=== PATIENT | male | born 1955 | race Caucasian/White ===

== ENCOUNTER 2019-11-26 19:17 | Inpatient (IN) | payer OTHER ==
[~2019-11-26] VITALS: Ht 170.2 cm; Wt 68.8 kg
--- NOTE | 2019-11-26 19:30 | ED Fall/Injury ---
General Chief Complaint: Lower Extremity Stated Complaint: RIGHT HIP PAIN Source: patient, EMS History of Present Illness Date Seen by Provider: Nov 26, 2019 Time Seen by Provider: 19:17 Initial Comments 64 yo M that had fallen on pavement tonight and had R hip pain. He was unable to move right leg or stand due to the pain. He has a history of diabetes. He denies hitting his head or losing consciousness. He has no numbness or tingling in his legs. He has severe pain in right hip that is worse with any movement in the hip or leg on right side. He has not tried taking anything for pain. Allergies and Home Medications Allergies Coded Allergies: hydrocodone (Verified Allergy, Unknown, 11/26/19) Patient Home Medication List Home Medication List Reviewed: Yes Review of Systems Review of Systems Constitutional: No chills, No fever Eyes: Denies Blurred Vision Ears, Nose, Mouth, Throat: no symptoms reported Respiratory: no symptoms reported Cardiovascular: no symptoms reported Gastrointestinal: no symptoms reported Genitourinary: no symptoms reported Musculoskeletal: see HPI Skin: no symptoms reported Psychiatric/Neurological: No Symptoms Reported Past Stxopuo-Smikbu-Vpfjcc Hx Past Med/Social Hx: Reviewed Nursing Past Med/Soc Hx Patient Social History Smoking Status: Current Everyday Smoker Past Medical History Surgeries: Yes Nose (cancer on nose) Cardiac: No Neurological: No Genitourinary: No Gastrointestinal: No Musculoskeletal: No Endocrine: Yes Diabetes, Non-Insulin dep Physical Exam Vital Signs Vital Signs - First Documented 11/26/19 19:29 Temp 36.8 Pulse 92 Resp 20 B/P (MAP) 150/77 (101) Pulse Ox 93 O2 Delivery Room Air Capillary Refill : Height, Weight, BMI Height: '" Weight: lbs. oz. kg; BMI Method: General Appearance: WD/WN, moderate distress (complains pain in right hip) HEENT: pharynx normal Neck: non-tender, full range of motion, supple, normal inspection Cardiovascular: normal peripheral pulses, regular rate, rhythm Respiratory: chest non-tender, lungs clear, normal breath sounds Gastrointestinal: normal bowel sounds, soft, no pulsatile mass Extremities: no pedal edema, normal capillary refill, other (pain in right hip worse with movement and palpation. shortening of right leg) Neurologic/Psychiatric: manager [place] II-XII nml as tested, no motor/sensory deficits, alert, normal mood/affect, oriented x 3 Skin: normal color, warm/dry [place] Coma Score Best Eye Response: (4) Open Spontaneously Best Verbal Response: (5) Oriented Best Motor Response: (6) Obeys Commands Avelino Total: 15 Progress/Results/Core Measures Results/Orders Lab Results Laboratory Tests Test 11/26/19 19:55 Range/Units White Blood Count 9.8 4.3-11.0 10^3/uL Red Blood Count 4.20 L 4.35-5.85 10^6/uL Hemoglobin 12.9 L 13.3-17.7 G/DL Hematocrit 40 40-54 % Mean Corpuscular Volume 95 80-99 FL Mean Corpuscular Hemoglobin 31 25-34 PG Mean Corpuscular Hemoglobin Concent 32 32-36 G/DL Red Cell Distribution Width 12.7 10.0-14.5 % Platelet Count 203 130-400 10^3/uL Mean Platelet Volume 9.4 7.4-10.4 FL Neutrophils (%) (Auto) 82 H 42-75 % Lymphocytes (%) (Auto) 12 12-44 % Monocytes (%) (Auto) 5 0-12 % Eosinophils (%) (Auto) 0 0-10 % Basophils (%) (Auto) 0 0-10 % Neutrophils # (Auto) 8.0 H 1.8-7.8 X 10^3 Lymphocytes # (Auto) 1.2 1.0-4.0 X 10^3 Monocytes # (Auto) 0.5 0.0-1.0 X 10^3 Eosinophils # (Auto) 0.0 0.0-0.3 10^3/uL Basophils # (Auto) 0.0 0.0-0.1 10^3/uL Sodium Level 138 135-145 MMOL/L Potassium Level 4.7 3.6-5.0 MMOL/L Chloride Level 97 L 98-107 MMOL/L Carbon Dioxide Level 25 21-32 MMOL/L Anion Gap 16 H 5-14 MMOL/L Blood Urea Nitrogen 18 7-18 MG/DL Creatinine 1.73 H 0.60-1.30 MG/DL Estimat Glomerular Filtration Rate 40 BUN/Creatinine Ratio 10 Glucose Level 341 H 70-105 MG/DL Calcium Level 9.9 8.5-10.1 MG/DL Corrected Calcium 9.6 8.5-10.1 MG/DL Total Bilirubin 0.5 0.1-1.0 MG/DL Aspartate Amino Transf (AST/SGOT) 23 5-34 U/L Alanine Aminotransferase (ALT/SGPT) 17 0-55 U/L Alkaline Phosphatase 94 40-136 U/L Total Protein 7.1 6.4-8.2 GM/DL Albumin 4.4 3.2-4.5 GM/DL My Orders Orders - ANNIA GLASS MD Pelvis With Right Hip 2-3 View (11/26/19 19:29) Comprehensive Metabolic Panel (11/26/19 19:48) Ua Culture If Indicated (11/26/19 19:48) Ed Iv/Invasive Line Start (11/26/19 19:48) Cbc With Automated Diff (11/26/19 19:48) Fentanyl Injection (Sublimaze Injection (11/26/19 20:00) Medications Given in ED Current Medications Medications Dose Ordered Sig/Kd Route Start Time Stop Time Status Last Admin Dose Admin Fentanyl Citrate 25 mcg ONCE ONCE IVP 11/26/19 20:00 11/26/19 20:01 DC 11/26/19 20:03 25 MCG Vital Signs/I&O 11/26/19 19:29 Temp 36.8 Pulse 92 Resp 20 B/P (MAP) 150/77 (101) Pulse Ox 93 O2 Delivery Room Air Progress Progress Note #1: Progress Note obtain xray of pelvis and right hip. elevate the right leg to help with pain. pt refused medicine until we had xrays to see what was going on with his hip. Progress Note #2: Progress Note Xrays show femoral neck fracture on right hip. mild impaction. Updated pt and family and they were ok with seeing Dr. Anaya. Will order basic labs and fentanyl for pain. Check with Dr. Anaya about pt and hospitalist about admit Progress Note #3: Progress Note Labs appear stable. Dr. Anaya was ok with consult and Dr. Chan was ok with admit. Diagnostic Imaging Diagonstic Imaging: Xray Plain Films/CT/US/NM/MRI: pelvis, hip Comments NAME: ASHLEE REYNOLDS [facility] REC#: [id number] PT STATUS: REG ER : 1955 PHYSICIAN: ANNIA GLASS MD ADMIT DATE: 11/26/19/ER FS Draft Date of Exam:11/26/19 PELVIS WITH RIGHT HIP 2-3 VIEW INDICATION: Fall. Pain. COMPARISON: None FINDINGS: Frontal radiographic view of the pelvis and two dedicated radiographic views of the right hip were obtained. There is acute obliquely oriented fracture through the femoral neck. There does appear to be perhaps slight impaction at the fracture site. Femoral acetabular joint space is otherwise preserved, although there are moderate degenerative changes of the right hip. Severe osteoarthritic changes are also noted on the left. There is, however, no evidence of acute fracture of the left hip. Osseous pelvis is intact. No unexpected radiopaque foreign bodies are seen. IMPRESSION: 1. Acute fracture of the proximal right femur as above. Dictated on workstation # [id number] Dict: 11/26/191944 Trans: 11/26/191948 SG [id number] Interpreted by: BETITO WELLS MD Electronically signed by: Departure Communication (Admissions) Time/Spoke to Admitting Phy: 20:44 d/w Dr. Chan and will admit for hip fracture and have Dr. Anaya plan on surgery in am Time/Spoke to Consulting Phy: 20:34 D/w Dr. Anaya from Orthopedics and will have pt admit to hospitalist and then plan to do surgery in am after medically cleared Impression Primary Impression: Closed impacted fracture of right hip Qualified Codes: S72.091A - Other fracture of head and neck of right femur, initial encounter for closed fracture Disposition: ADMITTED INPATIENT Condition: Stable Admissions Decision to Admit Reason: Admit from ER (General) Decision to Admit/Date: Nov 26, 2019 Time/Decision to Admit Time: 20:44 ANNIA GLASS MD Nov 26, 2019 19:30
--- NOTE | 2019-11-26 19:50 | Diagnostic Imaging Report ---
INDICATION: Fall. Pain. COMPARISON: None FINDINGS: Frontal radiographic view of the pelvis and two dedicated radiographic views of the right hip were obtained. There is acute obliquely oriented fracture through the femoral neck. There does appear to be perhaps slight impaction at the fracture site. Femoral acetabular joint space is otherwise preserved, although there are moderate degenerative changes of the right hip. Severe osteoarthritic changes are also noted on the left. There is, however, no evidence of acute fracture of the left hip. Osseous pelvis is intact. No unexpected radiopaque foreign bodies are seen. IMPRESSION: 1. Acute fracture of the proximal right femur as above. Dictated by: Dictated on workstation # [id number]
[2019-11-26] MEDS ORDERED: fentaNYL INJECTION 100 MCG/2 ML AMP IVP ONE (20:00)
[2019-11-26 20:05] LABS: HEMOGLOBIN 12.9 G/DL (13.3-17.7); MEAN CORPUSCULAR HEMOGLOBIN 31 PG (25-34); WHITE BLOOD COUNT 9.8 10^3/uL (4.3-11.0)
[2019-11-26 20:06] LABS: BASOPHILS % (AUTO) 0 % (0-10); EOSINOPHILS % (AUTO) 0 % (0-10); HEMATOCRIT 40 % (40-54); LYMPHOCYTES # (AUTO) 1.2 X 10^3 (1.0-4.0); LYMPHOCYTES % (AUTO) 12 % (12-44); MEAN CORPUSCULAR HGB CONC 32 G/DL (32-36); MEAN CORPUSCULAR VOLUME 95 FL (80-99); MEAN PLATELET VOLUME 9.4 FL (7.4-10.4); MONOCYTES # (AUTO) 0.5 X 10^3 (0.0-1.0); MONOCYTES % (AUTO) 5 % (0-12); NEUTROPHILS % (AUTO) 82 % (42-75); PLATELET COUNT 203 10^3/uL (130-400); RED CELL DISTRIBUTION WIDTH 12.7 % (10.0-14.5)
[2019-11-26 20:38] LABS: POTASSIUM 4.7 MMOL/L (3.6-5.0)
[2019-11-26 20:39] LABS: ALBUMIN 4.4 GM/DL (3.2-4.5); BILIRUBIN,TOTAL 0.5 MG/DL (0.1-1.0); CALCIUM 9.9 MG/DL (8.5-10.1); CREATININE SERUM 1.73 MG/DL (0.60-1.30); TOTAL PROTEIN 7.1 GM/DL (6.4-8.2)
--- NOTE | 2019-11-26 21:10 | NUR ---
Dispatch is called at this time. EMS is going to get paged out.
--- NOTE | 2019-11-26 22:27 | NUR ---
DAILY,ASHLEE admitted to room 416-1, with an admitting diagnosis of RIGHT HIP FRACTURE, on 11/26/19 from [facility] ED via [facility], accompanied by EMS STAFF.DAILY,ASHLEE introduced to surroundings, call light, bed controls, phone, TV, temperature control, lights, meal times, smoking policy, visitor policy, side rail policy, bathrooms and showers. Patient Rights given to patient in the handbook. DAILY,ASHLEE verbalizes understanding that [facility] is not responsible for the loss or damage to any personal effects or valuables that are kept in the patients procession during their hospitalization. THE PATIENT'S PLAN OF CARE WAS DISCUSSED WITH THE PATIENT, HE VERBALIZED UNDERSTANDING & DENIED ANY QUESTIONS AT THIS TIME. Patient was informed about the Rapid Response Team and its purpose.
[2019-11-26 22:31] VITALS: BP 155/84
[2019-11-26] MEDS ORDERED: ONDANSETRON 4 MG/2 ML (SDV) Z0FRAN IV PRN (23:00)
--- NOTE | 2019-11-26 23:00 | NUR ---
DURING THE ADMISSION PROCESS PT STATED HE DID NOT WANT THE FLU VACCINE DURING HIS HOSPITAL STAY, PT STATED THAT THE WOULD SPEAK TO HIS PRIMARY CARE PROVIDER ABOUT IT AFTER DISCHARGE.
[2019-11-26] MEDS: NS IV 1000 ML 1,000 ML IV SCH (23:08)
[2019-11-26] MEDS: morphine INJ 4 MG/ML 1 ML (VIAL/SYRINGE) IV PRN (23:08)
[2019-11-26 23:50] VITALS: BP 136/86
[2019-11-27] VITALS (14 sets, daily range): BP systolic 119–160; BP diastolic 72–95
--- NOTE | 2019-11-27 01:08 | NUR ---
0000-PT IS REFUSING ICE PACKS FOR RIGHT HIP.
[2019-11-27] MEDS: morphine INJ 4 MG/ML 1 ML (VIAL/SYRINGE) IV PRN ×5 (02:27→20:45)
--- NOTE | 2019-11-27 06:21 | NUR ---
0400 & 0600 pt was offered ice for his right hip, pt continues to refuse-pt educated on the purpose of the ice, for relieve of pain & decrease swelling-pt continues to refuse.
--- NOTE | 2019-11-27 07:30 | Diagnostic Imaging Report ---
EXAMINATION: Chest radiograph, portable AP view. DATE: 11/27/2019 12:11 AM hours. INDICATION: 64-year-old male, fall. COMPARISON: None. FINDINGS: Heart size and mediastinal contours are unremarkable. There is no identified pneumothorax. There is no large pleural effusion. There is somewhat curvilinear appearing opacification overlying the right upper lobe. There is no additional identified potential focal airspace consolidation. IMPRESSION: 1. Nonspecific opacification projecting over the right upper lobe which is somewhat curvilinear in appearance. CT chest without contrast would be recommended for further evaluation. Dictated by: Dictated on workstation # [id number]
--- NOTE | 2019-11-27 08:06 | NUR ---
CXR RESULTS IN. EKG AND CXR WERE SENT TO DR. JUNG. SHE SAID TO CONTACT DR. YOUNG. DR. YOUNG SAID TO CONTACT SEBASTIÁN. SEBASTIÁN STATED THE CXR WON'T DELAY THE SURGERY. NOTIFY DR. RICHEY SO THAT HE IS AWARE.
--- NOTE | 2019-11-27 08:09 | Progress Note-Pre Operative ---
Pre-Operative Progress Note H&P Reviewed The H&P was reviewed, patient examined and no changes noted. Date Seen by Provider: Nov 27, 2019 Time Seen by Provider: 08:09 Date H&P Reviewed: Nov 27, 2019 Time H&P Reviewed: 08:09 Pre-Operative Diagnosis: right neck of fenur fracture JARON DEWEY MD Nov 27, 2019 08:09
--- NOTE | 2019-11-27 08:10 | Progress Note-Post Operative ---
Post-Operative Progess Note Surgeon (s)/Evp Chief Exploration Officer (s) Surgeon JARON DEWEY MD Evp Chief Exploration Officer: Johnny Harrison Pre-Operative Diagnosis right neck of femur fracture Post-Operative Diagnosis right neck of femur fracture Procedure & Operative Findings Date of Procedure 11/27/19 Procedure Performed/Findings right hip bipolar replacement Anesthesia Type GETA Estimated Blood Loss Estimated blood loss (mL): 150 ml Specimens/Packing Specimens Removed femoral head Packing: none JARON DEWEY MD Nov 27, 2019 08:10
--- NOTE | 2019-11-27 08:26 | NUR ---
OFF THE FLOOR AT THIS TIME TO GO TO SURGERY.
[2019-11-27] MEDS ORDERED: ONDANSETRON 4 MG/2 ML (SDV) Z0FRAN ONE (08:27)
[2019-11-27] MEDS ORDERED: ROCURONIUM 10 MG/ML 5 ML SYRINGE IV ONE (08:27)
[2019-11-27] MEDS ORDERED: proPOfol 200 MG/20 ML (DIPRIVAN) VIAL IV ONE (08:27)
[2019-11-27] MEDS ORDERED: LIDOCAINE PF 2% 5 ML (XYLOCAINE) VIAL ONE ×2 (08:27→09:39)
[2019-11-27] MEDS ORDERED: fentaNYL INJECTION 100 MCG/2 ML AMP ONE ×2 (08:28→09:27)
[2019-11-27] MEDS ORDERED: MIDAZOLAM 2 MG/2 ML (VERSED) VIAL ONE (08:28)
[2019-11-27] MEDS: LACTATED RINGERS 1,000 ML IV PRN ×2 (08:35→09:23)
[2019-11-27] MEDS ORDERED: oxyCODONE/APAP 5/325MG (PERCOCET 5) TABLET PO PRN (08:45)
[2019-11-27] MEDS ORDERED: morphine INJ 4 MG/ML 1 ML (VIAL/SYRINGE) IVP PRN (08:45)
[2019-11-27] MEDS ORDERED: ONDANSETRON 4 MG/2 ML (SDV) Z0FRAN IVP PRN ×2 (08:45→10:45)
[2019-11-27] MEDS ORDERED: ceFAZolin 2 GM/50 ML NS 50 ML IV ONE (08:50)
[2019-11-27] MEDS ORDERED: morphine INJ 10 MG/ML 1ML (SYR OR VIAL) ONE (09:23)
[2019-11-27] MEDS: NS IV 1000 ML 1,000 ML IV SCH ×2 (09:33→13:01)
[2019-11-27] MEDS ORDERED: SEVOFLURANE (ULTANE) 15 ML INHAL SOLN ONE ×2 (09:39→11:15)
[2019-11-27] MEDS ORDERED: NEOSTIGMINE 3 MG/3 ML VIAL ONE (09:39)
[2019-11-27] MEDS ORDERED: GLYCOPYRROLATE 0.2 MG/ML (ROBINUL) 2 ML VIAL ONE (09:39)
[2019-11-27] MEDS ORDERED: BUPIVACAINE 0.5% 30 ML (SENSORCAINE) VIAL ONE (09:45)
[2019-11-27] MEDS ORDERED: PHENYLEPHRINE 100 MCG/ML 10 ML (ANESTHESIA) SYR ONE (09:48)
[2019-11-27] MEDS ORDERED: MEPERIDINE (DEMEROL) INJ 50 MG/ML IVP ONE (10:45)
[2019-11-27] MEDS ORDERED: HYDROmorphone 2 MG/ML VIAL (DILAUDID) IV ONE (10:45)
[2019-11-27] MEDS ORDERED: morphine INJ 10 MG/ML 1ML (SYR OR VIAL) IVP ONE (10:45)
[2019-11-27] MEDS ORDERED: PROMETHAZINE INJ 25 MG/ML (PHENERGAN) AMP IVP ONE (10:45)
[2019-11-27] MEDS ORDERED: RT-ALBUTEROL SULF 2.5 MG/3 ML PRE-MIX VIAL INH ONE (10:45)
--- NOTE | 2019-11-27 10:57 | HISTORY AND PHYSICAL ---
DATE OF SERVICE: INPATIENT CONSULTATION AND HISTORY AND PHYSICAL REASON FOR CONSULTATION: Right neck of femur fracture. HISTORY OF PRESENT ILLNESS: The patient is a 64-year-old gentleman who fell yesterday afternoon in [place]. He drove to drop back to [place], his hometown, where he was unable to get out of his automobile. He called EMS and presented to the emergency room at [place] where he was found to have a femoral neck fracture. He was transferred for definitive care. He denies antecedent hip pain. He reports pain in his groin. REVIEW OF SYSTEMS: No recent chest pain, shortness of breath or dysuria. PAST MEDICAL HISTORY: Hypertension, diabetes mellitus. PAST SURGICAL HISTORY: Skin cancer of the nose. MEDICATIONS: Metformin and antihypertensive. ALLERGIES: HYDROCODONE. SOCIAL HISTORY: The patient is a smoker. PHYSICAL EXAMINATION: GENERAL: The patient is well developed, well-nourished, in minimal distress. HEENT: Normocephalic, atraumatic. Pupils are equal, round, reactive to light. Oropharynx is clear. NECK: Supple, no lymphadenopathy. LUNGS: Clear to auscultation bilaterally. HEART: Regular rate and rhythm. ABDOMEN: Soft, nontender, nondistended. EXTREMITIES: The right lower extremity demonstrates pain laterally to palpation. He has pain with internal and external rotation of the hip, mild shortening is noted. Pulses are symmetric. He has intact dorsiflexion and plantarflexion of the toes. IMPRESSION: Right femoral neck fracture. PLAN: Right hip endoprosthesis. The risks, benefits, options, ramifications and recovery were discussed at length with the patient. He understands and wishes to proceed. Job ID: [id number] DocumentID: [id number] Dictated Date: 11/27/2019 08:16:13 Tracer Lathe Set Up Operator Date: 11/27/2019 10:57:22 Dictated By: JARON DEWEY MD
--- NOTE | 2019-11-27 11:22 | Diagnostic Imaging Report ---
INDICATION: Postop right hip TECHNIQUE: Single postoperative view of the right hip 10:59 AM. CORRELATION STUDY: 11/26/2019 FINDINGS: Interval surgery with a unipolar right hip arthroplasty. The alignment appears to be anatomic as visualized on this single projection. Remainder of the right hemipelvis otherwise unchanged and unremarkable. Soft tissue gas collections and skin mirna. IMPRESSION: 1. Postoperative changes of right hip arthroplasty. Dictated by: Dictated on workstation # [id number]
--- NOTE | 2019-11-27 11:45 | NUR ---
PT ARRIVED BACK TO FLOOR AND RECEIVED REPORT FROM BLAYNE FLORES. PT RECOVERY WAS GOOD BUT HE DID DROP IN O2 SATS 88-89% ON 10 L. PT CONTINUES ON MASK WHILE SLEEPING AND WE CAN WEEN TO A NC. PT CURRENTLY ON 4 L AT 96%. PEDAL PULSES INTACT BILATERALLY. ISLAND DRESSING IN PLACE ON SURGERY SITE. CDI. NO GUEVARA. 200 OUTPUT WHILE IN SURGERY. CAP REFILL OF PT NAILS OF SURGICAL FOOT IS WNL. PT EX AND SON ARRIVED EARLIER BUT HE WAS IN SURGERY SO THEY LEFT. PT WALLET AND KEYS ARE LOCKED IN DRAWER.
--- NOTE | 2019-11-27 12:34 | Consultation-Cardiology ---
HPI-Cardiology Cardiology Consultation Date of Consultation 11/27/19 Date of Admission Time Seen by Provider: 12:32 Indication: Abnormal EKG HPI 64-year-old gentleman, no previous cardiac history, had a hip fracture, underwent surgery this morning, recovering slowly, denied any chest pain or shortness of breath. Denied any palpitation. No previous cardiac history. He was noted to have an abnormal EKG with left anterior fascicular block and T-wave inversion in the anterior leads on his EKG Home Medications & Allergies Allergies: Coded Allergies: hydrocodone (Verified Allergy, Unknown, 11/26/19) Medications list is not available at this point PHN-Egyait-Utkltv Hx Patient Social History Alcohol Use: Denies Use Recreational Drug Use: No Smoking Status: Current Everyday Smoker 2nd Hand Smoke Exposure: No Recent Foreign Travel: No Recent Infectious Disease Expo: No Recent Hopitalizations: No Immunizations Up To Date Date of Pneumonia Vaccine: Dec 27, 2018 Past Medical History Discussed below Family Medical History Family Medical Hx Noncontributory Family History: Patient reports no known family medical history. Review of Systems-General Review of Systems Constitutional: No chills, No fever; other (Lethargic, recovering from surgery, denied any pain) Respiratory: no symptoms reported Cardiovascular: no symptoms reported Gastrointestinal: no symptoms reported Genitourinary: no symptoms reported Musculoskeletal: see HPI Skin: no symptoms reported Psychiatric/Neurological: No Symptoms Reported Reviewed Test Results Reviewed Test Results Lab Laboratory Tests Test 11/26/19 19:55 11/26/19 23:52 11/27/19 06:16 Range/Units White Blood Count 9.8 4.3-11.0 10^3/uL Red Blood Count 4.20 L 4.35-5.85 10^6/uL Hemoglobin 12.9 L 13.3-17.7 G/DL Hematocrit 40 40-54 % Mean Corpuscular Volume 95 80-99 FL Mean Corpuscular Hemoglobin 31 25-34 PG Mean Corpuscular Hemoglobin Concent 32 32-36 G/DL Red Cell Distribution Width 12.7 10.0-14.5 % Platelet Count 203 130-400 10^3/uL Mean Platelet Volume 9.4 7.4-10.4 FL Neutrophils (%) (Auto) 82 H 42-75 % Lymphocytes (%) (Auto) 12 12-44 % Monocytes (%) (Auto) 5 0-12 % Eosinophils (%) (Auto) 0 0-10 % Basophils (%) (Auto) 0 0-10 % Neutrophils # (Auto) 8.0 H 1.8-7.8 X 10^3 Lymphocytes # (Auto) 1.2 1.0-4.0 X 10^3 Monocytes # (Auto) 0.5 0.0-1.0 X 10^3 Eosinophils # (Auto) 0.0 0.0-0.3 10^3/uL Basophils # (Auto) 0.0 0.0-0.1 10^3/uL Sodium Level 138 135-145 MMOL/L Potassium Level 4.7 3.6-5.0 MMOL/L Chloride Level 97 L 98-107 MMOL/L Carbon Dioxide Level 25 21-32 MMOL/L Anion Gap 16 H 5-14 MMOL/L Blood Urea Nitrogen 18 7-18 MG/DL Creatinine 1.73 H 0.60-1.30 MG/DL Estimat Glomerular Filtration Rate 40 BUN/Creatinine Ratio 10 Glucose Level 341 H 70-105 MG/DL Calcium Level 9.9 8.5-10.1 MG/DL Corrected Calcium 9.6 8.5-10.1 MG/DL Total Bilirubin 0.5 0.1-1.0 MG/DL Aspartate Amino Transf (AST/SGOT) 23 5-34 U/L Alanine Aminotransferase (ALT/SGPT) 17 0-55 U/L Alkaline Phosphatase 94 40-136 U/L Total Protein 7.1 6.4-8.2 GM/DL Albumin 4.4 3.2-4.5 GM/DL Glucometer 294 H 212 H 70-110 MG/DL Physical Exam Physical Exam Vital Signs Vital Signs - First Documented 11/26/19 19:29 Temp 36.8 Pulse 92 Resp 20 B/P (MAP) 150/77 (101) Pulse Ox 93 O2 Delivery Room Air Capillary Refill : Less Than 3 SecondsLess Than 3 Seconds Height, Weight, BMI Height: '" Weight: lbs. oz. kg; 23.75 BMI Method: General Appearance: No Apparent Distress, WD/WN Eyes: Bilateral Eye Normal Inspection, Bilateral Eye PERRL, Bilateral Eye EOMI HEENT: PERRL/EOMI, TMs Normal, Normal ENT Inspection, Pharynx Normal, Moist Mucous Membranes Neck: Full Range of Motion, Normal Inspection, Non Tender, Supple, Carotid Bruit Respiratory: Chest Non Tender, Normal Breath Sounds, No Accessory Muscle Use, No Respiratory Distress Cardiovascular: Regular Rate, Rhythm, No Edema, No Gallop, No JVD, No Murmur, Normal Peripheral Pulses Gastrointestinal: Normal Bowel Sounds, No Organomegaly, No Pulsatile Mass, Non Tender, Soft Back: Normal Inspection, No CVA Tenderness, No Vertebral Tenderness Extremity: Normal Capillary Refill, Normal Inspection, Normal Range of Motion, Non Tender, No Calf Tenderness, No Pedal Edema Neurologic/Psychiatric: Alert, Oriented x3, No Motor/Sensory Deficits, Normal Mood/Affect Skin: Normal Color, Warm/Dry Lymphatic: No Adenopathy A/P-Cardiology Admission Diagnosis Abnormal EKG Hip fracture Diabetes mellitus Assessment/Plan Abnormal EKG with left anterior fascicular block, T-wave inversion in anterior lead, a symptomatically at this time, repeat EKG in the morning and monitor Hip fracture, status post surgical repair, recovering slowly. Diabetes mellitus, followed and managed by primary care physician Clinical Quality Measures DVT/VTE Risk/Contraindication: Risk Factor Score Per Nursin RFS Level Per Nursing on Admit: 4+=Very High LAURENCE RICHEY MD Nov 27, 2019 12:34
--- NOTE | 2019-11-27 13:14 | Consultation - Hospitalist ---
HPI History of Present Illness: HPI/Chief Complaint Chief complaint: Right hip fracture status post uncomplicated repair by Dr. Anaya POD # 0 History of present illness: This is a 64-year-old white male who has a past medical history of diabetes mellitus and current smoking sees Dr. Davies on a regular basis who presented after a fall on the pavement last night suffering a right hip fracture which was repaired in an uncomplicated fashion by Dr. Anaya. Currently he is still resolving from anesthesia effect and he has minimal to tell me. He did have an abnormal EKG Dr. Meza has been consulted but that did not preclude forging ahead with surgery since the benefits outweighed the medical risk in order to regain function in independent living. I did review his home medications and restarted most and will initiate a sliding scale for hyperglycemia. Apparently he does smoke every day so I did offer nicotine patch 2. Will initiate carbohydrate limited diet. Source: RN/MD Exam Limitations: clinical condition Date Seen 11/27/19 Attending Physician Jagruti Chan MD PCP Rosalind Davies MD Referring Physician Date of Admission Nov 26, 2019 at 20:44 Home Medications & Allergies Home Medications Reviewed patient Home Medication Reconciliation performed by pharmacy medication reconciliations ammonia technician and/or nursing. Patients Allergies have been reviewed. Allergies Allergies Coded Allergies hydrocodone (Verified Allergy, Unknown, 11/26/19) Past Ubtgxmj-Vaywvl-Npkejr Hx Past Med/Social Hx: Reviewed Nursing Past Med/Soc Hx, Reviewed and Corrections made Patient Social History Marrital Status: single Employed/Student: employed (unsure since drowsy at time of interview) Alcohol Use: Denies Use Recreational Drug Use: No Smoking Status: Current Everyday Smoker 2nd Hand Smoke Exposure: No Recent Foreign Travel: No Contact w/other who traveled: No Recent Hopitalizations: No Recent Infectious Disease Expo: No Immunizations Up To Date Date of Pneumonia Vaccine: Dec 27, 2018 Seasonal Allergies Seasonal Allergies: No Past Medical History Surgeries: 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 Review of Systems Constitutional: see HPI Musculoskeletal: joint pain Physical Exam Physical Exam Vital Signs Vital Signs - First Documented 11/26/19 19:29 Temp 36.8 Pulse 92 Resp 20 B/P (MAP) 150/77 (101) Pulse Ox 93 O2 Delivery Room Air Capillary Refill : Less Than 3 SecondsLess Than 3 Seconds Height, Weight, BMI Height: '" Weight: lbs. oz. kg; 23.75 BMI Method: General Appearance: No Apparent Distress, WD/WN, Chronically ill Eyes: Bilateral Eye Normal Inspection, Bilateral Eye PERRL, Bilateral Eye EOMI HEENT: PERRL/EOMI, TMs Normal, Normal ENT Inspection, Pharynx Normal, Moist Mucous Membranes Neck: Full Range of Motion, Normal Inspection, Non Tender, Supple, Carotid Bruit Respiratory: Chest Non Tender, Normal Breath Sounds, No Accessory Muscle Use, No Respiratory Distress, Decreased Breath Sounds Cardiovascular: Regular Rate, Rhythm, No Edema, No Gallop, No JVD, No Murmur, Normal Peripheral Pulses Gastrointestinal: Normal Bowel Sounds, No Organomegaly, No Pulsatile Mass, Non Tender, Soft Back: Normal Inspection, No CVA Tenderness, No Vertebral Tenderness Extremity: Normal Capillary Refill, Normal Inspection, Normal Range of Motion (except right leg), Non Tender, No Calf Tenderness, No Pedal Edema Neurologic/Psychiatric: Alert, Oriented x3, No Motor/Sensory Deficits, Normal Mood/Affect Skin: Normal Color, Warm/Dry Lymphatic: No Adenopathy Results Results/Procedures Labs Laboratory Tests 11/26/19 19:55 Patient resulted labs reviewed. Assessment/Plan Assessment and Plan Assess & Plan/Chief Complaint Assessment: Status post right hip fracture underwent uncomplicated repair by Dr. roper to POD # 0 Current smoker Abnormal EKG consulted Dr. Meza Diabetes mellitus out of control on oral hypoglycemic agent restarting and doing sliding scale insulin regimen with Accu-Cheks Presumed COPD on Singulair and ordering DuoNeb nebulizer treatments Hypothyroidism Plan: Check iron level tomorrow labs IS DuoNeb [address] Meza appreciated Home meds Accu-Cheks Sliding scale Oral hypoglycemic agent Diagnosis/Problems Diagnosis/Problems (1) Closed impacted fracture of right hip Status: Acute Qualifiers: Encounter type: initial encounter Qualified Codes: S72.091A - Other fracture of head and neck of right femur, initial encounter for closed fracture (2) Diabetes mellitus (3) Smoker (4) COPD (chronic obstructive pulmonary disease) (5) Hypothyroidism Clinical Quality Measures DVT/VTE Risk/Contraindication: Risk Factor Score Per Nursin RFS Level Per Nursing on Admit: 4+=Very High SHERIN LOWERY DO Nov 27, 2019 13:14
--- NOTE | 2019-11-27 14:30 | Physical Therapy Evaluation ---
PT Evaluation-General Medical Diagnosis Admission Date Nov 26, 2019 at 20:44 Medical Diagnosis: R femoral neck fracture with R hip bipolar prosthesis Onset Date: Nov 26, 2019 Therapy Diagnosis Therapy Diagnosis: decreased mobility Precautions Precautions/Isolations: Fall Prevention, Standard Precautions Weight Bear Status Right Lower Extremity: Right Weight Bearing/Tolerated Left Lower Extremity: Left Full Weight Bearing Referral Physician: KELLY Myers Reason for Referral: Evaluation/Treatment Medical History Pertinent Medical History: DM Additional Medical History tobacco use Current History Pt. fell on pavement and c/o R hip pain, found to have R femoral neck fracture. Reviewed History: Yes Social History Home: Single Level Current Living Status: Alone Prior Prior Level of Function SCALE: Activities may be completed with or without assistive devices. 1-Rcmticqvkm-zyttfle completes the activity by him/herself with no assistance from a helper. 5-Set-up or Clean-up Assistance-helper sets up or cleans up; patient completes activity. [place] assists only prior to or following the activity. 4-Supervision or Touching Assistance-helper provides verbal cues and/or touching/steadying and/or contact guard assistance as patient completes activity. Assistance may be provided throughout the activity or intermittently. 3-Partial/Moderate Assistance-helper does LESS THAN HALF the effort. [place] lifts, holds or supports trunk or limbs, but provides less than half the effort. 2-Substantial/Maximal Assistance-helper does MORE THAN HALF the effort. [place] lifts or holds trunk or limbs and provides more than half the effort. 6-Kokwsmeks-nfijjh does ALL the effort. Patient does none of the effort to complete the activity. Or, the assistance of 2 or more helpers is required for the patient to complete the activity. If activity was not attempted, code reason: 7-Patient Refused. 9-Not Applicable-not attempted and the patient did not perform the activity before the current illness, exacerbation or injury. 10-Not Attempted due to Environmental Limitations-(lack of equipment, weather restraints, etc.). 88-Not Attempted due to Medical Conditions or Safety Concerns. Bed Mobility: 6 Transfers (B,C,W/C): 6 Gait: 6 Stairs: 6 PT Evaluation-Current Subjective Pt. in bed asleep, easily awakens and agrees to PT. Pt. denies pain at present time. Pt/Family Goals home Objective Patient Orientation: Person, Place, Situation Attachments: Oxygen, IV ROM/Strength ROM Upper Extremities WNL ROM Lower Extremities WNL L LE, decreased R LE Strength Upper Extremities WNL Strength Lower Extremities WNL L LE, n/a R LE Integumentary/Posture Integumentary dressings at R hip from surgical procedure Bladder Incontinence: No Posture generally upright Neuromuscular (Tone, Coordination, Reflexes) unremarkable Sensory Vision: Functional Hearing: Functional Sensation Right Upper Extremit: Intact Sensation Left Upper Extremity: Intact Sensation Right Lower Extremit: Intact Sensation Left Lower Extremity: Intact Transfers Lying to Sitting/Side of Bed(Q: 4 Sit to Stand (QC): 4 Chair/Glh-gs-Ajhly Xfer(QC): 4 Gait Does the Patient Walk?: No and Walking Goal IS indicated Mode of Locomotion: Walk Anticipated Mode of Locomotion: Walk Balance Sitting Static: Good Sitting Dynamic: Fair Standing Static: Fair Standing Dynamic: Fair Treatment transfers, education of hip precautions Assessment/Needs Pt. is a 64 y.o. male s/p R hip fracture with THR who presents with decreased mobility and strength. Pt. is currently assist x 1 with transfers, did not attempt ambulation due to drowsiness from surgery this AM. Pt. would benefit from skilled PT to improve mobility and strength for return home. Rehab Potential: Good PT Director Of Cardiopulmonary Services Goals Director Of Cardiopulmonary Services Goals PT Skilled Nursing Goals Time Frame: Dec 04, 2019 Sit to Lying (QC): 6 Lying-Sitting on Side/Bed(QC): 6 Sit to Stand (QC): 6 Chair/Ebx-kk-Wfjvf Xfer(QC): 6 Does the Patient Walk: Yes Walk 150 ft (QC): 6 4 Steps (QC): 4 PT Plan Problem List Problem List: Activity Tolerance, Functional Strength, Safety, Balance, Gait, Transfer, Bed Mobility, ROM Treatment/Plan Treatment Plan: Continue Plan of Care Treatment Plan: Bed Mobility, Education, Functional Activity Justino, Functional Strength, Gait, Safety, Therapeutic Exercise, Transfers Treatment Duration: Dec 04, 2019 Frequency: 11 times per week Estimated Hrs Per Day: .5 hour per day Patient and/or Family Agrees t: Yes Time/GCodes Time In: 1305 Time Out: 1329 Total Billed Treatment Time: 24 Total Billed Treatment 1, HECTOR WILSON 15' MARY VILLEDA PT Nov 27, 2019 14:30
--- NOTE | 2019-11-27 14:42 | OPERATIVE REPORT ---
DATE OF SERVICE: 11/27/2019 PREOPERATIVE DIAGNOSIS: Right neck of femur fracture, closed, displaced. POSTOPERATIVE DIAGNOSIS: Right neck of femur fracture, closed, displaced. PROCEDURE: Right hip bipolar replacement. SURGEON: Vinicius Anaya MD JUVENILE CORRECTIONS OFFICER: Johnny Harrison, who assisted throughout the procedure and closed the incision. ANESTHESIA: General endotracheal by Anjum Pickard CRNA. ESTIMATED BLOOD LOSS: Approximately 150 mL. DRAINS: None. COMPLICATIONS: None. POSTOPERATIVE PLAN: Weightbearing as tolerated with hip precautions. MATERIALS: DePuy/Synthes pressfit five stem, 52 liner with 28+5 head. STATEMENT OF MEDICAL NECESSITY: The patient is a 64-year-old gentleman who fell yesterday and was found to have a closed displaced right femoral neck fracture. He was transferred here for definitive care. Due to the displaced nature of the fracture, it was recommended that the patient undergo operative fixation. DESCRIPTION OF PROCEDURE: After risks and benefits of procedure were discussed and questions were answered and informed consent was signed and placed on chart, the operative site was confirmed in the preoperative holding area initialed by the surgeon. The patient was then transferred to the operating room and after adequate levels of general endotracheal anesthetic were obtained, a timeout was called, confirming the operative site. The patient was carefully placed in the left lateral decubitus position, being careful to place an axillary roll and pad all bony prominences. The right hip and lower extremity were then prepped and draped in the usual sterile fashion. A longitudinal incision was made with a lateral approach utilized. Hemostasis was obtained with cautery. The iliotibial band was incised in line with the incision. The abductor tendon was excised leaving a 2 cm cuff for later reattachment. Hip capsulotomy was performed and the femoral neck cut was made using a guide. The fracture was found to be significantly displaced on entering the hip joint capsule. The head was removed and sized to a size 52. The acetabulum was copiously irrigated. No loose bodies were noted. The femur was then prepared first with a box chisel followed by the T-handle reamer and sequentially with the trials up to a size 5, the 5 fits snuggly. A neutral head with 52 liner was trialed. The hip was reduced and found to be stable in all planes with no impingement noted. The trials were removed. The joint was further irrigated with pulse lavage. The #5 press fit prosthesis was placed in 15 degrees of anteversion. The neck was then irrigated and the head liner construct was placed. The hip was reduced and taken through range of motion with no impingement noted and no instability noted in any plane. The hip joint was further irrigated. The abductor musculature and capsule were reapproximated with #5 Tevdek in evwbqy-qh-qpbpd interrupted fashion with an excellent repair obtained. The wound was further irrigated, #1 Vicryl was used to close the iliotibial band in a running fashion. The wound was further irrigated with pulse lavage. A 0 Vicryl was used to deep subcutaneous tissue, 2-0 Vicryl for the superficial subcutaneous tissue, mirna used on the skin incision, was infiltrated with plain Marcaine. A soft dressing and abduction pillow were applied and the patient was transferred to the recovery room awake and in stable condition. Job ID: [id number] DocumentID: [id number] Dictated Date: 11/27/2019 10:04:20 Shim Plug Cutter Date: 11/27/2019 14:42:27 Dictated By: VINICIUS ANAYA MD
[2019-11-27] MEDS ORDERED: MONT10TA24 PO (14:58)
[2019-11-27] MEDS ORDERED: GLIP10TA13 PO (14:58)
[2019-11-27] MEDS ORDERED: CITA40TA11 PO (14:58)
[2019-11-27] MEDS ORDERED: LEVO50TA6 PO (14:58)
[2019-11-27] MEDS ORDERED: SIMV10TA26 PO (14:58)
[2019-11-27] MEDS ORDERED: NICOTINE 21 MG (NICODERM) PATCH TD PRN (15:00)
[2019-11-27] MEDS: inSUlin ASPART (NovoLOG) 1 UNIT/0.01 ML (CHARGE PER UNIT) SC SCH ×2 (15:42→20:47)
[2019-11-27] MEDS ORDERED: ceFAZolin INJECTION 1,000 MG in WATER (STERILE) FOR INJECTION 10 ML IV SCH (17:00)
[2019-11-27] MEDS: RT-ALBUTEROL/IPRATROPIUM 3 ML (DUONEB) VIAL INH SCH (20:16)
[2019-11-27] MEDS: SIMvastatin 10 MG (ZOCOR) TAB PO SCH (20:45)
[2019-11-27] MEDS: MONTELUKAST 10 MG (SINGULAIR) TAB PO SCH (20:45)
[2019-11-28] VITALS: BP 112/66
[2019-11-28] MEDS: morphine INJ 4 MG/ML 1 ML (VIAL/SYRINGE) IV PRN ×6 (00:04→23:16)
[2019-11-28] MEDS: NS IV 1000 ML 1,000 ML IV SCH ×3 (00:05→23:16)
--- NOTE | 2019-11-28 03:15 | NUR ---
2200-PT HAD NOT VOIDED SINCE HAVING SURGERY-BLADDER SCAN RESULTED 611 ML PT ATTEMPTING TO USE URINAL, NO SUCCESS-PT REQUESTING TO NOT HAVE A CATHETER 2300-PT STILL HAD NOT VOIDED & WAS VOICING DISCOMFORT. THIS RN CONTACTED DR. LOWERY-PRN ORDER TO STRAIGHT CATH 0-THIS RN WENT IN PT ROOM-PT HAD VOIDED 300 ML PALE YELLOW URINE
[2019-11-28 04:34] VITALS: BP 116/69
[2019-11-28] MEDS: ACETAMINOPHEN 325 MG TABLET PO PRN (04:51)
[2019-11-28 05:59] LABS: BASOPHILS % (AUTO) 0 % (0-10); EOSINOPHILS # (AUTO) 0.2 10^3/uL (0.0-0.3); EOSINOPHILS % (AUTO) 2 % (0-10); HEMATOCRIT 28 % (40-54); HEMOGLOBIN 8.8 G/DL (13.3-17.7); LYMPHOCYTES # (AUTO) 0.9 X 10^3 (1.0-4.0); LYMPHOCYTES % (AUTO) 11 % (12-44); MEAN CORPUSCULAR HEMOGLOBIN 31 PG (25-34); MEAN CORPUSCULAR HGB CONC 31 G/DL (32-36); MEAN CORPUSCULAR VOLUME 98 FL (80-99); MEAN PLATELET VOLUME 9.2 FL (7.4-10.4); MONOCYTES # (AUTO) 0.5 X 10^3 (0.0-1.0); MONOCYTES % (AUTO) 7 % (0-12); NEUTROPHILS # (AUTO) 6.2 X 10^3 (1.8-7.8); NEUTROPHILS % (AUTO) 80 % (42-75); PLATELET COUNT 149 10^3/uL (130-400); WHITE BLOOD COUNT 7.8 10^3/uL (4.3-11.0)
[2019-11-28 06:19] LABS: BILIRUBIN,TOTAL 0.6 MG/DL (0.1-1.0); CALCIUM 7.9 MG/DL (8.5-10.1); CREATININE SERUM 1.58 MG/DL (0.60-1.30); POTASSIUM 4.6 MMOL/L (3.6-5.0); TOTAL PROTEIN 4.9 GM/DL (6.4-8.2)
[2019-11-28] MEDS: inSUlin ASPART (NovoLOG) 1 UNIT/0.01 ML (CHARGE PER UNIT) SC SCH ×4 (06:20→21:10)
[2019-11-28] MEDS: glipiZIDE 5 MG (GLUCOTROL) TAB PO SCH ×2 (06:29→17:11)
[2019-11-28] MEDS: LEVOTHYROXINE 50 MCG (LEVOTHROID) TAB PO SCH (06:29)
[2019-11-28 08:00] VITALS: BP 124/68
[2019-11-28] MEDS: ENOXAPARIN 40 MG/0.4 ML (LOVENOX) SYR SC SCH (08:25)
[2019-11-28] MEDS: RT-ALBUTEROL/IPRATROPIUM 3 ML (DUONEB) VIAL INH SCH ×3 (08:47→19:51)
--- NOTE | 2019-11-28 09:17 | Anesthesia-General Post-Op ---
General Patient Condition Mental Status/LOC: Same as Preop Cardiovascular: Satisfactory Nausea/Vomiting: Absent Respiratory: Satisfactory Pain: Controlled Complications: Absent Post Op Complications Complications None Follow Up Care/Instructions Patient Instructions None needed. Anesthesia/Patient Condition Patient Condition Patient is doing well, no complaints, stable vital signs, no apparent adverse anesthesia problems. No complications reported per nursing. JACKIE MARES CRNA Nov 28, 2019 09:17
--- NOTE | 2019-11-28 09:24 | Progress Note ---
Standard Progress Note Progress Notes/Assess & Plan Date Seen by a Provider: Nov 28, 2019 Time Seen by a Provider: 09:22 Progress/Assessment & Plan no complaints Vital Signs Date Time Temp Pulse Resp B/P (MAP) Pulse Ox O2 Delivery O2 Flow Rate FiO2 11/28/19 08:15 OxyMask 11/28/19 04:34 37.8 112 18 116/69 (85) 95 Nasal Cannula 2.00 11/28/19 00:00 37.3 116 20 112/66 (81) 94 Nasal Cannula 2.00 11/27/19 20:45 OxyMask 11/27/19 20:16 97 OxyMask 4.00 11/27/19 20:15 97 OxyMask 4.00 11/27/19 20:00 37.3 97 18 119/83 (95) 99 OxyMask 4.00 11/27/19 16:00 36.7 101 20 132/84 (100) 98 OxyMask 4.00 11/27/19 11:46 36.4 97 18 138/77 (97) 94 OxyMask 5.00 11/27/19 11:45 36.5 20 135/73 (93) 98 OxyMask 4 11/27/19 11:45 OxyMask 4 11/27/19 11:40 20 135/73 (93) 99 OxyMask 4 11/27/19 11:30 20 120/72 (88) 96 OxyMask 5 11/27/19 11:30 OxyMask 5 11/27/19 11:20 20 127/81 (96) 95 OxyMask 5 11/27/19 11:15 OxyMask 5 11/27/19 11:10 20 127/81 (96) 95 OxyMask 6 11/27/19 11:05 93 OxyMask 5.00 11/27/19 11:00 OxyMask 6 11/27/19 11:00 20 156/95 (115) 95 OxyMask 10 11/27/19 10:55 20 156/95 (115) 95 10 11/27/19 10:45 OxyMask 10 11/27/19 10:45 20 156/95 (115) 95 OxyMask 10 11/27/19 10:35 36.5 20 160/89 (112) 93 OxyMask 10 11/27/19 10:35 OxyMask 10 I & O 11/28/19 07:00 Intake Total 5130 ml Output Total 1450 ml Balance 3680 ml Laboratory Tests Test 11/27/19 12:29 11/27/19 17:13 11/27/19 20:47 11/28/19 05:47 Range/Units Glucometer 228 H 231 H 143 H 70-110 MG/DL White Blood Count 7.8 4.3-11.0 10^3/uL Red Blood Count 2.87 L 4.35-5.85 10^6/uL Hemoglobin 8.8 #L 13.3-17.7 G/DL Hematocrit 28 L 40-54 % Mean Corpuscular Volume 98 80-99 FL Mean Corpuscular Hemoglobin 31 25-34 PG Mean Corpuscular Hemoglobin Concent 31 L 32-36 G/DL Red Cell Distribution Width 13.0 10.0-14.5 % Platelet Count 149 130-400 10^3/uL Mean Platelet Volume 9.2 7.4-10.4 FL Neutrophils (%) (Auto) 80 H 42-75 % Lymphocytes (%) (Auto) 11 L 12-44 % Monocytes (%) (Auto) 7 0-12 % Eosinophils (%) (Auto) 2 0-10 % Basophils (%) (Auto) 0 0-10 % Neutrophils # (Auto) 6.2 1.8-7.8 X 10^3 Lymphocytes # (Auto) 0.9 L 1.0-4.0 X 10^3 Monocytes # (Auto) 0.5 0.0-1.0 X 10^3 Eosinophils # (Auto) 0.2 0.0-0.3 10^3/uL Basophils # (Auto) 0.0 0.0-0.1 10^3/uL Sodium Level 136 135-145 MMOL/L Potassium Level 4.6 3.6-5.0 MMOL/L Chloride Level 106 98-107 MMOL/L Carbon Dioxide Level 22 21-32 MMOL/L Anion Gap 8 5-14 MMOL/L Blood Urea Nitrogen 15 7-18 MG/DL Creatinine 1.58 H 0.60-1.30 MG/DL Estimat Glomerular Filtration Rate 45 BUN/Creatinine Ratio 9 Glucose Level 178 H 70-105 MG/DL Calcium Level 7.9 L 8.5-10.1 MG/DL Corrected Calcium 8.7 8.5-10.1 MG/DL Total Bilirubin 0.6 0.1-1.0 MG/DL Aspartate Amino Transf (AST/SGOT) 20 5-34 U/L Alanine Aminotransferase (ALT/SGPT) 11 0-55 U/L Alkaline Phosphatase 62 40-136 U/L Total Protein 4.9 L 6.4-8.2 GM/DL Albumin 3.0 L 3.2-4.5 GM/DL Radiographs--HW well positioned without fracture RLE--dressing intact. Intact DF and PF of toes and ankle. Intact sensation to light touch throughout. Pulses symmetric s/p R hip bipolar PT/OT JARON DEWEY MD Nov 28, 2019 09:24
--- NOTE | 2019-11-28 10:26 | Cardiology Progress Note ---
Subjective Date Seen by Provider: Nov 28, 2019 Time Seen by Provider: 10:25 Subjective/Events-last exam Patient is laying down in bed, recovering from surgery. No new complaint. Review of Systems General: No Chills, No Night Sweats; Fatigue, Malaise; No Appetite, No Other HEENT: No Head Aches, No Visual Changes, No Eye Pain, No Ear Pain, No Dysphasia, No Sinus Congestion, No Post Nasal Drip, No Sore Throat, No Other Pulmonary: No Dyspnea, No Cough, No Pleuritic Chest Pain, No Other Cardiovascular: No: Chest Pain, Palpitations, Orthopnea, Paroxysmal Noc. Dyspnea, Edema, Lt Headedness, Other Objective-Cardiology Exam Last Set of Vital Signs Vital Signs 11/28/19 11/28/19 04:34 08:15 Temp 37.8 Pulse 112 Resp 18 B/P (MAP) 116/69 (85) Pulse Ox 95 O2 Delivery OxyMask O2 Flow Rate 2.00 Capillary Refill : Less Than 3 SecondsLess Than 3 Seconds I&O Intake and Output 11/28/19 00:00 Intake Total 3850 ml Output Total 950 ml Balance 2900 ml Intake Oral 800 ml IV Total 3050 ml Output Urine Total 600 ml Estimated Blood Loss 350 ml Bladder Scan Volume Amount 611 ml General: Alert, Oriented X3, Cooperative HEENT: Atraumatic, PERRLA Neck: Supple, No JVD, No Thyromegaly Lungs: Clear to Auscultation, Normal Air Movement Heart: Normal S1, Normal S2, No Murmurs, Other (Tachycardia) Abdomen: Normal Bowel Sounds, Soft, No Tenderness, No Hepatosplenomegaly, No Masses Extremities: No Clubbing, No Cyanosis, No Edema, Normal Pulses, No Tenderness/Swelling Skin: No Rashes, No Breakdown, Other (Had hip surgery) Neuro: Normal Speech, Normal Tone, Sensation Intact, Other Psych/Mental Status: Mental Status NL, Mood NL Results Lab Laboratory Tests 11/28/19 05:47 A/P-Cardiology Admission Diagnosis Abnormal EKG Hip fracture Diabetes mellitus Assessment/Plan Abnormal EKG with left anterior fascicular block, T-wave inversion in anterior lead, a symptomatically at this time, I will repeat EKG today. Tachycardia, sinus tachycardia, probably secondary to anemia postoperatively. Followed by primary care team Hip fracture, status post surgical repair, recovering slowly. Diabetes mellitus, followed and managed by primary care physician Clinical Quality Measures DVT/VTE Risk/Contraindication: Risk Factor Score Per Nursin RFS Level Per Nursing on Admit: 4+=Very High LAURENCE RICHEY MD Nov 28, 2019 10:26
[2019-11-28] MEDS ORDERED: IRON SUCROSE 200 MG/10 ML (VENOFER) VIAL IV ONE (10:45)
--- NOTE | 2019-11-28 12:02 | Progress Note - Hospitalist ---
Subjective HPI/CC On Admission Date Seen by Provider: Nov 28, 2019 Time Seen by Provider: 11:15 Chief complaint: Right hip fracture status post uncomplicated repair by Dr. Anaya POD # 0 History of present illness: This is a 64-year-old white male who has a past medical history of diabetes mellitus and current smoking sees Dr. Davies on a regular basis who presented after a fall on the pavement last night suffering a right hip fracture which was repaired in an uncomplicated fashion by Dr. Anaya. Currently he is still resolving from anesthesia effect and he has minimal to tell me. He did have an abnormal EKG Dr. Meza has been consulted but that did not preclude forging ahead with surgery since the benefits outweighed the medical risk in order to regain function in independent living. I did review his home medications and restarted most and will initiate a sliding scale for hyperglycemia. Apparently he does smoke every day so I did offer nicotine patch 2. Will initiate carbohydrate limited diet. Subjective/Events-last exam Patient doing well Doesn't want to walk Wants to rest today? 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[place] [place] Sugars are better BP ok Review of Systems Musculoskeletal: leg pain Objective Exam Vital Signs Vital Signs Date Time Temp Pulse Resp B/P (MAP) Pulse Ox O2 Delivery O2 Flow Rate FiO2 11/28/19 12:13 37.5 101 18 99/58 (72) 94 Nasal Cannula 2.00 Capillary Refill : Less Than 3 SecondsLess Than 3 Seconds General Appearance: No Apparent Distress, WD/WN, Chronically ill Respiratory: Chest Non Tender, Lungs Clear, Normal Breath Sounds, No Accessory Muscle Use, No Respiratory Distress, Decreased Breath Sounds Cardiovascular: Regular Rate, Rhythm, No Edema, No Gallop, No JVD, No Murmur, Normal Peripheral Pulses Extremity: Normal Capillary Refill, Normal Inspection, Normal Range of Motion (except right leg), Non Tender, No Calf Tenderness, No Pedal Edema Neurologic/Psychiatric: Alert, Oriented x3, No Motor/Sensory Deficits, Normal Mood/Affect Results/Procedures Lab Laboratory Tests 11/28/19 05:47 Patient resulted labs reviewed. Assessment/Plan Assessment and Plan Assess & Plan/Chief Complaint Assessment: Status post right hip fracture underwent uncomplicated repair by Dr. Anaya POD # 1 Current smoker Abnormal EKG consulted Dr. Meza Diabetes mellitus out of control on oral hypoglycemic agent restarting and doing sliding scale insulin regimen with Accu-Cheks Presumed COPD on Singulair and ordering DuoNeb nebulizer treatments Hypothyroidism Post op anemia blood loss placing on Iron Plan: Check iron level when resulted but give IV iron empirically given decrease in hgb IS DuoNeb [address] Meza appreciated Home meds Accu-Cheks Sliding scale Oral hypoglycemic agent PT/OT IRF Diagnosis/Problems Diagnosis/Problems (1) Closed impacted fracture of right hip Status: Acute Qualifiers: Encounter type: initial encounter Qualified Codes: S72.091A - Other fracture of head and neck of right femur, initial encounter for closed fracture (2) Diabetes mellitus (3) Smoker (4) COPD (chronic obstructive pulmonary disease) (5) Hypothyroidism (6) Acute blood loss anemia Clinical Quality Measures DVT/VTE Risk/Contraindication: Risk Factor Score Per Nursin RFS Level Per Nursing on Admit: 4+=Very High SHERIN LOWERY DO Nov 28, 2019 12:02
[2019-11-28 12:13] VITALS: BP 99/58
--- NOTE | 2019-11-28 12:15 | Physical Therapy Daily Note ---
PT Daily Note-Current Subjective Pt. asleep in bed upon arrival, easily awakens. Pt. frequently says during session "I don't want to do this", "I'm not doing this." He initially has no c/o pain but frequently yells out in pain with any movement, no objective pain rating given. During session, he states he needs to pee and "I can't hold the urinal...they have been doing it." Mental Status Patient Orientation: Person Attachments: SCD's, Oxygen, IV hip wedge Transfers SCALE: Activities may be completed with or without assistive devices. 9-Dplvztetql-oprfnmx completes the activity by him/herself with no assistance from a helper. 5-Set-up or Clean-up Assistance-helper sets up or cleans up; patient completes activity. [place] assists only prior to or following the activity. 4-Supervision or Touching Assistance-helper provides verbal cues and/or touching/steadying and/or contact guard assistance as patient completes activity. Assistance may be provided throughout the activity or intermittently. 3-Partial/Moderate Assistance-helper does LESS THAN HALF the effort. [place] lifts, holds or supports trunk or limbs, but provides less than half the effort. 2-Substantial/Maximal Assistance-helper does MORE THAN HALF the effort. [place] lifts or holds trunk or limbs and provides more than half the effort. 1-Oexzqyiuk-fkclpe does ALL the effort. Patient does none of the effort to complete the activity. Or, the assistance of 2 or more helpers is required for the patient to complete the activity. If activity was not attempted, code reason: 7-Patient Refused. 9-Not Applicable-not attempted and the patient did not perform the activity before the current illness, exacerbation or injury. 10-Not Attempted due to Environmental Limitations-(lack of equipment, weather restraints, etc.). 88-Not Attempted due to Medical Conditions or Safety Concerns. Lying to Sitting/Side of Bed(Q: 1 (mod A x 2) Sit to Stand (QC): 1 (mod A x 1, min A x 1) Chair/Hif-os-Rnskk Xfer(QC): 3 Weight Bearing Right Lower Extremity: Right Weight Bearing/Tolerated Left Lower Extremity: Left Full Weight Bearing Exercises Supine Ex: Ankle pumps, Quad Set Supine Reps: 15 Seated Therapy Exercises: Ankle pumps, Long arc quads Seated Reps: 10 Treatments transfers, LE exercise Assessment Current Status: Fair Progress Pt. is very resistant to therapy and unwilling to actively move extremities during transfers. Pt. gives minimal effort with LE exercises on the R LE. Pt. extensively educated in importance of mobility to prevent blood clots and pneumonia. Pt. does not tolerate transfers well, requests assist of 2 although could likely complete with 1 person. He places minimal weight through the R LE during transfer, unable to progress to ambulation at this time but is able to pivot on L LE to transfer bed to chair. Pt. up in bedside chair with hip wedge in place, call light in reach, O2 in situ and all needs met. PT [facility] Goals Receiving Worker Goals PT Receiving Worker Goals Time Frame: Dec 04, 2019 Sit to Lying (QC): 6 Lying-Sitting on Side/Bed(QC): 6 Sit to Stand (QC): 6 Chair/Buq-gk-Bkohd Xfer(QC): 6 Does the Patient Walk: Yes Walk 150 ft (QC): 6 4 Steps (QC): 4 PT Plan Treatment/Plan Treatment Plan: Continue Plan of Care Treatment Plan: Bed Mobility, Education, Functional Activity Justino, Functional Strength, Gait, Safety, Therapeutic Exercise, Transfers Treatment Duration: Dec 04, 2019 Frequency: 11 times per week Estimated Hrs Per Day: .5 hour per day Patient and/or Family Agrees t: Yes Time/GCodes Time In: 1120 Time Out: 1200 Total Billed Treatment Time: 40 Total Billed Treatment 1, FA 40' MARY VILLEDA PT Nov 28, 2019 12:15
[2019-11-28] MEDS ORDERED: POLYETHYLENE GLYCOL 17 GM (MIRALAX) PACK PO ONE (14:45)
[2019-11-28] MEDS ORDERED: SENNA W/DOCUSATE (SENOKOT S) TABLET PO ONE (14:45)
--- NOTE | 2019-11-28 15:33 | NUR ---
THIS RN TO CONTINUE CARE.
[2019-11-28 16:00] VITALS: BP 112/62
--- NOTE | 2019-11-28 18:07 | NUR ---
SENOKOT AND MIRALAX ORDERED A ONE TIME DOSE AT 1445. PT REFUSING THIS MEDICATION AND IS REQUESTING TO HAVE IT 11/29/2019 IN THE MORNING.
[2019-11-28 20:11] VITALS: BP 105/64
[2019-11-28] MEDS: SIMvastatin 10 MG (ZOCOR) TAB PO SCH (20:20)
[2019-11-28] MEDS: MONTELUKAST 10 MG (SINGULAIR) TAB PO SCH (20:20)
[2019-11-28] MEDS: POLYETHYLENE GLYCOL 17 GM (MIRALAX) PACK PO SCH (20:21)
[2019-11-28] MEDS: SENNA W/DOCUSATE (SENOKOT S) TABLET PO SCH (20:21)
[2019-11-29] VITALS: BP 116/68
[2019-11-29 04:00] VITALS: BP 120/68
[2019-11-29] MEDS: ACETAMINOPHEN 325 MG TABLET PO PRN (04:42)
[2019-11-29] MEDS: inSUlin ASPART (NovoLOG) 1 UNIT/0.01 ML (CHARGE PER UNIT) SC SCH ×4 (05:42→22:47)
[2019-11-29] MEDS: glipiZIDE 5 MG (GLUCOTROL) TAB PO SCH ×2 (05:46→16:55)
[2019-11-29] MEDS: LEVOTHYROXINE 50 MCG (LEVOTHROID) TAB PO SCH (05:46)
[2019-11-29 07:06] LABS: BASOPHILS % (AUTO) 0 % (0-10); EOSINOPHILS # (AUTO) 0.1 10^3/uL (0.0-0.3); EOSINOPHILS % (AUTO) 1 % (0-10); HEMATOCRIT 25 % (40-54); HEMOGLOBIN 7.9 G/DL (13.3-17.7); LYMPHOCYTES # (AUTO) 0.7 X 10^3 (1.0-4.0); LYMPHOCYTES % (AUTO) 14 % (12-44); MEAN CORPUSCULAR HEMOGLOBIN 31 PG (25-34); MEAN CORPUSCULAR HGB CONC 31 G/DL (32-36); MEAN CORPUSCULAR VOLUME 98 FL (80-99); MEAN PLATELET VOLUME 9.5 FL (7.4-10.4); MONOCYTES # (AUTO) 0.4 X 10^3 (0.0-1.0); MONOCYTES % (AUTO) 9 % (0-12); NEUTROPHILS % (AUTO) 76 % (42-75); PLATELET COUNT 135 10^3/uL (130-400); RED CELL DISTRIBUTION WIDTH 12.9 % (10.0-14.5); WHITE BLOOD COUNT 5.2 10^3/uL (4.3-11.0)
[2019-11-29 07:33] LABS: ALBUMIN 2.7 GM/DL (3.2-4.5); BILIRUBIN,TOTAL 0.4 MG/DL (0.1-1.0); CALCIUM 7.9 MG/DL (8.5-10.1); CREATININE SERUM 1.4 MG/DL (0.60-1.30); POTASSIUM 3.8 MMOL/L (3.6-5.0); TOTAL PROTEIN 4.7 GM/DL (6.4-8.2)
[2019-11-29 08:00] VITALS: BP 117/67
[2019-11-29] MEDS: ENOXAPARIN 40 MG/0.4 ML (LOVENOX) SYR SC SCH (08:03)
[2019-11-29] MEDS: SENNA W/DOCUSATE (SENOKOT S) TABLET PO SCH ×2 (08:04→23:01)
[2019-11-29] MEDS: RT-ALBUTEROL/IPRATROPIUM 3 ML (DUONEB) VIAL INH SCH ×3 (08:42→19:17)
--- NOTE | 2019-11-29 09:02 | Cardiology Progress Note ---
Subjective Date Seen by Provider: Nov 29, 2019 Time Seen by Provider: 09:01 Subjective/Events-last exam Patient is in bed, denies any chest pain or dyspnea. Noted to be tachycardic this morning. Review of Systems General: No Chills, No Night Sweats, No Fatigue, No Malaise, No Appetite, No Other HEENT: No Head Aches, No Visual Changes, No Eye Pain, No Ear Pain, No Dy sphasia, No Sinus Congestion, No Post Nasal Drip, No Sore Throat, No Other Pulmonary: No Dyspnea, No Cough, No Pleuritic Chest Pain, No Other Cardiovascular: No: Chest Pain, Palpitations, Orthopnea, Paroxysmal Noc. Dyspnea, Edema, Lt Headedness, Other Objective-Cardiology Exam Last Set of Vital Signs Vital Signs 11/29/19 11/29/19 08:42 11:00 Pulse 105 Pulse Ox 91 O2 Delivery Nasal Cannula O2 Flow Rate 2.00 Capillary Refill : Less Than 3 SecondsLess Than 3 Seconds I&O Intake and Output 11/29/19 00:00 Intake Total 4152 ml Output Total 1550 ml Balance 2602 ml Intake Oral 1152 ml IV Total 3000 ml Output Urine Total 1550 ml # Voids 1 General: Alert, Oriented X3, Cooperative HEENT: Atraumatic, PERRLA Neck: Supple, No JVD, No Thyromegaly Lungs: Clear to Auscultation, Normal Air Movement Heart: Normal S1, Normal S2, No Murmurs, Other (Tachycardia) Abdomen: Normal Bowel Sounds, Soft, No Tenderness, No Hepatosplenomegaly, No Masses Extremities: No Clubbing, No Cyanosis, No Edema, Normal Pulses, No Tenderness/Swelling Skin: No Rashes, No Breakdown Neuro: Normal Speech, Normal Tone, Sensation Intact, Other Psych/Mental Status: Mental Status NL, Mood NL Results Lab Laboratory Tests 11/29/19 06:35 A/P-Cardiology Admission Diagnosis Abnormal EKG Hip fracture Diabetes mellitus Assessment/Plan Abnormal EKG with left anterior fascicular block, T-wave inversion in anterior lead, a symptomatically at this time. Tachycardia, sinus tachycardia, probably secondary to anemia postoperatively. Followed by primary care team Hip fracture, status post surgical repair, recovering slowly. Diabetes mellitus, followed and managed by primary care physician Patient was seen and evaluated with Tayler, examination performed, management plan was discussed, agree with the current scribed note, I made few changes to the note using Italic font Patient is feeling better. No new complaint Heart rate is better, still borderline tachycardic probably due to anemia Denied any chest pain Continue on current medication monitor Clinical Quality Measures DVT/VTE Risk/Contraindication: Risk Factor Score Per Nursin RFS Level Per Nursing on Admit: 4+=Very High Supervisory-Addendum Brief Supervisory Addendum Participated in pt care: history, MDM, physical Personally performed: exam, history, MDM Care discussed with: TAYLER NEVILLE Nov 29, 2019 09:02 LAURENCE RICHEY MD Nov 29, 2019 11:43
[2019-11-29] MEDS: NS IV 1000 ML 1,000 ML IV SCH (09:23)
--- NOTE | 2019-11-29 10:17 | Occupational Therapy Eval ---
OT Evaluation-General/PLF Medical Diagnosis Admission Date Nov 26, 2019 at 20:44 Medical Diagnosis: R femoral neck fracture with R hip bipolar prosthesis Onset Date: Nov 26, 2019 Therapy Diagnosis Therapy Diagnosis: impaired ADLs and functional mobility Precautions Precautions/Isolations: Fall Prevention, Standard Precautions Safety Interventions: Bed Exit Alarm Weight Bear Status Weight Bearing Restriction: Weight Bearing/Tolerated Location Restriction: R LE Referral Physician: Aniket Referral Reason: Activity Tolerance, Self Care, Evaluation/Treatment, Strengthening/ROM Medical History Pertinent Medical History: DM, HTN Current History Per H&P: "The patient is a 64-year-old gentleman who fell yesterday afternoon in [place]. He drove to drop back to [place], his hometown, where he was un able to get out of his automobile. He called EMS and presented to the emergency room at [place] where he was found to have a femoral neck fracture. He was transferred for definitive care. He denies antecedent hip pain. He reports pain in his groin." Reviewed History: Yes Social History Home: Single Level Current Living Status: Alone He lives alone but his ex- and son are here for "a little while". Pt did not elaborate how long they will be here or if they will be willing to assist him after discharge. ADL-Prior Level of Function SCALE: Activities may be completed with or without assistive devices. 8-Jlxkikobmh-rgnpxyk completes the activity by him/herself with no assistance from a helper. 5-Set-up or Clean-up Assistance-helper sets up or cleans up; patient completes activity. [place] assists only prior to or following the activity. 4-Supervision or Touching Assistance-helper provides verbal cues and/or touching/steadying and/or contact guard assistance as patient completes activity. Assistance may be provided throughout the activity or intermittently. 3-Partial/Moderate Assistance-helper does LESS THAN HALF the effort. [place] l ifts, holds or supports trunk or limbs, but provides less than half the effort. 2-Substantial/Maximal Assistance-helper does MORE THAN HALF the effort. [place] lifts or holds trunk or limbs and provides more than half the effort. 1-Jgdnhiknk-mzunqa does ALL the effort. Patient does none of the effort to complete the activity. Or, the assistance of 2 or more helpers is required for t he patient to complete the activity. If activity was not attempted, code reason: 7-Patient Refused. 9-Not Applicable-not attempted and the patient did not perform the activity before the current illness, exacerbation or injury. 10-Not Attempted due to Environmental Limitations-(lack of equipment, weather restraints, etc.). 88-Not Attempted due to Medical Conditions or Safety Concerns. ADL PLOF Comments Pt reports being independent with all ADLs prior to hospitalization. Self Care: Independent Functional Cognition: Independent DME/Equipment: Tub/Shower DME/Equipment Comments none OT Current Status Subjective Pt laying in bed at start of session, reluctantly agrees to OT evaluation this AM. He did not verbalize any pain. Mental Status/Objective Patient Orientation: Person, Place, Time, Situation Current Glasses/Contacts: Yes Hearing Aids: Yes Dentures/Partials: No Hand Dominance: Right Upper Extremity ROM WFL, BUE shoulder flexion to approx 140 degrees. Upper Extremity Coordination no deficits noted during tx, futher testing required. Upper Extremity Sensation pt denies any changes in sensation, no tingling/numbness Upper Extremity Strength grosly 3+/5 ADL-Treatment Eating (QC): 3 (Pt declined eating his breakfast tray but agreeable to drinking OJ with a staw. OT handed pt drink and he was able to bring it to his mouth, min A with guidance of straw to his lips.) Oral Hygiene (QC): 7 Shower/Bathe Self (QC): 7 Upper Body Dressing (QC): 7 Lower Body Dressing (QC): 7 On/Off Footwear (QC): 7 Toileting Hygiene (QC): 7 Other Treatments Pt laying in bed at start of session. He provided information about PLOF and home set up. His breakfast tray was sitting on tray table beside bed, OT encouraged pt to eat but pt refused stating he does not typically eat breakfast. Pt did agree to drinking OJ stating he needed a straw. OT offered other ADLs but pt adamantly refused stating he has already had a sponge bath over the weekend. OT encouraged pt to complete UE exercises but he refused. Post OT session, pt laying in bed with call light in reach and all needs met. Education OT Patient Education: Correct positioning, Energy conservation, Modified ADL techniques, Progress toward Goal/Update tx plan, Purpose of tx/functional activities Teaching Recipient: Patient Teaching Methods: Discussion Response to Teaching: Reinforcement Needed OT Tree Care Foreman Goals Tree Care Foreman Goals Time Frame: Dec 10, 2019 Eating (QC): 6 Oral Hygiene (QC): 6 Toileting Hygiene (QC): 3 Shower/Bathe Self (QC): 3 Upper Body Dressing (QC): 6 Lower Body Dressing (QC): 3 On/Off Footwear (QC): 3 Additional Goals: 1-Demonstrate ADL Tasks, 2-Verbalize Understanding, 3- ImproveStrength/Justino 1=Demonstrate adherence to instructed precautions during ADL tasks. 2=Patient will verbalize/demonstrate understanding of assistive devices/modifications for ADL. 3=Patient will improve strength/tolerance for activity to enable patient to perform ADL's. OT Education/Plan Problem List/Assessment Assessment: Decreased Activ Tolerance, Decreased UE Strength, Impaired Funct Balance, Impaired I ADL's, Impaired Self-Care Skills Discharge Recommendations Plan/Recommendations: Continue POC Treatment Plan/Plan of Care Treatment,Training & Education: Yes Patient would benefit from OT for education, treatment and training to promote independence in ADL's, mobility, safety and/or upper extremity function for ADL's. Plan of Care: ADL Retraining, Functional Mobility, UE Funct Exercise/Act Treatment Duration: Dec 10, 2019 Frequency: 5 times per week Estimated Hrs Per Day: .25 hour per day Rehab Potential: Guarded Time/GCodes Start Time: 08:27 Stop Time: 08:35 Total Time Billed (hr/min): 8 Billed Treatment Time 1, ANAYELI STAPLETON OT Nov 29, 2019 10:17
--- NOTE | 2019-11-29 10:21 | Diagnostic Imaging Report ---
INDICATION: Coarse lung sounds. TIME OF EXAMINATION: 10:03 AM. COMPARISON: 11/27/2019. FINDINGS: The heart size is stable. The density previously described over the right upper chest is much less prominent on today's study. This could in part be owing to the 1st rib end. No infiltrates are detected. There is no failure. No effusion or pneumothorax is identified. IMPRESSION: No acute cardiopulmonary process is detected. Dictated by: Dictated on workstation # [id number]
--- NOTE | 2019-11-29 10:25 | Physical Therapy Daily Note ---
PT Daily Note-Current Subjective Patient is in bed and initially declined PT, however, after much encouragement, agrees. Pain Numeric Pain Scale: 10-Worst Possible Pain Location: Right Location Body Site: Hip Pain Description: Acute Mental Status Patient Orientation: Normal For Age Attachments: Oxygen, IV Transfers SCALE: Activities may be completed with or without assistive devices. 2-Muklkrehcv-osnhrue completes the activity by him/herself with no assistance from a helper. 5-Set-up or Clean-up Assistance-helper sets up or cleans up; patient completes activity. [place] assists only prior to or following the activity. 4-Supervision or Touching Assistance-helper provides verbal cues and/or touching/steadying and/or contact guard assistance as patient completes act ivity. Assistance may be provided throughout the activity or intermittently. 3-Partial/Moderate Assistance-helper does LESS THAN HALF the effort. [place] lifts, holds or supports trunk or limbs, but provides less than half the effort. 2-Substantial/Maximal Assistance-helper does MORE THAN HALF the effort. [place] lifts or holds trunk or limbs and provides more than half the effort. 8-Jzfbpvbhm-vuldjt does ALL the effort. Patient does none of the effort to complete the activity. Or, the assistance of 2 or more helpers is required for the patient to complete the activity. If activity was not attempted, code reason: 7-Patient Refused. 9-Not Applicable-not attempted and the patient did not perform the activity before the current illness, exacerbation or injury. 10-Not Attempted due to Environmental Limitations-(lack of equipment, weather restraints, etc.). 88-Not Attempted due to Medical Conditions or Safety Concerns. Roll Left & Right (QC): 2 Sit to Lying (QC): 2 Lying to Sitting/Side of Bed(Q: 2 Sit to Stand (QC): 3 Chair/Zwy-xd-Kqryu Xfer(QC): 3 Weight Bearing Right Lower Extremity: Right Weight Bearing/Tolerated Left Lower Extremity: Left Full Weight Bearing Gait Training Does the Patient Walk?: Yes Distance: 45' Walk 10 feet (QC): 3 Gait Assistive Device: FWW slow, step to gait sequence Exercises Supine Ex: Ankle pumps, Quad Set, Heel Slides Supine Reps: 10 Seated Therapy Exercises: Long arc quads Seated Reps: 15 Assessment Patient requires time to complete all functional tasks. Patient requires much encouragement to participate with therapy. Patient is up in recliner with needs met. PT [facility] Goals [facility] Goals PT Market Researcher Goals Time Frame: Dec 04, 2019 Sit to Lying (QC): 6 Lying-Sitting on Side/Bed(QC): 6 Sit to Stand (QC): 6 Chair/Qvh-bu-Ampgw Xfer(QC): 6 Does the Patient Walk: Yes Walk 150 ft (QC): 6 4 Steps (QC): 4 PT Plan Treatment/Plan Treatment Plan: Continue Plan of Care Treatment Plan: Bed Mobility, Education, Functional Activity Justino, Functional Strength, Gait, Safety, Therapeutic Exercise, Transfers Treatment Duration: Dec 04, 2019 Frequency: 11 times per week Estimated Hrs Per Day: .5 hour per day Patient and/or Family Agrees t: Yes Time/GCodes Time In: 936 Time Out: 1000 Total Billed Treatment Time: 24 Total Billed Treatment 1 visit EX 9 min GT 15 min JIM HIGGINS PT Nov 29, 2019 10:25
[2019-11-29] MEDS ORDERED: 1/2 NS IV SOLUTION 1,000 ML IV PRN (10:41)
[2019-11-29] MEDS ORDERED: METF-399 PO (10:42)
[2019-11-29] MEDS ORDERED: LORazepam INJ 2 MG/ML (ATIVAN) VIAL IM/IV PRN (10:45)
[2019-11-29] MEDS ORDERED: LORazepam INJ 2 MG/ML (ATIVAN) VIAL IV PRN (10:45)
[2019-11-29] MEDS ORDERED: THIAMINE 100 MG/ML 2 ML (VITAMIN B-1) VIAL IV ONE (10:45)
[2019-11-29] MEDS ORDERED: D5 1/2 NS 1000 ML IV SOLUTION 1,000 ML IV PRN (10:45)
[2019-11-29] MEDS ORDERED: LORazepam 1 MG (ATIVAN) TAB PO PRN (10:45)
[2019-11-29] MEDS ORDERED: FERR-84 PO (10:50)
[2019-11-29] MEDS ORDERED: ACET-78 PO (10:50)
[2019-11-29] MEDS ORDERED: [UNRECOGNIZED DRUG - CODE] PO (10:50)
[2019-11-29] MEDS ORDERED: MULT-974 PO (10:50)
[2019-11-29] MEDS ORDERED: OMEP-280 PO (10:50)
[2019-11-29] MEDS ORDERED: VIT1TABL82 PO (10:50)
--- NOTE | 2019-11-29 10:59 | NUR ---
SPOKE WITH THE PT WELL GOING THRU THE EXT MED HISTORY AND CALLING [facility] TO COMPLETE THE MED REC. PT WAS ABLE TO LIST ALL HIS MEDS AND TELL ME HOW/WHEN HE TAKES EACH. MONTELUKAST IS LISTED ON THE EXT MED HISTORY (09-11-2019 #30) BUT THE PT DID NOT LIST IT AND WHEN I ASKED HE SAYS HE DOES NOT TAKE IT AND INSTEAD USES BENADRYL OTC. [facility] SAID THIS WAS A SCRIPT FROM DECEMBER 2018 AND THE ONLY TIMES IT WAS FILLED WAS 07-15-19 AND 09-11-19. FOR THOSE REASONS I TOOK IT OFF THE MED REC. ALL OTHER MEDS MATCHED THE EXT MED HISTORY AND HAD GOOD DATING. OTC MEDS: BENADRYL OMEPRAZOLE TYLENOL MTV VIT B COMPLEX IRON
[2019-11-29 11:00] LABS: ABG BASE EXCESS -0.1 MMOL/L (-2.5-2.5); ABG OXYGEN SATURATION 99 % (94-100); ABG PCO2 37 MMHG (35-45); ABG PH 7.42 (7.37-7.43); ABG PO2 98 MMHG (79-93); ABG TCO2 24.9 MMOL/L (21.0-31.0)
--- NOTE | 2019-11-29 11:00 | Progress Note ---
Standard Progress Note Progress Notes/Assess & Plan Date Seen by a Provider: Nov 29, 2019 Time Seen by a Provider: 10:59 Progress/Assessment & Plan no complaints Vital Signs Date Time Temp Pulse Resp B/P (MAP) Pulse Ox O2 Delivery O2 Flow Rate FiO2 11/28/19 08:15 OxyMask 11/28/19 04:34 37.8 112 18 116/69 (85) 95 Nasal Cannula 2.00 11/28/19 00:00 37.3 116 20 112/66 (81) 94 Nasal Cannula 2.00 11/27/19 20:45 OxyMask 11/27/19 20:16 97 OxyMask 4.00 11/27/19 20:15 97 OxyMask 4.00 11/27/19 20:00 37.3 97 18 119/83 (95) 99 OxyMask 4.00 11/27/19 16:00 36.7 101 20 132/84 (100) 98 OxyMask 4.00 11/27/19 11:46 36.4 97 18 138/77 (97) 94 OxyMask 5.00 11/27/19 11:45 36.5 20 135/73 (93) 98 OxyMask 4 11/27/19 11:45 OxyMask 4 11/27/19 11:40 20 135/73 (93) 99 OxyMask 4 11/27/19 11:30 20 120/72 (88) 96 OxyMask 5 11/27/19 11:30 OxyMask 5 11/27/19 11:20 20 127/81 (96) 95 OxyMask 5 11/27/19 11:15 OxyMask 5 11/27/19 11:10 20 127/81 (96) 95 OxyMask 6 11/27/19 11:05 93 OxyMask 5.00 11/27/19 11:00 OxyMask 6 11/27/19 11:00 20 156/95 (115) 95 OxyMask 10 11/27/19 10:55 20 156/95 (115) 95 10 11/27/19 10:45 OxyMask 10 11/27/19 10:45 20 156/95 (115) 95 OxyMask 10 11/27/19 10:35 36.5 20 160/89 (112) 93 OxyMask 10 11/27/19 10:35 OxyMask 10 I & O 11/28/19 07:00 Intake Total 5130 ml Output Total 1450 ml Balance 3680 ml Laboratory Tests Test 11/27/19 12:29 11/27/19 17:13 11/27/19 20:47 11/28/19 05:47 Range/Units Glucometer 228 H 231 H 143 H 70-110 MG/DL White Blood Count 7.8 4.3-11.0 10^3/uL Red Blood Count 2.87 L 4.35-5.85 10^6/uL Hemoglobin 8.8 #L 13.3-17.7 G/DL Hematocrit 28 L 40-54 % Mean Corpuscular Volume 98 80-99 FL Mean Corpuscular Hemoglobin 31 25-34 PG Mean Corpuscular Hemoglobin Concent 31 L 32-36 G/DL Red Cell Distribution Width 13.0 10.0-14.5 % Platelet Count 149 130-400 10^3/uL Mean Platelet Volume 9.2 7.4-10.4 FL Neutrophils (%) (Auto) 80 H 42-75 % Lymphocytes (%) (Auto) 11 L 12-44 % Monocytes (%) (Auto) 7 0-12 % Eosinophils (%) (Auto) 2 0-10 % Basophils (%) (Auto) 0 0-10 % Neutrophils # (Auto) 6.2 1.8-7.8 X 10^3 Lymphocytes # (Auto) 0.9 L 1.0-4.0 X 10^3 Monocytes # (Auto) 0.5 0.0-1.0 X 10^3 Eosinophils # (Auto) 0.2 0.0-0.3 10^3/uL Basophils # (Auto) 0.0 0.0-0.1 10^3/uL Sodium Level 136 135-145 MMOL/L Potassium Level 4.6 3.6-5.0 MMOL/L Chloride Level 106 98-107 MMOL/L Carbon Dioxide Level 22 21-32 MMOL/L Anion Gap 8 5-14 MMOL/L Blood Urea Nitrogen 15 7-18 MG/DL Creatinine 1.58 H 0.60-1.30 MG/DL Estimat Glomerular Filtration Rate 45 BUN/Creatinine Ratio 9 Glucose Level 178 H 70-105 MG/DL Calcium Level 7.9 L 8.5-10.1 MG/DL Corrected Calcium 8.7 8.5-10.1 MG/DL Total Bilirubin 0.6 0.1-1.0 MG/DL Aspartate Amino Transf (AST/SGOT) 20 5-34 U/L Alanine Aminotransferase (ALT/SGPT) 11 0-55 U/L Alkaline Phosphatase 62 40-136 U/L Total Protein 4.9 L 6.4-8.2 GM/DL Albumin 3.0 L 3.2-4.5 GM/DL Radiographs--HW well positioned without fracture RLE--dressing intact. Intact DF and PF of toes and ankle. Intact sensation to light touch throughout. Pulses symmetric s/p R hip bipolar PT/OT Final Diagnosis sitting in chair Vital Signs Date Time Temp Pulse Resp B/P (MAP) Pulse Ox O2 Delivery O2 Flow Rate FiO2 11/29/19 08:42 91 Nasal Cannula 2.00 11/29/19 08:00 37.1 103 16 117/67 (84) 95 Nasal Cannula 2.00 11/29/19 08:00 Nasal Cannula 2.00 11/29/19 04:00 37.8 106 20 120/68 (85) 95 Nasal Cannula 2.00 11/29/19 00:00 37.6 116 18 116/68 (84) 93 Nasal Cannula 2.00 11/28/19 20:20 Nasal Cannula 2.00 11/28/19 20:11 37.4 109 18 105/64 (78) 94 Nasal Cannula 2.00 11/28/19 19:53 91 Nasal Cannula 2.00 11/28/19 16:25 92 Nasal Cannula 2.00 11/28/19 16:00 37.2 96 20 112/62 (79) 96 Nasal Cannula 2.00 11/28/19 12:13 37.5 101 18 99/58 (72) 94 Nasal Cannula 2.00 I & O 11/29/19 07:00 Intake Total 2872 ml Output Total 1350 ml Balance 1522 ml Laboratory Tests Test 11/28/19 12:02 11/28/19 15:33 11/28/19 19:57 11/29/19 05:41 Range/Units Glucometer 150 H 161 H 158 H 113 H 70-110 MG/DL Test 11/29/19 06:35 11/29/19 10:52 Range/Units White Blood Count 5.2 4.3-11.0 10^3/uL Red Blood Count 2.59 L 4.35-5.85 10^6/uL Hemoglobin 7.9 L 13.3-17.7 G/DL Hematocrit 25 L 40-54 % Mean Corpuscular Volume 98 80-99 FL Mean Corpuscular Hemoglobin 31 25-34 PG Mean Corpuscular Hemoglobin Concent 31 L 32-36 G/DL Red Cell Distribution Width 12.9 10.0-14.5 % Platelet Count 135 130-400 10^3/uL Mean Platelet Volume 9.5 7.4-10.4 FL Neutrophils (%) (Auto) 76 H 42-75 % Lymphocytes (%) (Auto) 14 12-44 % Monocytes (%) (Auto) 9 0-12 % Eosinophils (%) (Auto) 1 0-10 % Basophils (%) (Auto) 0 0-10 % Neutrophils # (Auto) 4.0 1.8-7.8 X 10^3 Lymphocytes # (Auto) 0.7 L 1.0-4.0 X 10^3 Monocytes # (Auto) 0.4 0.0-1.0 X 10^3 Eosinophils # (Auto) 0.1 0.0-0.3 10^3/uL Basophils # (Auto) 0.0 0.0-0.1 10^3/uL Sodium Level 137 135-145 MMOL/L Potassium Level 3.8 3.6-5.0 MMOL/L Chloride Level 107 98-107 MMOL/L Carbon Dioxide Level 22 21-32 MMOL/L Anion Gap 8 5-14 MMOL/L Blood Urea Nitrogen 13 7-18 MG/DL Creatinine 1.40 H 0.60-1.30 MG/DL Estimat Glomerular Filtration Rate 51 BUN/Creatinine Ratio 9 Glucose Level 104 70-105 MG/DL Calcium Level 7.9 L 8.5-10.1 MG/DL Corrected Calcium 8.9 8.5-10.1 MG/DL Total Bilirubin 0.4 0.1-1.0 MG/DL Aspartate Amino Transf (AST/SGOT) 16 5-34 U/L Alanine Aminotransferase (ALT/SGPT) 8 0-55 U/L Alkaline Phosphatase 62 40-136 U/L Total Protein 4.7 L 6.4-8.2 GM/DL Albumin 2.7 L 3.2-4.5 GM/DL R hip incision with scant bloody DC. No calf tenderness s/p R hip bipolar PT/OT as able JARON DEWEY MD Nov 29, 2019 11:00
[2019-11-29 11:01] LABS: ALLENS TEST YES-POS; INSPIRED O2 2; PATIENT TEMP 37.2; VENTILATOR NO
[2019-11-29 12:00] VITALS: BP 99/55
--- NOTE | 2019-11-29 12:09 | Progress Note - Hospitalist ---
ROSIE JAMES [facility] 11/29/19 1209: Subjective HPI/CC On Admission Date Seen by Provider: Nov 29, 2019 Time Seen by Provider: 08:30 Chief complaint: Right hip fracture status post uncomplicated repair by Dr. Anaya POD # 0 History of present illness: This is a 64-year-old white male who has a past medical history of diabetes mellitus and current smoking sees Dr. Davies on a regular basis who presented after a fall on the pavement last night suffering a right hip fracture which was repaired in an uncomplicated fashion by Dr. Anaya. Currently he is still resolving from anesthesia effect and he has minimal to tell me. He did have an abnormal EKG Dr. Meza has been consulted but that did not preclude forging ahead with surgery since the benefits outweighed the medical risk in order to regain function in independent living. I did review his home medications and restarted most and will initiate a sliding scale for hyperglycemia. Apparently he does smoke every day so I did offer nicotine patch 2. Will initiate carbohydrate limited diet. Subjective/Events-last exam Arsen is a 64 year old male that presented to the ED after falling on the pavement and fracturing his R femoral neck. he is s/p R bipolar hemiarthroplasty. He denies losing consciousness or hitting his head. Patient has a history of smoking, diabetes, and COPD. His EKG on admission was abnormal and cardiology is following. Patient reported to me that he was feeling okay, had a bowel movement and is voiding appropriately, and pain was under control. Patient was not a good historian and has given inconsistent information on his social history and activity. His drinking and recreational drug status is unknown at this time. Patient would benefit from rehab. Focused Exam Respiratory: No Accessory Muscle Use, No Respiratory Distress Skin: normal color, warm/dry Objective Exam Vital Signs Vital Signs Date Time Temp Pulse Resp B/P (MAP) Pulse Ox O2 Delivery O2 Flow Rate FiO2 11/29/19 11:00 105 11/29/19 08:42 91 Nasal Cannula 2.00 11/29/19 08:00 37.1 16 117/67 (84) Capillary Refill : Less Than 3 SecondsLess Than 3 Seconds General Appearance: No Apparent Distress, WD/WN Respiratory: No Accessory Muscle Use, No Respiratory Distress Rectal: Deferred Skin: Normal Color, Warm/Dry Results/Procedures Lab Laboratory Tests 11/29/19 06:35 Patient resulted labs reviewed. Assessment/Plan Assessment and Plan Assess & Plan/Chief Complaint Assessment/Plan R femoral neck fracture after fall - s/p hemiarthroplasty Smoker - encourage cessation Abnormal EKG - being followed by cardiology COPD - nebulizer ordered Anemia - Iron studies have been ordered Would benefit from rehab Check alcohol and tox screen Clinical Quality Measures DVT/VTE Risk/Contraindication: Risk Factor Score Per Nursin RFS Level Per Nursing on Admit: 4+=Very High MIGNON LOWERY DO 11/29/192155: Subjective Subjective/Events-last exam Pt had a rough night. Coarse breath sounds noted but chest X-ray was negative. ABG normal. Will put on alcohol detox protocol since he has confusion and I don't know if he has heavy alcohol use or not. Pt is an inpatient rehab candidate but having real difficulty due to the pain of participating in therapy. Review of Systems General: Fatigue Pulmonary: Dyspnea Musculoskeletal: leg pain Neurological: Confusion Objective Exam General Appearance: WD/WN, Anxious, Chronically ill, Mild Distress Respiratory: No Accessory Muscle Use, No Respiratory Distress, Crackles, Decreased Breath Sounds Cardiovascular: Tachycardia Neurologic/Psychiatric: Alert, Oriented x3, Disoriented Assessment/Plan Assessment and Plan Assess & Plan/Chief Complaint Assessment: Status post right hip fracture underwent uncomplicated repair by Dr. Anaya POD # 1 Current smoker Abnormal EKG consulted Dr. Meza Diabetes mellitus out of control on oral hypoglycemic agent restarting and doing sliding scale insulin regimen with Accu-Cheks Presumed COPD on Singulair and ordering DuoNeb nebulizer treatments Hypothyroidism Post op anemia blood loss placing on Iron ETOH withdrawal? Plan: Check iron level when resulted but give IV iron empirically given decrease in hgb IS DuoNeb [address] Meza appreciated Home meds Accu-Cheks Sliding scale Oral hypoglycemic agent PT/OT IRF Diagnosis/Problems Diagnosis/Problems (1) Closed impacted fracture of right hip Status: Acute Qualifiers: Qualified Codes: S72.091A - Other fracture of head and neck of right femur, initial encounter for closed fracture (2) COPD (chronic obstructive pulmonary disease) (3) Diabetes mellitus (4) Hypothyroidism (5) Acute blood loss anemia (6) Smoker Supervisory-Addendum Brief Verification & Attestation Participated in pt care: history, MDM, physical Personally performed: exam, history, MDM, supervision of care Care discussed with: Medical Student Procedures: n/a Results interpretation: Verified all documentation Verification and Attestation of Medical Student E/M Service A medical student performed and documented this service in my presence. I reviewed and verified all information documented by the medical student and made modifications to such information, when appropriate. I personally performed the physical exam and medical decision making. Mignon Lowery, Nov 29, 2019,21:56 ROSIE JAMES [facility] Nov 29, 2019 12:09 MIGNON LOWERY DO Nov 29, 2019 21:56
--- NOTE | 2019-11-29 13:17 | Physical Therapy Daily Note ---
PT Daily Note-Current Subjective Patient is initially hesitant to participate in therapy but he son was there encouraging him so patient became willing to do therapy. Appearance Patient in bed with head elevated, bedside table, and call light within reach. Mental Status Patient Orientation: Person, Place, Time, Situation Transfers SCALE: Activities may be completed with or without assistive devices. 8-Nnjoysbxag-iqajnep completes the activity by him/herself with no assistance from a helper. 5-Set-up or Clean-up Assistance-helper sets up or cleans up; patient completes activity. [place] assists only prior to or following the activity. 4-Supervision or Touching Assistance-helper provides verbal cues and/or touching/steadying and/or contact guard assistance as patient completes activity. Assistance may be provided throughout the activity or intermittently. 3-Partial/Moderate Assistance-helper does LESS THAN HALF the effort. [place] lifts, holds or supports trunk or limbs, but provides less than half the effort. 2-Substantial/Maximal Assistance-helper does MORE THAN HALF the effort. [place] lifts or holds trunk or limbs and provides more than half the effort. 6-Ijxstlcqo-fofxlz does ALL the effort. Patient does none of the effort to complete the activity. Or, the assistance of 2 or more helpers is required for the patient to complete the activity. If activity was not attempted, code reason: 7-Patient Refused. 9-Not Applicable-not attempted and the patient did not perform the activity before the current illness, exacerbation or injury. 10-Not Attempted due to Environmental Limitations-(lack of equipment, weather restraints, etc.). 88-Not Attempted due to Medical Conditions or Safety Concerns. Roll Left & Right (QC): 3 Sit to Lying (QC): 3 Sit to Stand (QC): 3 Weight Bearing Right Lower Extremity: Right Weight Bearing/Tolerated Left Lower Extremity: Left Full Weight Bearing Gait Training Does the Patient Walk?: Yes Distance: 40' Walk 10 feet (QC): 4 Gait Persons Needed: 1 Gait Assistive Device: FWW Patient needed frequent rest breaks, encouragement, and cueing to bear weight through his RLE and not walk on his toes. Wheelchair Training Does the Pt Use a Wheelchair?: No Assessment Towards the end of ambulation patient began to bear more weight through his RLE and walk with a more normal gait pattern. He needed cueing to continue to walk in this manner and will need continued practice. PT Activities Manager Goals Activities Manager Goals PT Group Home Goals Time Frame: Dec 04, 2019 Sit to Lying (QC): 6 Lying-Sitting on Side/Bed(QC): 6 Sit to Stand (QC): 6 Chair/Nmg-wo-Lpjbm Xfer(QC): 6 Does the Patient Walk: Yes Walk 150 ft (QC): 6 4 Steps (QC): 4 PT Plan Problem List Problem List: Activity Tolerance, Functional Strength, Safety, Balance, Gait, Transfer, Bed Mobility, ROM Treatment/Plan Treatment Plan: Continue Plan of Care Treatment Plan: Bed Mobility, Education, Functional Activity Justino, Functional Strength, Gait, Safety, Therapeutic Exercise, Transfers Treatment Duration: Dec 04, 2019 Frequency: 11 times per week Estimated Hrs Per Day: .5 hour per day Patient and/or Family Agrees t: Yes Safety Risks/Education Patient Education: Gait Training, Transfer Techniques Teaching Recipient: Patient, Family Teaching Methods: Discussion Response to Teaching: Reinforcement Needed Time/GCodes Time In: 1245 Time Out: 1305 Total Billed Treatment Time: 20 Total Billed Treatment 1 visit GT (20 minutes) JIM HIGGINS PT Nov 29, 2019 13:17
--- NOTE | 2019-11-29 13:41 | NUR ---
RD ASSESSMENT PMHx: COPD; DM PT INTERACTION: Pt was awake and pleasant during nutrition assessment. Pt states current appetite is not good and "it's always like this when I'm in pain." Note pt current admit for fracture, per chart review. Pt states following a regular diet consisting of sandwiches, burgers, jello, applesauce, [place] fries, eggs, samuel, biscuits, and baked potatoes. Pt states no recent issues with chewing/swallowing food at this time. Pt states no recent issues iwth n/v/c/d at this time, and that his last BM was 11/28. Note pt currently on bowel regimen of senna BID; and miralax BID, per chart review. Pt states no recent wt changes. Note unable to determine recent wt hx, per chart review. ABNORMAL NUTRITION-RELATED LAB VALUES LOW: Ca 7.9; Pro 4.9; alb 2.7 HIGH: cr 1.40 Est. kcal needs: 9153-8728 kcal | 25-30 kcal/kg Est. Pro needs: 82-96 g Pro | 1.2-1.4 g Pro/kg PES STATEMENT: Inadequate oral intake (NI-2.1) related to loss of appetite d/t pain as evidenced by pt interview | avg PO intake <25% x1d INTERVENTION: Continue with current diet order of CHO 75g/m 0snack diet. Add Glucerna (vary) to meals TID for increased kcal intake. Provides 220 kcal and 10 g Pro per serving. Will continue to follow and reassess as pt needs and status change. MONITOR/EVALUATE: PO Intake; Plan of Care; Hydration Status; Weight Status; Lab Values Yoon Waller, MS, RD, LD
[2019-11-29 16:00] VITALS: BP 109/65
--- NOTE | 2019-11-29 16:22 | Pulmonary Consultation ---
History of Present Illness History of Present Illness Date Seen by Provider: Nov 29, 2019 Time Seen by Provider: 16:21 Date of Admission Reason for Visit: Abnormal EKG Allergies and Home Medications Allergies Coded Allergies: hydrocodone (Verified Allergy, Unknown, 11/26/19) Home Medications Acetaminophen 500 Mg Tablet, 1,000 MG PO Q8H PRN for PAIN-MILD (1-4), (Reported) Citalopram Hydrobromide 40 Mg Tablet, 40 MG PO DAILY, (Reported) Diphenhydramine HCl 25 Mg Tablet, 25 MG PO BID PRN for ALLERGY SYMPTOMS, (Reported) Ferrous Sulfate 325 Mg Tablet, 325 MG PO DAILY, (Reported) Glipizide 10 Mg Tablet, 10 MG PO BID, (Reported) Levothyroxine Sodium 50 Mcg Tablet, 50 MG PO DAILY, (Reported) Metformin HCl 1,000 Mg Tablet, 1,000 MG PO BIDPC, (Reported) Multivitamin 1 Each Tablet, 1 EACH PO DAILY, (Reported) Omeprazole 20 Mg Capsule.dr, 20 MG PO DAILY, (Reported) Simvastatin 10 Mg Tablet, 10 MG PO HS, (Reported) Vit B Comp/C/FA/Iron/Vit E 1 Each Tablet, 1 EACH PO DAILY, (Reported) Past Smvfwld-Apkdbm-Qfooem Hx Past Med/Social Hx: Reviewed Nursing Past Med/Soc Hx, Reviewed and Corrections made Patient Social History Alcohol Use: Denies Use Recreational Drug Use: No Smoking Status: Current Everyday Smoker 2nd Hand Smoke Exposure: No Recent Foreign Travel: No Contact w/Someone Who Travel: No Recent Infectious Disease Expo: No Recent Hopitalizations: No Physical Abuse: No Sexual Abuse: No Mistreated: No Fear: No Immunizations Up To Date Date of Pneumonia Vaccine: Dec 27, 2018 Seasonal Allergies Seasonal Allergies: No Past Medical History Surgeries: Yes Nose (cancer on nose) Respiratory: No Currently Using CPAP: No Currently Using BIPAP: No Cardiac: No Neurological: No Genitourinary: No Gastrointestinal: No Musculoskeletal: No Arthritis Endocrine: Yes Hypothyroidsim, Diabetes, Non-Insulin dep HEENT: No Cancer: Yes Psychosocial: No Integumentary: No Blood Disorders: No Family Medical History Patient reports no known family medical history. Sepsis Event Evaluation Height, Weight, BMI Height: '" Weight: lbs. oz. kg; 23.75 BMI Method: Exam Exam Vital Signs Date Time Temp Pulse Resp B/P (MAP) Pulse Ox O2 Delivery O2 Flow Rate FiO2 11/29/19 15:26 93 Nasal Cannula 2.00 11/29/19 13:00 96 11/29/19 12:00 36.9 96 16 99/55 (70) 97 Nasal Cannula 2.00 11/29/19 11:00 105 11/29/19 08:42 91 Nasal Cannula 2.00 11/29/19 08:00 37.1 103 16 117/67 (84) 95 Nasal Cannula 2.00 11/29/19 08:00 Nasal Cannula 2.00 11/29/19 04:00 37.8 106 20 120/68 (85) 95 Nasal Cannula 2.00 11/29/19 00:00 37.6 116 18 116/68 (84) 93 Nasal Cannula 2.00 11/28/19 20:20 Nasal Cannula 2.00 11/28/19 20:11 37.4 109 18 105/64 (78) 94 Nasal Cannula 2.00 11/28/19 19:53 91 Nasal Cannula 2.00 11/28/19 16:25 92 Nasal Cannula 2.00 I & O 11/29/19 07:00 Intake Total 2872 ml Output Total 1350 ml Balance 1522 ml Height & Weight Height: '" Weight: lbs. oz. kg; 23.75 BMI Method: General Appearance: No Apparent Distress, WD/WN HEENT: PERRL/EOMI, TMs Normal, Normal ENT Inspection, Pharynx Normal, Moist Mucous Membranes Neck: Full Range of Motion, Normal Inspection, Non Tender, Supple, Carotid Bruit Respiratory: No Accessory Muscle Use, No Respiratory Distress Cardiovascular: Regular Rate, Rhythm, No Edema, No Gallop, No JVD, No Murmur, Normal Peripheral Pulses Capillary Refill: Less Than 3 Seconds Gastrointestinal: normal bowel sounds, soft, no pulsatile mass Extremity: Normal Capillary Refill, Normal Inspection, Normal Range of Motion (except right leg), Non Tender, No Calf Tenderness, No Pedal Edema Neurologic/Psychiatric: Alert, Oriented x3, No Motor/Sensory Deficits, Normal Mood/Affect Skin: Normal Color, Warm/Dry Lymphatic: No Adenopathy Results Lab Laboratory Tests 11/28/19 05:47 11/29/19 06:35 Assessment/Plan Assessment/Plan S/p right hip fx s/p repair Tobacco use and probable COPD -DuoNeb -oxygen -Monitor DM NORI BEY DO Nov 29, 2019 16:22
[2019-11-29 20:00] VITALS: BP 123/67
[2019-11-29] MEDS: POLYETHYLENE GLYCOL 17 GM (MIRALAX) PACK PO SCH (23:00)
[2019-11-29] MEDS: MONTELUKAST 10 MG (SINGULAIR) TAB PO SCH (23:01)
[2019-11-29] MEDS: SIMvastatin 10 MG (ZOCOR) TAB PO SCH (23:01)
[2019-11-30] VITALS (7 sets, daily range): BP systolic 88–120; BP diastolic 56–70
[2019-11-30 06:00] LABS: HEMOGLOBIN 7.6 G/DL (13.3-17.7)
[2019-11-30] MEDS: inSUlin ASPART (NovoLOG) 1 UNIT/0.01 ML (CHARGE PER UNIT) SC SCH ×4 (06:02→21:44)
[2019-11-30] MEDS: LEVOTHYROXINE 50 MCG (LEVOTHROID) TAB PO SCH (06:16)
[2019-11-30] MEDS: glipiZIDE 5 MG (GLUCOTROL) TAB PO SCH ×2 (06:22→17:03)
--- NOTE | 2019-11-30 07:02 | Progress Note ---
Standard Progress Note Progress Notes/Assess & Plan Date Seen by a Provider: Nov 30, 2019 Time Seen by a Provider: 07:01 Progress/Assessment & Plan no complaints Vital Signs Date Time Temp Pulse Resp B/P (MAP) Pulse Ox O2 Delivery O2 Flow Rate FiO2 11/28/19 08:15 OxyMask 11/28/19 04:34 37.8 112 18 116/69 (85) 95 Nasal Cannula 2.00 11/28/19 00:00 37.3 116 20 112/66 (81) 94 Nasal Cannula 2.00 11/27/19 20:45 OxyMask 11/27/19 20:16 97 OxyMask 4.00 11/27/19 20:15 97 OxyMask 4.00 11/27/19 20:00 37.3 97 18 119/83 (95) 99 OxyMask 4.00 11/27/19 16:00 36.7 101 20 132/84 (100) 98 OxyMask 4.00 11/27/19 11:46 36.4 97 18 138/77 (97) 94 OxyMask 5.00 11/27/19 11:45 36.5 20 135/73 (93) 98 OxyMask 4 11/27/19 11:45 OxyMask 4 11/27/19 11:40 20 135/73 (93) 99 OxyMask 4 11/27/19 11:30 20 120/72 (88) 96 OxyMask 5 11/27/19 11:30 OxyMask 5 11/27/19 11:20 20 127/81 (96) 95 OxyMask 5 11/27/19 11:15 OxyMask 5 11/27/19 11:10 20 127/81 (96) 95 OxyMask 6 11/27/19 11:05 93 OxyMask 5.00 11/27/19 11:00 OxyMask 6 11/27/19 11:00 20 156/95 (115) 95 OxyMask 10 11/27/19 10:55 20 156/95 (115) 95 10 11/27/19 10:45 OxyMask 10 11/27/19 10:45 20 156/95 (115) 95 OxyMask 10 11/27/19 10:35 36.5 20 160/89 (112) 93 OxyMask 10 11/27/19 10:35 OxyMask 10 I & O 11/28/19 07:00 Intake Total 5130 ml Output Total 1450 ml Balance 3680 ml Laboratory Tests Test 11/27/19 12:29 11/27/19 17:13 11/27/19 20:47 11/28/19 05:47 Range/Units Glucometer 228 H 231 H 143 H 70-110 MG/DL White Blood Count 7.8 4.3-11.0 10^3/uL Red Blood Count 2.87 L 4.35-5.85 10^6/uL Hemoglobin 8.8 #L 13.3-17.7 G/DL Hematocrit 28 L 40-54 % Mean Corpuscular Volume 98 80-99 FL Mean Corpuscular Hemoglobin 31 25-34 PG Mean Corpuscular Hemoglobin Concent 31 L 32-36 G/DL Red Cell Distribution Width 13.0 10.0-14.5 % Platelet Count 149 130-400 10^3/uL Mean Platelet Volume 9.2 7.4-10.4 FL Neutrophils (%) (Auto) 80 H 42-75 % Lymphocytes (%) (Auto) 11 L 12-44 % Monocytes (%) (Auto) 7 0-12 % Eosinophils (%) (Auto) 2 0-10 % Basophils (%) (Auto) 0 0-10 % Neutrophils # (Auto) 6.2 1.8-7.8 X 10^3 Lymphocytes # (Auto) 0.9 L 1.0-4.0 X 10^3 Monocytes # (Auto) 0.5 0.0-1.0 X 10^3 Eosinophils # (Auto) 0.2 0.0-0.3 10^3/uL Basophils # (Auto) 0.0 0.0-0.1 10^3/uL Sodium Level 136 135-145 MMOL/L Potassium Level 4.6 3.6-5.0 MMOL/L Chloride Level 106 98-107 MMOL/L Carbon Dioxide Level 22 21-32 MMOL/L Anion Gap 8 5-14 MMOL/L Blood Urea Nitrogen 15 7-18 MG/DL Creatinine 1.58 H 0.60-1.30 MG/DL Estimat Glomerular Filtration Rate 45 BUN/Creatinine Ratio 9 Glucose Level 178 H 70-105 MG/DL Calcium Level 7.9 L 8.5-10.1 MG/DL Corrected Calcium 8.7 8.5-10.1 MG/DL Total Bilirubin 0.6 0.1-1.0 MG/DL Aspartate Amino Transf (AST/SGOT) 20 5-34 U/L Alanine Aminotransferase (ALT/SGPT) 11 0-55 U/L Alkaline Phosphatase 62 40-136 U/L Total Protein 4.9 L 6.4-8.2 GM/DL Albumin 3.0 L 3.2-4.5 GM/DL Radiographs--HW well positioned without fracture RLE--dressing intact. Intact DF and PF of toes and ankle. Intact sensation to light touch throughout. Pulses symmetric s/p R hip bipolar PT/OT Final Diagnosis resting. no complaints Vital Signs Date Time Temp Pulse Resp B/P (MAP) Pulse Ox O2 Delivery O2 Flow Rate FiO2 11/30/19 04:00 37.2 100 6 118/70 (86) 96 Nasal Cannula 2.00 11/30/19 00:54 103 11/30/19 00:00 37.4 102 20 112/67 (82) 95 Nasal Cannula 2.00 11/29/19 20:00 95 Nasal Cannula 2.00 11/29/19 20:00 37.6 105 20 123/67 (85) 98 Nasal Cannula 2.00 11/29/19 18:50 106 11/29/19 16:00 37.2 100 18 109/65 (80) 96 Nasal Cannula 2.00 11/29/19 15:26 93 Nasal Cannula 2.00 11/29/19 13:00 96 11/29/19 12:00 36.9 96 16 99/55 (70) 97 Nasal Cannula 2.00 11/29/19 11:00 105 11/29/19 08:42 91 Nasal Cannula 2.00 11/29/19 08:00 37.1 103 16 117/67 (84) 95 Nasal Cannula 2.00 11/29/19 08:00 Nasal Cannula 2.00 I & O 11/30/19 07:00 Intake Total 1960 ml Output Total 800 ml Balance 1160 ml Laboratory Tests Test 11/29/19 10:52 11/29/19 11:26 11/29/19 16:29 11/29/19 20:33 Range/Units Blood Gas Puncture Site RR Blood Gas Patient Temperature 37.2 Arterial Blood pH 7.42 7.37-7.43 Arterial Blood Partial Pressure CO2 37 35-45 MMHG Arterial Blood Partial Pressure O2 98 H 79-93 MMHG Arterial Blood HCO3 24 23-27 MMOL/L Arterial Blood Total CO2 24.9 21.0-31.0 MMOL/L Arterial Blood Oxygen Saturation 99 94-100 % Arterial Blood Base Excess -0.1 -2.5-2.5 MMOL/L Kvng Test YES-POS Blood Gas Ventilator Setting NO Blood Gas Inspired Oxygen 2 Glucometer 173 H 184 H 177 H 70-110 MG/DL Test 11/30/19 05:48 11/30/19 05:53 Range/Units Hemoglobin 7.6 L 13.3-17.7 G/DL Hematocrit 24 L 40-54 % Glucometer 174 H 70-110 MG/DL R hip dressing intact. neg Kate's s/p R hip bipolar continue PT/OT JARON DEWEY MD Nov 30, 2019 07:02
[2019-11-30] MEDS ORDERED: IRON SUCROSE 200 MG/10 ML (VENOFER) VIAL IV SCH (09:00)
[2019-11-30] MEDS: ENOXAPARIN 40 MG/0.4 ML (LOVENOX) SYR SC SCH (09:15)
[2019-11-30] MEDS: THIAMINE 100 MG/ML 2 ML (VITAMIN B-1) VIAL IV SCH (09:17)
[2019-11-30] MEDS: SENNA W/DOCUSATE (SENOKOT S) TABLET PO SCH ×2 (09:58→21:44)
--- NOTE | 2019-11-30 10:04 | Physical Therapy Daily Note ---
PT Daily Note-Current Subjective Patient hesitant to participate in therapy at this time but eventually agrees. Patient requests pain medication from nursing staff. Appearance Patient in recliner with feet up and bedside table and call light within reach. Mental Status Patient Orientation: Person, Place, Time, Situation Attachments: Oxygen (2L) Transfers SCALE: Activities may be completed with or without assistive devices. 4-Ujgxzsmcvl-sqqegei completes the activity by him/herself with no assistance from a helper. 5-Set-up or Clean-up Assistance-helper sets up or cleans up; patient completes activity. [place] assists only prior to or following the activity. 4-Supervision or Touching Assistance-helper provides verbal cues and/or touching /steadying and/or contact guard assistance as patient completes activity. Assistance may be provided throughout the activity or intermittently. 3-Partial/Moderate Assistance-helper does LESS THAN HALF the effort. [place] lifts, holds or supports trunk or limbs, but provides less than half the effort. 2-Substantial/Maximal Assistance-helper does MORE THAN HALF the effort. [place] lifts or holds trunk or limbs and provides more than half the effort. 9-Kpfdaadwt-hcjzmo does ALL the effort. Patient does none of the effort to complete the activity. Or, the assistance of 2 or more helpers is required for the patient to complete the activity. If activity was not attempted, code reason: 7-Patient Refused. 9-Not Applicable-not attempted and the patient did not perform the activity before the current illness, exacerbation or injury. 10-Not Attempted due to Environmental Limitations-(lack of equipment, weather restraints, etc.). 88-Not Attempted due to Medical Conditions or Safety Concerns. Sit to Stand (QC): 4 Chair/Alo-hl-Uhgfz Xfer(QC): 5 Weight Bearing Right Lower Extremity: Right Weight Bearing/Tolerated Left Lower Extremity: Left Full Weight Bearing Gait Training Does the Patient Walk?: Yes Distance: 60' Walk 10 feet (QC): 4 Walk 50 ft with 2 Turns(QC): 4 Gait Assistive Device: FWW Patient requires frequent rest breaks but is fairly stable during ambulation having no loss of balance. At this time patient started putting more weight through his RLE and was putting his entire right foot in contact with with ground opposed to just his toe. Wheelchair Training Does the Pt Use a Wheelchair?: No Exercises Seated Therapy Exercises: Ankle pumps, Long arc quads Seated Reps: 15 Assessment Current Status: Fair Progress Patient was able to increase the distance he walked today. PT Fdc Goals Animal Nursery Worker Goals PT Animal Nursery Worker Goals Time Frame: Dec 04, 2019 Sit to Lying (QC): 6 Lying-Sitting on Side/Bed(QC): 6 Sit to Stand (QC): 6 Chair/Npj-lq-Aexyh Xfer(QC): 6 Does the Patient Walk: Yes Walk 150 ft (QC): 6 4 Steps (QC): 4 PT Plan Problem List Problem List: Activity Tolerance, Functional Strength, Safety, Balance, Gait, Transfer, Bed Mobility, ROM Treatment/Plan Treatment Plan: Continue Plan of Care Treatment Plan: Bed Mobility, Education, Functional Activity Justino, Functional Strength, Gait, Safety, Therapeutic Exercise, Transfers Treatment Duration: Dec 04, 2019 Frequency: 11 times per week Estimated Hrs Per Day: .5 hour per day Patient and/or Family Agrees t: Yes Safety Risks/Education Patient Education: Gait Training, Transfer Techniques Teaching Recipient: Patient Teaching Methods: Discussion Response to Teaching: Reinforcement Needed Time/GCodes Time In: 917 Time Out: 941 Total Billed Treatment Time: 24 Total Billed Treatment 1 visit GT 16 min EX 8 min JIM HIGGINS PT Nov 30, 2019 10:04
[2019-11-30] MEDS: RT-ALBUTEROL/IPRATROPIUM 3 ML (DUONEB) VIAL INH SCH ×3 (10:10→18:21)
[2019-11-30] MEDS: morphine ER 15 MG (MS CONTIN) TAB PO SCH ×2 (10:18→21:44)
[2019-11-30 11:00] LABS: BASOPHILS % (AUTO) 0 % (0-10); EOSINOPHILS # (AUTO) 0.1 10^3/uL (0.0-0.3); EOSINOPHILS % (AUTO) 1 % (0-10); HEMATOCRIT 24 % (40-54); HEMOGLOBIN 7.5 G/DL (13.3-17.7); LYMPHOCYTES # (AUTO) 0.8 X 10^3 (1.0-4.0); LYMPHOCYTES % (AUTO) 17 % (12-44); MEAN CORPUSCULAR HEMOGLOBIN 31 PG (25-34); MEAN CORPUSCULAR HGB CONC 32 G/DL (32-36); MEAN CORPUSCULAR VOLUME 97 FL (80-99); MEAN PLATELET VOLUME 8.9 FL (7.4-10.4); MONOCYTES # (AUTO) 0.4 X 10^3 (0.0-1.0); MONOCYTES % (AUTO) 8 % (0-12); NEUTROPHILS # (AUTO) 3.8 X 10^3 (1.8-7.8); NEUTROPHILS % (AUTO) 74 % (42-75); PLATELET COUNT 137 10^3/uL (130-400); RED CELL DISTRIBUTION WIDTH 13.1 % (10.0-14.5); WHITE BLOOD COUNT 5.1 10^3/uL (4.3-11.0)
--- NOTE | 2019-11-30 11:03 | Cardiology Progress Note ---
Subjective Date Seen by Provider: Nov 30, 2019 Time Seen by Provider: 08:28 Subjective/Events-last exam Patient asleep in bed, easily awakens to answer questions. Denies any chest pain or dyspnea. Objective-Cardiology Exam Last Set of Vital Signs Vital Signs 11/30/19 11/30/19 11/30/19 08:30 09:38 10:10 Temp 36.8 Pulse 134 Resp 18 B/P (MAP) 120/68 (85) Pulse Ox 98 O2 Delivery Nasal Cannula O2 Flow Rate 2.00 Capillary Refill : Less Than 3 SecondsLess Than 3 Seconds I&O Intake and Output 11/30/19 00:00 Intake Total 2160 ml Output Total 1500 ml Balance 660 ml Intake Oral 1160 ml IV Total 1000 ml Output Urine Total 1500 ml Bladder Scan Volume Amount 349 ml # Voids 1 General: Alert, Oriented X3, Cooperative HEENT: Atraumatic, PERRLA Neck: Supple, No JVD, No Thyromegaly Lungs: Clear to Auscultation, Normal Air Movement Heart: Normal S1, Normal S2, No Murmurs, Other (Tachycardia) Abdomen: Normal Bowel Sounds, Soft, No Tenderness, No Hepatosplenomegaly, No Masses Extremities: No Clubbing, No Cyanosis, No Edema, Normal Pulses, No Tenderness/Swelling Skin: No Rashes, No Breakdown Neuro: Normal Speech, Normal Tone, Sensation Intact, Other Psych/Mental Status: Mental Status NL, Mood NL Results Lab Laboratory Tests 11/30/19 05:48 11/30/19 10:55 A/P-Cardiology Admission Diagnosis Abnormal EKG Hip fracture Diabetes mellitus Assessment/Plan Abnormal EKG with left anterior fascicular block, T-wave inversion in anterior lead, a symptomatically at this time. Tachycardia, sinus tachycardia, probably secondary to anemia postoperatively. Followed by primary care team Hip fracture, status post surgical repair, recovering slowly. Post op anemia- continue to monitor H/H. Consider transfusion as needed. Diabetes mellitus, followed and managed by primary care physician Clinical Quality Measures DVT/VTE Risk/Contraindication: Risk Factor Score Per Nursin RFS Level Per Nursing on Admit: 4+=Very High MAGNO CASTRO Nov 30, 2019 11:03
--- NOTE | 2019-11-30 11:23 | Progress Note - Hospitalist ---
[facility] 11/30/19 1123: Subjective HPI/CC On Admission Date Seen by Provider: Nov 30, 2019 Time Seen by Provider: 07:50 Chief complaint: Right hip fracture status post uncomplicated repair by Dr. Anaya POD # 0 History of present illness: This is a 64-year-old white male who has a past medical history of diabetes mellitus and current smoking sees Dr. Davies on a regular basis who presented after a fall on the pavement last night suffering a right hip fracture which was repaired in an uncomplicated fashion by Dr. Anaya. Currently he is still resolving from anesthesia effect and he has minimal to tell me. He did have an abnormal EKG Dr. Meza has been consulted but that did not preclude forging ahead with surgery since the benefits outweighed the medical risk in order to regain function in independent living. I did review his home medications and restarted most and will initiate a sliding scale for hyperglycemia. Apparently he does smoke every day so I did offer nicotine patch 2. Will initiate carbohydrate limited diet. Subjective/Events-last exam Patient is experiencing pain on walking and with the slightest movement. Pulmonology was consulted and there are no concerns at this time. Patient would benefit from rehab. He had a bowel movement this morning. There was no family in the room at time of visit. He has no new complaints. Cardiology is following for abnormal EKG. Focused Exam Respiratory: No Accessory Muscle Use, No Respiratory Distress Cardiovascular: No Edema Skin: normal color, warm/dry Objective Exam Vital Signs Vital Signs Date Time Temp Pulse Resp B/P (MAP) Pulse Ox O2 Delivery O2 Flow Rate FiO2 11/30/19 10:10 98 Nasal Cannula 2.00 11/30/19 09:38 134 11/30/19 08:30 36.8 18 120/68 (85) Capillary Refill : Less Than 3 SecondsLess Than 3 Seconds Respiratory: No Accessory Muscle Use, No Respiratory Distress Rectal: Deferred Neurologic/Psychiatric: Alert Results/Procedures Lab Laboratory Tests 11/30/19 05:48 11/30/19 10:55 Patient resulted labs reviewed. Assessment/Plan Assessment and Plan Assess & Plan/Chief Complaint Assessment/Plan Pain control so he can better participate in recovery R femoral neck fracture after fall - s/p hemiarthroplasty Smoker - encourage cessation Abnormal EKG - being followed by cardiology COPD - nebulizer ordered Anemia - Iron studies have been ordered Would benefit from rehab Check alcohol and tox screen - waiting for results New labs ordered Clinical Quality Measures DVT/VTE Risk/Contraindication: Risk Factor Score Per Nursin RFS Level Per Nursing on Admit: 4+=Very High MIGNON LOWERY DO 11/30/19 2030: Subjective Subjective/Events-last exam Pt doing pretty well but pain is not well controlled and he refuses to take anything other than Tylenol which is preventing him from participating in therapy Need inpatient rehab MS Beverly will be started at 15mg twice daily to help control the pain on a long acting basis because he is allergic to Oxycodone and Hydrocodone Pt doing much better today, lungs are clear, still having difficulty participa ting Review of Systems General: Fatigue Pulmonary: Dyspnea Musculoskeletal: leg pain Objective Exam General Appearance: No Apparent Distress, WD/WN, Chronically ill Respiratory: Lungs Clear, Normal Breath Sounds, No Accessory Muscle Use, No Respiratory Distress Cardiovascular: Regular Rate, Rhythm Extremity: Normal Capillary Refill, Normal Inspection, Normal Range of Motion (except right leg), Non Tender, No Calf Tenderness, No Pedal Edema Neurologic/Psychiatric: Alert Assessment/Plan Assessment and Plan Assess & Plan/Chief Complaint MS Beverly BID BM regimen IRF? Diagnosis/Problems Diagnosis/Problems (1) Closed impacted fracture of right hip Status: Acute Qualifiers: Qualified Codes: S72.091A - Other fracture of head and neck of right femur, initial encounter for closed fracture (2) COPD (chronic obstructive pulmonary disease) (3) Diabetes mellitus (4) Hypothyroidism (5) Acute blood loss anemia (6) Smoker Supervisory-Addendum Brief Verification & Attestation Participated in pt care: history, MDM, physical Personally performed: exam, history, MDM, supervision of care Care discussed with: Medical Student Procedures: n/a Results interpretation: Verified all documentation Verification and Attestation of Medical Student E/M Service A medical student performed and documented this service in my presence. I reviewed and verified all information documented by the medical student and made modifications to such information, when appropriate. I personally performed the physical exam and medical decision making. Mignon Lowery, Nov 30, 2019,20:30 [facility] Nov 30, 2019 11:23 MIGNON LOWERY DO Nov 30, 2019 20:30
[2019-11-30 11:25] LABS: ALBUMIN 2.8 GM/DL (3.2-4.5); BILIRUBIN,TOTAL 0.5 MG/DL (0.1-1.0); CALCIUM 8.4 MG/DL (8.5-10.1); CREATININE SERUM 1.3 MG/DL (0.60-1.30); POTASSIUM 3.7 MMOL/L (3.6-5.0); TOTAL PROTEIN 4.9 GM/DL (6.4-8.2)
--- NOTE | 2019-11-30 11:52 | Occ Therapy Progress Note ---
Therapy Progress Note Attempted OT treatment at 1130. Pt sitting in chair. Pt declined to participate in any therapeutic activity at this time. Educated pt on benefits of therapy and encouraged pt to participate, but pt continues to refuse, states he needs to take a nap right now. Will attempt this pm. 1, visit-refused ALYSON FRANCO OT Nov 30, 2019 11:52
--- NOTE | 2019-11-30 12:38 | Pulmonary Progress Note ---
Subjective Time Seen by a Provider: 12:36 Subjective/Events-last exam No complications noted. Sepsis Event Evaluation Height, Weight, BMI Height: '" Weight: lbs. oz. kg; 23.75 BMI Method: Exam Exam Vital Signs Date Time Temp Pulse Resp B/P (MAP) Pulse Ox O2 Delivery O2 Flow Rate FiO2 11/30/19 10:10 98 Nasal Cannula 2.00 11/30/19 09:38 134 11/30/19 08:30 36.8 98 18 120/68 (85) 98 NIV Bilevel 2.00 11/30/19 07:00 99 11/30/19 04:00 37.2 100 6 118/70 (86) 96 Nasal Cannula 2.00 11/30/19 00:54 103 11/30/19 00:00 37.4 102 20 112/67 (82) 95 Nasal Cannula 2.00 11/29/19 20:00 95 Nasal Cannula 2.00 11/29/19 20:00 37.6 105 20 123/67 (85) 98 Nasal Cannula 2.00 11/29/19 18:50 106 11/29/19 16:00 37.2 100 18 109/65 (80) 96 Nasal Cannula 2.00 11/29/19 15:26 93 Nasal Cannula 2.00 11/29/19 13:00 96 I & O 11/30/19 07:00 Intake Total 2160 ml Output Total 1450 ml Balance 710 ml Height & Weight Height: '" Weight: lbs. oz. kg; 23.75 BMI Method: General Appearance: No Apparent Distress, WD/WN, Anxious, Chronically ill HEENT: PERRL/EOMI, TMs Normal, Normal ENT Inspection, Pharynx Normal, Moist Mucous Membranes Neck: Full Range of Motion, Normal Inspection, Non Tender, Supple, Carotid Bruit Respiratory: No Accessory Muscle Use, No Respiratory Distress Cardiovascular: No Edema Capillary Refill: Less Than 3 Seconds Gastrointestinal: normal bowel sounds, soft, no pulsatile mass Extremity: Normal Capillary Refill, Normal Inspection, Normal Range of Motion (except right leg), Non Tender, No Calf Tenderness, No Pedal Edema Neurologic/Psychiatric: Alert Skin: Normal Color, Warm/Dry Lymphatic: No Adenopathy Results Lab Laboratory Tests 11/29/19 06:35 11/30/19 05:48 11/30/19 10:55 Assessment/Plan Assessment/Plan S/p right hip fx s/p repair Tobacco use and probable COPD -DuoNeb -oxygen -- titrate down -CXR from 11/27 questions lung mass and recommends ct of chest -Will order CT of chest with contrast -Monitor DM Anemia -NORI Melendez DO Nov 30, 2019 12:38
--- NOTE | 2019-11-30 13:30 | Occupational Ther Daily Note ---
OT Current Status-Daily Note Subjective Pt. moans with movement but states that he is not having pain. Appearance Pt. has just finished with PT and is transferring to chair when OT enters room. Mental Status/Objective Patient Orientation: Unable to Assess ADL-Treatment Therapy Code Descriptions/Definitions Functional [place] Measure: 0=Not Assessed/NA 4=Minimal Assistance 1=Total Assistance 5=Supervision or Setup 2=Maximal Assistance 6=Modified [place] 3=Moderate Assistance 7=Complete IndependenceSCALE: Activities may be completed with or without assistive devices. 3-Mmikdbmdkr-edsinkt completes the activity by him/herself with no assistance from a helper. 5-Set-up or Clean-up Assistance-helper sets up or cleans up; patient completes activity. [place] assists only prior to or following the activity. 4-Supervision or Touching Assistance-helper provides verbal cues and/or touching/steadying and/or contact guard assistance as patient completes activity. Assistance may be provided throughout the activity or intermittently. 3-Partial/Moderate Assistance-helper does LESS THAN HALF the effort. [place] lifts, holds or supports trunk or limbs, but provides less than half the effort. 2-Substantial/Maximal Assistance-helper does MORE THAN HALF the effort. [place] lifts or holds trunk or limbs and provides more than half the effort. 7-Uphvoxuum-ixhwbj does ALL the effort. Patient does none of the effort to complete the activity. Or, the assistance of 2 or more helpers is required for the patient to complete the activity. If activity was not attempted, code reason: 7-Patient Refused. 9-Not Applicable-not attempted and the patient did not perform the activity before the current illness, exacerbation or injury. 10-Not Attempted due to Environmental Limitations-(lack of equipment, weather restraints, etc.). 88-Not Attempted due to Medical Conditions or Safety Concerns. Eating (QC): 6 (Lunch tray has arrived. Pt. able to set tray up on own.) OT brings in AE for LE ADLs due to hip precautions. Pt. verbalizes understanding of hip precautions, but declines practicing equipment at this time. Pt. sets up tray of food while OT educates him on equipment, including s ock aide, LH sponge, dressing stick, utility pipe layer, and LH shoe spoon. Pt. verbalizes understanding, but states that he will try it later. Pt. is educated that sponge will go home with him, but rest of equipment is property of hospital, and that therapist will let him know where to get equipment from. OT assists pt. to comfort level with blanket, call light, elevated feet, etc. Will attempt ADLs in a.m. as pt. is willing to participate. Education OT Patient Education: Correct positioning, Modified ADL techniques, Progress toward Goal/Update tx plan, Purpose of tx/functional activities, Reviewed precau tions, Rehab process, Use of adapted equipment Teaching Recipient: Patient Teaching Methods: Demonstration, Discussion Response to Teaching: Verbalize Understanding, Unable to Return Demonstration OT Application Tester Goals Shelter Goals Time Frame: Dec 10, 2019 Eating (QC): 6 Oral Hygiene (QC): 6 Toileting Hygiene (QC): 3 Shower/Bathe Self (QC): 3 Upper Body Dressing (QC): 6 Lower Body Dressing (QC): 3 On/Off Footwear (QC): 3 Additional Goals: 1-Demonstrate ADL Tasks, 2-Verbalize Understanding, 3- ImproveStrength/Justino 1=Demonstrate adherence to instructed precautions during ADL tasks. 2=Patient will verbalize/demonstrate understanding of assistive devices/modifications for ADL. 3=Patient will improve strength/tolerance for activity to enable patient to perform ADL's. OT Education/Plan Problem List/Assessment Assessment: Decreased Activ Tolerance, Dependent Transfers, Impaired I ADL's, Impaired Self-Care Skills Discharge Recommendations Plan/Recommendations: Continue POC Therapy Discharge Recommendati: Post Acute OT Equpiment Recommendations-D/C: Hip Kit Barriers to Progress Participation. Pt. is somewhat self limiting. Requires encouragement. Treatment Plan/Plan of Care Treatment,Training & Education: Yes Patient would benefit from OT for education, treatment and training to promote independence in ADL's, mobility, safety and/or upper extremity function for ADL's. Plan of Care: ADL Retraining, Functional Mobility, UE Funct Exercise/Act Treatment Duration: Dec 10, 2019 Frequency: 5 times per week Estimated Hrs Per Day: .25 hour per day Agreement: Yes Rehab Potential: Guarded Time/GCodes Start Time: 13:10 Stop Time: 13:20 Total Time Billed (hr/min): 10 Billed Treatment Time 1, ADL CAROLINE LEMOS OT Nov 30, 2019 13:30
--- NOTE | 2019-11-30 13:49 | Physical Therapy Daily Note ---
PT Daily Note-Current Subjective Patient agreeable to therapy at this time. Appearance Patient in recliner with legs up, bedside table, and call light within reach. Mental Status Patient Orientation: Person, Place, Time, Situation Transfers SCALE: Activities may be completed with or without assistive devices. 2-Gyuzdoegtr-ttxgvze completes the activity by him/herself with no assistance from a helper. 5-Set-up or Clean-up Assistance-helper sets up or cleans up; patient completes activity. [place] assists only prior to or following the activity. 4-Supervision or Touching Assistance-helper provides verbal cues and/or touching/steadying and/or contact guard assistance as patient completes activity. Assistance may be provided throughout the activity or intermittently. 3-Partial/Moderate Assistance-helper does LESS THAN HALF the effort. [place] lifts, holds or supports trunk or limbs, but provides less than half the effort. 2-Substantial/Maximal Assistance-helper does MORE THAN HALF the effort. [place] lifts or holds trunk or limbs and provides more than half the effort. 6-Afenoglyb-ccnonj does ALL the effort. Patient does none of the effort to complete the activity. Or, the assistance of 2 or more helpers is required for the patient to complete the activity. If activity was not attempted, code reason: 7-Patient Refused. 9-Not Applicable-not attempted and the patient did not perform the activity before the current illness, exacerbation or injury. 10-Not Attempted due to Environmental Limitations-(lack of equipment, weather restraints, etc.). 88-Not Attempted due to Medical Conditions or Safety Concerns. Sit to Stand (QC): 5 Weight Bearing Right Lower Extremity: Right Weight Bearing/Tolerated Left Lower Extremity: Left Full Weight Bearing Gait Training Does the Patient Walk?: Yes Distance: 80' Walk 10 feet (QC): 4 Walk 50 ft with 2 Turns(QC): 4 Gait Persons Needed: 1 Gait Assistive Device: FWW Wheelchair Training Does the Pt Use a Wheelchair?: No Exercises Seated Therapy Exercises: Ankle pumps, Long arc quads Seated Reps: 8 Treatments Assessment Current Status: Fair Progress Patient was ambulating with a more normal gait pattern at this time. He appeared to be placing more weight on his RLE. PT Manager Net Goals Manager Net Goals PT Senior Living Goals Time Frame: Dec 04, 2019 Sit to Lying (QC): 6 Lying-Sitting on Side/Bed(QC): 6 Sit to Stand (QC): 6 Chair/Xvl-xv-Spuiu Xfer(QC): 6 Does the Patient Walk: Yes Walk 150 ft (QC): 6 4 Steps (QC): 4 PT Plan Problem List Problem List: Activity Tolerance, Functional Strength, Safety, Balance, Gait, Transfer, Bed Mobility, ROM Treatment/Plan Treatment Plan: Continue Plan of Care Treatment Plan: Bed Mobility, Education, Functional Activity Justino, Functional Strength, Gait, Safety, Therapeutic Exercise, Transfers Treatment Duration: Dec 04, 2019 Frequency: 11 times per week Estimated Hrs Per Day: .5 hour per day Patient and/or Family Agrees t: Yes Safety Risks/Education Patient Education: Gait Training, Transfer Techniques Teaching Recipient: Patient Teaching Methods: Discussion Response to Teaching: Reinforcement Needed Time/GCodes Time In: 1300 Time Out: 1313 Total Billed Treatment Time: 13 Total Billed Treatment 1 visit GT (13 minutes) JIM HIGGINS PT Nov 30, 2019 13:49
--- NOTE | 2019-11-30 14:10 | NUR ---
IRF Evaluation Order received to evaluate patient for the ARU. Chart review complete and findings discussed with Dr. Marcial - patient accepted. Patient does have primary insurance coverage provided by his employer, [employer]; therefore, prior authorization would need to be obtained. Intend to meet with patient to discuss requirements and expectations of rehabilitation program. Thank you for this referral.
[2019-11-30] MEDS ORDERED: HOLD METFORMIN - RECEIVED CONTRAST 20 ML VIAL IV SCH (15:00)
[2019-11-30] MEDS ORDERED: NS 100 ML (IVPB) BAG IV ONE (15:00)
[2019-11-30] MEDS ORDERED: IOHEXOL 350 MG/ML 100 ML (OMNIPAQUE 350) VIAL IV ONE (15:00)
--- NOTE | 2019-11-30 15:38 | Cardiology Progress Note ---
Subjective Date Seen by Provider: Nov 30, 2019 Time Seen by Provider: 15:37 Subjective/Events-last exam Patient is sitting in a chair, feeling better. No new complaint Review of Systems General: No Chills, No Night Sweats, No Fatigue, No Malaise, No Appetite, No Other HEENT: No Head Aches, No Visual Changes, No Eye Pain, No Ear Pain, No Dysphasia, No Sinus Congestion, No Post Nasal Drip, No Sore Throat, No Other Pulmonary: No Dyspnea, No Cough, No Pleuritic Chest Pain, No Other Cardiovascular: No: Chest Pain, Palpitations, Orthopnea, Paroxysmal Noc. Dyspnea, Edema, Lt Headedness, Other Objective-Cardiology Exam Last Set of Vital Signs Vital Signs 11/30/19 11/30/19 11/30/19 10:10 12:00 13:00 Temp 37.0 Pulse 107 Resp 18 B/P (MAP) 102/58 (73) Pulse Ox 94 O2 Delivery Room Air O2 Flow Rate 2.00 Capillary Refill : Less Than 3 SecondsLess Than 3 Seconds I&O Intake and Output 11/30/19 00:00 Intake Total 2160 ml Output Total 1500 ml Balance 660 ml Intake Oral 1160 ml IV Total 1000 ml Output Urine Total 1500 ml Bladder Scan Volume Amount 349 ml # Voids 1 General: Alert, Oriented X3, Cooperative HEENT: Atraumatic, PERRLA Neck: Supple, No JVD, No Thyromegaly Lungs: Clear to Auscultation, Normal Air Movement Heart: Normal S1, Normal S2, No Murmurs, Other (Tachycardia) Abdomen: Normal Bowel Sounds, Soft, No Tenderness, No Hepatosplenomegaly, No Masses Extremities: No Clubbing, No Cyanosis, No Edema, Normal Pulses, No Tenderness/Swelling Skin: No Rashes, No Breakdown Neuro: Normal Speech, Normal Tone, Sensation Intact, Other Psych/Mental Status: Mental Status NL, Mood NL Results Lab Laboratory Tests 11/30/19 05:48 11/30/19 10:55 A/P-Cardiology Admission Diagnosis Abnormal EKG Hip fracture Diabetes mellitus Assessment/Plan Abnormal EKG with left anterior fascicular block, T-wave inversion in anterior lead, a symptomatically at this time. Tachycardia, sinus tachycardia, probably secondary to anemia postoperatively. Followed by primary care team Hip fracture, status post surgical repair, recovering slowly. Post op anemia- continue to monitor H/H, receiving blood transfusion as needed, managed by primary care team Diabetes mellitus, followed and managed by primary care physician Clinical Quality Measures DVT/VTE Risk/Contraindication: Risk Factor Score Per Nursin RFS Level Per Nursing on Admit: 4+=Very High LAURENCE RICHEY MD Nov 30, 2019 15:38
--- NOTE | 2019-11-30 15:55 | NUR ---
PT BP 88/[address] LOWERY NOTIFIED VIA PHONE. ORDER RECEIVED FOR 500CC BOLUS X1
[2019-11-30] MEDS ORDERED: NS IV 500 ML 500 ML ONE (15:58)
[2019-11-30] MEDS ORDERED: NS IV 500 ML 500 ML IV SCH (16:00)
--- NOTE | 2019-11-30 18:20 | Diagnostic Imaging Report ---
PROCEDURE: CT chest with contrast only. TECHNIQUE: Multiple contiguous axial images were obtained through the chest after administration of intravenous contrast. Auto Exposure Controls were utilized during the CT exam to meet ALARA standards for radiation dose reduction. INDICATION: Evaluate for chest mass. COMPARISON: Correlation is made with chest radiograph from 11/27/2019. FINDINGS: No axillary lymphadenopathy is detected. No definite mediastinal or hilar lymphadenopathy is detected. No pericardial or pleural fluid is identified. No pulmonary mass is detected. No infiltrate is seen. Upper abdomen does show rounded low-density lesions in bilateral kidneys, suggestive of cysts. There is also a tiny nonobstructing calculus in the left kidney. IMPRESSION: 1. No pulmonary mass or evidence of thoracic lymphadenopathy is identified. 2. Bilateral renal cysts and tiny nonobstructing left renal calculus. Dictated by: Dictated on workstation # [id number]
[2019-11-30] MEDS: RT-ADVAIR HFA 115/21 MCG PER PUFF IH SCH (18:21)
[2019-11-30] MEDS: MONTELUKAST 10 MG (SINGULAIR) TAB PO SCH (21:44)
[2019-11-30] MEDS: SIMvastatin 10 MG (ZOCOR) TAB PO SCH (21:44)
[2019-11-30] MEDS: POLYETHYLENE GLYCOL 17 GM (MIRALAX) PACK PO SCH (21:44)
[2019-12-01 00:35] VITALS: BP 99/57
[2019-12-01 04:05] VITALS: BP 103/57
--- NOTE | 2019-12-01 04:13 | DISCHARGE SUMMARY ---
DATE OF SERVICE: DATE OF ADMISSION: 11/26/2019 DATE OF DISCHARGE: 12/01/2019 DIAGNOSES: 1. Right displaced femoral neck fracture. 2. Hypertension. 3. Diabetes mellitus. 4. Postoperative anemia secondary to surgical blood loss. 5. Tachycardia. PROCEDURE: Right hip endoprosthetic replacement. HISTORY: The patient is a 64-year-old gentleman, who was transferred from outside facility for a right femoral neck fracture. He underwent a bipolar replacement without complications. Postoperatively, he did well. His hematocrit dropped to 24. His wound was clean and dry. He was progressing well with physical therapy. CONDITION AT DISCHARGE: Good. DISCHARGE DIET: Regular. DISCHARGE DISPOSITION: Transferred to the inpatient rehabilitation facility for continued physical and occupational therapy. Job ID: [id number] DocumentID: [id number] Dictated Date: 11/30/2019 18:20:06 Legal Collector Date: 12/01/2019 04:13:24 Dictated By: JARON DEWEY MD
[2019-12-01] MEDS: ACETAMINOPHEN 325 MG TABLET PO PRN (04:42)
[2019-12-01] MEDS: inSUlin ASPART (NovoLOG) 1 UNIT/0.01 ML (CHARGE PER UNIT) SC SCH ×2 (06:16→11:40)
[2019-12-01] MEDS: LEVOTHYROXINE 50 MCG (LEVOTHROID) TAB PO SCH (06:32)
[2019-12-01] MEDS: glipiZIDE 5 MG (GLUCOTROL) TAB PO SCH (06:32)
[2019-12-01 06:40] LABS: ALBUMIN 2.7 GM/DL (3.2-4.5); BILIRUBIN,TOTAL 0.4 MG/DL (0.1-1.0); CALCIUM 8.2 MG/DL (8.5-10.1); CREATININE SERUM 1.24 MG/DL (0.60-1.30); POTASSIUM 3.5 MMOL/L (3.6-5.0); TOTAL PROTEIN 4.8 GM/DL (6.4-8.2)
[2019-12-01 08:03] VITALS: BP 103/64
--- NOTE | 2019-12-01 08:34 | Cardiology Progress Note ---
Subjective Date Seen by Provider: Dec 01, 2019 Time Seen by Provider: 08:33 Subjective/Events-last exam Patient is in bed, no new complaints. Reports generalized fatigue. Denies any chest pain or palpitations. Objective-Cardiology Exam Last Set of Vital Signs Vital Signs 12/01/19 12/01/19 12/01/19 08:03 09:48 09:54 Temp 37.0 Pulse 105 Resp 18 B/P (MAP) 103/64 (77) Pulse Ox 98 O2 Delivery Room Air O2 Flow Rate 1.00 Capillary Refill : Less Than 3 SecondsLess Than 3 Seconds I&O Intake and Output 12/01/19 00:00 Intake Total 1124 ml Output Total 1025 ml Balance 99 ml Intake Oral 1124 ml Output Urine Total 1025 ml Bladder Scan Volume Amount 122 ml # Voids 2 # Bowel Movements 1 General: Alert, Oriented X3, Cooperative HEENT: Atraumatic, PERRLA Neck: Supple, No JVD, No Thyromegaly Lungs: Clear to Auscultation, Normal Air Movement Heart: Normal S1, Normal S2, No Murmurs, Other (Tachycardia) Abdomen: Normal Bowel Sounds, Soft, No Tenderness, No Hepatosplenomegaly, No Masses Extremities: No Clubbing, No Cyanosis, No Edema, Normal Pulses, No Tenderness/Swelling Skin: No Rashes, No Breakdown Neuro: Normal Speech, Normal Tone, Sensation Intact, Other Psych/Mental Status: Mental Status NL, Mood NL Results Lab Laboratory Tests 12/01/19 05:45 A/P-Cardiology Admission Diagnosis Abnormal EKG Hip fracture Diabetes mellitus Assessment/Plan Abnormal EKG with left anterior fascicular block, T-wave inversion in anterior lead, a symptomatically at this time. Tachycardia, sinus tachycardia, probably secondary to anemia postoperatively. Followed by primary care team Hip fracture, status post surgical repair, recovering slowly. Post op anemia- continue to monitor H/H, managed by primary care team Diabetes mellitus, followed and managed by primary care physician Patient was seen and evaluated with Tayler, examination performed, management plan was discussed, agree with the current scribed note, I made few changes to the note using Italic font Patient is transferred to rehabilitation, doing well. Continue on current medication monitor Clinical Quality Measures DVT/VTE Risk/Contraindication: Risk Factor Score Per Nursin RFS Level Per Nursing on Admit: 4+=Very High Supervisory-Addendum Brief Supervisory Addendum Participated in pt care: history, MDM, physical Personally performed: exam, history, MDM Care discussed with: TAYLER NEVILLE Dec 01, 2019 08:34 LAURENCE RICHEY MD Dec 01, 2019 15:17
[2019-12-01] MEDS: RT-ALBUTEROL/IPRATROPIUM 3 ML (DUONEB) VIAL INH SCH (09:48)
[2019-12-01 09:49] LABS: BASOPHILS % (AUTO) 0 % (0-10); EOSINOPHILS # (AUTO) 0.2 10^3/uL (0.0-0.3); EOSINOPHILS % (AUTO) 3 % (0-10); HEMATOCRIT 23 % (40-54); HEMOGLOBIN 7.2 G/DL (13.3-17.7); LYMPHOCYTES # (AUTO) 0.7 X 10^3 (1.0-4.0); LYMPHOCYTES % (AUTO) 16 % (12-44); MEAN CORPUSCULAR HEMOGLOBIN 31 PG (25-34); MEAN CORPUSCULAR HGB CONC 32 G/DL (32-36); MEAN CORPUSCULAR VOLUME 98 FL (80-99); MEAN PLATELET VOLUME 10.1 FL (7.4-10.4); MONOCYTES # (AUTO) 0.5 X 10^3 (0.0-1.0); MONOCYTES % (AUTO) 10 % (0-12); NEUTROPHILS # (AUTO) 3.4 X 10^3 (1.8-7.8); NEUTROPHILS % (AUTO) 71 % (42-75); PLATELET COUNT 154 10^3/uL (130-400); RED CELL DISTRIBUTION WIDTH 13.1 % (10.0-14.5); WHITE BLOOD COUNT 4.8 10^3/uL (4.3-11.0)
[2019-12-01] MEDS: morphine ER 15 MG (MS CONTIN) TAB PO SCH (09:50)
[2019-12-01] MEDS: RT-ADVAIR HFA 115/21 MCG PER PUFF IH SCH (09:51)
[2019-12-01] MEDS: SENNA W/DOCUSATE (SENOKOT S) TABLET PO SCH (09:55)
[2019-12-01] MEDS: ENOXAPARIN 40 MG/0.4 ML (LOVENOX) SYR SC SCH (09:55)
[2019-12-01] MEDS: THIAMINE 100 MG/ML 2 ML (VITAMIN B-1) VIAL IV SCH (09:55)
--- NOTE | 2019-12-01 09:56 | NUR ---
PT DROWSY WAKES UP BRIEFLY FOR CARE BUT DRIFTS BACK OFF TO SLEEP. DR LOWERY NOTIFIED. ORDER RECEIVED TO HOLD 0900 PAIN MEDICATION.
--- NOTE | 2019-12-01 10:49 | NUR ---
PT RIGHT HIP DRESSING SATURATED WITH SCANT BLOOD WITH MOSTLY YELLOW DRAINAGE. [place] INTACT, NO REDNESS NOTED. BRUISING AROUND INCISION SITE. DR DEWEY NOTIFIED. STATED WOULD LOOK AT PT TODAY. DRESSING CHANGED PER ORDERS. PT FAMILY AT BEDSIDE.
--- NOTE | 2019-12-01 11:40 | NUR ---
REPORT GIVEN TO BLAYNE CUEVA ON IRF. PT TO GO TO ROOM 225.
--- NOTE | 2019-12-01 13:39 | Discharge Summary ---
[facility] 12/01/19 1338: Diagnosis/Chief Complaint Date of Admission Nov 26, 2019 at 20:44 Date of Discharge Dec 01, 2019 at 11:40 Discharge Date: Dec 01, 2019 Primary Care Discharge Diagnosis (1) Closed impacted fracture of right hip Status: Acute (2) COPD (chronic obstructive pulmonary disease) (3) Diabetes mellitus (4) Hypothyroidism (5) Acute blood loss anemia (6) Smoker Discharge Summary Discharge Physical Exam Allergies: Coded Allergies: hydrocodone (Verified Allergy, Unknown, 11/26/19) Vitals & I&Os Vital Signs Date Time Temp Pulse Resp B/P (MAP) Pulse Ox O2 Delivery O2 Flow Rate FiO2 12/01/19 09:54 98 Room Air 12/01/19 09:48 1.00 12/01/19 08:03 37.0 105 18 103/64 (77) General Appearance: No Apparent Distress, WD/WN Respiratory: Lungs Clear, Normal Breath Sounds, No Accessory Muscle Use, No Re spiratory Distress Cardiovascular: Regular Rate, Rhythm, No Gallop, No Murmur Skin: Normal Color, Warm/Dry Neurologic/Psychiatric: Alert Hospital Course Arsen is a 64 year old male with history of diabetes that was admitted after fall where he fractured his R hip. He underwent repair with no complications. Patient is being discharged to rehab floor for therapy. Cardiology followed patient due to an abnormal EKG finding and there is no concern at this time. Pulmonology followed patient as well due to possible mass seen on CXR but chest CT findings were negative, and there are no concerns at this time. At time of discharge to rehab floor, patients pain is being managed and will be closely monitored during therapy. Trial of tramadol with tylenol will be done along with IR morphine for breakthrough coverage. Anemia will be followed. Labs (last 24 hrs) Laboratory Tests 11/30/19 15:45: Glucometer 164H 11/30/19 20:54: Glucometer 186H 12/01/19 05:41: Glucometer 136H 12/01/19 05:45: White Blood Count 4.8, Red Blood Count 2.32L, Hemoglobin 7.2L, Hematocrit 23L, Mean Corpuscular Volume 98, Mean Corpuscular Hemoglobin 31, Mean Corpuscular Hemoglobin Concent 32, Red Cell Distribution Width 13.1, Platelet Count 154, Mean Platelet Volume 10.1, Neutrophils (%) (Auto) 71, Lymphocytes (%) (Auto) 16, Monocytes (%) (Auto) 10, Eosinophils (%) (Auto) 3, Basophils (%) (Auto) 0, Neutrophils # (Auto) 3.4, Lymphocytes # (Auto) 0.7L, Monocytes # (Auto) 0.5, Eosinophils # (Auto) 0.2, Basophils # (Auto) 0.0, Sodium Level 140, Potassium Level 3.5L, Chloride Level 107, Carbon Dioxide Level 25, Anion Gap 8, Blood Urea Nitrogen 13, Creatinine 1.24, Estimat Glomerular Filtration Rate 59, BUN/Creatinine Ratio 10, Glucose Level 117H, Calcium Level 8.2L, Corrected Calcium 9.2, Total Bilirubin 0.4, Aspartate Amino Transf (AST/SGOT) 16, Alanine Aminotransferase (ALT/SGPT) 8, Alkaline Phosphatase 63, Total Protein 4.8L, Albumin 2.7L 12/01/19 11:06: Glucometer 140H Microbiology 11/27/19 MRSA Screen - Final, Complete MRSA not isolated Patient resulted labs reviewed. Pending Labs Laboratory Tests 12/01/19 05:41: Glucometer 136 12/01/19 05:45: White Blood Count 4.8, Red Blood Count 2.32, Hemoglobin 7.2, Hematocrit 23, Mean Corpuscular Volume 98, Mean Corpuscular Hemoglobin 31, Mean Corpuscular Hemoglobin Concent 32, Red Cell Distribution Width 13.1, Platelet Count 154, Mean Platelet Volume 10.1, Neutrophils (%) (Auto) 71, Lymphocytes (%) (Auto) 16, Monocytes (%) (Auto) 10, Eosinophils (%) (Auto) 3, Basophils (%) (Auto) 0, Neutrophils # (Auto) 3.4, Lymphocytes # (Auto) 0.7, Monocytes # (Auto) 0.5, Eosinophils # (Auto) 0.2, Basophils # (Auto) 0.0, Sodium Level 140, Potassium Level 3.5, Chloride Level 107, Carbon Dioxide Level 25, Anion Gap 8, Blood Urea Nitrogen 13, Creatinine 1.24, Estimat Glomerular Filtration Rate 59, BUN/Creatinine Ratio 10, Glucose Level 117, Calcium Level 8.2, Corrected Calcium 9.2, Total Bilirubin 0.4, Aspartate Amino Transf (AST/SGOT) 16, Alanine Aminotransferase (ALT/SGPT) 8, Alkaline Phosphatase 63, Total Protein 4.8, A lbumin 2.7 12/01/19 11:06: Glucometer 140 Discharge Home Medications: Active Scripts Active Reported Diphen (Diphenhydramine HCl) 25 Mg Tablet 25 Mg PO BID PRN Omeprazole 20 Mg Capsule.dr 20 Mg PO DAILY Acetaminophen 500 Mg Tablet 1,000 Mg PO Q8H PRN Iron (Ferrous Sulfate) 325 Mg Tablet 325 Mg PO DAILY Vitamin B Complex Tablet (Vit B Comp/C/FA/Iron/Vit E) 1 Each Tablet 1 Each PO DAILY Multi-Vitamin Daily (Multivitamin) 1 Each Tablet 1 Each PO DAILY Metformin HCl 1,000 Mg Tablet 1,000 Mg PO BIDPC Citalopram HBr (Citalopram Hydrobromide) 40 Mg Tablet 40 Mg PO DAILY Levothyroxine Sodium 50 Mcg Tablet 50 Mg PO DAILY Simvastatin 10 Mg Tablet 10 Mg PO HS Glipizide 10 Mg Tablet 10 Mg PO BID Instructions to patient/family Please see electronic discharge instructions given to patient. Clinical Quality Measures DVT/VTE Risk/Contraindication: Risk Factor Score Per Nursin RFS Level Per Nursing on Admit: 4+=Very High MIGNON LOWERY DO 12/01/192105: Discharge Summary Discharge Physical Exam Allergies: Coded Allergies: hydrocodone (Verified Allergy, Unknown, 11/26/19) General Appearance: No Apparent Distress, WD/WN, Chronically ill Hospital Course Was the Problem List Reviewed?: Yes Hospital course: Pt had a lengthy hospital course after he was admitted after a hip fracture after falling on the pavement, underwent right hip fracture repair by Dr. Anaya in an uncomplicated manner, he did have an episode of confusion and delirium which ultimately resolved but after speaking with his , had a history of esophageal CA in 2009, and becomes very over-sedated with any type of narcotics and Pt was monitored closely, and stabilized in order to return to inpatient rehab to complete his recovery. Discussion & Recommendations Discharge Planning: <30 minutes discharge planning Supervisory-Addendum Brief Verification & Attestation Participated in pt care: history, MDM, physical Personally performed: exam, history, MDM, supervision of care Care discussed with: Medical Student Procedures: n/a Results interpretation: Verified all documentation Verification and Attestation of Medical Student E/M Service A medical student performed and documented this service in my presence. I reviewed and verified all information documented by the medical student and made modifications to such information, when appropriate. I personally performed the physical exam and medical decision making. Mignon Lowery, Dec 01, 2019,21:06 Problem Qualifiers (1) Closed impacted fracture of right hip: Encounter type: initial encounter Qualified Codes: S72.091A - Other fracture of head and neck of right femur, initial encounter for closed fracture [facility] Dec 01, 2019 13:38 MIGNON LOWERY DO Dec 01, 2019 21:06
== END 2019-12-01 11:40 | DRG 470 ==
LOC: ER FS 19:19 → 4TH 20:44
PROVIDERS: ADMIT Internal Medicine; ATTEND Internal Medicine
PROC: 0SR90JA Replacement of Right Hip Joint with Synthetic Substitute, Uncemented, Open Approach (ICD-10-PCS; principal; 2019-11-27 09:10)
DX: S72.091A Other fracture of head and neck of right femur, initial encounter for closed fracture (principal); D62 Acute posthemorrhagic anemia; J44.9 Chronic obstructive pulmonary disease, unspecified; E03.9 Hypothyroidism, unspecified; I10 Essential (primary) hypertension; F17.210 Nicotine dependence, cigarettes, uncomplicated; E11.65 Type 2 diabetes mellitus with hyperglycemia; W18.30XA Fall on same level, unspecified, initial encounter; Z85.89 Personal history of malignant neoplasm of other organs and systems
CPT/HCPCS: 36415; 36600; 71045; 71260; 73501; 73502; 80053; 82805; 82962; 83540; 83880; 85014; 85018; 85025; 86850; 86900; 86901; 87081; 93005; 94640; 94664; 94760; 96374

== ENCOUNTER 2019-12-01 11:15 | Inpatient (IN) | payer OTHER ==
[~2019-12-01] VITALS: Ht 170.2 cm; Wt 77.1 kg
[~2019-12-01 11:15] MED LIST: ACET-78 PO; CITA40TA11 PO; FERR-84 PO; GLIP10TA13 PO; LEVO50TA6 PO; METF-399 PO; MONT10TA24 PO; MULT-974 PO; OMEP-280 PO; SIMV10TA26 PO; VIT1TABL82 PO; [UNRECOGNIZED DRUG - CODE] PO
[2019-12-01] MEDS ORDERED: MELATONIN 3 MG TABLET PO PRN (11:30)
[2019-12-01] MEDS ORDERED: diphenhydrAMINE 25 MG TAB (BENADRYL) PO PRN (11:30)
[2019-12-01] MEDS ORDERED: FLEET ENEMA ADULT 1 EA BTL PR PRN (11:30)
[2019-12-01] MEDS ORDERED: ONDANSETRON 4 MG (ZOFRAN) ORAL DISSOLVE TAB PO PRN (11:30)
[2019-12-01] MEDS ORDERED: LOPERAMIDE 2 MG (IMODIUM) TABLET PO PRN (11:30)
[2019-12-01] MEDS ORDERED: BISACODYL 10 MG SUPP (DULCOLAX) PR PRN (11:30)
[2019-12-01] MEDS ORDERED: DOCUSATE SODIUM 100 MG (COLACE) CAP PO PRN (11:30)
[2019-12-01] MEDS ORDERED: CALCIUM CARBONATE 500 MG (TUMS) TAB.CHEW PO PRN (11:30)
[2019-12-01] MEDS ORDERED: ALPRAZolam 0.25 MG (XANAX) TAB PO PRN (11:30)
[2019-12-01] MEDS ORDERED: guaiFENesin/CODEINE (ROBITUSSIN AC) 10ML UDC PO PRN (11:30)
--- NOTE | 2019-12-01 11:58 | Progress Note ---
Standard Progress Note Progress Notes/Assess & Plan Date Seen by a Provider: Dec 01, 2019 Time Seen by a Provider: 11:57 Progress/Assessment & Plan no complaints R hip incision without erythema or warmth. bloody dc noted no calf tenderness s/p R hip bipolar continue PT/OT JARON DEWEY MD Dec 01, 2019 11:58
[2019-12-01] MEDS ORDERED: morphine IMMEDIATE RELEASE 15 MG TABLET PO PRN (12:00)
--- NOTE | 2019-12-01 12:07 | Physical Therapy Evaluation ---
PT Evaluation-General Medical Diagnosis Admission Date Dec 01, 2019 at 11:30 Medical Diagnosis: Hip fracture Onset Date: Nov 26, 2019 Therapy Diagnosis Therapy Diagnosis: Weakness, decreased ROM, debility Weight Bear Status Right Lower Extremity: Right Weight Bearing/Tolerated Referral Physician: Mignon Marcial DO Reason for Referral: Evaluation/Treatment Medical History Pertinent Medical History: DM, HTN Reviewed History: Yes Social History Home: Single Level Current Living Status: Spouse Entry Into Home: Level Entry Prior Prior Level of Function SCALE: Activities may be completed with or without assistive devices. 7-Jolulaphmj-mxoszem completes the activity by him/herself with no assistance from a helper. 5-Set-up or Clean-up Assistance-helper sets up or cleans up; patient completes activity. [place] assists only prior to or following the activity. 4-Supervision or Touching Assistance-helper provides verbal cues and/or touching/steadying and/or contact guard assistance as patient completes activ ity. Assistance may be provided throughout the activity or intermittently. 3-Partial/Moderate Assistance-helper does LESS THAN HALF the effort. [place] lifts, holds or supports trunk or limbs, but provides less than half the effort. 2-Substantial/Maximal Assistance-helper does MORE THAN HALF the effort. [place] lifts or holds trunk or limbs and provides more than half the effort. 3-Qarihmbxg-nqrate does ALL the effort. Patient does none of the effort to complete the activity. Or, the assistance of 2 or more helpers is required for the patient to complete the activity. If activity was not attempted, code reason: 7-Patient Refused. 9-Not Applicable-not attempted and the patient did not perform the activity before the current illness, exacerbation or injury. 10-Not Attempted due to Environmental Limitations-(lack of equipment, weather restraints, etc.). 88-Not Attempted due to Medical Conditions or Safety Concerns. Bed Mobility: 6 Transfers (B,C,W/C): 6 Gait: 6 Stairs: 6 Indoor Mobility (Ambulation): Independent Stairs: Independent Prior Devices Use: None PT Evaluation-Current Subjective Patient is eventually agreeable to therapy. Patient is resistant at first. Patient complains of his back being itchy at all times. Pain Numeric Pain Scale: 5-Moderate Pain Location: Right Location Body Site: Hip Objective Patient Orientation: Person, Place, Time, Situation ROM/Strength ROM Lower Extremities WFL except R hip Strength Lower Extremities WFL except right hip Integumentary/Posture Bowel Incontinence: No Bladder Incontinence: No Sensory Vision: Wears Glasses Hearing: Impaired Sensation Right Lower Extremit: Intact Sensation Left Lower Extremity: Intact Transfers Roll Left to Right (QC): 6 Sit to Lying (QC): 3 Lying to Sitting/Side of Bed(Q: 3 Sit to Stand (QC): 4 Chair/Cda-sw-Inrcb Xfer(QC): 4 Toilet Transfer: 4 Car Transfer (QC): 3 Patient needs extended time to complete all transfers and bed mobility. Gait Does the Patient Walk?: Yes Mode of Locomotion: Walk Anticipated Mode of Locomotion: Walk Walk 10 feet (QC): 4 Walk 50 ft with 2 Turns(QC): 88 Walk 150 ft (QC): 88 Walking 10ft/uneven surface-QC: 4 Distance: 30' Gait Assistive Device: FWW Comments/Gait Description Patient is fairly stable during ambulation but he takes frequent rest breaks. Patient needs cueing to put weight through his RLE. Wheelchair Training Does the Pt Use a Wheelchair?: No Wheel 50 ft with 2 turns (QC): 10 Wheel 150 ft (QC): 10 Stairs #of Steps: 1 1 Step (curb) (QC): 4 4 Steps (QC): 88 12 Steps (QC): 88 Walking Assistive Device: Walker Patient ascended/descended stairs CGA with walker and verbal cues on sequence. Balance Sitting Static: Normal Sitting Dynamic: Normal Standing Static: Good Standing Dynamic: Good Picking up an Object (QC): 88 Assessment/Needs Patient is resistant to performing much therapy at this time. Patient is fairly stable during ambulation but he takes frequent rest breaks because he states he is tired and can go no further. Patient needs reminders to bear weight through his RLE. Patient requires extra time to perform all bed mobility, transfers, and ambulation. Rehab Potential: Guarded Post Rehab Potential-Barriers: Patient has negative attitude and is resistant to performing therpay. PT Short Term Goals Short Term Goals Time Frame: Dec 08, 2019 Roll Left & Right: 4 Sit to lyin Lying to sitting on side of be: 4 Sit to stand: 4 Chair/ohp-zd-fdijb transfer: 4 Toilet transfer: 4 Car transfer: 4 Walk 10 feet: 4 Walk 50 feet with two turns: 4 Walk 150 feet: 4 Walking 10ft on uneven surface: 4 1 step (curb): 4 4 steps: 4 Does pt use a wc or scooter: No PT Care Home Goals Care Home Goals PT Care Home Goals Time Frame: Dec 22, 2019 Roll Left & Right (QC): 6 Sit to Lying (QC): 6 Lying-Sitting on Side/Bed(QC): 6 Sit to Stand (QC): 6 Chair/Yyu-kp-Xraca Xfer(QC): 6 Toilet Transfer (QC): 6 Car Transfer (QC): 6 Does the Patient Walk: Yes Walk 10 feet (QC): 6 Walk 50ft with 2 Turns (QC): 6 Walk 150 ft (QC): 6 Walking 10ft on Uneven Surface: 6 1 Step (curb) (QC): 6 4 Steps (QC): 6 Does the Pt use WC or Scooter?: No PT Plan Problem List Problem List: Activity Tolerance, Functional Strength, Safety, Balance, Gait, Transfer, Bed Mobility, ROM Treatment/Plan Treatment Plan: Continue Plan of Care Treatment Plan: Bed Mobility, Education, Functional Activity Justino, Functional Strength, Group Therapy, Gait, Safety, Therapeutic Exercise, Transfers Treatment Duration: Dec 22, 2019 Frequency: Modified Program (IRF) Estimated Hrs Per Day: 1.5 hours per day Patient and/or Family Agrees t: Yes Safety Risks/Education Patient Education: Gait Training, Transfer Techniques, Steps, Reviewed Precautions, Correct Positioning, Safety Issues Teaching Recipient: Patient Teaching Methods: Demonstration, Discussion Response to Teaching: Reinforcement Needed Discharge Recommendations Plan Patient will perform bed mobility and transfer training, balance and endurance training, functional strengthening, stair training, gait training, and education, to improve functional mobility and independence at home. Therapy Discharge Recommendati: Home & Family Time/GCodes Time In: 1130 Time Out: 1200 Total Billed Treatment Time: 30 Total Billed Treatment 1 visit CEE 30' SUPA EMERY PT Dec 01, 2019 12:07
[2019-12-01] MEDS: ACETAMINOPHEN 500 MG TAB (TYLENOL) PO SCH ×3 (12:56→20:24)
--- NOTE | 2019-12-01 13:53 | NUR ---
REVIEWED MED REC IT WAS REPORTED UPON ADMISSION TO 4TH FLOOR. NO CHANGES WERE MADE WHEN THE PATIENT DISCHARGED TO REHAB.
[2019-12-01 14:03] VITALS: BP 102/66
[2019-12-01] MEDS: MELOXICAM 7.5 MG (MOBIC) TABLET PO SCH ×2 (14:17→20:25)
--- NOTE | 2019-12-01 14:53 | Occupational Therapy Eval ---
OT Evaluation-General/PLF Medical Diagnosis Admission Date Dec 01, 2019 at 11:30 Medical Diagnosis: Right Hip fracture Onset Date: Nov 26, 2019 Therapy Diagnosis Therapy Diagnosis: decreased self care skills Precautions Precautions/Isolations: Fall Prevention, Standard Precautions Referral Physician: Mignon Marcial DO Medical History Pertinent Medical History: DM, HTN Additional Medical History Hypothyroidism, COPD Current History Pt admitted with right femoral neck fracture now s/p right hip bipolar prosthesis Reviewed History: Yes Social History Home: Single Level Current Living Status: Spouse Entry Into Home: Level Entry ADL-Prior Level of Function SCALE: Activities may be completed with or without assistive devices. 8-Drqomjhsgf-tnyevrk completes the activity by him/herself with no assistance from a helper. 5-Set-up or Clean-up Assistance-helper sets up or cleans up; patient completes activity. [place] assists only prior to or following the activity. 4-Supervision or Touching Assistance-helper provides verbal cues and/or touching/steadying and/or contact guard assistance as patient completes activity. Assistance may be provided throughout the activity or intermittently. 3-Partial/Moderate Assistance-helper does LESS THAN HALF the effort. [place] lifts, holds or supports trunk or limbs, but provides less than half the effort. 2-Substantial/Maximal Assistance-helper does MORE THAN HALF the effort. [place] lifts or holds trunk or limbs and provides more than half the effort. 7-Hghscqtfk-svxdhu does ALL the effort. Patient does none of the effort to complete the activity. Or, the assistance of 2 or more helpers is required for the patient to complete the activity. If activity was not attempted, code reason: 7-Patient Refused. 9-Not Applicable-not attempted and the patient did not perform the activity before the current illness, exacerbation or injury. 10-Not Attempted due to Environmental Limitations-(lack of equipment, weather restraints, etc.). 88-Not Attempted due to Medical Conditions or Safety Concerns. ADL PLOF Comments Pt reports being independent with self care and mobility. 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 Pt states "Can't we wait until tomorrow?" Pt is resistant, but after much encouragement and education, pt agrees to participate. Pt reports / pain, states he recently had pain medication. Mental Status/Objective Patient Orientation: Person, Place, Situation Current Glasses/Contacts: Yes Hearing Aids: Yes Dentures/Partials: No Hand Dominance: Left Upper Extremity ROM Grossly WFL Upper Extremity Coordination Intact ADL-Treatment Eating (QC): 6 (pt reports feeding himself without assist. Observed pt drinking from cup without assist) Oral Hygiene (QC): 7 (Pt declined to complete at this time, states he doesn't wear dentures and only completes oral care "a couple times a week") Shower/Bathe Self (QC): 3 (Pt declined shower, completed sponge bath while seated.) Upper Body Dressing (QC): 4 (Pt donned pullover shirt with SBA while seated.) Lower Body Dressing (QC): 2 (Pt requires assist to thread bilateral LE into pants. (Will require AE for LE dressing.) Pt stood with minimal assistance. Able to pull pants up over hips with minimal assistance.) On/Off Footwear (QC): 1 (Pt unable to doff/don socks without adaptive equipment. Pt was instructed in use of AE. Pt was then able to doff socks with SBA using dressing stick. Donned socks with min assist using sock aid.) Toileting Hygiene (QC): 3 (Pt able to use urinal with set up, but requires min assist for clothing management.) Pt completed ADL tasks while seated in w/c. Pt moves slowly and takes frequent rest breaks. Increased time required for ADL tasks. Pt performed sit to stand with min assist. Demonstrated ability to perform transfer to BSC with minimal assistance using FWW. Skilled cues for safety during mobility. Pt sitting in w/c with needs met after session. Education OT Patient Education: Rehab process Teaching Recipient: Patient Teaching Methods: Discussion Response to Teaching: Reinforcement Needed OT Short Term Goals Short Term Goals Time Frame: Dec 08, 2019 Toileting hygiene: 4 Shower/bathe self: 4 Lower body dressin OT Halfway Goals Chief Innovation Officer Goals Time Frame: Dec 22, 2019 Eating (QC): 6 Oral Hygiene (QC): 6 Toileting Hygiene (QC): 6 Shower/Bathe Self (QC): 5 Upper Body Dressing (QC): 6 Lower Body Dressing (QC): 5 On/Off Footwear (QC): 6 Additional Goals: 1-Demonstrate ADL Tasks, 2-Verbalize Understanding, 3- ImproveStrength/Justino 1=Demonstrate adherence to instructed precautions during ADL tasks. 2=Patient will verbalize/demonstrate understanding of assistive devices/modifications for ADL. 3=Patient will improve strength/tolerance for activity to enable patient to perform ADL's. Goals established to promote increased functional independence and allow safe discharge plan OT Education/Plan Problem List/Assessment Assessment: Decreased Activ Tolerance, Decreased UE Strength, Dependent Transfers, Impaired I ADL's, Impaired Self-Care Skills Pt admitted to ARU following acute hospitalization for right hip fracture. Pt demonstrates decreased mobility, ADL functioning, strength, and activity tolerance. Pt to benefit from skilled OT intervention for ADL training, transfers, strengthening, adaptive equipment training, and home safety education to increase level of independence and allow safe discharge. Discharge Recommendations Plan/Recommendations: Continue POC Treatment Plan/Plan of Care Treatment,Training & Education: Yes Patient would benefit from OT for education, treatment and training to promote independence in ADL's, mobility, safety and/or upper extremity function for ADL's. Plan of Care: ADL Retraining, Functional Mobility, Group Exercise/Act as Ind, UE Funct Exercise/Act Treatment Duration: Dec 22, 2019 Frequency: At least 5 of 7 days/Wk (IRF) Estimated Hrs Per Day: 1.5 hours per day Rehab Potential: Fair Time/GCodes Start Time: 13:00 Stop Time: 14:30 Total Time Billed (hr/min): 90 Billed Treatment Time 1 visit, EVL(15minutes), ADLx5(75minutes) ALYSON FRANCO OT Dec 01, 2019 14:53
--- NOTE | 2019-12-01 15:31 | Physical Therapy Daily Note ---
PT Daily Note-Current Subjective Pt sitting in W/C after just finishing with OT. Pt reluctantly agrees to PT after THIRD HAND advises that the alternative is SNF. Pain Comment: Pain not rated but observed through grunts during Rx. Mental Status Patient Orientation: Person, Place Transfers SCALE: Activities may be completed with or without assistive devices. 2-Unpsgnjkge-xjafjmt completes the activity by him/herself with no assistance from a helper. 5-Set-up or Clean-up Assistance-helper sets up or cleans up; patient completes activity. [place] assists only prior to or following the activity. 4-Supervision or Touching Assistance-helper provides verbal cues and/or touching/steadying and/or contact guard assistance as patient completes activ ity. Assistance may be provided throughout the activity or intermittently. 3-Partial/Moderate Assistance-helper does LESS THAN HALF the effort. [place] lifts, holds or supports trunk or limbs, but provides less than half the effort. 2-Substantial/Maximal Assistance-helper does MORE THAN HALF the effort. [place] lifts or holds trunk or limbs and provides more than half the effort. 4-Ulbbfatep-euvgve does ALL the effort. Patient does none of the effort to complete the activity. Or, the assistance of 2 or more helpers is required for the patient to complete the activity. If activity was not attempted, code reason: 7-Patient Refused. 9-Not Applicable-not attempted and the patient did not perform the activity before the current illness, exacerbation or injury. 10-Not Attempted due to Environmental Limitations-(lack of equipment, weather restraints, etc.). 88-Not Attempted due to Medical Conditions or Safety Concerns. Sit to Lying (QC): 3 Lying to Sitting/Side of Bed(Q: 3 Sit to Stand (QC): 4 Weight Bearing Right Lower Extremity: Right Weight Bearing/Tolerated Gait Training Does the Patient Walk?: Yes Distance: 150' x2 Walk 10 feet (QC): 4 Walk 50 ft with 2 Turns(QC): 4 Walk 150 ft (QC): 4 Gait Persons Needed: 1 Gait Assistive Device: FWW Pt grunts in discomfort. Pt takes standing RB as needed several times during ambulation. Pt is followed by W/C to rest. Exercises NuStep Minutes: 10 (Pt uses NuStep for 10m but it takes 20m to complete) NuStep Workload: 3 Treatments Pt transfers from W/C to standing. Pt slowly ambulates in hallway using FWW. Pt uses NuStep for 10m (taking 20m to complete) at WL 3. Pt ambulates back to room. THIRD HAND assists pt back to Supine in bed by lifting R LE. Pt resting with all needs met, call light in hand. ST to arrive shortly. Assessment Current Status: Fair Progress Pt takes extended time to complete tasks and does not want to participate in Therapy. Only after explaining the alternative is SNF does the pt agree to complete PT. PT Short Term Goals Short Term Goals Time Frame: Dec 08, 2019 Roll Left & Right: 4 Sit to lyin Lying to sitting on side of be: 4 Sit to stand: 4 Chair/enb-yi-qeifo transfer: 4 Toilet transfer: 4 Car transfer: 4 Walk 10 feet: 4 Walk 50 feet with two turns: 4 Walk 150 feet: 4 Walking 10ft on uneven surface: 4 1 step (curb): 4 4 steps: 4 Does pt use a wc or scooter: No PT [facility] Goals Engineer System Administrator Goals PT [facility] Goals Time Frame: Dec 22, 2019 Roll Left & Right (QC): 6 Sit to Lying (QC): 6 Lying-Sitting on Side/Bed(QC): 6 Sit to Stand (QC): 6 Chair/Nhs-dz-Gqhql Xfer(QC): 6 Toilet Transfer (QC): 6 Car Transfer (QC): 6 Does the Patient Walk: Yes Walk 10 feet (QC): 6 Walk 50ft with 2 Turns (QC): 6 Walk 150 ft (QC): 6 Walking 10ft on Uneven Surface: 6 1 Step (curb) (QC): 6 4 Steps (QC): 6 Does the Pt use WC or Scooter?: No PT Plan Problem List Problem List: Activity Tolerance, Functional Strength, Safety, Gait, Transfer Treatment/Plan Treatment Plan: Continue Plan of Care Treatment Plan: Bed Mobility, Education, Functional Activity Justino, Functional Strength, Group Therapy, Gait, Safety, Therapeutic Exercise, Transfers Treatment Duration: Dec 22, 2019 Frequency: Modified Program (IRF) Estimated Hrs Per Day: 1.5 hours per day Patient and/or Family Agrees t: Yes Safety Risks/Education Patient Education: Gait Training, Transfer Techniques, Correct Positioning, Safety Issues Teaching Recipient: Patient Teaching Methods: Discussion Response to Teaching: Reinforcement Needed Time/GCodes Time In: 1430 Time Out: 1515 Total Billed Treatment Time: 45 Total Billed Treatment 1, GT x2 (25m) & EX (20m) AILEEN FIGUEROA THIRD HAND Dec 01, 2019 15:31
--- NOTE | 2019-12-01 15:40 | ST Cognitive Linguistic Eval ---
Speech Evaluation-General Medical Diagnosis Right Hip fracture Onset Date: Nov 26, 2019 Therapy Diagnosis Therapy Diagnosis: Cognitive-Communication Referral Referring Physician: Dr. Marcial Medical History Pertinent Medical History: DM, HTN Reviewed History: Yes Social History Current Living Status: Alone (Patient lived alone independently in his apartment.) Speech PLF-Current Status Prior Level of Function Patient reported living alone in his apartment and handled all personal and financial affairs. Subjective Patient was content and cooperative for all evaluation activities. Patient was lying in his bed throughout the duration of treatment and reported that he was feeling tired. Language Eval: Auditory Comprehends Simple Yes/No Ques: Functional Indent/Objects Multiple [place]: Functional Ident/Pics in Multiple [place]: Functional Follows 1-Step Commands: Functional Follows Complex Directions: Mild Follows General Conversations: Functional Language Eval: Verbal Language Completes Spontaneous Greeting: Functional Produces Auto, Serial Info: Mild Imitates Simple Words/Phrases: Functional Word Finding: Functional Requests Basic Needs: Functional States Basic Personal Info: Functional Expresses Complex Ideas: Mild Objective Cognitive Domain Attention: Mild Memory: Moderate Problem Solving: Mild Executive Functions: WNL Visuospatial Skills: Mild Composite Severity Rating: Moderate Clock Drawing Severity Rating: Mild Objective Formal/Standardized Tests [facility] Mental Status (UMS) Examination was administered. Results Patient was administered the SLUMS and scored 9/30 which is indicative of a m oderate dementia level of cognitive function. Oral Motor/Speech Production Within normal limits. Impression Patient was admitted to the ARU s/p left hip injury. Patient scored 9/30 on the SLUMS which is indicative of moderate neurocognitive deficits. Patient will receive skilled ST services to address cognitive-communication deficits in the areas of memory, safety awareness, and problem-solving in order to effectively communicate his wants/needs. Speech Patient Assess Expression of Ideas/Wants: Exhibits (3) Understanding Verbal Content: Usually Understands (3) Brief Interview-Mental Status: Yes Repetition of Three Words: Three (3) Temporal Orientation: Year: Correct (3) Temporal Orientation: Month: Accurate within 5 days(2) Temporal Orientation: Day: Correct (1) Recall : Wear to say "Sock": No, could not recall (0) Recall : Color: No, could not recall (0) Recall : Bed: No, could not recall (0) Memory/Recall Ability: Current season, That he or she is in a hsp/hsp unit Speech Short Term Goals Short Term Goals Short Term Goals 1. Patient will complete memory tasks with 80% or greater accuracy with minimal cues. 2. Patient will complete problem-solving tasks with 80% or greater accuracy with minimal cues. 3. Patient will complete safety awareness tasks with 80% or greater accuracy with minimal cues. Speech Fugitive Investigator Goals Senior Care Goals Patient will improve cognitive-communication necessary for safety and daily living tasks with minimal assist. Speech-Plan Patient/Family Goals Patient/Family Goals: Patient wishes to return home and to previous level of mobility and independence. Treatment Plan Speech Therapy Treatment Plan: Continue Plan of Care Treatment Duration: Dec 10, 2019 Frequency: 4 times per week Estimated Hrs Per Day: .5 hour per day Rehab Potential: Fair Barriers to Learning: Moderate cognitive deficits Pt/Family Agrees to Plan: Yes Safety Risks/Education Teaching Recipient: Patient Teaching Methods: Demonstration, Discussion Response to Teaching: Verbalize Understanding, Return Demonstration Education Topics Provided: Patient was educated on the need for skilled ST therapy and safety awareness. Time Speech Therapy Time In: 15:15 Speech Therapy Time Out: 15:30 Total Billed Time: 15 Billed Treatment Time 1, SPSNDCOMP COLUMBA Quinteros Dec 01, 2019 15:40
[2019-12-01 18:00] VITALS: BP 101/66
[2019-12-01] MEDS ORDERED: ACETAMINOPHEN 325 MG TABLET PO PRN (18:45)
[2019-12-01] MEDS ORDERED: LORazepam INJ 2 MG/ML (ATIVAN) VIAL IM/IV PRN (18:45)
[2019-12-01] MEDS ORDERED: NICOTINE 21 MG (NICODERM) PATCH TD PRN (18:45)
[2019-12-01] MEDS ORDERED: ONDANSETRON 4 MG/2 ML (SDV) Z0FRAN IVP PRN (18:45)
[2019-12-01] MEDS ORDERED: morphine INJ 4 MG/ML 1 ML (VIAL/SYRINGE) IVP PRN (18:45)
[2019-12-01] MEDS: ENOXAPARIN 40 MG/0.4 ML (LOVENOX) SYR SC SCH (18:47)
[2019-12-01] MEDS ORDERED: IRON SUCROSE 200 MG/10 ML (VENOFER) VIAL IV SCH (19:30)
[2019-12-01] MEDS ORDERED: NICOTINE PATCH REMOVAL TP PRN (19:30)
[2019-12-01] MEDS: SENNA W/DOCUSATE (SENOKOT S) TABLET PO SCH (20:23)
[2019-12-01] MEDS: DOCUSATE SODIUM 100 MG (COLACE) CAP PO SCH (20:24)
[2019-12-01] MEDS: MONTELUKAST 10 MG (SINGULAIR) TAB PO SCH (20:24)
[2019-12-01] MEDS: SIMvastatin 10 MG (ZOCOR) TAB PO SCH (20:24)
[2019-12-01] MEDS: POLYETHYLENE GLYCOL 17 GM (MIRALAX) PACK PO SCH (20:35)
[2019-12-01] MEDS ORDERED: SENNA W/DOCUSATE (SENOKOT S) TABLET PO SCH (21:00)
[2019-12-01] MEDS ORDERED: POLYETHYLENE GLYCOL 17 GM (MIRALAX) PACK PO SCH (21:00)
[2019-12-02] VITALS (8 sets, daily range): BP systolic 109–116; BP diastolic 62–69
[2019-12-02] MEDS: ACETAMINOPHEN 500 MG TAB (TYLENOL) PO SCH ×6 (00:31→20:23)
[2019-12-02] MEDS: RT-ADVAIR HFA 115/21 MCG PER PUFF IH SCH ×2 (04:15→07:54)
[2019-12-02] MEDS: RT-ALBUTEROL/IPRATROPIUM 3 ML (DUONEB) VIAL INH SCH ×3 (04:16→15:12)
[2019-12-02 05:12] LABS: BASOPHILS % (AUTO) 0 % (0-10); EOSINOPHILS # (AUTO) 0.2 10^3/uL (0.0-0.3); EOSINOPHILS % (AUTO) 3 % (0-10); HEMATOCRIT 22 % (40-54); LYMPHOCYTES % (AUTO) 20 % (12-44); MEAN CORPUSCULAR HEMOGLOBIN 30 PG (25-34); MEAN CORPUSCULAR HGB CONC 31 G/DL (32-36); MEAN CORPUSCULAR VOLUME 98 FL (80-99); MEAN PLATELET VOLUME 9.3 FL (7.4-10.4); MONOCYTES # (AUTO) 0.5 X 10^3 (0.0-1.0); MONOCYTES % (AUTO) 11 % (0-12); NEUTROPHILS # (AUTO) 3.3 X 10^3 (1.8-7.8); NEUTROPHILS % (AUTO) 66 % (42-75); PLATELET COUNT 165 10^3/uL (130-400); RED CELL DISTRIBUTION WIDTH 13.6 % (10.0-14.5)
[2019-12-02 05:48] LABS: HEMOGLOBIN 6.8 G/DL (13.3-17.7)
[2019-12-02 05:54] LABS: ALBUMIN 2.7 GM/DL (3.2-4.5); BILIRUBIN,TOTAL 0.5 MG/DL (0.1-1.0); CALCIUM 8.5 MG/DL (8.5-10.1); CREATININE SERUM 1.32 MG/DL (0.60-1.30); POTASSIUM 3.8 MMOL/L (3.6-5.0); TOTAL PROTEIN 4.8 GM/DL (6.4-8.2)
[2019-12-02] MEDS ORDERED: NS IV 500 ML 500 ML IV NR (06:01)
--- NOTE | 2019-12-02 06:01 | PM&R Post Admission Assessment ---
PM&R HP Date of Visit: Dec 02, 2019 Time of Visit: 13:00 History of Present Illness CC: Right hip fracture in need of recovery HPI: (Hospital course from 4th floor: Arsen is a 64 year old male with history of diabetes that was admitted after fall where he fractured his R hip. He underwent repair with no complications. Patient is being discharged to rehab floor for therapy. Cardiology followed patient due to an abnormal EKG finding and there is no concern at this time. Pulmonology followed patient as well due to possible mass seen on CXR but chest CT findings were negative, and there are no concerns at this time. At time of discharge to rehab floor, patients pain is being managed and will be closely monitored during therapy. Trial of tramadol with tylenol will be done along with IR morphine for breakthrough coverage. Anemia will be followed). Patient is adjusting well to rehab but will require slow recovery 31/05 due to severe pain and intolerance to pain meds causing oversedation. Past Sivkjdo-Hkbahn-Otcmnu Hx Past Med/Social Hx: Reviewed Nursing Past Med/Soc Hx, Reviewed and Corrections made Patient Social History Marrital Status: Employed/Student: employed ([employer]) Alcohol Use: Denies Use Recreational Drug Use: No Smoking Status: Never a Smoker 2nd Hand Smoke Exposure: No Physical Abuse Screen: No Sexual Abuse: No Recent Foreign Travel: No Contact w/other who traveled: No Recent Hopitalizations: No Recent Infectious Disease Expo: No Immunizations Up To Date Pediatric: Yes Date of Pneumonia Vaccine: Dec 27, 2018 Seasonal Allergies Seasonal Allergies: No Past Medical History Surgeries: Nose, Orthopedic (right hip) Respiratory: COPD Currently Using CPAP: No Currently Using BIPAP: No Cardiac: Hypertension Musculoskeletal: Arthritis Endocrine: Hypothyroidsim, Diabetes, Non-Insulin dep Are Your Blood Sugars Over 250: Yes Cancer: Esophageal What Type of Treatment Did You: Chemotherapy, Radiation, Surgical Intervention History of Blood Disorders: No Adverse Reaction to Blood Perez: No Family History Patient reports no known family medical history. Prior Level of Function Bed Mobility: 6 Transfers: 6 Gait: 6 Stairs: 6 Indoor Mobility (Ambulation): Independent Stairs: Independent Prior Devices Use: None Self Care: Independent Functional Cognition: Independent Drive Self: Yes Current Level of Fuctioning Roll Left to Right: 6 Sit to Lyin Lying to Sitting/Side of Bed: 3 Sit to Stand: 4 Chair/Iqa-az-Urbks Xfer: 4 Car Transfer: 3 Does the Patient Walk: Yes Mode of Locomotion: Walk Anticipated Mode of Locomotion: Walk Walk 10 feet: 4 Walk 50 ft with 2 Turns: 4 Walk 150 ft: 4 Walking 10ft on uneven surface: 4 Gait Assistive Device: FWW Does the Pt Use a Wheelchair: No Wheel 50 ft with 2 turns: 10 Wheel 150 ft: 10 Type of Wheelchair: N/A #of Steps: 1 1 Step (curb): 4 4 Steps: 88 Walking Assistive Device: Walker 12 Steps: 88 Picking up an Object: 88 Eatin (pt reports feeding himself without assist. Observed pt drinking from cup without assist) Oral Hygiene: 7 (Pt declined to complete at this time, states he doesn't wear dentures and only completes oral care "a couple times a week") Shower/Bathe Self: 3 (Pt declined shower, completed sponge bath while seated.) Upper Body Dressin (Pt donned pullover shirt with SBA while seated.) Lower Body Dressin (Pt requires assist to thread bilateral LE into pants. (Will require AE for LE dressing.) Pt stood with minimal assistance. Able to pull pants up over hips with minimal assistance.) On/Off Footwear: 1 (Pt unable to doff/don socks without adaptive equipment. Pt was instructed in use of AE. Pt was then able to doff socks with SBA using dressing stick. Donned socks with min assist using sock aid.) Toileting Hygiene: 3 (Pt able to use urinal with set up, but requires min assist for clothing management.) PM&R Allergy/Meds/Data Review Allergies Coded Allergies: hydrocodone (Verified Allergy, Unknown, 11/26/19) Home Medications Scheduled Citalopram Hydrobromide (Citalopram HBr), 40 MG PO DAILY, (Reported) Ferrous Sulfate (Iron), 325 MG PO DAILY, (Reported) Glipizide (Glipizide), 10 MG PO BID, (Reported) Levothyroxine Sodium (Levothyroxine Sodium), 50 MG PO DAILY, (Reported) Metformin HCl (Metformin HCl), 1,000 MG PO BIDPC, (Reported) Multivitamin (Multi-Vitamin Daily), 1 EACH PO DAILY, (Reported) Omeprazole (Omeprazole), 20 MG PO DAILY, (Reported) Simvastatin (Simvastatin), 10 MG PO HS, (Reported) Vit B Comp/C/FA/Iron/Vit E (Vitamin B Complex Tablet), 1 EACH PO DAILY, (Reported) Scheduled PRN Acetaminophen (Acetaminophen), 1,000 MG PO Q8H PRN for PAIN-MILD (1-4), (Reported) Diphenhydramine HCl (Diphen), 25 MG PO BID PRN for ALLERGY SYMPTOMS, (Reported) Discontinued Medications Montelukast Sodium (Montelukast Sodium), 10 EA PO DAILY, (Reported) Discontinued Reason: No Longer Taking Current Medications Current Medications Reviewed Laboratory Data Laboratory Tests 12/02/19 04:56: White Blood Count 5.0, Red Blood Count 2.27L, Hemoglobin 6.8*L, Hematocrit 22L, Mean Corpuscular Volume 98, Mean Corpuscular Hemoglobin 30, Mean Corpuscular Hemoglobin Concent 31L, Red Cell Distribution Width 13.6, Platelet Count 165, Mean Platelet Volume 9.3, Neutrophils (%) (Auto) 66, Lymphocytes (%) (Auto) 20, Monocytes (%) (Auto) 11, Eosinophils (%) (Auto) 3, Basophils (%) (Auto) 0, Neutrophils # (Auto) 3.3, Lymphocytes # (Auto) 1.0, Monocytes # (Auto) 0.5, Eosinophils # (Auto) 0.2, Basophils # (Auto) 0.0, Sodium Level 138, Potassium Level 3.8, Chloride Level 105, Carbon Dioxide Level 24, Anion Gap 9, Blood Urea Nitrogen 13, Creatinine 1.32H, Estimat Glomerular Filtration Rate 55, BUN/Creatinine Ratio 10, Glucose Level 137H, Calcium Level 8.5, Corrected Calcium 9.5, Total Bilirubin 0.5, Aspartate Amino Transf (AST/SGOT) 18, Alanine Aminotransferase (ALT/SGPT) 10, Alkaline Phosphatase 65, Total Protein 4.8L, Albumin 2.7L Review of Systems Constitutional: see HPI, malaise, weakness Respiratory: cough Musculoskeletal: joint pain Psychiatric/Neurological: Anxiety, Depressed, Emotional Problems All Other Systems Reviewed Negative Unless Noted: Yes Physical Exam Physical Exam Vital Signs Vital Signs - First Documented 12/01/19 12/01/19 11:30 14:03 Temp 37.2 Pulse 101 Resp 18 B/P (MAP) 102/66 Pulse Ox 93 O2 Delivery Room Air Capillary Refill : Less Than 3 SecondsLess Than 3 Seconds Height, Weight, BMI Height: '" Weight: lbs. oz. kg; 23.75 BMI Method: General Appearance: Anxious, Chronically ill, Mild Distress, Thin Eyes: Bilateral Eye Normal Inspection, Bilateral Eye PERRL HEENT: PERRL/EOMI, Normal ENT Inspection, Pharynx Normal Neck: Full Range of Motion, Normal Inspection, Non Tender, Supple, Carotid Bruit Respiratory: Chest Non Tender, Lungs Clear, Normal Breath Sounds, No Accessory Muscle Use, No Respiratory Distress, Decreased Breath Sounds Cardiovascular: Regular Rate, Rhythm, No Edema, No Gallop, No JVD, No Murmur, Normal Peripheral Pulses Gastrointestinal: Normal Bowel Sounds, No Organomegaly, No Pulsatile Mass, Non Tender, Soft Back: Normal Inspection, No CVA Tenderness, No Vertebral Tenderness Extremity: Normal Capillary Refill, Normal Inspection, Normal Range of Motion (except right leg), Non Tender, No Calf Tenderness, No Pedal Edema Neurologic/Psychiatric: Alert, Oriented x3, No Motor/Sensory Deficits, yoke setter II- XII Norm as Tested, Depressed Affect Skin: Normal Color, Warm/Dry Lymphatic: No Adenopathy PM&R Medical Assessment & Plan REHAB/MEDICAL ASSESSMENT AND PLAN: REHAB IMPAIRMENT GROUP: Right hip fracture ETIOLOGIC DIAGNOSIS: Right hip fracture The comorbidities that impact the patients function and/or functional outcome by: Cognitive deficiency, intolerant to narcotics, severe pain, anemia REHAB PLAN: The patient is being admitted to our comprehensive inpatient rehabilitation facility and can tolerate the intensity of service consisting of at least: 180 minutes of therapy a day, 5 out of 7 days a week Rehab treatment will consist of: PT and OT will focus on regaining ambulatory skills and working through severe pain The patient/family has a good understanding of our discharge process and will benefit from an interdisciplinary inpatient rehabilitation program. The patient has potential to make improvement and is in need of at least two of the following multidisciplinary therapies including but not limited to physical, occupational, speech, and prosthetics and orthotics. Additionally the patient will need services from respiratory, nutritional services, wound care, psychology, etc. (Customize this to each patient). Given the patients complex condition and risk of further medical complications, rehabilitation services cannot be safely or effectively provided at a lower level of care such as a alf facility. BARRIERS TO DISCHARGE: Lives alone and is intolerant to narcs ESTIMATED LOS: 10 days DISPOSITION: Home RELEVANT CHANGES SINCE PREADMISSION SCREENING: I have compared the patients medical and functional status at the time of the preadmission screening and there are: no changes PROGNOSIS: Good REHABILITATION GOALS: 1. PT and OT and ST will all treat patient aggressively in order to regain ability to return home All the above goals were reviewed with the patient and he/she is in agreement. By signing this document, I acknowledge that I have personally performed a full physical examination on this patient within 24 hours of admission to this inpatient rehabilitation facility and have determined the patient to be able to tolerate the above course of treatment at an intensive level for a reasonable period of time. I will be completing a detailed individualized Plan of Care for this patient by day #4 of the patients stay based upon the Preadmission Screen, the Post-Admission Evaluation, and the therapy evaluations. Admission Dx/Comorbidities: (1) Closed impacted fracture of right hip Status: Acute ICD Codes: S72.091A - Other fracture of head and neck of right femur, initial encounter for closed fracture (2) Acute blood loss anemia ICD Codes: D62 - Acute posthemorrhagic anemia (3) Hypothyroidism ICD Codes: E03.9 - Hypothyroidism, unspecified (4) Diabetes mellitus ICD Codes: E11.9 - Type 2 diabetes mellitus without complications (5) COPD (chronic obstructive pulmonary disease) ICD Codes: J44.9 - Chronic obstructive pulmonary disease, unspecified Assessment and Plan Assess & Plan/Chief Complaint Assessment: Right hip fracture Esophageal cancer 2010 in remission Cognitive deficiency? low SLUMS noted on assessment DM Hypothyroidism Acute blood loss anemia Plan: IRF protocol 31/05 Favian Nebs IS Pain control without narcs since intolerant SHERIN LOWERY DO Dec 02, 2019 06:01
[2019-12-02] MEDS ORDERED: NS IV 500 ML 500 ML IV SCH (06:15)
[2019-12-02] MEDS: LEVOTHYROXINE 50 MCG (LEVOTHROID) TAB PO SCH (06:33)
[2019-12-02] MEDS: glipiZIDE 5 MG (GLUCOTROL) TAB PO SCH ×2 (06:34→17:48)
--- NOTE | 2019-12-02 07:43 | Progress Note ---
Standard Progress Note Progress Notes/Assess & Plan Date Seen by a Provider: Dec 02, 2019 Time Seen by a Provider: 07:41 Progress/Assessment & Plan no complaints R hip incision without erythema or warmth. bloody dc noted no calf tenderness s/p R hip bipolar continue PT/OT Final Diagnosis no complaints Vital Signs Date Time Temp Pulse Resp B/P (MAP) Pulse Ox O2 Delivery O2 Flow Rate FiO2 12/02/19 05:10 36.6 89 18 109/69 (82) 95 Room Air 12/01/19 20:10 Room Air 12/01/19 18:00 37.2 92 16 101/66 (78) 96 Room Air 12/01/19 14:03 37.2 101 18 102/66 93 Room Air 12/01/19 11:30 Room Air I & O 12/02/19 07:00 Intake Total 1160 ml Balance 1160 ml Laboratory Tests Test 12/02/19 04:56 Range/Units White Blood Count 5.0 4.3-11.0 10^3/uL Red Blood Count 2.27 L 4.35-5.85 10^6/uL Hemoglobin 6.8 *L 13.3-17.7 G/DL Hematocrit 22 L 40-54 % Mean Corpuscular Volume 98 80-99 FL Mean Corpuscular Hemoglobin 30 25-34 PG Mean Corpuscular Hemoglobin Concent 31 L 32-36 G/DL Red Cell Distribution Width 13.6 10.0-14.5 % Platelet Count 165 130-400 10^3/uL Mean Platelet Volume 9.3 7.4-10.4 FL Neutrophils (%) (Auto) 66 42-75 % Lymphocytes (%) (Auto) 20 12-44 % Monocytes (%) (Auto) 11 0-12 % Eosinophils (%) (Auto) 3 0-10 % Basophils (%) (Auto) 0 0-10 % Neutrophils # (Auto) 3.3 1.8-7.8 X 10^3 Lymphocytes # (Auto) 1.0 1.0-4.0 X 10^3 Monocytes # (Auto) 0.5 0.0-1.0 X 10^3 Eosinophils # (Auto) 0.2 0.0-0.3 10^3/uL Basophils # (Auto) 0.0 0.0-0.1 10^3/uL Sodium Level 138 135-145 MMOL/L Potassium Level 3.8 3.6-5.0 MMOL/L Chloride Level 105 98-107 MMOL/L Carbon Dioxide Level 24 21-32 MMOL/L Anion Gap 9 5-14 MMOL/L Blood Urea Nitrogen 13 7-18 MG/DL Creatinine 1.32 H 0.60-1.30 MG/DL Estimat Glomerular Filtration Rate 55 BUN/Creatinine Ratio 10 Glucose Level 137 H 70-105 MG/DL Calcium Level 8.5 8.5-10.1 MG/DL Corrected Calcium 9.5 8.5-10.1 MG/DL Total Bilirubin 0.5 0.1-1.0 MG/DL Aspartate Amino Transf (AST/SGOT) 18 5-34 U/L Alanine Aminotransferase (ALT/SGPT) 10 0-55 U/L Alkaline Phosphatase 65 40-136 U/L Total Protein 4.8 L 6.4-8.2 GM/DL Albumin 2.7 L 3.2-4.5 GM/DL R hip incision without erythema or warmth, but continued bloody dc s/p R hip bipolar continue PT/OT 2 units PRBC today JRAON DEWEY MD Dec 02, 2019 07:43
[2019-12-02] MEDS: IRON SUCROSE 200 MG/10 ML (VENOFER) VIAL IV SCH (07:54)
[2019-12-02] MEDS: MELOXICAM 7.5 MG (MOBIC) TABLET PO SCH ×2 (07:54→20:23)
[2019-12-02] MEDS: SENNA W/DOCUSATE (SENOKOT S) TABLET PO SCH ×2 (07:55→20:35)
[2019-12-02] MEDS: DOCUSATE SODIUM 100 MG (COLACE) CAP PO SCH ×2 (07:55→20:34)
--- NOTE | 2019-12-02 08:55 | Physical Therapy Daily Note ---
PT Daily Note-Current Subjective Patient in bed pre tx, agrees to PT reluctantly, needs encouragement to participate and extra time to get moving and out of bed, needs to get dressed and does so with mod assist for pants. Has 5-6/10 pain in right hip. Nurse changes bandage while patient is getting out of bed. Appearance Patient in recliner post tx with nurse call, phone, tray, all needs met. Mental Status Patient Orientation: Person, Place, Situation Transfers SCALE: Activities may be completed with or without assistive devices. 0-Kzpmjndyev-qveoyvc completes the activity by him/herself with no assistance from a helper. 5-Set-up or Clean-up Assistance-helper sets up or cleans up; patient completes activity. [place] assists only prior to or following the activity. 4-Supervision or Touching Assistance-helper provides verbal cues and/or touching/steadying and/or contact guard assistance as patient completes activity. Assistance may be provided throughout the activity or intermittently. 3-Partial/Moderate Assistance-helper does LESS THAN HALF the effort. [place] lifts, holds or supports trunk or limbs, but provides less than half the effort. 2-Substantial/Maximal Assistance-helper does MORE THAN HALF the effort. [place] lifts or holds trunk or limbs and provides more than half the effort. 4-Jzvqeepfs-lwdujw does ALL the effort. Patient does none of the effort to complete the activity. Or, the assistance of 2 or more helpers is required for the patient to complete the activity. If activity was not attempted, code reason: 7-Patient Refused. 9-Not Applicable-not attempted and the patient did not perform the activity before the current illness, exacerbation or injury. 10-Not Attempted due to Environmental Limitations-(lack of equipment, weather restraints, etc.). 88-Not Attempted due to Medical Conditions or Safety Concerns. Roll Left & Right (QC): 4 Lying to Sitting/Side of Bed(Q: 3 Sit to Stand (QC): 4 Chair/Oyy-rt-Roomd Xfer(QC): 4 Min assist for supine to sit, cues for hand placement and positioning. Weight Bearing Right Lower Extremity: Right Weight Bearing/Tolerated Gait Training Distance: 150'x2 Walk 10 feet (QC): 4 Walk 50 ft with 2 Turns(QC): 4 Walk 150 ft (QC): 4 Gait Assistive Device: FWW slow and antalgic but good step-through Exercises NuStep Minutes: 15 NuStep Workload: 4 Treatments dressing, bed mobility and transfers, ambulation, LE ROM and strengthening Assessment Current Status: Fair Progress improving ambulation PT Short Term Goals Short Term Goals Time Frame: Dec 08, 2019 Roll Left & Right: 4 Sit to lyin Lying to sitting on side of be: 4 Sit to stand: 4 Chair/hsy-rk-zqeqr transfer: 4 Toilet transfer: 4 Car transfer: 4 Walk 10 feet: 4 Walk 50 feet with two turns: 4 Walk 150 feet: 4 Walking 10ft on uneven surface: 4 1 step (curb): 4 4 steps: 4 Does pt use a wc or scooter: No PT Tip Length Checker Goals Tip Length Checker Goals PT Tip Length Checker Goals Time Frame: Dec 22, 2019 Roll Left & Right (QC): 6 Sit to Lying (QC): 6 Lying-Sitting on Side/Bed(QC): 6 Sit to Stand (QC): 6 Chair/Cmi-vz-Lzjza Xfer(QC): 6 Toilet Transfer (QC): 6 Car Transfer (QC): 6 Does the Patient Walk: Yes Walk 10 feet (QC): 6 Walk 50ft with 2 Turns (QC): 6 Walk 150 ft (QC): 6 Walking 10ft on Uneven Surface: 6 1 Step (curb) (QC): 6 4 Steps (QC): 6 Does the Pt use WC or Scooter?: No PT Plan Problem List Problem List: Activity Tolerance, Functional Strength, Safety, Balance, Gait, Transfer, Bed Mobility, ROM Treatment/Plan Treatment Plan: Continue Plan of Care Treatment Plan: Bed Mobility, Education, Functional Activity Justino, Functional Strength, Group Therapy, Gait, Safety, Therapeutic Exercise, Transfers Treatment Duration: Dec 22, 2019 Frequency: Modified Program (IRF) Estimated Hrs Per Day: 1.5 hours per day Patient and/or Family Agrees t: Yes Safety Risks/Education Patient Education: Gait Training, Transfer Techniques, Reviewed Precautions, Correct Positioning, Safety Issues Teaching Recipient: Patient Teaching Methods: Demonstration, Discussion Response to Teaching: Reinforcement Needed Time/GCodes Time In: 0800 Time Out: 0900 Total Billed Treatment Time: 60 Total Billed Treatment 1 visit EX 15' GT 30' FA 15' SUPA EMERY PT Dec 02, 2019 08:55
[2019-12-02] MEDS ORDERED: ENOXAPARIN 40 MG/0.4 ML (LOVENOX) SYR SC SCH (09:00)
--- NOTE | 2019-12-02 10:15 | Occupational Ther Daily Note ---
OT Current Status-Daily Note Subjective Pt sitting upright in his recliner at the start of the session, agreeable to OT with mod encouragement. Pt stated his pain is alright today. ADL-Treatment Therapy Code Descriptions/Definitions Functional [place] Measure: 0=Not Assessed/NA 4=Minimal Assistance 1=Total Assistance 5=Supervision or Setup 2=Maximal Assistance 6=Modified [place] 3=Moderate Assistance 7=Complete IndependenceSCALE: Activities may be completed with or without assistive devices. 2-Suzdrsiasx-wknqzrh completes the activity by him/herself with no assistance from a helper. 5-Set-up or Clean-up Assistance-helper sets up or cleans up; patient completes activity. [place] assists only prior to or following the activity. 4-Supervision or Touching Assistance-helper provides verbal cues and/or touching/steadying and/or contact guard assistance as patient completes activity. Assistance may be provided throughout the activity or intermittently. 3-Partial/Moderate Assistance-helper does LESS THAN HALF the effort. [place] lifts, holds or supports trunk or limbs, but provides less than half the effort. 2-Substantial/Maximal Assistance-helper does MORE THAN HALF the effort. [place] lifts or holds trunk or limbs and provides more than half the effort. 1-Yrqzourkm-oarfei does ALL the effort. Patient does none of the effort to complete the activity. Or, the assistance of 2 or more helpers is required for the patient to complete the activity. If activity was not attempted, code reason: 7-Patient Refused. 9-Not Applicable-not attempted and the patient did not perform the activity before the current illness, exacerbation or injury. 10-Not Attempted due to Environmental Limitations-(lack of equipment, weather restraints, etc.). 88-Not Attempted due to Medical Conditions or Safety Concerns. Other Treatment Pt sitting upright in recliner, agreeable to OT tx with mod encouragement. He declined ADLs on this date stating he had completed them yesterday. He then ag flavia to going to the gym. Pt performed functional mobility from his room to the therapy gym with CGA using FWW. He then completed x15 mins arm bike with min resistance in order to increase BUE functional endurance and strength. He required multiple rest breaks throughout the task. He then completed fine motor peg board activity with 1lb wrist cuff on LUE (no weight on right due to IV line at wrist). He placed pegs alternating between left and right hand in order to increase functional endurance and strength with activities. Pt required min cues throughout task in order to alternate hands and to continue working on task due to distractions. Pt then ambulated back to his recliner in his room using FWW with CGA. Post OT session, pt seated in recliner, call light in reach and all needs met. Education OT Patient Education: Correct positioning, Energy conservation, Exercise program, Progress toward Goal/Update tx plan, Purpose of tx/functional activities, Transfer techniques Teaching Recipient: Patient Teaching Methods: Demonstration Response to Teaching: Return Demonstration OT Short Term Goals Short Term Goals Time Frame: Dec 08, 2019 Toileting hygiene: 4 Shower/bathe self: 4 Lower body dressin OT [employer]/[place] Goals Alf Goals Time Frame: Dec 22, 2019 Eating (QC): 6 Oral Hygiene (QC): 6 Toileting Hygiene (QC): 6 Shower/Bathe Self (QC): 5 Upper Body Dressing (QC): 6 Lower Body Dressing (QC): 5 On/Off Footwear (QC): 6 Additional Goals: 1-Demonstrate ADL Tasks, 2-Verbalize Understanding, 3- ImproveStrength/Justino 1=Demonstrate adherence to instructed precautions during ADL tasks. 2=Patient will verbalize/demonstrate understanding of assistive devices/modifications for ADL. 3=Patient will improve strength/tolerance for activity to enable patient to perform ADL's. OT Education/Plan Problem List/Assessment Assessment: Decreased Activ Tolerance, Decreased UE Strength, Impaired I ADL's, Impaired Self-Care Skills, Restricted Funct UE ROM Pt admitted to ARU following acute hospitalization for right hip fracture. Pt demonstrates decreased mobility, ADL functioning, strength, and activity tolerance. Pt to benefit from skilled OT intervention for ADL training, transfers, strengthening, adaptive equipment training, and home safety education to increase level of independence and allow safe discharge. Discharge Recommendations Plan/Recommendations: Continue POC Treatment Plan/Plan of Care Treatment,Training & Education: Yes Patient would benefit from OT for education, treatment and training to promote independence in ADL's, mobility, safety and/or upper extremity function for ADL's. Plan of Care: ADL Retraining, Functional Mobility, Group Exercise/Act as Ind, UE Funct Exercise/Act Treatment Duration: Dec 22, 2019 Frequency: At least 5 of 7 days/Wk (IRF) Estimated Hrs Per Day: 1.5 hours per day Rehab Potential: Fair Time/GCodes Start Time: 09:25 Stop Time: 10:45 Total Time Billed (hr/min): 75 Billed Treatment Time 1, EX 2 (30mins), FA 3 (45 mins) ANAYELI ERICKSON OT Dec 02, 2019 10:15
--- NOTE | 2019-12-02 10:22 | Individualized Plan of Care ---
Individualized Plan of Care Rehab Nursing IPOC Order Admission Date Dec 01, 2019 at 11:30 Current Orders Orders Admission Order(Inpt,Obs,Sdc) (12/01/19 11:19) Vital Signs: Per Unit Policy ( 08,16,00 (12/01/19 11:19) Pranav Melgar 09,21 (12/01/19 11:19) Sequential Compression Device Q4H (12/01/19 11:19) [employer] Glazer-Inpt Rehab Con (12/01/19 11:19) Rehab Nursing Orders-Ipoc (12/01/19 11:19) Physical Therapy Rehab Orders (12/01/19 11:19) Occupational Therapy Rehab Ord (12/01/19 11:19) Speech Therapy Rehab Orders (12/01/19 11:19) Cbc With Automated Diff (12/02/19 06:00) Comprehensive Metabolic Panel (12/02/19 06:00) General/Regular (12/01/19 Dinner) Intake & Output 06,14,22 (12/01/19 11:19) Precautions (Aru) (12/01/19 11:19) Weekly Weight WEEK (12/01/19 11:19) Rehab-Intensity Of Therapy (12/01/19 11:19) Initiate Admission Nursing Pro .admission (12/01/19 11:19) Alprazolam Tablet (Xanax Tablet) (12/01/19 11:30) Calcium Carbonate Chew Tablet (Antacid C (12/01/19 11:30) Diphenhydramine Tablet (Benadryl Tablet) (12/01/19 11:30) Docusate Sodium Capsule (Colace Capsule) (12/01/19 21:00) Docusate Sodium Capsule (Colace Capsule) (12/01/19 11:30) Bisacodyl Suppository (Dulcolax Supposit (12/01/19 11:30) Lactulose Oral Solution (Enulose Oral So (12/01/19 11:30) Na Phos/Na Biphos Enema (Fleet Enema Yves (12/01/19 11:30) Guaifenesin/Codeine Syrup (Robitussin Ac (12/01/19 11:30) Loperamide Tablet (Imodium Tablet) (12/01/19 11:30) Melatonin Tablet (Melatonin Tablet) (12/01/19 11:30) Polyethylene Glycol Powder Pkt (Miralax (12/01/19 21:00) Ondansetron Oral Dissolve Tab (Zofran (12/01/19 11:30) Senna S Tablet (Senokot S Tablet) (12/01/19 21:00) Initiate Admission Nursing Pro .admission (12/01/19 11:19) Tramadol Tablet (Ultram Tablet) (12/01/19 12:00) Acetaminophen Tablet (Tylenol Tablet) (12/01/19 12:00) Meloxicam Tablet (Mobic Tablet) (12/01/19 12:00) Morphine Immediate Release Tab (Morphine (12/01/19 12:00) Enoxaparin Injection (Lovenox Injection) (12/02/19 09:00) Patient Visit (12/01/19 ) Pt Eval Moderate Complexity (12/01/19 ) Patient Visit (12/01/19 ) Gait Training, Ea 15 Min (12/01/19 ) Exercise Therap, Ea 15 Min (12/01/19 ) Patient Visit (12/01/19 ) Speech Sound Lang Comp (12/01/19 ) Accucheck Daily@0600 DAILY@0600 (12/02/19 16:37) Code/Resuscitation (12/01/19 18:32) Iv Maintain (Order) (12/01/19 18:32) Incentive Spirometry (Nursing) Q2H (12/01/19 18:32) Cho 75g/M 0snack (21-2400 Connor) (12/02/19 Breakfast) Glucerna (12/02/19 Breakfast) Albuterol/Ipra Inhalation Soln (Duoneb I (12/01/19 21:00) Citalopram Tablet (Celexa Tablet) (12/02/19 09:00) Enoxaparin Injection (Lovenox Injection) (12/01/19 18:45) Fluticasone/Salmeterol Common (Advair 11 (12/01/19 20:00) Levothyroxine Tablet (Synthroid Tablet) (12/02/19 06:30) Montelukast Tablet (Singulair Tablet) (12/01/19 21:00) Nicotine Patch (Nicoderm Patch) (12/01/19 18:45) Polyethylene Glycol Powder Pkt (Miralax (12/01/19 21:00) Senna S Tablet (Senokot S Tablet) (12/01/19 21:00) Simvastatin Tablet (Zocor Tablet) (12/01/19 21:00) Acetaminophen Tablet/Caplet (Tylenol T (12/01/19 18:45) Ondansetron Injection (Zofran Injectio (12/01/19 18:45) Glipizide Tablet (Glucotrol Tablet) (12/02/19 06:30) Morphine Injection (Morphine Injection (12/01/19 18:45) Ice: Apply To Affected Area (12/01/19 18:32) Lorazepam Injection (Ativan Injection) (12/01/19 18:45) Svn Small Volume Nebulizer (12/01/19 18:32) Mdi Treatment (12/01/19 18:32) Patch Removal (Patch Removal) (12/01/19 19:30) Iron Sucrose Injection (Venofer Injectio (12/01/19 19:30) Iron Sucrose Injection (Venofer Injectio (12/02/19 09:00) Vital Signs: Special (Order) (12/02/19 06:01) Consent-Obtain Consent For (12/02/19 06:01) Monitor S/S Transfusion Reacti (12/02/19 06:01) Ns Iv 500 Ml (Sodium Chloride 0.9%) (12/02/19 06:01) Type And Screen (12/02/19 06:01) Red Cells Leukocytes Reduced (12/02/19 06:01) Patient Visit (12/02/19 ) Gait Training, Ea 15 Min (12/02/19 ) Functional Activities, Ea 15 (12/02/19 ) Exercise Therap, Ea 15 Min (12/02/19 ) Patient Visit (12/02/19 ) Treat. Speech/Lang/Voice (12/02/19 ) Patient Visit (12/02/19 ) Functional Activities, Ea 15 (12/02/19 ) Rehab Nursing Orders: Ongoing Assess. of Cognitive Status, Ongoing Assess. of Function Status, Bladder Training, Bowel Management, Bowel Training, Disease Management & Educaiton, DVT Prophylaxis, Fall Prevention, Fluid/Electrolyte/ Nutrition Mgmt, Infection Prevention, Medication Management & Education, Management of Risks & Complications, Management of Skin Intergrity, Nutrition Management, Pain Management, Patient/Family Support, Safety Management Intensity of Therapy to be met Patient to be seen: 15 hrs over 7 cons. days PT IPOC Problem List: Activity Tolerance, Functional Strength, Safety, Balance, Gait, Transfer, Bed Mobility, ROM Treatment Plan: Continue Plan of Care Bed Mobility, Education, Functional Activity Justino, Functional Strength, Group Therapy, Gait, Safety, Therapeutic Exercise, Transfers Treatment Duration: Dec 22, 2019 Frequency: Modified Program (IRF) Estimated Hrs Per Day: 1.5 hours per day OT IPOC Problems: Decreased Activ Tolerance, Decreased UE Strength, Impaired I ADL's, Impaired Self-Care Skills, Restricted Funct UE ROM OT Treatment, Training and Edu: Yes OT Problems Pt admitted to ARU following acute hospitalization for right hip fracture. Pt demonstrates decreased mobility, ADL functioning, strength, and activity tolerance. Pt to benefit from skilled OT intervention for ADL training, transfers, strengthening, adaptive equipment training, and home safety education to increase level of independence and allow safe discharge. Plan of Care: ADL Retraining, Functional Mobility, Group Exercise/Act as Ind, UE Funct Exercise/Act Treatment Duration: Dec 22, 2019 Frequency: At least 5 of 7 days/Wk (IRF) Estimated Hrs Per Day: 1.[address] IPOC Speech Therapy Treatment Plan: Continue Plan of Care Treatment Duration: Dec 10, 2019 Frequency: 4 times per week Estimated Hrs Per Day: .5 hour per day [employer] Glazer/Case Mgmt [employer] Glazer/Case Managemen: Discharge Planning Dietitian/Baby Counselor Dietitian/Baby Counselor to monitor nutritional status and make changes and/or recommendations as needed and work with speech pathology on dietary upgrades as the occur. Physician IPOC Medical Issues being managed closely and that require the 24 hour availability of a physician: Patient with very frail state with severe acute blood loss anemia requiring transfusions and close monitoring of clinical status Medical Issues: Bowel/Bladder Function, DVT Prophylaxis, Falls Precautions, Fluid/Electrolyte/Nutrition Balance Brief Synthesis of Preadmission Screen, Post-Admission Evaluation, and Therapy Evaluations: PT and OT will help patient recover slowly due to intolerance to pain meds while regaining independence Medical Prognosis: Good Anticipated Length of Stay: 10 days SHERIN LOWERY DO Dec 02, 2019 10:22
--- NOTE | 2019-12-02 10:22 | PM&R Progress Note ---
Subjective HPI/CC On Admission Date Seen by Provider: Dec 02, 2019 Time Seen by Provider: 08:45 Subjective/Events-last exam Pt really recovering nicely Will give two units of packed red blood cell transfusion today since hgb is 6.8 Drainage of the right hip incision much improved Slow recovery Bowels are moving okay Conferred with RN Reviewed therapy notes Checked meds and labs Review of Systems General: Fatigue Musculoskeletal: leg pain Objective Exam Vital Signs Vital Signs Date Time Temp Pulse Resp B/P (MAP) Pulse Ox O2 Delivery O2 Flow Rate FiO2 12/03/19 05:00 36.8 86 18 135/80 (98) 97 Room Air Capillary Refill : Less Than 3 SecondsLess Than 3 Seconds General Appearance: No Apparent Distress, Anxious, Chronically ill, Thin HEENT: PERRL/EOMI, Normal ENT Inspection, Pharynx Normal Neck: Full Range of Motion, Normal Inspection, Non Tender, Supple, Carotid Bruit Respiratory: Chest Non Tender, Lungs Clear, Normal Breath Sounds, No Accessory Muscle Use, No Respiratory Distress, Decreased Breath Sounds Cardiovascular: Regular Rate, Rhythm, No Edema, No Gallop, No JVD, No Murmur, Normal Peripheral Pulses Gastrointestinal: Normal Bowel Sounds, No Organomegaly, No Pulsatile Mass, Non Tender, Soft Back: Normal Inspection, No CVA Tenderness, No Vertebral Tenderness Extremity: Normal Capillary Refill, Normal Inspection, Normal Range of Motion (except right leg), Non Tender, No Calf Tenderness, No Pedal Edema Neurologic/Psychiatric: Alert, Oriented x3, No Motor/Sensory Deficits, lath tier II- XII Norm as Tested, Depressed Affect Skin: Normal Color, Warm/Dry Lymphatic: No Adenopathy Results/Procedures Lab Patient resulted labs reviewed. FIM Transfers Therapy Code Descriptions/Definitions Functional [place] Measure: 0=Not Assessed/NA 4=Minimal Assistance 1=Total Assistance 5=Supervision or Setup 2=Maximal Assistance 6=Modified [place] 3=Moderate Assistance 7=Complete IndependenceSCALE: Activities may be completed with or without assistive devices. 0-Vckebadrqg-zclueia completes the activity by him/herself with no assistance from a helper. 5-Set-up or Clean-up Assistance-helper sets up or cleans up; patient completes activity. [place] assists only prior to or following the activity. 4-Supervision or Touching Assistance-helper provides verbal cues and/or touching/steadying and/or contact guard assistance as patient completes activity. Assistance may be provided throughout the activity or intermittently. 3-Partial/Moderate Assistance-helper does LESS THAN HALF the effort. [place] lifts, holds or supports trunk or limbs, but provides less than half the effort. 2-Substantial/Maximal Assistance-helper does MORE THAN HALF the effort. [place] lifts or holds trunk or limbs and provides more than half the effort. 5-Eoribeaid-fbazek does ALL the effort. Patient does none of the effort to complete the activity. Or, the assistance of 2 or more helpers is required for the patient to complete the activity. If activity was not attempted, code reason: 7-Patient Refused. 9-Not Applicable-not attempted and the patient did not perform the activity bef ore the current illness, exacerbation or injury. 10-Not Attempted due to Environmental Limitations-(lack of equipment, weather r estraints, etc.). 88-Not Attempted due to Medical Conditions or Safety Concerns. Roll Left to Right (QC): 4 Sit to Lying (QC): 3 Sit to Stand (QC): 4 Chair/Ric-sb-Urixb Xfer(QC): 4 Car Transfer (QC): 3 Gait Training Does the Patient Walk?: Yes Distance: 150'x2 Walk 10 feet (QC): 4 Walk 50 ft with 2 Turns(QC): 4 Walk 150 ft (QC): 4 Walking 10ft/uneven surface-QC: 4 Gait Persons Needed: 1 Gait Assistive Device: FWW Wheelchair Training Does the Pt Use a Wheelchair?: No Wheel 50 ft with 2 turns (QC): 10 Wheel 150 ft (QC): 10 Type of Wheelchair: N/A Stair Training #of Steps: 1 1 Step (curb) (QC): 4 4 Steps (QC): 88 12 Steps (QC): 88 Balance Picking up an Object (QC): 88 ADL-Treatment Eating (QC): 6 (pt reports feeding himself without assist. Observed pt drinking from cup without assist) Oral Hygiene (QC): 7 (Pt declined to complete at this time, states he doesn't wear dentures and only completes oral care "a couple times a week") Shower/Bathe Self (QC): 3 (Pt declined shower, completed sponge bath while seated.) Upper Body Dressing (QC): 4 (Pt donned pullover shirt with SBA while seated.) Lower Body Dressing (QC): 2 (Pt requires assist to thread bilateral LE into pants. (Will require AE for LE dressing.) Pt stood with minimal assistance. Able to pull pants up over hips with minimal assistance.) On/Off Footwear (QC): 1 (Pt unable to doff/don socks without adaptive equipment. Pt was instructed in use of AE. Pt was then able to doff socks with SBA using dressing stick. Donned socks with min assist using sock aid.) Toileting Hygiene (QC): 3 (Pt able to use urinal with set up, but requires min assist for clothing management.) Assessment/Plan Assessment and Plan Assess & Plan/Chief Complaint Assessment: Right hip fracture Esophageal cancer 2010 in remission Cognitive deficiency? low SLUMS noted on assessment DM Hypothyroidism Acute blood loss anemia requiring blood transfusion 2 units 12/02/19 Plan: IRF protocol 31/05 Venofer Nebs IS Pain control without narcs since intolerant Transfusion (1) Closed impacted fracture of right hip Status: Acute (2) Acute blood loss anemia (3) Hypothyroidism (4) Diabetes mellitus (5) COPD (chronic obstructive pulmonary disease) SHERIN LOWERY DO Dec 02, 2019 10:22
--- NOTE | 2019-12-02 11:21 | Cardiology Progress Note ---
Subjective Date Seen by Provider: Dec 02, 2019 Time Seen by Provider: 08:00 Subjective/Events-last exam Patient is sitting up in bed, complaining of generalized weakness. Denies any chest pain. Review of Systems General: No Chills, No Night Sweats; Fatigue, Malaise; No Appetite, No Other HEENT: No Head Aches, No Visual Changes, No Eye Pain, No Ear Pain, No Dysphasia , No Sinus Congestion, No Post Nasal Drip, No Sore Throat, No Other Pulmonary: No Dyspnea, No Cough, No Pleuritic Chest Pain, No Other Cardiovascular: No: Chest Pain, Palpitations, Orthopnea, Paroxysmal Noc. Dyspnea, Edema, Lt Headedness, Other Objective-Cardiology Exam Last Set of Vital Signs Vital Signs 12/02/19 12:06 Temp 37.0 Pulse 90 Resp 18 B/P (MAP) 113/63 Pulse Ox 97 O2 Delivery Room Air Capillary Refill : Less Than 3 SecondsLess Than 3 Seconds I&O Intake and Output 12/02/19 00:00 Intake Total 660 ml Balance 660 ml Intake Oral 660 ml # Voids 2 Daily Weight Change No General: Alert, Oriented X3, Cooperative HEENT: Atraumatic, PERRLA Neck: Supple, No JVD, No Thyromegaly Lungs: Clear to Auscultation, Normal Air Movement Heart: Regular Rate, Normal S1, Normal S2, No Murmurs Abdomen: Normal Bowel Sounds, Soft, No Tenderness, No Hepatosplenomegaly, No Masses Extremities: No Clubbing, No Cyanosis, No Edema, Normal Pulses, No Tenderness/Swelling Skin: No Rashes, No Breakdown, No Significant Lesion Neuro: Normal Gait, Normal Speech, Strength at 5/5 X4 Ext, Normal Tone, Sensati on Intact Psych/Mental Status: Mental Status NL, Mood NL Results Lab Laboratory Tests 12/02/19 04:56 A/P-Cardiology Admission Diagnosis Abnormal EKG Tachycardia Post op anemia Hip fx Assessment/Plan Abnormal EKG with left anterior fascicular block, T-wave inversion in anterior lead, a symptomatically at this time. Tachycardia, sinus tachycardia, probably secondary to anemia postoperatively. Followed by primary care team Hip fracture, status post surgical repair, recovering slowly. Post op anemia- worsening H/H. Planning for blood transfusion this morning. Diabetes mellitus, followed and managed by primary care physician Patient was seen and evaluated with Tayler, examination performed, management plan was discussed, agree with the current scribed note, I made few changes to the note using Italic font Patient was seen at bedside, receiving blood transfusion No new complaint, complaint of fatigue Continue on current medication monitor Clinical Quality Measures DVT/VTE Risk/Contraindication: Risk Factor Score Per Nursin RFS Level Per Nursing on Admit: 4+=Very High TAYLER CASTRO Dec 02, 2019 11:21 am LAURENCE RICHEY MD Dec 02, 2019 12:33 pm
--- NOTE | 2019-12-02 11:42 | Progress Note - Hospitalist ---
JAMESROSIE MATOS [facility] 12/02/19 1142: Subjective HPI/CC On Admission Date Seen by Provider: Dec 02, 2019 Time Seen by Provider: 08:00 Subjective/Events-last exam Patient was laying in bed with PT present when I arrived. He has no new complaints at this time. Patient received blood products and iron due to Hgb of 6.8. Patients pain is better controlled and he is sleeping better. Bowels are moving. He will continue to participate in therapy as prescribed. Objective Exam Vital Signs Vital Signs Date Time Temp Pulse Resp B/P (MAP) Pulse Ox O2 Delivery O2 Flow Rate FiO2 12/02/19 08:02 Room Air 12/02/19 07:53 95 12/02/19 05:10 36.6 89 18 109/69 (82) Capillary Refill : Less Than 3 SecondsLess Than 3 Seconds General Appearance: No Apparent Distress, WD/WN Respiratory: Lungs Clear, Normal Breath Sounds, No Accessory Muscle Use, No Respiratory Distress Cardiovascular: Regular Rate, Rhythm, No Gallop, No Murmur Rectal: Deferred Neurologic/Psychiatric: Alert Results/Procedures Lab Laboratory Tests 12/02/19 04:56 Patient resulted labs reviewed. Assessment/Plan Assessment and Plan Assess & Plan/Chief Complaint Assessment: Right hip fracture Esophageal cancer 2010 in remission Cognitive deficiency? low SLUMS noted on assessment DM Hypothyroidism Acute blood loss anemia Plan: IRF protocol 31/05 Venofer Nebs IS Pain control without narcs since intolerant Clinical Quality Measures DVT/VTE Risk/Contraindication: Risk Factor Score Per Nursin RFS Level Per Nursing on Admit: 4+=Very High SHERIN LOWERY DO 12/02/19 2143: ROSIE JAMES [facility] Dec 02, 2019 11:42 SHERIN LOWERY DO Dec 02, 2019 21:43
--- NOTE | 2019-12-02 14:18 | Physical Therapy Daily Note ---
PT Daily Note-Current Subjective Agreeable to PT. Mental Status Patient Orientation: Person, Place, Time, Situation Transfers SCALE: Activities may be completed with or without assistive devices. 8-Cugecebnqd-xezhggs completes the activity by him/herself with no assistance from a helper. 5-Set-up or Clean-up Assistance-helper sets up or cleans up; patient completes activity. Isabel assists only prior to or following the activity. 4-Supervision or Touching Assistance-helper provides verbal cues and/or touching/steadying and/or contact guard assistance as patient completes activity. Assistance may be provided throughout the activity or intermittently. 3-Partial/Moderate Assistance-helper does LESS THAN HALF the effort. Isabel lifts, holds or supports trunk or limbs, but provides less than half the effort. 2-Substantial/Maximal Assistance-helper does MORE THAN HALF the effort. Isabel lifts or holds trunk or limbs and provides more than half the effort. 2-Pthkezulo-vykgnj does ALL the effort. Patient does none of the effort to complete the activity. Or, the assistance of 2 or more helpers is required for the patient to complete the activity. If activity was not attempted, code reason: 7-Patient Refused. 9-Not Applicable-not attempted and the patient did not perform the activity before the current illness, exacerbation or injury. 10-Not Attempted due to Environmental Limitations-(lack of equipment, weather restraints, etc.). 88-Not Attempted due to Medical Conditions or Safety Concerns. Sit to Lying (QC): 3 Lying to Sitting/Side of Bed(Q: 3 Sit to Stand (QC): 4 (CGA to steady for balance) Toilet Transfer (QC): 4 (CGA for safety) Weight Bearing Right Lower Extremity: Right Weight Bearing/Tolerated Gait Training Walk 150 ft (QC): 4 (CGA for balance/safety) Gait Assistive Device: FWW Pt ambulated 150', 50' x 2 with FWW with CGA. Toileted with CGA for transfers and assist for marcos care. Treatments Pt takes extra time to complete bed mobility and transfers and requires steady cues to stay on task. Assessment Progressing. Improved gait and transfers. PT Short Term Goals Short Term Goals Time Frame: Dec 08, 2019 Roll Left & Right: 4 Sit to lyin Lying to sitting on side of be: 4 Sit to stand: 4 Chair/mtw-ay-arepq transfer: 4 Toilet transfer: 4 Car transfer: 4 Walk 10 feet: 4 Walk 50 feet with two turns: 4 Walk 150 feet: 4 Walking 10ft on uneven surface: 4 1 step (curb): 4 4 steps: 4 Does pt use a wc or scooter: No PT Staff Certified Nurse Midwife Goals Staff Certified Nurse Midwife Goals PT Nursing Home Goals Time Frame: Dec 22, 2019 Roll Left & Right (QC): 6 Sit to Lying (QC): 6 Lying-Sitting on Side/Bed(QC): 6 Sit to Stand (QC): 6 Chair/Isl-os-Zpzfd Xfer(QC): 6 Toilet Transfer (QC): 6 Car Transfer (QC): 6 Does the Patient Walk: Yes Walk 10 feet (QC): 6 Walk 50ft with 2 Turns (QC): 6 Walk 150 ft (QC): 6 Walking 10ft on Uneven Surface: 6 1 Step (curb) (QC): 6 4 Steps (QC): 6 Does the Pt use WC or Scooter?: No PT Plan Problem List Problem List: Activity Tolerance, Functional Strength, Safety Treatment/Plan Treatment Plan: Continue Plan of Care Treatment Plan: Bed Mobility, Education, Functional Activity Justino, Functional Strength, Group Therapy, Gait, Safety, Therapeutic Exercise, Transfers Treatment Duration: Dec 22, 2019 Frequency: Modified Program (IRF) Estimated Hrs Per Day: 1.5 hours per day Patient and/or Family Agrees t: Yes Safety Risks/Education Patient Education: Transfer Techniques Teaching Recipient: Patient Teaching Methods: Demonstration, Discussion, Audiovisual Discharge Recommendations Therapy Discharge Recommendati: Post Acute PT Time/GCodes Time In: 1250 Time Out: 1328 Total Billed Treatment Time: 38 Total Billed Treatment visit FA 38 RADHA VAIL PT Dec 02, 2019 14:18
--- NOTE | 2019-12-02 14:33 | Speech Therapy Daily Note ---
Speech Daily Progress Note Subjective Date Seen by Provider: Dec 02, 2019 Time Seen by Provider: 11:30 Patient was alert and cooperative for all therapy tasks. Patient reported that he was feeling tired after a full morning of therapy. Patient was lying in his bed for the duration of treatment. Objective Patient completed problem solving tasks pertaining to identification/labeling of categorical items with 50% accuracy with moderate cues. Treatment Plan Continue Plan of Care Speech Short Term Goals Short Term Goals Short Term Goals 1. Patient will complete memory tasks with 80% or greater accuracy with minimal cues. 2. Patient will complete problem-solving tasks with 80% or greater accuracy with minimal cues. 3. Patient will complete safety awareness tasks with 80% or greater accuracy with minimal cues. Speech Halfway Goals Halfway Goals Patient will improve cognitive-communication necessary for safety and daily living tasks with minimal assist. Speech-Plan Patient/Family Goals Patient/Family Goals: Patient reports wanting to return home to previous level of mobility and independence. Treatment Plan Speech Therapy Treatment Plan: Continue Plan of Care Treatment Duration: Dec 10, 2019 Frequency: 4 times per week Estimated Hrs Per Day: .5 hour per day Rehab Potential: Fair Barriers to Learning: Moderate cognitive deficits. Pt/Family Agrees to Plan: Yes Safety Risks/Education Teaching Recipient: Patient Teaching Methods: Demonstration, Discussion Response to Teaching: Verbalize Understanding, Return Demonstration Education Topics Provided: Patient was educated on the ongoing goals and benefits of skilled ST treatment. Time Speech Therapy Time In: 11:30 Speech Therapy Time Out: 12:00 Total Billed Time: 30 Billed Treatment Time 1, COLUMBA Tian Dec 02, 2019 14:33
--- NOTE | 2019-12-02 14:52 | NUR ---
CM/SS ADMISSION Patient admitted to ARU 12/01/19 for Right Hip Fracture post op bipolar replacement. He was inpatient on [facility] 11/26-12/01/19 after he fell on pavement sustaining the above fracture. 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 PCP: Dr. Rosalind Davies [facility]ARMACY: [facility] DME: Will likely need FWW. INSURED: [facility] Commercial Insurance CONTACTS: Maggy Daily, ex Taryn [facility], [place] [phone] Patient has a son "Familia" Daily that comes to stay with him in his apartment every other weekend. Patient is drowsy at this time, more details will be gather at a later point. He intends to return to his apartment when able. Monitoring for cognition improvement due to lower SLUMS scoring assumed influenced by patient's overall acute circumstances, condition, and post op status.
--- NOTE | 2019-12-02 15:10 | NUR ---
"RD ASSESSMENT PMHx: COPD; DM PT INTERACTION: Pt was awake and pleasant during nutrition assessment. Pt states current appetite is so-so. Note avg PO intake of 25% x2meal, per chart review. Pt states tolerating Glucerna supplements well. Pt states following a regular diet consisting of sandwiches, burgers, jello, applesauce, greenlandic fries, eggs, samuel, biscuits, and baked potatoes. Pt states no recent issues with chewing/swallowing food at this time. Pt states no recent issues with n/v/c/d at this time, and that his last BM was 11/28. Note pt currently on bowel regimen of senna BID; and miralax BID, per chart review. Pt states no recent wt changes. Note unable to determine recent wt hx, per chart review. ABNORMAL NUTRITION-RELATED LAB VALUES LOW: Pro 4.8; alb 2.7 HIGH: cr 1.32; glu 137 Est. kcal needs: 5359-2313 kcal | 25-30 kcal/kg Est. Pro needs: 82-96 g Pro | 1.2-1.4 g Pro/kg PES STATEMENT: Inadequate oral intake (NI-2.1) related to loss of appetite d/t pain as evidenced by pt interview | avg PO intake 25% x2meal INTERVENTION: Continue with current diet order of CHO 75g/m 0snack diet. Continue with current supplementation order of Glucerna (vary) with meals TID for increased kcal intake. Provides 220 kcal and 10 g Pro per serving. Will continue to follow and reassess as pt needs and status change. MONITOR/EVALUATE: PO Intake; Plan of Care; Hydration Status; Weight Status; Lab Values Yoon Waller, MS, RD, LD"
[2019-12-02] MEDS: ENOXAPARIN 40 MG/0.4 ML (LOVENOX) SYR SC SCH (17:48)
[2019-12-02] MEDS: SIMvastatin 10 MG (ZOCOR) TAB PO SCH (20:23)
[2019-12-02] MEDS: MONTELUKAST 10 MG (SINGULAIR) TAB PO SCH (20:23)
[2019-12-02] MEDS: POLYETHYLENE GLYCOL 17 GM (MIRALAX) PACK PO SCH (20:35)
[2019-12-03] MEDS: RT-ALBUTEROL/IPRATROPIUM 3 ML (DUONEB) VIAL INH SCH ×4 (00:08→19:11)
[2019-12-03] MEDS: RT-ADVAIR HFA 115/21 MCG PER PUFF IH SCH ×3 (00:08→19:11)
[2019-12-03] MEDS: ACETAMINOPHEN 500 MG TAB (TYLENOL) PO SCH ×6 (00:28→20:50)
[2019-12-03 05:00] VITALS: BP 135/80
[2019-12-03] MEDS: LEVOTHYROXINE 50 MCG (LEVOTHROID) TAB PO SCH (06:34)
[2019-12-03] MEDS: glipiZIDE 5 MG (GLUCOTROL) TAB PO SCH ×2 (06:34→16:45)
--- NOTE | 2019-12-03 06:43 | NUR ---
Dr. Anaya here to see patient. No new orders at this time.
--- NOTE | 2019-12-03 07:04 | Progress Note ---
Standard Progress Note Progress Notes/Assess & Plan Date Seen by a Provider: Dec 03, 2019 Time Seen by a Provider: 07:03 Progress/Assessment & Plan no complaints R hip incision without erythema or warmth. bloody dc noted no calf tenderness s/p R hip bipolar continue PT/OT Final Diagnosis no complaints Laboratory Tests Test 12/03/19 06:33 Range/Units Glucometer 89 70-110 MG/DL R hip with less serosanguinous DC cont PT/OT JARON DEWEY MD Dec 03, 2019 07:04
[2019-12-03 07:42] LABS: BASOPHILS % (AUTO) 0 % (0-10); EOSINOPHILS # (AUTO) 0.2 10^3/uL (0.0-0.3); EOSINOPHILS % (AUTO) 3 % (0-10); HEMATOCRIT 28 % (40-54); HEMOGLOBIN 9.1 G/DL (13.3-17.7); LYMPHOCYTES % (AUTO) 18 % (12-44); MEAN CORPUSCULAR HEMOGLOBIN 30 PG (25-34); MEAN CORPUSCULAR HGB CONC 32 G/DL (32-36); MEAN CORPUSCULAR VOLUME 94 FL (80-99); MEAN PLATELET VOLUME 9.3 FL (7.4-10.4); MONOCYTES # (AUTO) 0.5 X 10^3 (0.0-1.0); MONOCYTES % (AUTO) 10 % (0-12); NEUTROPHILS # (AUTO) 3.8 X 10^3 (1.8-7.8); NEUTROPHILS % (AUTO) 70 % (42-75); PLATELET COUNT 212 10^3/uL (130-400); RED CELL DISTRIBUTION WIDTH 15.8 % (10.0-14.5); WHITE BLOOD COUNT 5.5 10^3/uL (4.3-11.0)
[2019-12-03] MEDS: DOCUSATE SODIUM 100 MG (COLACE) CAP PO SCH ×2 (07:45→19:36)
[2019-12-03] MEDS: SENNA W/DOCUSATE (SENOKOT S) TABLET PO SCH ×2 (07:45→19:37)
[2019-12-03 08:00] LABS: ALBUMIN 2.8 GM/DL (3.2-4.5); BILIRUBIN,TOTAL 0.8 MG/DL (0.1-1.0); CALCIUM 8.5 MG/DL (8.5-10.1); CREATININE SERUM 1.3 MG/DL (0.60-1.30); POTASSIUM 3.7 MMOL/L (3.6-5.0); TOTAL PROTEIN 5.1 GM/DL (6.4-8.2)
[2019-12-03] MEDS: MELOXICAM 7.5 MG (MOBIC) TABLET PO SCH ×2 (08:21→20:50)
--- NOTE | 2019-12-03 08:57 | Physical Therapy Daily Note ---
PT Daily Note-Current Subjective Patient in bed pre tx, agrees reluctantly to PT, drowsy, has 3-4/10 pain in right hip. Appearance Patient in recliner post tx with nurse call, phone, tray, all needs met. Mental Status Patient Orientation: Person, Place, Situation Transfers SCALE: Activities may be completed with or without assistive devices. 3-Tlutwmwmhw-ddrhfsk completes the activity by him/herself with no assistance from a helper. 5-Set-up or Clean-up Assistance-helper sets up or cleans up; patient completes a ctivity. [place] assists only prior to or following the activity. 4-Supervision or Touching Assistance-helper provides verbal cues and/or touching/steadying and/or contact guard assistance as patient completes activity. Assistance may be provided throughout the activity or intermittently. 3-Partial/Moderate Assistance-helper does LESS THAN HALF the effort. [place] lifts, holds or supports trunk or limbs, but provides less than half the effort. 2-Substantial/Maximal Assistance-helper does MORE THAN HALF the effort. [place] lifts or holds trunk or limbs and provides more than half the effort. 7-Wuzladcly-kevzpg does ALL the effort. Patient does none of the effort to complete the activity. Or, the assistance of 2 or more helpers is required for the patient to complete the activity. If activity was not attempted, code reason: 7-Patient Refused. 9-Not Applicable-not attempted and the patient did not perform the activity before the current illness, exacerbation or injury. 10-Not Attempted due to Environmental Limitations-(lack of equipment, weather restraints, etc.). 88-Not Attempted due to Medical Conditions or Safety Concerns. Roll Left & Right (QC): 6 Lying to Sitting/Side of Bed(Q: 3 Sit to Stand (QC): 5 Chair/Cir-kc-Holdh Xfer(QC): 5 Patient asks to use the urinal in bed, he is not very accurate and spills some urine but he is able to clean it up with a towel and then wipe with wet wipes. Patient max assist to get on pants at the edge of the bed. Weight Bearing Right Lower Extremity: Right Weight Bearing/Tolerated Gait Training Distance: 150'x2 Walk 10 feet (QC): 5 Walk 50 ft with 2 Turns(QC): 5 Walk 150 ft (QC): 5 Gait Assistive Device: FWW slow, antalgic, but steady Exercises Standing: Hip Abduction, Hamstring curls, Heel/toe raises, Mini squats Standing Reps: 15 NuStep Minutes: 15 NuStep Workload: 4 Treatments bed mobility and transfers, ambulation, functional strengthening, dressing Assessment Current Status: Fair Progress less pain, improved ambulation PT Short Term Goals Short Term Goals Time Frame: Dec 08, 2019 Roll Left & Right: 4 Sit to lyin Lying to sitting on side of be: 4 Sit to stand: 4 Chair/tqq-hu-hjtqf transfer: 4 Toilet transfer: 4 Car transfer: 4 Walk 10 feet: 4 Walk 50 feet with two turns: 4 Walk 150 feet: 4 Walking 10ft on uneven surface: 4 1 step (curb): 4 4 steps: 4 Does pt use a wc or scooter: No PT Nremt Goals Nremt Goals PT Nremt Goals Time Frame: Dec 22, 2019 Roll Left & Right (QC): 6 Sit to Lying (QC): 6 Lying-Sitting on Side/Bed(QC): 6 Sit to Stand (QC): 6 Chair/Ceb-mp-Msomb Xfer(QC): 6 Toilet Transfer (QC): 6 Car Transfer (QC): 6 Does the Patient Walk: Yes Walk 10 feet (QC): 6 Walk 50ft with 2 Turns (QC): 6 Walk 150 ft (QC): 6 Walking 10ft on Uneven Surface: 6 1 Step (curb) (QC): 6 4 Steps (QC): 6 Does the Pt use WC or Scooter?: No PT Plan Problem List Problem List: Activity Tolerance, Functional Strength, Safety, Balance, Gait, Transfer, Bed Mobility, ROM Treatment/Plan Treatment Plan: Continue Plan of Care Treatment Plan: Bed Mobility, Education, Functional Activity Justino, Functional Strength, Group Therapy, Gait, Safety, Therapeutic Exercise, Transfers Treatment Duration: Dec 22, 2019 Frequency: Modified Program (IRF) Estimated Hrs Per Day: 1.5 hours per day Patient and/or Family Agrees t: Yes Safety Risks/Education Patient Education: Gait Training, Transfer Techniques, Correct Positioning, Safety Issues Teaching Recipient: Patient Teaching Methods: Demonstration, Discussion Response to Teaching: Reinforcement Needed Time/GCodes Time In: 0800 Time Out: 0900 Total Billed Treatment Time: 60 Total Billed Treatment 1 visit GT 20' EX 30' FA 10' KRTEK,SUPA PT Dec 03, 2019 08:57
--- NOTE | 2019-12-03 09:21 | Cardiology Progress Note ---
Subjective Date Seen by Provider: Dec 03, 2019 Time Seen by Provider: 09:20 Subjective/Events-last exam Pt lying in bed comfortably. Denies any cardiac sx. Review of Systems General: No Chills, No Fatigue HEENT: No Head Aches, No Visual Changes Pulmonary: No Dyspnea, No Cough Cardiovascular: No: Chest Pain, Palpitations, Edema Gastrointestinal: No: Nausea, Vomiting Neurological: No: Weakness, Numbness Objective-Cardiology Exam Last Set of Vital Signs Vital Signs 12/03/19 12/03/19 12/03/19 05:00 07:54 09:00 Temp 36.8 Pulse 86 Resp 18 B/P (MAP) 135/80 (98) Pulse Ox 98 O2 Delivery Room Air Capillary Refill : Less Than 3 SecondsLess Than 3 Seconds I&O Intake and Output 12/03/19 00:00 Intake Total 900 ml Balance 900 ml Intake Oral 900 ml # Voids 3 # Bowel Movements 2 General: Alert, Oriented X3, Cooperative HEENT: Atraumatic, PERRLA Neck: Supple, No JVD, No Thyromegaly Lungs: Clear to Auscultation, Normal Air Movement Heart: Regular Rate, Normal S1, Normal S2, No Murmurs Abdomen: Normal Bowel Sounds, Soft, No Tenderness, No Hepatosplenomegaly, No Masses Extremities: No Clubbing, No Cyanosis, No Edema, Normal Pulses, No Tenderness/Swelling Skin: No Rashes, No Breakdown, No Significant Lesion Neuro: Normal Gait, Normal Speech, Strength at 5/5 X4 Ext, Normal Tone, Sensation Intact Psych/Mental Status: Mental Status NL, Mood NL Results Lab Laboratory Tests 12/03/19 07:32 A/P-Cardiology Admission Diagnosis Abnormal EKG Tachycardia Post op anemia Hip fx Assessment/Plan Abnormal EKG with left anterior fascicular block, T-wave inversion in anterior lead, asymptomatic at this time. Sinus tachycardia, resolved. Probably was secondary to anemia. Continue to monitor Hip fracture, status post surgical repair, recovering slowly. Post op anemia, better at this time, received blood transfusion. Continue to monitor H&H Diabetes mellitus, followed and managed by primary care physician Clinical Quality Measures DVT/VTE Risk/Contraindication: Risk Factor Score Per Nursin RFS Level Per Nursing on Admit: 4+=Very High Supervisory-Addendum Brief Verification & Attestation Participated in pt care: history, MDM, physical Personally performed: exam, history, MDM, supervision of care Care discussed with: Medical Student Procedures: n/a Results interpretation: Verified all documentation Verification and Attestation of Medical Student E/M Service A medical student performed and documented this service in my presence. I reviewed and verified all information documented by the medical student and made modifications to such information, when appropriate. I personally performed the physical exam and medical decision making. I have made few modifications to the note using Italic font Laurence Meza, Dec 03, 2019,10:16 [facility] Dec 03, 2019 9:21 am LAURENCE MEZA MD Dec 03, 2019 10:16 am
--- NOTE | 2019-12-03 10:40 | NUR ---
Pastoral care visit.
--- NOTE | 2019-12-03 11:06 | Occupational Ther Daily Note ---
OT Current Status-Daily Note Subjective Pt sitting in chair, agrees to therapy. Pt states pain is "not too bad" but does not rate. ADL-Treatment Pt declined shower, but agreed to sponge bath. Doffed shirt without assist. Pt completed upper body bathing with SBA and increased time. Donned pullover shirt with set up. Pt declined to remove pants for lower body bathing, but stood with supervision to wash buttocks and marcos area. Pt doffed socks with SBA using dressing stick. Donned socks with SBA and verbal cues using sock aid. Pt moves slowly and takes frequent rest breaks. Requires much increased time for ADL tasks. Therapy Code Descriptions/Definitions Functional [place] Measure: 0=Not Assessed/NA 4=Minimal Assistance 1=Total Assistance 5=Supervision or Setup 2=Maximal Assistance 6=Modified [place] 3=Moderate Assistance 7=Complete IndependenceSCALE: Activities may be completed with or without assistive devices. 5-Jyneeqssrh-otudwij completes the activity by him/herself with no assistance from a helper. 5-Set-up or Clean-up Assistance-helper sets up or cleans up; patient completes activity. [place] assists only prior to or following the activity. 4-Supervision or Touching Assistance-helper provides verbal cues and/or touc fabiano/steadying and/or contact guard assistance as patient completes activity. Assistance may be provided throughout the activity or intermittently. 3-Partial/Moderate Assistance-helper does LESS THAN HALF the effort. [place] lifts, holds or supports trunk or limbs, but provides less than half the effort. 2-Substantial/Maximal Assistance-helper does MORE THAN HALF the effort. [place] lifts or holds trunk or limbs and provides more than half the effort. 3-Tkkdumaoe-oqzwvz does ALL the effort. Patient does none of the effort to complete the activity. Or, the assistance of 2 or more helpers is required for the patient to complete the activity. If activity was not attempted, code reason: 7-Patient Refused. 9-Not Applicable-not attempted and the patient did not perform the activity before the current illness, exacerbation or injury. 10-Not Attempted due to Environmental Limitations-(lack of equipment, weather restraints, etc.). 88-Not Attempted due to Medical Conditions or Safety Concerns. Upper Body Dressing (QC): 5 On/Off Footwear: 4 Other Treatment Pt sit to stand with supervision. Gait to therapy gym with FWW. Arm bike [id number] to increase overall strength and activity tolerance needed for functional taks completion. Pt performed task with minimal resistance and slow pace. Pt took three rest breaks during activity. Pt returned to room and completed sit to supine with min assist for right LE. Pt resting in bed with needs met after session. Education OT Patient Education: Modified ADL techniques Teaching Recipient: Patient Teaching Methods: Discussion OT Short Term Goals Short Term Goals Time Frame: Dec 08, 2019 Toileting hygiene: 4 Shower/bathe self: 4 Lower body dressin OT Soil Sort Worker Goals [facility] Goals Time Frame: Dec 22, 2019 Eating (QC): 6 Oral Hygiene (QC): 6 Toileting Hygiene (QC): 6 Shower/Bathe Self (QC): 5 Upper Body Dressing (QC): 6 Lower Body Dressing (QC): 5 On/Off Footwear (QC): 6 Additional Goals: 1-Demonstrate ADL Tasks, 2-Verbalize Understanding, 3- ImproveStrength/Justino 1=Demonstrate adherence to instructed precautions during ADL tasks. 2=Patient will verbalize/demonstrate understanding of assistive devices/modifications for ADL. 3=Patient will improve strength/tolerance for activity to enable patient to perform ADL's. OT Education/Plan Discharge Recommendations Plan/Recommendations: Continue POC Treatment Plan/Plan of Care Patient would benefit from OT for education, treatment and training to promote independence in ADL's, mobility, safety and/or upper extremity function for ADL's. Plan of Care: ADL Retraining, Functional Mobility, Group Exercise/Act as Ind, UE Funct Exercise/Act Treatment Duration: Dec 22, 2019 Frequency: At least 5 of 7 days/Wk (IRF) Estimated Hrs Per Day: 1.5 hours per day Rehab Potential: Fair Time/GCodes Start Time: 09:15 Stop Time: 10:30 Total Time Billed (hr/min): 75 Billed Treatment Time 1 visit, ADLx4(55minutes), EX(20minutes) ALYSON FRANCO OT Dec 03, 2019 11:06
--- NOTE | 2019-12-03 11:56 | PM&R Progress Note ---
Subjective HPI/CC On Admission Date Seen by Provider: Dec 03, 2019 Time Seen by Provider: 09:30 Subjective/Events-last exam Hgb 9.1 after two units of blood last night Incontinent of bowel because of the aggressive bowel regimen so will hold those medications Overall progressing well Conferred with RN Reviewed therapy notes Checked meds and labs Review of Systems Musculoskeletal: leg pain Objective Exam Vital Signs Vital Signs Date Time Temp Pulse Resp B/P (MAP) Pulse Ox O2 Delivery O2 Flow Rate FiO2 12/03/19 19:12 Room Air 12/03/19 19:11 97 12/03/19 18:00 37.6 94 16 108/69 (82) Capillary Refill : Less Than 3 SecondsLess Than 3 Seconds General Appearance: No Apparent Distress, Anxious, Chronically ill, Thin HEENT: PERRL/EOMI, Normal ENT Inspection, Pharynx Normal Neck: Full Range of Motion, Normal Inspection, Non Tender, Supple, Carotid Bruit Respiratory: Chest Non Tender, Lungs Clear, Normal Breath Sounds, No Accessory Muscle Use, No Respiratory Distress, Decreased Breath Sounds Cardiovascular: Regular Rate, Rhythm, No Edema, No Gallop, No JVD, No Murmur, Normal Peripheral Pulses Gastrointestinal: Normal Bowel Sounds, No Organomegaly, No Pulsatile Mass, Non Tender, Soft Rectal: Deferred Back: Normal Inspection, No CVA Tenderness, No Vertebral Tenderness Extremity: Normal Capillary Refill, Normal Inspection, Normal Range of Motion (except right leg), Non Tender, No Calf Tenderness, No Pedal Edema Neurologic/Psychiatric: Alert, Oriented x3, No Motor/Sensory Deficits, exterminator helper II- XII Norm as Tested, Depressed Affect Skin: Normal Color, Warm/Dry Lymphatic: No Adenopathy Results/Procedures Lab Laboratory Tests 12/03/19 07:32 Patient resulted labs reviewed. FIM Transfers Therapy Code Descriptions/Definitions Functional [place] Measure: 0=Not Assessed/NA 4=Minimal Assistance 1=Total Assistance 5=Supervision or Setup 2=Maximal Assistance 6=Modified [place] 3=Moderate Assistance 7=Complete IndependenceSCALE: Activities may be completed with or without assistive devices. 4-Muhwggmxsg-ujppbeb completes the activity by him/herself with no assistance from a helper. 5-Set-up or Clean-up Assistance-helper sets up or cleans up; patient completes activity. [place] assists only prior to or following the activity. 4-Supervision or Touching Assistance-helper provides verbal cues and/or touching/steadying and/or contact guard assistance as patient completes activity. Assistance may be provided throughout the activity or intermittently. 3-Partial/Moderate Assistance-helper does LESS THAN HALF the effort. [place] lifts, holds or supports trunk or limbs, but provides less than half the effort. 2-Substantial/Maximal Assistance-helper does MORE THAN HALF the effort. [place] lifts or holds trunk or limbs and provides more than half the effort. 1-Tx[place]-ycyjqp does ALL the effort. Patient does none of the effort to complete the activity. Or, the assistance of 2 or more helpers is required for the patient to complete the activity. If activity was not attempted, code reason: 7-Patient Refused. 9-Not Applicable-not attempted and the patient did not perform the activity before the current illness, exacerbation or injury. 10-Not Attempted due to Environmental Limitations-(lack of equipment, weather restraints, etc.). 88-Not Attempted due to Medical Conditions or Safety Concerns. Roll Left to Right (QC): 6 Sit to Lying (QC): 3 Sit to Stand (QC): 5 Chair/Ylt-vv-Virms Xfer(QC): 5 Car Transfer (QC): 3 Gait Training Does the Patient Walk?: Yes Distance: 150'x2 Walk 10 feet (QC): 5 Walk 50 ft with 2 Turns(QC): 5 Walk 150 ft (QC): 5 Walking 10ft/uneven surface-QC: 4 Gait Persons Needed: 1 Gait Assistive Device: FWW Wheelchair Training Does the Pt Use a Wheelchair?: No Wheel 50 ft with 2 turns (QC): 10 Wheel 150 ft (QC): 10 Type of Wheelchair: N/A Stair Training #of Steps: 1 1 Step (curb) (QC): 4 4 Steps (QC): 88 12 Steps (QC): 88 Balance Picking up an Object (QC): 88 ADL-Treatment Eating (QC): 6 (pt reports feeding himself without assist. Observed pt drinking from cup without assist) Oral Hygiene (QC): 7 (Pt declined to complete at this time, states he doesn't wear dentures and only completes oral care "a couple times a week") Shower/Bathe Self (QC): 3 (Pt declined shower, completed sponge bath while seated.) Upper Body Dressing (QC): 5 Lower Body Dressing (QC): 2 (Pt requires assist to thread bilateral LE into pants. (Will require AE for LE dressing.) Pt stood with minimal assistance. Able to pull pants up over hips with minimal assistance.) On/Off Footwear (QC): 4 Toileting Hygiene (QC): 3 (Pt able to use urinal with set up, but requires min assist for clothing management.) Assessment/Plan Assessment and Plan Assess & Plan/Chief Complaint Assessment: Right hip fracture Esophageal cancer 2010 in remission Cognitive deficiency? low SLUMS noted on assessment DM Hypothyroidism Acute blood loss anemia requiring blood transfusion 2 units 12/02/19 CRI Plan: IRF protocol 31/05 Favian Nebs IS Pain control without narcs since intolerant Transfusions tolerated (1) Closed impacted fracture of right hip Status: Acute (2) Acute blood loss anemia (3) Hypothyroidism (4) Diabetes mellitus (5) COPD (chronic obstructive pulmonary disease) SHERIN LOWERY DO Dec 03, 2019 11:56
--- NOTE | 2019-12-03 13:38 | Physical Therapy Daily Note ---
PT Daily Note-Current Subjective Patient in bed pre tx, agrees to PT, has 5/10 pain in right hip. Patient needs extra time to get out of bed, stalls, needs encouragement. Appearance Patient in bed post tx with nurse call, phone, tray, family in the room. Mental Status Patient Orientation: Person, Place, Situation Transfers SCALE: Activities may be completed with or without assistive devices. 2-Bdmmanfqrc-vhpchtu completes the activity by him/herself with no assistance from a helper. 5-Set-up or Clean-up Assistance-helper sets up or cleans up; patient completes activity. [place] assists only prior to or following the activity. 4-Supervision or Touching Assistance-helper provides verbal cues and/or touching/steadying and/or contact guard assistance as patient completes activity. Assistance may be provided throughout the activity or intermittently. 3-Partial/Moderate Assistance-helper does LESS THAN HALF the effort. [place] lifts, holds or supports trunk or limbs, but provides less than half the effort. 2-Substantial/Maximal Assistance-helper does MORE THAN HALF the effort. [place] lifts or holds trunk or limbs and provides more than half the effort. 6-Bqjjlejjd-phoejt does ALL the effort. Patient does none of the effort to complete the activity. Or, the assistance of 2 or more helpers is required for the patient to complete the activity. If activity was not attempted, code reason: 7-Patient Refused. 9-Not Applicable-not attempted and the patient did not perform the activity before the current illness, exacerbation or injury. 10-Not Attempted due to Environmental Limitations-(lack of equipment, weather restraints, etc.). 88-Not Attempted due to Medical Conditions or Safety Concerns. Roll Left & Right (QC): 6 Sit to Lying (QC): 3 Lying to Sitting/Side of Bed(Q: 3 Sit to Stand (QC): 4 Chair/Buy-rt-Xkcgj Xfer(QC): 4 Min assist with right leg getting into and out of bed. Weight Bearing Right Lower Extremity: Right Weight Bearing/Tolerated Gait Training Distance: 150'x2 Walk 10 feet (QC): 4 Walk 50 ft with 2 Turns(QC): 4 Walk 150 ft (QC): 4 Gait Assistive Device: FWW SBA, slow and antalgic but steady Exercises Standing: Marching, Step-ups (x10) Standing Reps: 15 LAQ right leg for 5 min Treatments bed mobility and transfers, ambulation, functional strengthening Assessment Current Status: Fair Progress improving general mobility but patient vomited while in the parallel bars, nurse notified, seemed OK after vomiting PT Short Term Goals Short Term Goals Time Frame: Dec 08, 2019 Roll Left & Right: 4 Sit to lyin Lying to sitting on side of be: 4 Sit to stand: 4 Chair/orq-dw-ueglb transfer: 4 Toilet transfer: 4 Car transfer: 4 Walk 10 feet: 4 Walk 50 feet with two turns: 4 Walk 150 feet: 4 Walking 10ft on uneven surface: 4 1 step (curb): 4 4 steps: 4 Does pt use a wc or scooter: No PT [facility] Goals [employer] M[employer] Supervisor Goals PT [facility] Goals Time Frame: Dec 22, 2019 Roll Left & Right (QC): 6 Sit to Lying (QC): 6 Lying-Sitting on Side/Bed(QC): 6 Sit to Stand (QC): 6 Chair/Dxs-us-Fydcu Xfer(QC): 6 Toilet Transfer (QC): 6 Car Transfer (QC): 6 Does the Patient Walk: Yes Walk 10 feet (QC): 6 Walk 50ft with 2 Turns (QC): 6 Walk 150 ft (QC): 6 Walking 10ft on Uneven Surface: 6 1 Step (curb) (QC): 6 4 Steps (QC): 6 Does the Pt use WC or Scooter?: No PT Plan Problem List Problem List: Activity Tolerance, Functional Strength, Safety, Balance, Gait, Transfer, Bed Mobility, ROM Treatment/Plan Treatment Plan: Continue Plan of Care Treatment Plan: Bed Mobility, Education, Functional Activity Justino, Functional Strength, Group Therapy, Gait, Safety, Therapeutic Exercise, Transfers Treatment Duration: Dec 22, 2019 Frequency: Modified Program (IRF) Estimated Hrs Per Day: 1.5 hours per day Patient and/or Family Agrees t: Yes Safety Risks/Education Patient Education: Gait Training, Transfer Techniques, Reviewed Precautions, Correct Positioning, Safety Issues Teaching Recipient: Patient Teaching Methods: Demonstration, Discussion Response to Teaching: Reinforcement Needed Time/GCodes Time In: 1300 Time Out: 1330 Total Billed Treatment Time: 30 Total Billed Treatment 1 visit EX 15' GT 15' SUPA EMERY PT Dec 03, 2019 13:38
--- NOTE | 2019-12-03 14:19 | Speech Therapy Daily Note ---
Speech Daily Progress Note Subjective Date Seen by Provider: Dec 03, 2019 Time Seen by Provider: 13:30 Patient was pleasant and cooperative for all therapy activities. Patient reported that he did not eat much for lunch and felt very tired today. Objective Patient completed safety awareness tasks pertaining to call light, ordering preferred food, and using the telephone with 80% accuracy. Assessment Assessment Current Status: Good Progress Treatment Plan Continue Plan of Care Speech Short Term Goals Short Term Goals Short Term Goals 1. Patient will complete memory tasks with 80% or greater accuracy with minimal cues. 2. Patient will complete problem-solving tasks with 80% or greater accuracy with minimal cues. 3. Patient will complete safety awareness tasks with 80% or greater accuracy with minimal cues. Speech Assistant Art Director Goals Assistant Art Director Goals Patient will improve cognitive-communication necessary for safety and daily living tasks with minimal assist. Speech-Plan Patient/Family Goals Patient/Family Goals: Patient reports wanting to to return home to previous level of independence and mobility. Treatment Plan Speech Therapy Treatment Plan: Continue Plan of Care Treatment Duration: Dec 10, 2019 Frequency: 4 times per week Estimated Hrs Per Day: .5 hour per day Rehab Potential: Fair Barriers to Learning: Moderate cognitive deficits Pt/Family Agrees to Plan: Yes Safety Risks/Education Teaching Recipient: Patient Teaching Methods: Demonstration, Discussion Response to Teaching: Verbalize Understanding, Reinforcement Needed Education Topics Provided: Patient was provided education on using call light and telephone to communicate wants/needs. Time Speech Therapy Time In: 13:30 Speech Therapy Time Out: 14:00 Total Billed Time: 30 Billed Treatment Time [address] Dec 03, 2019 14:19
[2019-12-03] MEDS: ENOXAPARIN 40 MG/0.4 ML (LOVENOX) SYR SC SCH (16:44)
[2019-12-03 18:00] VITALS: BP 108/69
[2019-12-03] MEDS: POLYETHYLENE GLYCOL 17 GM (MIRALAX) PACK PO SCH (19:36)
[2019-12-03] MEDS: SIMvastatin 10 MG (ZOCOR) TAB PO SCH (20:50)
[2019-12-03] MEDS: MONTELUKAST 10 MG (SINGULAIR) TAB PO SCH (20:50)
[2019-12-04] MEDS: ACETAMINOPHEN 500 MG TAB (TYLENOL) PO SCH ×6 (00:44→20:15)
[2019-12-04] MEDS: LEVOTHYROXINE 50 MCG (LEVOTHROID) TAB PO SCH (05:42)
[2019-12-04 06:16] VITALS: BP 125/81
[2019-12-04] MEDS: glipiZIDE 5 MG (GLUCOTROL) TAB PO SCH ×2 (06:26→16:13)
[2019-12-04] MEDS: MELOXICAM 7.5 MG (MOBIC) TABLET PO SCH ×2 (08:08→20:15)
[2019-12-04] MEDS: RT-ADVAIR HFA 115/21 MCG PER PUFF IH SCH ×2 (08:51→19:21)
[2019-12-04] MEDS: RT-ALBUTEROL/IPRATROPIUM 3 ML (DUONEB) VIAL INH SCH ×3 (08:51→19:21)
[2019-12-04] MEDS: IRON SUCROSE 200 MG/10 ML (VENOFER) VIAL IV SCH (08:56)
[2019-12-04] MEDS: DOCUSATE SODIUM 100 MG (COLACE) CAP PO SCH ×2 (08:59→19:16)
[2019-12-04] MEDS: SENNA W/DOCUSATE (SENOKOT S) TABLET PO SCH ×2 (08:59→19:16)
[2019-12-04] MEDS ORDERED: CATHETER FLUSH 10 ML SYR IV PRN (09:00)
--- NOTE | 2019-12-04 10:21 | Progress Note ---
Standard Progress Note Progress Notes/Assess & Plan Date Seen by a Provider: Dec 04, 2019 Time Seen by a Provider: 10:20 Progress/Assessment & Plan no complaints R hip incision without erythema or warmth. bloody dc noted no calf tenderness s/p R hip bipolar continue PT/OT Final Diagnosis feeling better Vital Signs Date Time Temp Pulse Resp B/P (MAP) Pulse Ox O2 Delivery O2 Flow Rate FiO2 12/04/19 08:52 Room Air 12/04/19 08:51 97 Room Air 12/04/19 06:16 36.8 92 16 125/81 (96) 96 Room Air 12/03/19 21:31 Room Air 12/03/19 19:12 Room Air 12/03/19 19:11 97 Room Air 12/03/19 18:00 37.6 94 16 108/69 (82) 98 Room Air 12/03/19 15:23 95 Room Air I & O 12/04/19 07:00 Intake Total 822 ml Output Total 300 ml Balance 522 ml Laboratory Tests Test 12/04/19 05:31 Range/Units Glucometer 68 L 70-110 MG/DL R hip with less DC no erythema s/p R hip bipolar PT/OT JARON DEWEY MD Dec 04, 2019 10:21
--- NOTE | 2019-12-04 10:45 | Physical Therapy Daily Note ---
PT Daily Note-Current Subjective Patient is in bed and agrees to PT. Pain Numeric Pain Scale: 3 Location: Right Location Body Site: Hip Pain Description: Ache Mental Status Patient Orientation: Normal For Age Transfers SCALE: Activities may be completed with or without assistive devices. 9-Trwvgrkhuw-csslnfi completes the activity by him/herself with no assistance from a helper. 5-Set-up or Clean-up Assistance-helper sets up or cleans up; patient completes activity. [place] assists only prior to or following the activity. 4-Supervision or Touching Assistance-helper provides verbal cues and/or touching/steadying and/or contact guard assistance as patient completes activity. Assistance may be provided throughout the activity or intermittently. 3-Partial/Moderate Assistance-helper does LESS THAN HALF the effort. [place] lifts, holds or supports trunk or limbs, but provides less than half the effort. 2-Substantial/Maximal Assistance-helper does MORE THAN HALF the effort. [place] lifts or holds trunk or limbs and provides more than half the effort. 1-Lqshpwryq-kmavmh does ALL the effort. Patient does none of the effort to complete the activity. Or, the assistance of 2 or more helpers is required for the patient to complete the activity. If activity was not attempted, code reason: 7-Patient Refused. 9-Not Applicable-not attempted and the patient did not perform the activity before the current illness, exacerbation or injury. 10-Not Attempted due to Environmental Limitations-(lack of equipment, weather restraints, etc.). 88-Not Attempted due to Medical Conditions or Safety Concerns. Roll Left & Right (QC): 5 Lying to Sitting/Side of Bed(Q: 5 Sit to Stand (QC): 5 Chair/Cme-fm-Ybowp Xfer(QC): 5 Weight Bearing Right Lower Extremity: Right Weight Bearing/Tolerated Gait Training Does the Patient Walk?: Yes Distance: 300' x 2 Walk 10 feet (QC): 5 Walk 50 ft with 2 Turns(QC): 5 Walk 150 ft (QC): 5 Gait Assistive Device: FWW VC's for body placement in FWW Exercises Seated Therapy Exercises: Ankle pumps, Long arc quads, Hip flexion Seated Reps: 15 Assessment Patient up in recliner with needs met. Noted increase in ambulation distance. PT Short Term Goals Short Term Goals Time Frame: Dec 08, 2019 Roll Left & Right: 4 Sit to lyin Lying to sitting on side of be: 4 Sit to stand: 4 Chair/pwo-zh-zggvq transfer: 4 Toilet transfer: 4 Car transfer: 4 Walk 10 feet: 4 Walk 50 feet with two turns: 4 Walk 150 feet: 4 Walking 10ft on uneven surface: 4 1 step (curb): 4 4 steps: 4 Does pt use a wc or scooter: No PT Alf Goals Fabrication Specialist Goals PT Alf Goals Time Frame: Dec 22, 2019 Roll Left & Right (QC): 6 Sit to Lying (QC): 6 Lying-Sitting on Side/Bed(QC): 6 Sit to Stand (QC): 6 Chair/Gfx-xc-Lwobc Xfer(QC): 6 Toilet Transfer (QC): 6 Car Transfer (QC): 6 Does the Patient Walk: Yes Walk 10 feet (QC): 6 Walk 50ft with 2 Turns (QC): 6 Walk 150 ft (QC): 6 Walking 10ft on Uneven Surface: 6 1 Step (curb) (QC): 6 4 Steps (QC): 6 Does the Pt use WC or Scooter?: No PT Plan Treatment/Plan Treatment Plan: Continue Plan of Care Treatment Plan: Bed Mobility, Education, Functional Activity Justino, Functional Strength, Group Therapy, Gait, Safety, Therapeutic Exercise, Transfers Treatment Duration: Dec 22, 2019 Frequency: Modified Program (IRF) Estimated Hrs Per Day: 1.5 hours per day Patient and/or Family Agrees t: Yes Time/GCodes Time In: 940 Time Out: 955 Total Billed Treatment Time: 15 Total Billed Treatment 1 visit FA 15 min JIM HIGGINS PT Dec 04, 2019 10:45
--- NOTE | 2019-12-04 11:00 | NUR ---
DR. LOWERY INFORMED OF BLOOD SUGAR 68 THIS AM. GLYBURIDE DOSE DECREASED AND ACCUCHECKS CHANGED TO BID. PATIENT HAS A POOR APPETITE ALSO. STATES FEELS PAIN IS CONTROLLED ON SCHEDULED TYLENOL.
--- NOTE | 2019-12-04 11:30 | PM&R Progress Note ---
Subjective HPI/CC On Admission Date Seen by Provider: Dec 04, 2019 Time Seen by Provider: 11:00 Subjective/Events-last exam Venofer second dose since IRF today BM's are still a bit loose so holding meds Overall progressing well Conferred with RN APAP only managed the pain Hip incision drainage improved Reviewed therapy notes Checked meds and labs Conferred with engineer assistant of Systems General: Fatigue Musculoskeletal: leg pain Objective Exam Vital Signs Vital Signs Date Time Temp Pulse Resp B/P (MAP) Pulse Ox O2 Delivery O2 Flow Rate FiO2 12/04/19 08:52 Room Air 12/04/19 08:51 97 12/04/19 06:16 36.8 92 16 125/81 (96) Capillary Refill : Less Than 3 SecondsLess Than 3 Seconds General Appearance: No Apparent Distress, Anxious, Chronically ill, Thin HEENT: PERRL/EOMI, Normal ENT Inspection, Pharynx Normal Neck: Full Range of Motion, Normal Inspection, Non Tender, Supple, Carotid Bruit Respiratory: Chest Non Tender, Lungs Clear, Normal Breath Sounds, No Accessory Muscle Use, No Respiratory Distress, Decreased Breath Sounds Cardiovascular: Regular Rate, Rhythm, No Edema, No Gallop, No JVD, No Murmur, Normal Peripheral Pulses Gastrointestinal: Normal Bowel Sounds, No Organomegaly, No Pulsatile Mass, Non Tender, Soft Rectal: Deferred Back: Normal Inspection, No CVA Tenderness, No Vertebral Tenderness Extremity: Normal Capillary Refill, Normal Inspection, Normal Range of Motion (except right leg), Non Tender, No Calf Tenderness, No Pedal Edema Neurologic/Psychiatric: Alert, Oriented x3, No Motor/Sensory Deficits, student accounts manager II- XII Norm as Tested, Depressed Affect Skin: Normal Color, Warm/Dry Lymphatic: No Adenopathy Results/Procedures Lab Patient resulted labs reviewed. FIM Transfers Therapy Code Descriptions/Definitions Functional [place] Measure: 0=Not Assessed/NA 4=Minimal Assistance 1=Total Assistance 5=Supervision or Setup 2=Maximal Assistance 6=Modified [place] 3=Moderate Assistance 7=Complete IndependenceSCALE: Activities may be completed with or without assistive devices. 8-Vtfqkwcupm-mtmpvjk completes the activity by him/herself with no assistance from a helper. 5-Set-up or Clean-up Assistance-helper sets up or cleans up; patient completes activity. [place] assists only prior to or following the activity. 4-Supervision or Touching Assistance-helper provides verbal cues and/or touching/steadying and/or contact guard assistance as patient completes activity. Assistance may be provided throughout the activity or intermittently. 3-Partial/Moderate Assistance-helper does LESS THAN HALF the effort. [place] lifts, holds or supports trunk or limbs, but provides less than half the effort. 2-Substantial/Maximal Assistance-helper does MORE THAN HALF the effort. [place] lifts or holds trunk or limbs and provides more than half the effort. 5-Afsrqaqgh-ldpntj does ALL the effort. Patient does none of the effort to complete the activity. Or, the assistance of 2 or more helpers is required for the patient to complete the activity. If activity was not attempted, code reason: 7-Patient Refused. 9-Not Applicable-not attempted and the patient did not perform the activity before the current illness, exacerbation or injury. 10-Not Attempted due to Environmental Limitations-(lack of equipment, weather restraints, etc.). 88-Not Attempted due to Medical Conditions or Safety Concerns. Roll Left to Right (QC): 5 Sit to Lying (QC): 3 Sit to Stand (QC): 5 Chair/Bew-zi-Xfoip Xfer(QC): 5 Car Transfer (QC): 3 Gait Training Does the Patient Walk?: Yes Distance: 300' x 2 Walk 10 feet (QC): 5 Walk 50 ft with 2 Turns(QC): 5 Walk 150 ft (QC): 5 Walking 10ft/uneven surface-QC: 4 Gait Persons Needed: 1 Gait Assistive Device: FWW Wheelchair Training Does the Pt Use a Wheelchair?: No Wheel 50 ft with 2 turns (QC): 10 Wheel 150 ft (QC): 10 Type of Wheelchair: N/A Stair Training #of Steps: 1 1 Step (curb) (QC): 4 4 Steps (QC): 88 12 Steps (QC): 88 Balance Picking up an Object (QC): 88 ADL-Treatment Eating (QC): 6 (pt reports feeding himself without assist. Observed pt drinking from cup without assist) Oral Hygiene (QC): 7 (Pt declined to complete at this time, states he doesn't wear dentures and only completes oral care "a couple times a week") Shower/Bathe Self (QC): 3 (Pt declined shower, completed sponge bath while seated.) Upper Body Dressing (QC): 5 Lower Body Dressing (QC): 2 (Pt requires assist to thread bilateral LE into pants. (Will require AE for LE dressing.) Pt stood with minimal assistance. Able to pull pants up over hips with minimal assistance.) On/Off Footwear (QC): 4 Toileting Hygiene (QC): 3 (Pt able to use urinal with set up, but requires min assist for clothing management.) Assessment/Plan Assessment and Plan Assess & Plan/Chief Complaint Assessment: Right hip fracture Esophageal cancer 2010 in remission Cognitive deficiency? low SLUMS noted on assessment DM Hypothyroidism Acute blood loss anemia requiring blood transfusion 2 units 12/02/19 now on iron infusions CRI Plan: IRF protocol 31/05 Venofer Nebs IS Pain control without narcs since intolerant (1) Closed impacted fracture of right hip Status: Acute (2) Acute blood loss anemia (3) Hypothyroidism (4) Diabetes mellitus (5) COPD (chronic obstructive pulmonary disease) SHERIN LOWERY DO Dec 04, 2019 11:30
[2019-12-04] MEDS: CATHETER FLUSH 10 ML SYR IV SCH ×2 (13:29→20:15)
--- NOTE | 2019-12-04 16:16 | Cardiology Progress Note ---
Cardiology SOAP Progress Note Subjective: No cardiac complaints. Objective: I&O/Vital Signs 12/04/19 12/04/19 12/04/19 12/04/19 06:16 08:51 08:52 09:00 Temp 36.8 Pulse 92 Resp 16 B/P (MAP) 125/81 (96) Pulse Ox 96 97 O2 Delivery Room Air Room Air Room Air Room Air 12/04/19 00:00 Intake Total 600 ml Balance 600 ml Constitutional: AAO x 3 Respiratory: chest is bilaterally symmetric, lungs clear to auscultation Cardiovascular: regular rate-rhythm, S1 and S2 Gastrointestional: soft, audible bowel sounds Extremities: no lower extremity edema bilateral Neurologic/Psychiatric: no motor/sensory deficits, alert, normal mood/affect Skin: normal color Results/Procedures: Labs Laboratory Tests 12/04/19 05:31: Glucometer 68L 12/04/19 16:03: Glucometer 177H A/P: Assessment/Dx: Abnormal EKG Tachycardia Post op anemia Hip fx Plan: Abnormal EKG with left anterior fascicular block, T-wave inversion in anterior lead, asymptomatic at this time. Sinus tachycardia, resolved. Probably was secondary to anemia. Continue to monitor Hip fracture, status post surgical repair, recovering slowly. Post op anemia, better at this time, received blood transfusion. Continue to monitor H&H Diabetes mellitus, followed and managed by primary care physician Thank you for your consultation. Please call me if you have any questions. Byron Dillon MD, FACP, FACC, FSCAI, FHRS, CCDS Interventional Cardiology Cardiac Electrophysiology Vascular Medicine and Endovascular Interventions Divina DILLON MD Dec 04, 2019 16:16
[2019-12-04 17:39] VITALS: BP 107/67
--- NOTE | 2019-12-04 18:00 | NUR ---
EATS POORLY, BUT BLOOD SUGAR 177 THIS AFTERNOON BECAUSE DRINKING REGULAR DR. GRAY AND JELLO. CONTINUES TO DENY PAIN.
[2019-12-04] MEDS: ENOXAPARIN 40 MG/0.4 ML (LOVENOX) SYR SC SCH (19:11)
[2019-12-04] MEDS: POLYETHYLENE GLYCOL 17 GM (MIRALAX) PACK PO SCH (19:16)
[2019-12-04] MEDS: SIMvastatin 10 MG (ZOCOR) TAB PO SCH (20:15)
[2019-12-04] MEDS: MONTELUKAST 10 MG (SINGULAIR) TAB PO SCH (20:15)
[2019-12-05] MEDS: ACETAMINOPHEN 500 MG TAB (TYLENOL) PO SCH ×4 (00:55→12:00)
[2019-12-05 04:19] VITALS: BP 119/72
[2019-12-05] MEDS: CATHETER FLUSH 10 ML SYR IV SCH ×3 (06:13→22:00)
[2019-12-05] MEDS: glipiZIDE 5 MG (GLUCOTROL) TAB PO SCH ×2 (06:13→16:02)
[2019-12-05] MEDS: LEVOTHYROXINE 50 MCG (LEVOTHROID) TAB PO SCH (06:13)
[2019-12-05] MEDS: RT-ADVAIR HFA 115/21 MCG PER PUFF IH SCH (08:31)
[2019-12-05] MEDS: RT-ALBUTEROL/IPRATROPIUM 3 ML (DUONEB) VIAL INH SCH ×2 (08:31→14:44)
[2019-12-05] MEDS: MELOXICAM 7.5 MG (MOBIC) TABLET PO SCH ×2 (08:48→20:31)
[2019-12-05] MEDS: DOCUSATE SODIUM 100 MG (COLACE) CAP PO SCH ×2 (08:49→19:14)
[2019-12-05] MEDS: SENNA W/DOCUSATE (SENOKOT S) TABLET PO SCH ×2 (08:50→19:41)
--- NOTE | 2019-12-05 09:22 | Progress Note ---
Standard Progress Note Progress Notes/Assess & Plan Date Seen by a Provider: Dec 05, 2019 Time Seen by a Provider: 09:21 Progress/Assessment & Plan no complaints R hip incision without erythema or warmth. bloody dc noted no calf tenderness s/p R hip bipolar continue PT/OT Final Diagnosis feeling better R hip with scant serosanguinous DC. Much improved s/p R hip bipolar continue PT/OT JARON DEWEY MD Dec 05, 2019 09:22
--- NOTE | 2019-12-05 12:30 | NUR ---
TYLENOL MADE PRN ONLY INSTEAD OF SCHEDULED SINCE PATIENT DENIES PAIN. AMBULATES FAIRLY WELL, BUT USING WALKER UNSAFELY AND TEACHING DONE ON IT.
--- NOTE | 2019-12-05 13:50 | Cardiology Progress Note ---
Cardiology SOAP Progress Note Subjective: No cardiac complaints. Objective: I&O/Vital Signs 12/05/19 12/05/19 12/05/19 12/05/19 04:19 08:31 08:36 09:00 Temp 37.2 Pulse 82 Resp 18 B/P (MAP) 119/72 (88) Pulse Ox 96 92 O2 Delivery Room Air Room Air Room Air Room Air 12/05/19 00:00 Intake Total 920 ml Output Total 425 ml Balance 495 ml Constitutional: AAO x 3 Respiratory: chest is bilaterally symmetric, lungs clear to auscultation Cardiovascular: regular rate-rhythm, S1 and S2 Gastrointestional: soft, audible bowel sounds Extremities: no lower extremity edema bilateral Neurologic/Psychiatric: no motor/sensory deficits, alert, normal mood/affect Skin: normal color Results/Procedures: Labs Laboratory Tests 12/04/19 16:03: Glucometer 177H 12/05/19 06:11: Glucometer 133H A/P: Assessment/Dx: Abnormal EKG Tachycardia Post op anemia Hip fx Plan: Abnormal EKG with left anterior fascicular block, T-wave inversion in anterior lead, asymptomatic at this time. Sinus tachycardia, resolved. Probably was secondary to anemia. Continue to monitor Hip fracture, status post surgical repair, recovering slowly. Post op anemia, better at this time, received blood transfusion. Continue to monitor H&H Diabetes mellitus, followed and managed by primary care physician Thank you for your consultation. Please call me if you have any questions. Byron Dillon MD, FACP, FACC, FSCAI, FHRS, CCDS Interventional Cardiology Cardiac Electrophysiology Vascular Medicine and Endovascular Interventions Divina DILLON MD Dec 05, 2019 13:50
--- NOTE | 2019-12-05 15:22 | PM&R Progress Note ---
Subjective HPI/CC On Admission Date Seen by Provider: Dec 05, 2019 Time Seen by Provider: 12:15 Subjective/Events-last exam Venofer second dose since IRF yesterday and had 1 in med surg hospital stay BM's are still a bit loose so holding meds Overall progressing well Checking labs in am Wants DC soon but still can't navigate the walker very well he is very impulsive Sugar 133 this morning improved from hypoglycemia APAP only managed the pain and will change to prn now Talked about his chronic cough and since he is not a smoker and CT chest normal it is his usual issue Hip incision drainage improved Reviewed therapy notes Checked meds and labs Conferred with assistant director of plant operations of Systems General: Fatigue Pulmonary: Cough Musculoskeletal: leg pain Objective Exam Vital Signs Vital Signs Date Time Temp Pulse Resp B/P (MAP) Pulse Ox O2 Delivery O2 Flow Rate FiO2 12/05/19 14:45 94 Room Air 12/05/19 04:19 37.2 82 18 119/72 (88) Capillary Refill : Less Than 3 SecondsLess Than 3 Seconds General Appearance: No Apparent Distress, Anxious, Chronically ill, Thin HEENT: PERRL/EOMI, Normal ENT Inspection, Pharynx Normal Neck: Full Range of Motion, Normal Inspection, Non Tender, Supple, Carotid Bruit Respiratory: Chest Non Tender, Lungs Clear, Normal Breath Sounds, No Accessory Muscle Use, No Respiratory Distress, Decreased Breath Sounds Cardiovascular: Regular Rate, Rhythm, No Edema, No Gallop, No JVD, No Murmur, Normal Peripheral Pulses Gastrointestinal: Normal Bowel Sounds, No Organomegaly, No Pulsatile Mass, Non Tender, Soft Rectal: Deferred Back: Normal Inspection, No CVA Tenderness, No Vertebral Tenderness Extremity: Normal Capillary Refill, Normal Inspection, Normal Range of Motion (except right leg), Non Tender, No Calf Tenderness, No Pedal Edema Neurologic/Psychiatric: Alert, Oriented x3, No Motor/Sensory Deficits, hydrologic engineer II-XII Norm as Tested, Depressed Affect Skin: Normal Color, Warm/Dry Lymphatic: No Adenopathy Results/Procedures Lab Patient resulted labs reviewed. FIM Transfers Therapy Code Descriptions/Definitions Functional [place] Measure: 0=Not Assessed/NA 4=Minimal Assistance 1=Total Assistance 5=Supervision or Setup 2=Maximal Assistance 6=Modified [place] 3=Moderate Assistance 7=Complete IndependenceSCALE: Activities may be completed with or without assistive devices. 1-Nmvhvkswob-sksvwfw completes the activity by him/herself with no assistance from a helper. 5-Set-up or Clean-up Assistance-helper sets up or cleans up; patient completes activity. [place] assists only prior to or following the activity. 4-Supervision or Touching Assistance-helper provides verbal cues and/or touching/steadying and/or contact guard assistance as patient completes activity. Assistance may be provided throughout the activity or intermittently. 3-Partial/Moderate Assistance-helper does LESS THAN HALF the effort. [place] lifts, holds or supports trunk or limbs, but provides less than half the effort. 2-Substantial/Maximal Assistance-helper does MORE THAN HALF the effort. [place] lifts or holds trunk or limbs and provides more than half the effort. 3-Xfpdrrpyb-ytphtw does ALL the effort. Patient does none of the effort to complete the activity. Or, the assistance of 2 or more helpers is required for the patient to complete the activity. If activity was not attempted, code reason: 7-Patient Refused. 9-Not Applicable-not attempted and the patient did not perform the activity be fore the current illness, exacerbation or injury. 10-Not Attempted due to Environmental Limitations-(lack of equipment, weather restraints, etc.). 88-Not Attempted due to Medical Conditions or Safety Concerns. Roll Left to Right (QC): 5 Sit to Lying (QC): 3 Sit to Stand (QC): 5 Chair/Cow-kg-Otshr Xfer(QC): 5 Car Transfer (QC): 3 Gait Training Does the Patient Walk?: Yes Distance: 300' x 2 Walk 10 feet (QC): 5 Walk 50 ft with 2 Turns(QC): 5 Walk 150 ft (QC): 5 Walking 10ft/uneven surface-QC: 4 Gait Persons Needed: 1 Gait Assistive Device: FWW Wheelchair Training Does the Pt Use a Wheelchair?: No Wheel 50 ft with 2 turns (QC): 10 Wheel 150 ft (QC): 10 Type of Wheelchair: N/A Stair Training #of Steps: 1 1 Step (curb) (QC): 4 4 Steps (QC): 88 12 Steps (QC): 88 Balance Picking up an Object (QC): 88 ADL-Treatment Eating (QC): 6 (pt reports feeding himself without assist. Observed pt drinking from cup without assist) Oral Hygiene (QC): 7 (Pt declined to complete at this time, states he doesn't wear dentures and only completes oral care "a couple times a week") Shower/Bathe Self (QC): 3 (Pt declined shower, completed sponge bath while seated.) Upper Body Dressing (QC): 5 Lower Body Dressing (QC): 2 (Pt requires assist to thread bilateral LE into pants. (Will require AE for LE dressing.) Pt stood with minimal assistance. Able to pull pants up over hips with minimal assistance.) On/Off Footwear (QC): 4 Toileting Hygiene (QC): 3 (Pt able to use urinal with set up, but requires min assist for clothing management.) Assessment/Plan Assessment and Plan Assess & Plan/Chief Complaint Assessment: Right hip fracture Esophageal cancer 2010 in remission Cognitive deficiency? low SLUMS noted on assessment needs repeated DM Hypothyroidism Acute blood loss anemia requiring blood transfusion 2 units 12/02/19 now on iron infusions CRI Impulsiveness Plan: IRF protocol 31/05 Venofer until completed Nebs IS Pain control without narcs since intolerant (1) Closed impacted fracture of right hip Status: Acute (2) Acute blood loss anemia (3) Hypothyroidism (4) Diabetes mellitus (5) COPD (chronic obstructive pulmonary disease) SHERIN LOWERY DO Dec 05, 2019 15:22
[2019-12-05 17:33] VITALS: BP 107/64
--- NOTE | 2019-12-05 18:00 | NUR ---
HAS DENIED NEED FOR ANY MORE TYLENOL TODAY. BLOOD SUGAR WAS HIGH AT 1630. SNACKS ON SUGARY FOODS. DR. LOWERY AWARE OF BARKING COUGH OF PATIENT. NO NEW ORDERS.
[2019-12-05] MEDS: ENOXAPARIN 40 MG/0.4 ML (LOVENOX) SYR SC SCH (18:21)
[2019-12-05] MEDS: POLYETHYLENE GLYCOL 17 GM (MIRALAX) PACK PO SCH (19:15)
[2019-12-05] MEDS: SIMvastatin 10 MG (ZOCOR) TAB PO SCH (20:30)
[2019-12-05] MEDS: MONTELUKAST 10 MG (SINGULAIR) TAB PO SCH (20:30)
[2019-12-05] MEDS: ACETAMINOPHEN 500 MG TAB (TYLENOL) PO PRN (20:31)
[2019-12-06] MEDS: RT-ADVAIR HFA 115/21 MCG PER PUFF IH SCH ×3 (00:29→18:51)
[2019-12-06] MEDS: RT-ALBUTEROL/IPRATROPIUM 3 ML (DUONEB) VIAL INH SCH ×4 (00:29→18:52)
[2019-12-06 04:58] LABS: BASOPHILS % (AUTO) 1 % (0-10); EOSINOPHILS # (AUTO) 0.2 10^3/uL (0.0-0.3); EOSINOPHILS % (AUTO) 4 % (0-10); HEMATOCRIT 31 % (40-54); LYMPHOCYTES # (AUTO) 1.8 X 10^3 (1.0-4.0); LYMPHOCYTES % (AUTO) 37 % (12-44); MEAN CORPUSCULAR HEMOGLOBIN 31 PG (25-34); MEAN CORPUSCULAR HGB CONC 32 G/DL (32-36); MEAN CORPUSCULAR VOLUME 98 FL (80-99); MEAN PLATELET VOLUME 9.4 FL (7.4-10.4); MONOCYTES # (AUTO) 0.6 X 10^3 (0.0-1.0); MONOCYTES % (AUTO) 12 % (0-12); NEUTROPHILS # (AUTO) 2.2 X 10^3 (1.8-7.8); NEUTROPHILS % (AUTO) 47 % (42-75); PLATELET COUNT 266 10^3/uL (130-400); RED CELL DISTRIBUTION WIDTH 15.4 % (10.0-14.5); WHITE BLOOD COUNT 4.8 10^3/uL (4.3-11.0)
[2019-12-06 05:03] VITALS: BP 132/81
[2019-12-06 05:34] LABS: ALBUMIN 2.9 GM/DL (3.2-4.5); BILIRUBIN,TOTAL 0.4 MG/DL (0.1-1.0); CALCIUM 8.6 MG/DL (8.5-10.1); CREATININE SERUM 1.36 MG/DL (0.60-1.30); POTASSIUM 4.3 MMOL/L (3.6-5.0); TOTAL PROTEIN 5.1 GM/DL (6.4-8.2)
[2019-12-06] MEDS: CATHETER FLUSH 10 ML SYR IV SCH ×3 (06:06→21:29)
[2019-12-06] MEDS: glipiZIDE 5 MG (GLUCOTROL) TAB PO SCH ×2 (06:06→17:05)
[2019-12-06] MEDS: LEVOTHYROXINE 50 MCG (LEVOTHROID) TAB PO SCH (06:06)
[2019-12-06] MEDS: IRON SUCROSE 200 MG/10 ML (VENOFER) VIAL IV SCH (08:19)
[2019-12-06] MEDS: MELOXICAM 7.5 MG (MOBIC) TABLET PO SCH ×2 (08:19→20:53)
[2019-12-06] MEDS: ACETAMINOPHEN 500 MG TAB (TYLENOL) PO PRN ×2 (08:21→20:53)
--- NOTE | 2019-12-06 08:34 | PM&R Progress Note ---
Subjective HPI/CC On Admission Date Seen by Provider: Dec 06, 2019 Time Seen by Provider: 08:45 Subjective/Events-last exam Pt improved Will have speech therapy repeat the slum score and I told him to focus on that because his slum score of 9/30 would not romeo him approval to DC home Always asking to go home and I told him to take it one day at a time and we would allow him to finish his recovery and be able to return home safely and be successful Hgb 10.5 has recovered nicely Chronic cough causes no problems Reviewed therapy notes Checked meds and labs Conferred with phy therapist of Systems General: Fatigue Pulmonary: Cough Musculoskeletal: leg pain Neurological: Confusion Objective Exam Vital Signs Vital Signs Date Time Temp Pulse Resp B/P (MAP) Pulse Ox O2 Delivery O2 Flow Rate FiO2 12/06/19 17:14 36.6 85 20 109/67 (81) 97 Room Air Capillary Refill : Less Than 3 SecondsLess Than 3 Seconds General Appearance: No Apparent Distress, Anxious, Chronically ill, Thin HEENT: PERRL/EOMI, Normal ENT Inspection, Pharynx Normal Neck: Full Range of Motion, Normal Inspection, Non Tender, Supple, Carotid Bruit Respiratory: Chest Non Tender, Lungs Clear, Normal Breath Sounds, No Accessory Muscle Use, No Respiratory Distress, Decreased Breath Sounds Cardiovascular: Regular Rate, Rhythm, No Edema, No Gallop, No JVD, No Murmur, Normal Peripheral Pulses Gastrointestinal: Normal Bowel Sounds, No Organomegaly, No Pulsatile Mass, Non Tender, Soft Rectal: Deferred Back: Normal Inspection, No CVA Tenderness, No Vertebral Tenderness Extremity: Normal Capillary Refill, Normal Inspection, Normal Range of Motion (except right leg), Non Tender, No Calf Tenderness, No Pedal Edema Neurologic/Psychiatric: Alert, Oriented x3, No Motor/Sensory Deficits, field operations manager II- XII Norm as Tested, Depressed Affect Skin: Normal Color, Warm/Dry Lymphatic: No Adenopathy Results/Procedures Lab Laboratory Tests 12/06/19 04:27 Patient resulted labs reviewed. FIM Transfers Therapy Code Descriptions/Definitions Functional [place] Measure: 0=Not Assessed/NA 4=Minimal Assistance 1=Total Assistance 5=Supervision or Setup 2=Maximal Assistance 6=Modified [place] 3=Moderate Assistance 7=Complete IndependenceSCALE: Activities may be completed with or without assistive devices. 7-Kdbrtbzzxy-cwurohr completes the activity by him/herself with no assistance from a helper. 5-Set-up or Clean-up Assistance-helper sets up or cleans up; patient completes activity. [place] assists only prior to or following the activity. 4-Supervision or Touching Assistance-helper provides verbal cues and/or touching/steadying and/or contact guard assistance as patient completes activity. Assistance may be provided throughout the activity or intermittently. 3-Partial/Moderate Assistance-helper does LESS THAN HALF the effort. [place] lift s, holds or supports trunk or limbs, but provides less than half the effort. 2-Substantial/Maximal Assistance-helper does MORE THAN HALF the effort. [place] lifts or holds trunk or limbs and provides more than half the effort. 9-Ntrwxpbal-aunaxw does ALL the effort. Patient does none of the effort to complete the activity. Or, the assistance of 2 or more helpers is required for the patient to complete the activity. If activity was not attempted, code reason: 7-Patient Refused. 9-Not Applicable-not attempted and the patient did not perform the activity before the current illness, exacerbation or injury. 10-Not Attempted due to Environmental Limitations-(lack of equipment, weather restraints, etc.). 88-Not Attempted due to Medical Conditions or Safety Concerns. Roll Left to Right (QC): 5 Sit to Lying (QC): 3 Sit to Stand (QC): 5 Chair/Xox-gl-Iqghd Xfer(QC): 5 Car Transfer (QC): 3 Gait Training Does the Patient Walk?: Yes Distance: 300' x 2 Walk 10 feet (QC): 5 Walk 50 ft with 2 Turns(QC): 5 Walk 150 ft (QC): 5 Walking 10ft/uneven surface-QC: 4 Gait Persons Needed: 1 Gait Assistive Device: FWW Wheelchair Training Does the Pt Use a Wheelchair?: No Wheel 50 ft with 2 turns (QC): 10 Wheel 150 ft (QC): 10 Type of Wheelchair: N/A Stair Training #of Steps: 1 1 Step (curb) (QC): 4 4 Steps (QC): 88 12 Steps (QC): 88 Balance Picking up an Object (QC): 88 ADL-Treatment Eating (QC): 6 (pt reports feeding himself without assist. Observed pt drinking from cup without assist) Oral Hygiene (QC): 7 (Pt declined to complete at this time, states he doesn't wear dentures and only completes oral care "a couple times a week") Shower/Bathe Self (QC): 3 (Pt declined shower, completed sponge bath while seated.) Upper Body Dressing (QC): 5 Lower Body Dressing (QC): 2 (Pt requires assist to thread bilateral LE into pants. (Will require AE for LE dressing.) Pt stood with minimal assistance. Able to pull pants up over hips with minimal assistance.) On/Off Footwear (QC): 4 Toileting Hygiene (QC): 3 (Pt able to use urinal with set up, but requires min assist for clothing management.) Assessment/Plan Assessment and Plan Assess & Plan/Chief Complaint Assessment: Right hip fracture Esophageal cancer 2010 in remission Cognitive deficiency? low SLUMS noted on assessment needs repeated DM Hypothyroidism Acute blood loss anemia requiring blood transfusion 2 units 12/02/19 now on iron infusions CRI Impulsiveness Chronic cough possibly related to esophageal CA procedure 2009 Plan: IRF protocol 31/05 Venofer until completed Nebs IS Pain control without narcs since intolerant (1) Closed impacted fracture of right hip Status: Acute (2) Acute blood loss anemia (3) Hypothyroidism (4) Diabetes mellitus (5) COPD (chronic obstructive pulmonary disease) SHERIN LOWERY DO Dec 06, 2019 08:34
--- NOTE | 2019-12-06 08:36 | NUR ---
CHUCHO Andrade w Dr. Meza was in & spoke w pt, states to see Dr. Meza in office 2-4 weeks after D/C,
--- NOTE | 2019-12-06 08:49 | Cardiology Progress Note ---
Subjective Date Seen by Provider: Dec 06, 2019 Time Seen by Provider: 08:00 Subjective/Events-last exam Patient is sitting up in bed, no new complaint. Asking to go home. Denies any chest pain. Review of Systems General: No Chills, No Night Sweats, No Fatigue, No Malaise, No Appetite, No O ther HEENT: No Head Aches, No Visual Changes, No Eye Pain, No Ear Pain, No Dys phasia, No Sinus Congestion, No Post Nasal Drip, No Sore Throat, No Other Pulmonary: No Dyspnea, No Cough, No Pleuritic Chest Pain, No Other Cardiovascular: No: Chest Pain, Palpitations, Orthopnea, Paroxysmal Noc. Dyspnea, Edema, Lt Headedness, Other Objective-Cardiology Exam Last Set of Vital Signs Vital Signs 12/06/19 12/06/19 12/06/19 05:03 07:52 08:29 Temp 37.4 Pulse 87 Resp 18 B/P (MAP) 132/81 (98) Pulse Ox 92 O2 Delivery Room Air Capillary Refill : Less Than 3 SecondsLess Than 3 Seconds I&O Intake and Output 12/06/19 00:00 Intake Total 1425 ml Output Total 1500 ml Balance -75 ml Intake Oral 1425 ml Output Urine Total 1500 ml # Voids 1 General: Alert, Oriented X3, Cooperative HEENT: Atraumatic, PERRLA Neck: Supple, No JVD, No Thyromegaly Lungs: Clear to Auscultation, Normal Air Movement Heart: Regular Rate, Normal S1, Normal S2, No Murmurs Abdomen: Normal Bowel Sounds, Soft, No Tenderness, No Hepatosplenomegaly, No Masses Extremities: No Clubbing, No Cyanosis, No Edema, Normal Pulses, No Tenderness/Swelling Skin: No Rashes, No Breakdown, No Significant Lesion Neuro: Normal Gait, Normal Speech, Strength at 5/5 X4 Ext, Normal Tone, Sensation Intact Psych/Mental Status: Mental Status NL, Mood NL Results Lab Laboratory Tests 12/06/19 04:27 A/P-Cardiology Admission Diagnosis Abnormal EKG Tachycardia Post op anemia Hip fx Assessment/Plan Abnormal EKG with left anterior fascicular block, T-wave inversion in anterior lead, asymptomatic at this time. Sinus tachycardia, resolved. Probably was secondary to anemia. Continue to monitor Hip fracture, status post surgical repair, recovering slowly. Post op anemia, better at this time, received blood transfusion. Continue to monitor H&H Diabetes mellitus, followed and managed by primary care physician Patient was seen and evaluated with [place], examination performed, management plan was discussed, agree with the current scribed note, I made few changes to the note using Italic font Patient was seen and evaluated, sitting comfortably, denied any chest pain Lungs were clear to auscultation, heart is regular. Sinus tachycardia has resolved Diabetes mellitus managed by primary care physician Anemia is better, continue to monitor Clinical Quality Measures DVT/VTE Risk/Contraindication: Risk Factor Score Per Nursin RFS Level Per Nursing on Admit: 4+=Very High TAYLER CASTRO Dec 06, 2019 8:49 am LAURENCE RICHEY MD Dec 06, 2019 11:32 am
--- NOTE | 2019-12-06 09:09 | Physical Therapy Daily Note ---
PT Daily Note-Current Subjective Patient in bed pre tx, agrees reluctantly to PT after encouragement. Patient has 1/10 pain in right leg. Appearance Patient in bed post tx with nurse call, phone, tray, all needs met. Mental Status Patient Orientation: Person, Place, Situation Transfers SCALE: Activities may be completed with or without assistive devices. 7-Pbsprzvyup-qzkhfzj completes the activity by him/herself with no assistance from a helper. 5-Set-up or Clean-up Assistance-helper sets up or cleans up; patient completes activity. [place] assists only prior to or following the activity. 4-Supervision or Touching Assistance-helper provides verbal cues and/or touching/steadying and/or contact guard assistance as patient completes activity. Assistance may be provided throughout the activity or intermittently. 3-Partial/Moderate Assistance-helper does LESS THAN HALF the effort. [place] lifts, holds or supports trunk or limbs, but provides less than half the effort. 2-Substantial/Maximal Assistance-helper does MORE THAN HALF the effort. [place] lifts or holds trunk or limbs and provides more than half the effort. 9-Ahsbicvre-nwbzpj does ALL the effort. Patient does none of the effort to complete the activity. Or, the assistance of 2 or more helpers is required for the patient to complete the activity. If activity was not attempted, code reason: 7-Patient Refused. 9-Not Applicable-not attempted and the patient did not perform the activity before the current illness, exacerbation or injury. 10-Not Attempted due to Environmental Limitations-(lack of equipment, weather restraints, etc.). 88-Not Attempted due to Medical Conditions or Safety Concerns. Roll Left & Right (QC): 6 Sit to Lying (QC): 6 Lying to Sitting/Side of Bed(Q: 6 Sit to Stand (QC): 5 Chair/Chj-xn-Bggts Xfer(QC): 5 Patient has some difficulty with hip abduction during supine to sit but can do it without assist. Weight Bearing Right Lower Extremity: Right Weight Bearing/Tolerated Gait Training Distance: 150'x2 Walk 10 feet (QC): 5 Walk 50 ft with 2 Turns(QC): 5 Walk 150 ft (QC): 5 Gait Assistive Device: FWW slow but steady, good step through and heel strike Exercises Supine Ex: Ankle pumps, Quad Set, Glut sets, Heel Slides, Short Arc Quads, Straight leg raise, Hip abd/add Supine Reps: 15 NuStep Minutes: 15 NuStep Workload: 5 Treatments bed mobility and transfers, ambulation, LE exercise Assessment Current Status: Fair Progress improving pain and general mobility PT Short Term Goals Short Term Goals Time Frame: Dec 08, 2019 Roll Left & Right: 4 Sit to lyin Lying to sitting on side of be: 4 Sit to stand: 4 Chair/zdu-to-djgpl transfer: 4 Toilet transfer: 4 Car transfer: 4 Walk 10 feet: 4 Walk 50 feet with two turns: 4 Walk 150 feet: 4 Walking 10ft on uneven surface: 4 1 step (curb): 4 4 steps: 4 Does pt use a wc or scooter: No PT Skilled Nursing Goals Coastal/Harbor Defense Officer Goals PT Coastal/Harbor Defense Officer Goals Time Frame: Dec 22, 2019 Roll Left & Right (QC): 6 Sit to Lying (QC): 6 Lying-Sitting on Side/Bed(QC): 6 Sit to Stand (QC): 6 Chair/Nzo-mj-Kzjyc Xfer(QC): 6 Toilet Transfer (QC): 6 Car Transfer (QC): 6 Does the Patient Walk: Yes Walk 10 feet (QC): 6 Walk 50ft with 2 Turns (QC): 6 Walk 150 ft (QC): 6 Walking 10ft on Uneven Surface: 6 1 Step (curb) (QC): 6 4 Steps (QC): 6 Does the Pt use WC or Scooter?: No PT Plan Problem List Problem List: Activity Tolerance, Functional Strength, Safety, Balance, Gait, T ransfer, Bed Mobility, ROM Treatment/Plan Treatment Plan: Continue Plan of Care Treatment Plan: Bed Mobility, Education, Functional Activity Justino, Functional Strength, Group Therapy, Gait, Safety, Therapeutic Exercise, Transfers Treatment Duration: Dec 22, 2019 Frequency: Modified Program (IRF) Estimated Hrs Per Day: 1.5 hours per day Patient and/or Family Agrees t: Yes Safety Risks/Education Patient Education: Gait Training, Transfer Techniques, Correct Positioning, Safety Issues Teaching Recipient: Patient Teaching Methods: Demonstration, Discussion Response to Teaching: Reinforcement Needed Time/GCodes Time In: 830 Time Out: 915 Total Billed Treatment Time: 45 Total Billed Treatment 1 visit GT 15' EX 30' SUPA EMERY PT Dec 06, 2019 09:09
--- NOTE | 2019-12-06 10:16 | NUR ---
Dr. Marcial requested order for Speech Therapy to re check pt's SLUM's again
--- NOTE | 2019-12-06 10:29 | Occupational Ther Daily Note ---
OT Current Status-Daily Note Subjective Pt in bed, agrees to therapy with encouragement. Pt reports 1/10 pain in right hip. ADL-Treatment Pt refused shower today, but with encouragement agrees to sponge bath and change clothes. Supine to sit with SBA. Sit to stand and transfer to chair with supervision using FWW. Sponge bath completed seated in chair. Pt doffed shirt without assist. Completed upper body bathing with set up. Don pullover shirt with set up. Pt doffed pants and socks with SBA. Uses dressing stick to doff over feet. Assist required for DARA hose. Pt used long handled sponge to wash lower legs and feet. Pt used pull up hand to start underwear and pants over feet with min assist and skilled cues for dressing technique. Stood with supervision for balance during pant hike. Donned bilateral socks with SBA using sock aid. Pt com bed hair with set up. Pt moves slowly and requires increased time to complete ADL tasks. Pt takes rest breaks throughout treatment. Pt seated in chair with needs met after session. Therapy Code Descriptions/Definitions Functional Story Measure: 0=Not Assessed/NA 4=Minimal Assistance 1=Total Assistance 5=Supervision or Setup 2=Maximal Assistance 6=Modified Story 3=Moderate Assistance 7=Complete IndependenceSCALE: Activities may be completed with or without assistive devices. 0-Txjpufjwac-tvisggp completes the activity by him/herself with no assistance from a helper. 5-Set-up or Clean-up Assistance-helper sets up or cleans up; patient completes activity. [place] assists only prior to or following the activity. 4-Supervision or Touching Assistance-helper provides verbal cues and/or touching/steadying and/or contact guard assistance as patient completes activity. Assistance may be provided throughout the activity or intermittently. 3-Partial/Moderate Assistance-helper does LESS THAN HALF the effort. [place] lifts, holds or supports trunk or limbs, but provides less than half the effort. 2-Substantial/Maximal Assistance-helper does MORE THAN HALF the effort. [place] lifts or holds trunk or limbs and provides more than half the effort. 8-Apehakorc-gyzgpt does ALL the effort. Patient does none of the effort to complete the activity. Or, the assistance of 2 or more helpers is required for the patient to complete the activity. If activity was not attempted, code reason: 7-Patient Refused. 9-Not Applicable-not attempted and the patient did not perform the activity before the current illness, exacerbation or injury. 10-Not Attempted due to Environmental Limitations-(lack of equipment, weather restraints, etc.). 88-Not Attempted due to Medical Conditions or Safety Concerns. Upper Body Dressing (QC): 5 Lower Body Dressing (QC): 3 On/Off Footwear: 4 Education OT Patient Education: Instructions to caregiver, Modified ADL techniques Teaching Recipient: Patient Teaching Methods: Demonstration, Discussion OT Short Term Goals Short Term Goals Time Frame: Dec 08, 2019 Toileting hygiene: 4 Shower/bathe self: 4 Lower body dressin OT Skilled Nursing Goals Dielectric Embossing Machine Operator Goals Time Frame: Dec 22, 2019 Eating (QC): 6 Oral Hygiene (QC): 6 Toileting Hygiene (QC): 6 Shower/Bathe Self (QC): 5 Upper Body Dressing (QC): 6 Lower Body Dressing (QC): 5 On/Off Footwear (QC): 6 Additional Goals: 1-Demonstrate ADL Tasks, 2-Verbalize Understanding, 3-ImproveStrength/Justino 1=Demonstrate adherence to instructed precautions during ADL tasks. 2=Patient will verbalize/demonstrate understanding of assistive devices/modifications for ADL. 3=Patient will improve strength/tolerance for activity to enable patient to perform ADL's. OT Education/Plan Discharge Recommendations Plan/Recommendations: Continue POC Treatment Plan/Plan of Care Patient would benefit from OT for education, treatment and training to promote independence in ADL's, mobility, safety and/or upper extremity function for ADL's. Plan of Care: ADL Retraining, Functional Mobility, Group Exercise/Act as Ind, UE Funct Exercise/Act Treatment Duration: Dec 22, 2019 Frequency: At least 5 of 7 days/Wk (IRF) Estimated Hrs Per Day: 1.5 hours per day Rehab Potential: Fair Time/GCodes Start Time: 09:15 Stop Time: 10:15 Total Time Billed (hr/min): 60 Billed Treatment Time 1 visit, ADLx4(60minutes) ALYSON FRANCO OT Dec 06, 2019 10:29
--- NOTE | 2019-12-06 10:34 | Progress Note ---
[facility] 12/06/19 1034: Progress Note Discharge Considerations Arnaud is a 64 year old male that has been participating in rehab since December 01 after a fall that resulted in a broken hip. Arnaud was initially difficult to obtain appropriate history from since he was confused due to medications. This has also possibly resulted in a low SLUMS score. Since his pain medications were changed, Arnaud has made significant improvements in therapy and cognition. At this time, Arnaud is still unable to fully participate in ADLs. He requires assistance for walking, transferring, toileting and bathing. Care should be taken to ensure he does not attempt to prematurely accelerate his progress since he continues to be a fall risk and is wanting to go home. It is expected that he will continue to trend upwards in his recovery. Repeat SLUMS score will be obtained to gauge improvement and patient will be re-evaluated during departmental meeting on Friday to assess readiness for discharge. MIGNON LOWERY DO 12/06/192038: Supervisory-Addendum Brief Verification & Attestation Participated in pt care: history, MDM, physical Personally performed: exam, history, MDM, supervision of care Care discussed with: Medical Student Procedures: n/a Results interpretation: Verified all documentation Verification and Attestation of Medical Student E/M Service A medical student performed and documented this service in my presence. I reviewed and verified all information documented by the medical student and made modifications to such information, when appropriate. I personally performed the physical exam and medical decision making. Mignon Lowery Dec 06, 2019,20:39 [facility] Dec 06, 2019 10:34 MIGNON LOWERY DO Dec 06, 2019 20:39
[2019-12-06] MEDS: DOCUSATE SODIUM 100 MG (COLACE) CAP PO SCH ×2 (11:57→21:28)
[2019-12-06] MEDS: SENNA W/DOCUSATE (SENOKOT S) TABLET PO SCH ×2 (12:01→21:28)
--- NOTE | 2019-12-06 13:09 | NUR ---
Follow up visit: His cycle touring guide at [facility] in [place] visited him and offered prayer. He shared importance of his [employer] madelyn for coping in difficulty.
--- NOTE | 2019-12-06 14:30 | Therapy Group Daily Note ---
Therapy Daily Group Note Patient Education Topic Home Safety, Fall Prevention, Home Safety, Energy Cons, Exercises, ADL Exercises LE Seated Exercise, Walking, UE Exercise Session Ratio (pt:therapist): 3:1 Goal of Session: Home Safety Strategies, UE/LE Strengthing Goal Met for this Session: Yes Pt Benefit of Group: Contributions to Others, F/U Use of Strategies @Home, Increased Functional Safety, Increased Functional Strength, Improved Cognition, Recognition of Peers, Socialization Other/Notes Pt ambulated CGA to SBA with FWW to/from OT/PT group. Group consisted of introductions (name, place living, what to do on a cold day), socialization, seat UE/LE exercises and educational topics on home safety. Pt introduced self appropriately and actively listened to peers. Pt participated fully in group and contributed to conversation. Pt was able to lead group in one exercise then completed other exercises while each pt lead exercise. Pt verbalized understanding of educational topics by giving own experiences and answering questions accurately. After therapy, pt in bed with call light/phone in reach. All needs met in room. Start Time: 13:00 Stop Time: 14:00 Total Billed Treatment Time: 60 Total Billed Treatment 1 visit, GRP x60 min BASILIO TOMLINSON BROADCAST DESIGNER Dec 06, 2019 14:30
--- NOTE | 2019-12-06 16:12 | Speech Therapy Daily Note ---
Speech Daily Progress Note Subjective Date Seen by Provider: Dec 06, 2019 Time Seen by Provider: 10:30 Patient was alert and cooperative for all therapy tasks. Patient was sitting upright in his chair for the duration of treatment. Objective Patient completed memory tasks pertaining to current date and previous work experience with 80% accuracy. Patient additionally completed problem solving tasks pertaining to various ADL scenarios with 70% accuracy. Assessment Assessment Current Status: Good Progress Treatment Plan Continue Plan of Care Speech Short Term Goals Short Term Goals Short Term Goals 1. Patient will complete memory tasks with 80% or greater accuracy with minimal cues. 2. Patient will complete problem-solving tasks with 80% or greater accuracy with minimal cues. 3. Patient will complete safety awareness tasks with 80% or greater accuracy with minimal cues. Speech General Ii Farmworker Goals Senior Care Goals Patient will improve cognitive-communication necessary for safety and daily living tasks with minimal assist. Speech-Plan Patient/Family Goals Patient/Family Goals: Patient reports that he wishes to return home to previous level of mobility and independence. Treatment Plan Speech Therapy Treatment Plan: Continue Plan of Care Treatment Duration: Dec 10, 2019 Frequency: 4 times per week Estimated Hrs Per Day: .5 hour per day Rehab Potential: Fair Barriers to Learning: Mild cognitive deficits. Pt/Family Agrees to Plan: Yes Safety Risks/Education Teaching Recipient: Patient Teaching Methods: Demonstration, Discussion Response to Teaching: Verbalize Understanding Education Topics Provided: Patient verbalized understanding the importance of reviewing safety scenarios and problem solving for when he is discharged from the ARU. Time Speech Therapy Time In: 10:30 Speech Therapy Time Out: 11:00 Total Billed Time: 30 Billed Treatment Time [address] Dec 06, 2019 16:11
[2019-12-06 17:14] VITALS: BP 109/67
[2019-12-06] MEDS: ENOXAPARIN 40 MG/0.4 ML (LOVENOX) SYR SC SCH (17:52)
[2019-12-06] MEDS: MONTELUKAST 10 MG (SINGULAIR) TAB PO SCH (20:53)
[2019-12-06] MEDS: SIMvastatin 10 MG (ZOCOR) TAB PO SCH (20:53)
[2019-12-06] MEDS: POLYETHYLENE GLYCOL 17 GM (MIRALAX) PACK PO SCH (21:28)
[2019-12-07] MEDS: glipiZIDE 5 MG (GLUCOTROL) TAB PO SCH ×2 (06:30→17:03)
[2019-12-07] MEDS: LEVOTHYROXINE 50 MCG (LEVOTHROID) TAB PO SCH (06:30)
[2019-12-07] MEDS: CATHETER FLUSH 10 ML SYR IV SCH ×3 (06:30→20:37)
[2019-12-07 06:50] VITALS: BP 129/85
--- NOTE | 2019-12-07 07:30 | Cardiology Progress Note ---
Subjective Date Seen by Provider: Dec 07, 2019 Time Seen by Provider: 07:22 Subjective/Events-last exam Pt lying in bed comfortably. Denies any cardiac sx. Slept well and wants to go back to sleep. Review of Systems General: No Chills, No Night Sweats HEENT: No Head Aches, No Visual Changes Pulmonary: No Dyspnea, No Cough Cardiovascular: No: Chest Pain, Palpitations Gastrointestinal: No: Nausea, Vomiting Objective-Cardiology Exam Last Set of Vital Signs Vital Signs 12/07/19 18:09 Temp 37.2 Pulse 88 Resp 18 B/P (MAP) 102/64 (77) Pulse Ox 98 O2 Delivery Room Air Capillary Refill : Less Than 3 SecondsLess Than 3 Seconds I&O Intake and Output 12/07/19 00:00 Intake Total 1250 ml Output Total 1350 ml Balance -100 ml Intake Oral 1250 ml Output Urine Total 1350 ml General: Alert, Oriented X3, Cooperative HEENT: Atraumatic, PERRLA Neck: Supple, No JVD, No Thyromegaly Lungs: Clear to Auscultation, Normal Air Movement Heart: Regular Rate, Normal S1, Normal S2, No Murmurs Abdomen: Normal Bowel Sounds, Soft, No Tenderness, No Hepatosplenomegaly, No Masses Extremities: No Clubbing, No Cyanosis, No Edema, Normal Pulses, No Tenderness/Swelling Skin: No Rashes, No Breakdown, No Significant Lesion Neuro: Normal Gait, Normal Speech, Strength at 5/5 X4 Ext, Normal Tone, Sensation Intact Psych/Mental Status: Mental Status NL, Mood NL Results Lab A/P-Cardiology Admission Diagnosis Abnormal EKG Tachycardia Post op anemia Hip fx Assessment/Plan Abnormal EKG with left anterior fascicular block, T-wave inversion in anterior lead, asymptomatic at this time. Sinus tachycardia, resolved. Probably was secondary to anemia. Continued controlled rate. Continue to monitor Hip fracture, status post surgical repair, recovering slowly. Post op anemia, has improved w/ current Hb @10.1. Continue to monitor H&H Diabetes mellitus, Blood sugars have been poorly controlled. followed and man aged by primary care physician Pt is anxious to go home, pt's vitals have been consistently well controlled and pt consistently has no cardiac sx, from cardiology stand point pt is cleared for d/c w/ outpatient f/u; Primary care team will evaluate SLUMS score to gauge improvement and patient will be re-evaluated during departmental meeting on Friday to assess readiness for discharge. Clinical Quality Measures DVT/VTE Risk/Contraindication: Risk Factor Score Per Nursin RFS Level Per Nursing on Admit: 4+=Very High Supervisory-Addendum Brief Verification & Attestation Participated in pt care: history Personally performed: history Care discussed with: Medical Student Procedures: n/a Did not see the patient today I did review the note [facility]I [facility] Dec 07, 2019 07:30 LAURENCE RICHEY MD Dec 07, 2019 08:11
[2019-12-07] MEDS: RT-ALBUTEROL/IPRATROPIUM 3 ML (DUONEB) VIAL INH SCH ×3 (07:42→18:40)
[2019-12-07] MEDS: RT-ADVAIR HFA 115/21 MCG PER PUFF IH SCH ×2 (07:42→18:40)
[2019-12-07] MEDS: MELOXICAM 7.5 MG (MOBIC) TABLET PO SCH ×2 (08:55→20:29)
[2019-12-07] MEDS: ACETAMINOPHEN 500 MG TAB (TYLENOL) PO PRN ×2 (08:59→20:29)
--- NOTE | 2019-12-07 09:20 | Occupational Ther Daily Note ---
OT Current Status-Daily Note Subjective Pt in bed, agrees to treatment with encouragement. Pt reports 2/10 right hip pain. ADL-Treatment Pt supine to sit with SBA. Pt ate jello without assistance while seated EOB. Pt agrees to shower this morning. Sit to stand with supervision. Gait to restroom with FWW. Transfer to walk in shower with SBA using grab bars, cues for safety. Pt doffed clothing with SBA; used dressing stick to doff lower body clothing. Seated bathing completed using hand held shower and long handled sponge. Pt able to wash/dry all areas, cues for use of adaptive equipment for lower body. Don pullover shirt with set up. Pt donned underwear and pants using transportation associate. Stood with SBA for balance during pant hike. Assist required for DARA hose. Pt donned bilateral socks with set up using sock aid. Pt combed hair with set up. Pt requires increased time for ADL tasks and takes occasional rest breaks secondary to fatigue. Pt sitting in chair with needs met after session. Therapy Code Descriptions/Definitions Functional [place] Measure: 0=Not Assessed/NA 4=Minimal Assistance 1=Total Assistance 5=Supervision or Setup 2=Maximal Assistance 6=Modified [place] 3=Moderate Assistance 7=Complete IndependenceSCALE: Activities may be completed with or without assistive devices. 5-Crlsbkksgv-nsyerzo completes the activity by him/herself with no assistance fr om a helper. 5-Set-up or Clean-up Assistance-helper sets up or cleans up; patient completes activity. [place] assists only prior to or following the activity. 4-Supervision or Touching Assistance-helper provides verbal cues and/or touching/steadying and/or contact guard assistance as patient completes activity. Assistance may be provided throughout the activity or intermittently. 3-Partial/Moderate Assistance-helper does LESS THAN HALF the effort. [place] lifts, holds or supports trunk or limbs, but provides less than half the effort. 2-Substantial/Maximal Assistance-helper does MORE THAN HALF the effort. [place] lifts or holds trunk or limbs and provides more than half the effort. 2-Xquspovmi-gfrwxq does ALL the effort. Patient does none of the effort to complete the activity. Or, the assistance of 2 or more helpers is required for the patient to complete the activity. If activity was not attempted, code reason: 7-Patient Refused. 9-Not Applicable-not attempted and the patient did not perform the activity before the current illness, exacerbation or injury. 10-Not Attempted due to Environmental Limitations-(lack of equipment, weather restraints, etc.). 88-Not Attempted due to Medical Conditions or Safety Concerns. Eating (QC): 6 Shower/Bathe Self (QC): 4 Upper Body Dressing (QC): 5 Lower Body Dressing (QC): 4 (with adaptive equipment) On/Off Footwear: 3 (assist with DARA hose) Education OT Patient Education: Modified ADL techniques Teaching Recipient: Patient Teaching Methods: Discussion Response to Teaching: Verbalize Understanding OT Short Term Goals Short Term Goals Time Frame: Dec 08, 2019 Toileting hygiene: 4 Shower/bathe self: 4 Lower body dressin OT Group Home Goals Hose Stripper Goals Time Frame: Dec 22, 2019 Eating (QC): 6 Oral Hygiene (QC): 6 Toileting Hygiene (QC): 6 Shower/Bathe Self (QC): 5 Upper Body Dressing (QC): 6 Lower Body Dressing (QC): 5 On/Off Footwear (QC): 6 Additional Goals: 1-Demonstrate ADL Tasks, 2-Verbalize Understanding, 3-ImproveStrength/Justino 1=Demonstrate adherence to instructed precautions during ADL tasks. 2=Patient will verbalize/demonstrate understanding of assistive devices/modifications for ADL. 3=Patient will improve strength/tolerance for activity to enable patient to perform ADL's. OT Education/Plan Discharge Recommendations Plan/Recommendations: Continue POC Treatment Plan/Plan of Care Patient would benefit from OT for education, treatment and training to promote independence in ADL's, mobility, safety and/or upper extremity function for ADL's. Plan of Care: ADL Retraining, Functional Mobility, Group Exercise/Act as Ind, UE Funct Exercise/Act Treatment Duration: Dec 22, 2019 Frequency: At least 5 of 7 days/Wk (IRF) Estimated Hrs Per Day: 1.5 hours per day Rehab Potential: Fair Time/GCodes Start Time: 08:00 Stop Time: 09:15 Total Time Billed (hr/min): 75 Billed Treatment Time 1 visit, ADLx5(75minutes) ALYSON FRANCO OT Dec 07, 2019 09:20
[2019-12-07] MEDS: DOCUSATE SODIUM 100 MG (COLACE) CAP PO SCH ×2 (09:44→20:37)
[2019-12-07] MEDS: SENNA W/DOCUSATE (SENOKOT S) TABLET PO SCH ×2 (09:44→20:37)
--- NOTE | 2019-12-07 10:02 | PM&R Progress Note ---
Subjective HPI/CC On Admission Date Seen by Provider: Dec 07, 2019 Time Seen by Provider: 09:00 Subjective/Events-last exam Slums score will be repeated today. Took a shower today. Dressing looks good. Dr. Meza will follow-up with him in two weeks. Pt wants to go home as soon as possible. Reviewed therapy notes Checked meds and labs Conferred with claim specialist of Systems General: Fatigue Musculoskeletal: leg pain Objective Exam Vital Signs Vital Signs Date Time Temp Pulse Resp B/P (MAP) Pulse Ox O2 Delivery O2 Flow Rate FiO2 12/07/19 18:40 96 Room Air 12/07/19 18:09 37.2 88 18 102/64 (77) Capillary Refill : Less Than 3 SecondsLess Than 3 Seconds General Appearance: No Apparent Distress, Anxious, Chronically ill, Thin HEENT: PERRL/EOMI, Normal ENT Inspection, Pharynx Normal Neck: Full Range of Motion, Normal Inspection, Non Tender, Supple, Carotid Bru it Respiratory: Chest Non Tender, Lungs Clear, Normal Breath Sounds, No Accessory Muscle Use, No Respiratory Distress, Decreased Breath Sounds Cardiovascular: Regular Rate, Rhythm, No Edema, No Gallop, No JVD, No Murmur, Normal Peripheral Pulses Gastrointestinal: Normal Bowel Sounds, No Organomegaly, No Pulsatile Mass, Non Tender, Soft Rectal: Deferred Back: Normal Inspection, No CVA Tenderness, No Vertebral Tenderness Extremity: Normal Capillary Refill, Normal Inspection, Normal Range of Motion (except right leg), Non Tender, No Calf Tenderness, No Pedal Edema Neurologic/Psychiatric: Alert, Oriented x3, No Motor/Sensory Deficits, tip cementer II- XII Norm as Tested, Depressed Affect Skin: Normal Color, Warm/Dry Lymphatic: No Adenopathy Results/Procedures Lab Patient resulted labs reviewed. FIM Transfers Therapy Code Descriptions/Definitions Functional [place] Measure: 0=Not Assessed/NA 4=Minimal Assistance 1=Total Assistance 5=Supervision or Setup 2=Maximal Assistance 6=Modified [place] 3=Moderate Assistance 7=Complete IndependenceSCALE: Activities may be completed with or without assistive devices. 8-Ktqgtottib-xhnydub completes the activity by him/herself with no assistance from a helper. 5-Set-up or Clean-up Assistance-helper sets up or cleans up; patient completes activity. [place] assists only prior to or following the activity. 4-Supervision or Touching Assistance-helper provides verbal cues and/or t ouching/steadying and/or contact guard assistance as patient completes activity. Assistance may be provided throughout the activity or intermittently. 3-Partial/Moderate Assistance-helper does LESS THAN HALF the effort. [place] lifts, holds or supports trunk or limbs, but provides less than half the effort. 2-Substantial/Maximal Assistance-helper does MORE THAN HALF the effort. [place] lifts or holds trunk or limbs and provides more than half the effort. 5-Nqsjgnkqq-hymxqa does ALL the effort. Patient does none of the effort to complete the activity. Or, the assistance of 2 or more helpers is required for the patient to complete the activity. If activity was not attempted, code reason: 7-Patient Refused. 9-Not Applicable-not attempted and the patient did not perform the activity before the current illness, exacerbation or injury. 10-Not Attempted due to Environmental Limitations-(lack of equipment, weather restraints, etc.). 88-Not Attempted due to Medical Conditions or Safety Concerns. Roll Left to Right (QC): 6 Sit to Lying (QC): 6 Sit to Stand (QC): 5 Chair/Zyf-fy-Kjrng Xfer(QC): 5 Car Transfer (QC): 3 Gait Training Does the Patient Walk?: Yes Distance: 150'x2 Walk 10 feet (QC): 5 Walk 50 ft with 2 Turns(QC): 5 Walk 150 ft (QC): 5 Walking 10ft/uneven surface-QC: 4 Gait Persons Needed: 1 Gait Assistive Device: FWW Wheelchair Training Does the Pt Use a Wheelchair?: No Wheel 50 ft with 2 turns (QC): 10 Wheel 150 ft (QC): 10 Type of Wheelchair: N/A Stair Training #of Steps: 1 1 Step (curb) (QC): 4 4 Steps (QC): 88 12 Steps (QC): 88 Balance Picking up an Object (QC): 88 ADL-Treatment Eating (QC): 6 Oral Hygiene (QC): 7 (Pt declined to complete at this time, states he doesn't wear dentures and only completes oral care "a couple times a week") Shower/Bathe Self (QC): 4 Upper Body Dressing (QC): 5 On/Off Footwear (QC): 4 Toileting Hygiene (QC): 3 (Pt able to use urinal with set up, but requires min assist for clothing management.) Assessment/Plan Assessment and Plan Assess & Plan/Chief Complaint Assessment: Right hip fracture Esophageal cancer 2010 in remission Cognitive deficiency? low SLUMS noted on assessment needs repeated today DM Hypothyroidism Acute blood loss anemia requiring blood transfusion 2 units 12/02/19 now on iron infusions CRI Impulsiveness Chronic cough possibly related to esophageal CA procedure 2009 Plan: IRF protocol 31/05 Venofer until completed Nebs IS Pain control without narcs since intolerant Repeat ST SLUMS (1) Closed impacted fracture of right hip Status: Acute (2) Acute blood loss anemia (3) Hypothyroidism (4) Diabetes mellitus (5) COPD (chronic obstructive pulmonary disease) SHERIN LOWERY DO Dec 07, 2019 10:02
--- NOTE | 2019-12-07 10:22 | Physical Therapy Daily Note ---
PT Daily Note-Current Subjective Patient in recliner pre tx, agrees to PT, has 2/10 pain in right hip. Appearance Patient in bed post tx with nurse call, phone, tray, all needs met. Mental Status Patient Orientation: Person, Place, Situation Transfers SCALE: Activities may be completed with or without assistive devices. 2-Eswzgiobjh-wmcicwp completes the activity by him/herself with no assistance from a helper. 5-Set-up or Clean-up Assistance-helper sets up or cleans up; patient completes activity. [place] assists only prior to or following the activity. 4-Supervision or Touching Assistance-helper provides verbal cues and/or touchin g/steadying and/or contact guard assistance as patient completes activity. Assistance may be provided throughout the activity or intermittently. 3-Partial/Moderate Assistance-helper does LESS THAN HALF the effort. [place] lifts, holds or supports trunk or limbs, but provides less than half the effort. 2-Substantial/Maximal Assistance-helper does MORE THAN HALF the effort. [place] lifts or holds trunk or limbs and provides more than half the effort. 8-Fsbkdojqf-lbrrdm does ALL the effort. Patient does none of the effort to complete the activity. Or, the assistance of 2 or more helpers is required for the patient to complete the activity. If activity was not attempted, code reason: 7-Patient Refused. 9-Not Applicable-not attempted and the patient did not perform the activity before the current illness, exacerbation or injury. 10-Not Attempted due to Environmental Limitations-(lack of equipment, weather restraints, etc.). 88-Not Attempted due to Medical Conditions or Safety Concerns. Roll Left & Right (QC): 6 Sit to Lying (QC): 6 Lying to Sitting/Side of Bed(Q: 6 Sit to Stand (QC): 6 Chair/Ptz-qb-Hmjsr Xfer(QC): 4 Occasional cues for hand placement and safety Weight Bearing Right Lower Extremity: Right Weight Bearing/Tolerated Gait Training Distance: 200'x2, 150' Walk 10 feet (QC): 4 Walk 50 ft with 2 Turns(QC): 4 Walk 150 ft (QC): 4 Gait Assistive Device: FWW Patient needs SBA due to getting unsteady with being distracted occasionally with activity going on around him. Gait is slow and steady when he is paying attention. Exercises Seated Therapy Exercises: Long arc quads, Hip abd/add (with RTB and ball) Seated Reps: 20 Standing: Hamstring curls, Heel/toe raises, 3 way Ex=Flex, Abd, Ext (not extension), Marching, Mini squats, Step-ups Standing Reps: 15 LAQ alternating for 5 min NuStep Minutes: 15 NuStep Workload: 5 Treatments bed mobility and transfers, ambulation, functional strengthening Assessment Current Status: Fair Progress improving general mobility but can get distracted and be unsteady with ambulation PT Short Term Goals Short Term Goals Time Frame: Dec 08, 2019 Roll Left & Right: 4 Sit to lyin Lying to sitting on side of be: 4 Sit to stand: 4 Chair/tcc-io-frlrf transfer: 4 Toilet transfer: 4 Car transfer: 4 Walk 10 feet: 4 Walk 50 feet with two turns: 4 Walk 150 feet: 4 Walking 10ft on uneven surface: 4 1 step (curb): 4 4 steps: 4 Does pt use a wc or scooter: No PT Halfway Goals Visitor Service Assistant Goals PT Visitor Service Assistant Goals Time Frame: Dec 22, 2019 Roll Left & Right (QC): 6 Sit to Lying (QC): 6 Lying-Sitting on Side/Bed(QC): 6 Sit to Stand (QC): 6 Chair/Geu-fe-Uorcw Xfer(QC): 6 Toilet Transfer (QC): 6 Car Transfer (QC): 6 Does the Patient Walk: Yes Walk 10 feet (QC): 6 Walk 50ft with 2 Turns (QC): 6 Walk 150 ft (QC): 6 Walking 10ft on Uneven Surface: 6 1 Step (curb) (QC): 6 4 Steps (QC): 6 Does the Pt use WC or Scooter?: No PT Plan Problem List Problem List: Activity Tolerance, Functional Strength, Safety, Balance, Gait, Transfer, ROM Treatment/Plan Treatment Plan: Continue Plan of Care Treatment Plan: Bed Mobility, Education, Functional Activity Justino, Functional Strength, Group Therapy, Gait, Safety, Therapeutic Exercise, Transfers Treatment Duration: Dec 22, 2019 Frequency: Modified Program (IRF) Estimated Hrs Per Day: 1.5 hours per day Patient and/or Family Agrees t: Yes Safety Risks/Education Patient Education: Gait Training, Transfer Techniques, Correct Positioning, Safety Issues Teaching Recipient: Patient Teaching Methods: Demonstration, Discussion Response to Teaching: Reinforcement Needed Time/GCodes Time In: 914 Time Out: 1030 Total Billed Treatment Time: 75 Total Billed Treatment 1 visit GT 30' EX 45' SUPA EMERY PT Dec 07, 2019 10:22
--- NOTE | 2019-12-07 11:04 | Speech Therapy Daily Note ---
Speech Daily Progress Note Subjective Date Seen by Provider: Dec 07, 2019 Time Seen by Provider: 10:30 Patient was upbeat and cooperative for all therapy tasks. Patient was sitting up in his bed for the duration of treatment. Objective Patient was re-administered the SLUMS and scored 26/30 which falls within the mild dementia level of cognitive function. Patients score indicates improvement from an initial evaluation score of 9/30. Assessment Assessment Current Status: Good Progress Treatment Plan Continue Plan of Care Speech Short Term Goals Short Term Goals Short Term Goals 1. Patient will complete memory tasks with 80% or greater accuracy with minimal cues. 2. Patient will complete problem-solving tasks with 80% or greater accuracy with minimal cues. 3. Patient will complete safety awareness tasks with 80% or greater accuracy with minimal cues. Speech Assembly Machine Feeder Goals Assembly Machine Feeder Goals Patient will improve cognitive-communication necessary for safety and daily living tasks with minimal assist. Speech-Plan Patient/Family Goals Patient/Family Goals: Patient reports that he wishes to return home to previous level of mobiliity and independence. Treatment Plan Speech Therapy Treatment Plan: Continue Plan of Care Treatment Duration: Dec 10, 2019 Frequency: 4 times per week Estimated Hrs Per Day: .5 hour per day Rehab Potential: Fair Barriers to Learning: Mild cognitive deficits Pt/Family Agrees to Plan: Yes Safety Risks/Education Teaching Recipient: Patient Teaching Methods: Demonstration, Discussion Response to Teaching: Verbalize Understanding Education Topics Provided: Patient responded well to safety awareness suggestions for when he discharges from the ARU Time Speech Therapy Time In: 10:30 Speech Therapy Time Out: 11:00 Total Billed Time: 30 Billed Treatment Time [address] Dec 07, 2019 11:04
--- NOTE | 2019-12-07 12:03 | Progress Note ---
Standard Progress Note Progress Notes/Assess & Plan Date Seen by a Provider: Dec 07, 2019 Time Seen by a Provider: 12:02 Progress/Assessment & Plan no complaints R hip incision without erythema or warmth. bloody dc noted no calf tenderness s/p R hip bipolar continue PT/OT Final Diagnosis no complaints R hip incision clean and dry no calf tenderness s/p R hip bipolar continue PT/OT JARON DEWEY MD Dec 07, 2019 12:02
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
--- NOTE | 2019-12-07 14:15 | NUR ---
Call to Dr. Anaya's office to make f/u appt. Left message to make f/u appt, & inquired about staple removal. They will return call.
[2019-12-07 18:09] VITALS: BP 102/64
[2019-12-07] MEDS: ENOXAPARIN 40 MG/0.4 ML (LOVENOX) SYR SC SCH (19:12)
--- NOTE | 2019-12-07 19:29 | NUR ---
Pt has refused Lovenox injection. This RN attempted twice at different times to administer injection. At the first time, pt stated, "can it wait until after I eat supper ?" RN obliged w this request, when RN came back again at 1900 to give injection, pt refused med.
[2019-12-07] MEDS: SIMvastatin 10 MG (ZOCOR) TAB PO SCH (20:29)
[2019-12-07] MEDS: MONTELUKAST 10 MG (SINGULAIR) TAB PO SCH (20:29)
[2019-12-07] MEDS: POLYETHYLENE GLYCOL 17 GM (MIRALAX) PACK PO SCH (20:37)
[2019-12-08] MEDS: CATHETER FLUSH 10 ML SYR IV SCH ×3 (06:21→20:22)
[2019-12-08] MEDS: glipiZIDE 5 MG (GLUCOTROL) TAB PO SCH ×2 (06:21→17:46)
[2019-12-08] MEDS: LEVOTHYROXINE 50 MCG (LEVOTHROID) TAB PO SCH (06:21)
[2019-12-08 06:27] VITALS: BP 134/82
[2019-12-08] MEDS: DOCUSATE SODIUM 100 MG (COLACE) CAP PO SCH ×2 (08:00→20:08)
[2019-12-08] MEDS: MELOXICAM 7.5 MG (MOBIC) TABLET PO SCH ×2 (08:00→20:17)
[2019-12-08] MEDS: SENNA W/DOCUSATE (SENOKOT S) TABLET PO SCH ×2 (08:00→20:08)
--- NOTE | 2019-12-08 08:34 | Cardiology Progress Note ---
Subjective Date Seen by Provider: Dec 08, 2019 Time Seen by Provider: 08:32 Subjective/Events-last exam Patient sitting up in bed, no new complaint. Denies any chest pain or dyspnea Review of Systems General: No Chills, No Night Sweats, No Fatigue, No Malaise, No Appetite, No Other HEENT: No Head Aches, No Visual Changes, No Eye Pain, No Ear Pain, No Dysphasia, No Sinus Congestion, No Post Nasal Drip, No Sore Throat, No Other Pulmonary: No Dyspnea, No Cough, No Pleuritic Chest Pain, No Other Cardiovascular: No: Chest Pain, Palpitations, Orthopnea, Paroxysmal Noc. Dyspnea, Edema, Lt Headedness, Other Objective-Cardiology Exam Last Set of Vital Signs Vital Signs 12/08/19 12/08/19 06:27 08:10 Temp 37.0 Pulse 88 Resp 18 B/P (MAP) 134/82 (99) Pulse Ox 98 O2 Delivery Room Air Capillary Refill : Less Than 3 SecondsLess Than 3 Seconds I&O Intake and Output 12/08/19 00:00 Intake Total 1330 ml Output Total 2050 ml Balance -720 ml Intake Oral 1330 ml Output Urine Total 2050 ml General: Alert, Oriented X3, Cooperative HEENT: Atraumatic, PERRLA Neck: Supple, No JVD, No Thyromegaly Lungs: Clear to Auscultation, Normal Air Movement Heart: Regular Rate, Normal S1, Normal S2, No Murmurs Abdomen: Normal Bowel Sounds, Soft, No Tenderness, No Hepatosplenomegaly, No Masses Extremities: No Clubbing, No Cyanosis, No Edema, Normal Pulses, No Tenderness/Swelling Skin: No Rashes, No Breakdown, No Significant Lesion Neuro: Normal Gait, Normal Speech, Strength at 5/5 X4 Ext, Normal Tone, Sensation Intact Psych/Mental Status: Mental Status NL, Mood NL A/P-Cardiology Admission Diagnosis Abnormal EKG Tachycardia Post op anemia Hip fx Assessment/Plan Abnormal EKG with left anterior fascicular block, T-wave inversion in anterior lead, asymptomatic at this time. Sinus tachycardia, resolved. Probably was secondary to anemia. Continued controlled rate. Continue to monitor Hip fracture, status post surgical repair, recovering slowly. Post op anemia, has improved w/ current Hb @10.1. Continue to monitor H&H Diabetes mellitus, Blood sugars have been poorly controlled. followed and managed by primary care physician OK for discharge from cardiology standpoint. Follow up appt in 4 weeks. Patient was seen and evaluated with Tayler, examination performed, management plan was discussed, agree with the current scribed note, I made few changes to the note using Italic font Patient is feeling well, sitting comfortably in bed Lungs were clear, heart is regular Okay for discharge from cardiology standpoint Clinical Quality Measures DVT/VTE Risk/Contraindication: Risk Factor Score Per Nursin RFS Level Per Nursing on Admit: 4+=Very High TAYLER CASTRO Dec 08, 2019 8:34 am LAURENCE RICHEY MD Dec 08, 2019 4:22 pm
--- NOTE | 2019-12-08 09:05 | PM&R Progress Note ---
Subjective HPI/CC On Admission Date Seen by Provider: Dec 08, 2019 Time Seen by Provider: 09:15 Subjective/Events-last exam Slums score repeated was 26/30 ADL's are regaining quickly Dressing looks good. Dr. Meza will follow-up with him in two weeks. Pt wants to go home as soon as possible. Insurance approved another 7 days but he wants to go home sooner than that Reviewed therapy notes Checked meds and labs Conferred with certified medical coding specialist of Systems Musculoskeletal: leg pain Objective Exam Vital Signs Vital Signs Date Time Temp Pulse Resp B/P (MAP) Pulse Ox O2 Delivery O2 Flow Rate FiO2 12/08/19 17:49 36.0 84 12 109/68 (82) 96 Room Air Capillary Refill : Less Than 3 SecondsLess Than 3 Seconds General Appearance: No Apparent Distress, Anxious, Chronically ill, Thin HEENT: PERRL/EOMI, Normal ENT Inspection, Pharynx Normal Neck: Full Range of Motion, Normal Inspection, Non Tender, Supple, Carotid Bruit Respiratory: Chest Non Tender, Lungs Clear, Normal Breath Sounds, No Accessory Muscle Use, No Respiratory Distress, Decreased Breath Sounds Cardiovascular: Regular Rate, Rhythm, No Edema, No Gallop, No JVD, No Murmur, Normal Peripheral Pulses Gastrointestinal: Normal Bowel Sounds, No Organomegaly, No Pulsatile Mass, Non Tender, Soft Rectal: Deferred Back: Normal Inspection, No CVA Tenderness, No Vertebral Tenderness Extremity: Normal Capillary Refill, Normal Inspection, Normal Range of Motion (except right leg), Non Tender, No Calf Tenderness, No Pedal Edema Neurologic/Psychiatric: Alert, Oriented x3, No Motor/Sensory Deficits, 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 FIM Transfers Therapy Code Descriptions/Definitions Functional [place] Measure: 0=Not Assessed/NA 4=Minimal Assistance 1=Total Assistance 5=Supervision or Setup 2=Maximal Assistance 6=Modified [place] 3=Moderate Assistance 7=Complete IndependenceSCALE: Activities may be completed with or without assistive devices. 2-Ztbrgemfvz-xxzsfyr completes the activity by him/herself with no assistance from a helper. 5-Set-up or Clean-up Assistance-helper sets up or cleans up; patient completes activity. [place] assists only prior to or following the activity. 4-Supervision or Touching Assistance-helper provides verbal cues and/or touching/steadying and/or contact guard assistance as patient completes activity. Assistance may be provided throughout the activity or intermittently. 3-Partial/Moderate Assistance-helper does LESS THAN HALF the effort. [place] lifts, holds or supports trunk or limbs, but provides less than half the effort. 2-Substantial/Maximal Assistance-helper does MORE THAN HALF the effort. [place] lifts or holds trunk or limbs and provides more than half the effort. 6-Tqzcipzwu-gazefb does ALL the effort. Patient does none of the effort to complete the activity. Or, the assistance of 2 or more helpers is required for the patient to complete the activity. If activity was not attempted, code reason: 7-Patient Refused. 9-Not Applicable-not attempted and the patient did not perform the activity before the current illness, exacerbation or injury. 10-Not Attempted due to Environmental Limitations-(lack of equipment, weather restraints, etc.). 88-Not Attempted due to Medical Conditions or Safety Concerns. Roll Left to Right (QC): 6 Sit to Lying (QC): 6 Sit to Stand (QC): 6 Chair/Woo-bd-Xuuuf Xfer(QC): 4 Car Transfer (QC): 3 Gait Training Does the Patient Walk?: Yes Distance: 200'x2, 150' Walk 10 feet (QC): 4 Walk 50 ft with 2 Turns(QC): 4 Walk 150 ft (QC): 4 Walking 10ft/uneven surface-QC: 4 Gait Persons Needed: 1 Gait Assistive Device: FWW Wheelchair Training Does the Pt Use a Wheelchair?: No Wheel 50 ft with 2 turns (QC): 10 Wheel 150 ft (QC): 10 Stair Training #of Steps: 1 1 Step (curb) (QC): 4 4 Steps (QC): 88 12 Steps (QC): 88 Balance Picking up an Object (QC): 88 ADL-Treatment Eating (QC): 6 Oral Hygiene (QC): 7 (Pt declined to complete at this time, states he doesn't wear dentures and only completes oral care "a couple times a week") Shower/Bathe Self (QC): 4 Upper Body Dressing (QC): 5 Lower Body Dressing (QC): 4 (with adaptive equipment) On/Off Footwear (QC): 3 (assist with DARA hose) Toileting Hygiene (QC): 3 (Pt able to use urinal with set up, but requires min assist for clothing management.) Assessment/Plan Assessment and Plan Assess & Plan/Chief Complaint Assessment: Right hip fracture Esophageal cancer 2010 in remission Cognitive deficiency? low SLUMS noted on assessment needs repeated today DM Hypothyroidism Acute blood loss anemia requiring blood transfusion 2 units 12/02/19 now on iron infusions CRI Impulsiveness Chronic cough possibly related to esophageal CA procedure 2009 Plan: IRF protocol 31/05 Venofer until completed Nebs IS Pain control without narcs since intolerant SLUMS much improved (1) Closed impacted fracture of right hip Status: Acute (2) Acute blood loss anemia (3) Hypothyroidism (4) Diabetes mellitus (5) COPD (chronic obstructive pulmonary disease) SHERIN LOWERY DO Dec 08, 2019 09:05
--- NOTE | 2019-12-08 09:31 | Occupational Ther Daily Note ---
OT Current Status-Daily Note Subjective Pt in bed, agrees to treatment. Pt states he hopes to go home soon. ADL-Treatment Therapy Code Descriptions/Definitions Functional [place] Measure: 0=Not Assessed/NA 4=Minimal Assistance 1=Total Assistance 5=Supervision or Setup 2=Maximal Assistance 6=Modified [place] 3=Moderate Assistance 7=Complete IndependenceSCALE: Activities may be completed with or without assistive devices. 1-Sekjlzdocg-tezwkwg completes the activity by him/herself with no assistance from a helper. 5-Set-up or Clean-up Assistance-helper sets up or cleans up; patient completes activity. [place] assists only prior to or following the activity. 4-Supervision or Touching Assistance-helper provides verbal cues and/or t ouching/steadying and/or contact guard assistance as patient completes activity. Assistance may be provided throughout the activity or intermittently. 3-Partial/Moderate Assistance-helper does LESS THAN HALF the effort. [place] lifts, holds or supports trunk or limbs, but provides less than half the effort. 2-Substantial/Maximal Assistance-helper does MORE THAN HALF the effort. [place] lifts or holds trunk or limbs and provides more than half the effort. 2-Xynzlqize-evobdn does ALL the effort. Patient does none of the effort to complete the activity. Or, the assistance of 2 or more helpers is required for the patient to complete the activity. If activity was not attempted, code reason: 7-Patient Refused. 9-Not Applicable-not attempted and the patient did not perform the activity before the current illness, exacerbation or injury. 10-Not Attempted due to Environmental Limitations-(lack of equipment, weather restraints, etc.). 88-Not Attempted due to Medical Conditions or Safety Concerns. Eating (QC): 6 (Pt able to manage containers and feed self without assist) Oral Hygiene (QC): 6 (Pt completed oral hygiene with mouth swab without assist.) Shower/Bathe Self (QC): 4 (Pt declined shower, but agreed to sponge bath. Upper body bathing completed with set up. Pt used long handled sponge to wash lower legs and feet. SBA for safety.) Upper Body Dressing (QC): 5 (Pt doffed/donned pullover shirt with set up) Lower Body Dressing (QC): 4 (Pt doffed pants and socks with dressing stick. Used glaze handler to thread LE into pants. Skilled cues for use of adaptive equiment. Stood with good balance for pant hike) On/Off Footwear: 3 (Pt doffs/dons socks with set up using adaptive equipment, but requires assist with DARA hose.) Toileting Hygiene (QC): 5 (Pt used urinal with set up. Required assist to empty) Toilet Transfer (QC): 5 (Pt transferred to [facility] over toilet using grab bars for safety.) Pt reports having a tub/shower at home. Gait to shower room with FWW. Education provided regarding tub transfer with use of shower chair. Pt able to complete transfer in/out of tub with supervision and cues for safety. Other Treatment Gait to therapy gym with FWW, no LOB noted. Pt completed bilateral UE exercises to increase strength needed for ADLs and transfers. Pt completed shoulder flexion, abduction, biceps curls, and triceps extension exercises x10 reps, 2sets with rest breaks between exercises. Cues for proper exercise technique. Pt returned to room, resting in bed with needs met after session. Education OT Patient Education: Modified ADL techniques, Safety issues Teaching Recipient: Patient Teaching Methods: Discussion Response to Teaching: Verbalize Understanding OT Short Term Goals Short Term Goals Time Frame: Dec 08, 2019 Toileting hygiene: 4 Shower/bathe self: 4 Lower body dressin OT Database Software Technician Goals Penitentiary Goals Time Frame: Dec 22, 2019 Eating (QC): 6 Oral Hygiene (QC): 6 Toileting Hygiene (QC): 6 Shower/Bathe Self (QC): 5 Upper Body Dressing (QC): 6 Lower Body Dressing (QC): 5 On/Off Footwear (QC): 6 Additional Goals: 1-Demonstrate ADL Tasks, 2-Verbalize Understanding, 3- ImproveStrength/Justino 1=Demonstrate adherence to instructed precautions during ADL tasks. 2=Patient will verbalize/demonstrate understanding of assistive devices/modifications for ADL. 3=Patient will improve strength/tolerance for activity to enable patient to perform ADL's. OT Education/Plan Discharge Recommendations Plan/Recommendations: Continue POC Treatment Plan/Plan of Care Patient would benefit from OT for education, treatment and training to promote independence in ADL's, mobility, safety and/or upper extremity function for ADL's. Plan of Care: ADL Retraining, Functional Mobility, Group Exercise/Act as Ind, UE Funct Exercise/Act Treatment Duration: Dec 22, 2019 Frequency: At least 5 of 7 days/Wk (IRF) Estimated Hrs Per Day: 1.5 hours per day Rehab Potential: Fair Time/GCodes Start Time: 08:00 Stop Time: 09:30 Total Time Billed (hr/min): 90 Billed Treatment Time 1 visit, ADLx4(65minutes), EXx2(25minutes) ALYSON FRANCO OT Dec 08, 2019 09:31
[2019-12-08] MEDS ORDERED: RT-ALBUTEROL SULF 2.5 MG/3 ML PRE-MIX VIAL INH PRN (10:30)
--- NOTE | 2019-12-08 12:52 | Physical Therapy Daily Note ---
PT Daily Note-Current Subjective Pt asleep laying Supine in bed upon arrival. Pt agrees to PT. Pain Numeric Pain Scale: 2 Location: Right Location Body Site: Hip Pain Description: Ache Mental Status Patient Orientation: Person, Place, Situation Transfers SCALE: Activities may be completed with or without assistive devices. 5-Hectjzxhal-ylozgnc completes the activity by him/herself with no assistance from a helper. 5-Set-up or Clean-up Assistance-helper sets up or cleans up; patient completes activity. [place] assists only prior to or following the activity. 4-Supervision or Touching Assistance-helper provides verbal cues and/or touching/steadying and/or contact guard assistance as patient completes activity. Assistance may be provided throughout the activity or intermittently. 3-Partial/Moderate Assistance-helper does LESS THAN HALF the effort. [place] lifts, holds or supports trunk or limbs, but provides less than half the effort. 2-Substantial/Maximal Assistance-helper does MORE THAN HALF the effort. [place] lifts or holds trunk or limbs and provides more than half the effort. 2-Znbwummvo-qzqkoa does ALL the effort. Patient does none of the effort to co mplete the activity. Or, the assistance of 2 or more helpers is required for the patient to complete the activity. If activity was not attempted, code reason: 7-Patient Refused. 9-Not Applicable-not attempted and the patient did not perform the activity before the current illness, exacerbation or injury. 10-Not Attempted due to Environmental Limitations-(lack of equipment, weather restraints, etc.). 88-Not Attempted due to Medical Conditions or Safety Concerns. Sit to Lying (QC): 5 Lying to Sitting/Side of Bed(Q: 5 Sit to Stand (QC): 5 Weight Bearing Right Lower Extremity: Right Weight Bearing/Tolerated Gait Training Does the Patient Walk?: Yes Distance: 150' x2 Walk 10 feet (QC): 5 Walk 50 ft with 2 Turns(QC): 5 Walk 150 ft (QC): 5 Gait Persons Needed: 1 Gait Assistive Device: FWW CARDIOLOGY PHYSICIAN ASSISTANT gives VC to walk w/in FWW. Wheelchair Training Does the Pt Use a Wheelchair?: No Exercises Seated Therapy Exercises: Ankle pumps, Long arc quads, Hip flexion, Kicking activity Seated Reps: 20 NuStep Minutes: 15 NuStep Workload: 5 Treatments Pt transfers from bed to standing then ambulates in hallway using FWW. Pt uses NuStep for 15m at WL 5 then completes Seated Ex. Pt ambulates in hallway before returning to room at end of Rx. Pt wants to rest Supine in bed before lunch arrives. Pt has all needs met, call light in hand. CARDIOLOGY PHYSICIAN ASSISTANT assists with positioning with pillow. Assessment Current Status: Good Progress Pt is improving with strength and mobility during Rx. PT Short Term Goals Short Term Goals Time Frame: Dec 08, 2019 Roll Left & Right: 4 Sit to lyin Lying to sitting on side of be: 4 Sit to stand: 4 Chair/ehs-rr-vkwah transfer: 4 Toilet transfer: 4 Car transfer: 4 Walk 10 feet: 4 Walk 50 feet with two turns: 4 Walk 150 feet: 4 Walking 10ft on uneven surface: 4 1 step (curb): 4 4 steps: 4 Does pt use a wc or scooter: No PT Financial Center Manager Goals Jail Goals PT Jail Goals Time Frame: Dec 22, 2019 Roll Left & Right (QC): 6 Sit to Lying (QC): 6 Lying-Sitting on Side/Bed(QC): 6 Sit to Stand (QC): 6 Chair/Jif-ut-Idllq Xfer(QC): 6 Toilet Transfer (QC): 6 Car Transfer (QC): 6 Does the Patient Walk: Yes Walk 10 feet (QC): 6 Walk 50ft with 2 Turns (QC): 6 Walk 150 ft (QC): 6 Walking 10ft on Uneven Surface: 6 1 Step (curb) (QC): 6 4 Steps (QC): 6 Does the Pt use WC or Scooter?: No PT Plan Problem List Problem List: Activity Tolerance, Gait Treatment/Plan Treatment Plan: Continue Plan of Care Treatment Plan: Bed Mobility, Education, Functional Activity Justino, Functional Strength, Group Therapy, Gait, Safety, Therapeutic Exercise, Transfers Treatment Duration: Dec 22, 2019 Frequency: Modified Program (IRF) Estimated Hrs Per Day: 1.5 hours per day Patient and/or Family Agrees t: Yes Safety Risks/Education Patient Education: Gait Training, Transfer Techniques, Correct Positioning, Sa fety Issues Teaching Recipient: Patient Teaching Methods: Discussion Response to Teaching: Verbalize Understanding Time/GCodes Time In: 1115 Time Out: 1215 Total Billed Treatment Time: 60 Total Billed Treatment 1, GT (15m), EX x2 (30m) & FA (15m) AILEEN FIGUEROA CARDIOLOGY PHYSICIAN ASSISTANT Dec 08, 2019 12:52
[2019-12-08] MEDS: RT-ADVAIR HFA 115/21 MCG PER PUFF IH SCH ×2 (13:22→19:00)
--- NOTE | 2019-12-08 14:39 | NUR ---
SS/CM WEEKLY TEAM CONFERENCE Visited patient with Maggy at bedside this a.m. Returned to talk with patient this p.m. to review team conference results, signature obtained. Patient is vocal that he just wants to go home, but did agree to the current plan to continue stay until first of next week. Plan is to move patient to the Home Transition Room Friday and review for discharge Friday or Friday. Patient will be caring for his dog at home, two steps in/out of house. Therapists will begin focused training for this task since indications are he will not have dedicated assistance on a schedule. 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 Maggy indicated complete understanding. Patient's semi is parked at his house, he stated that he was in [place] when he fell and had two guys put him in his truck, he proceeded to drive back home to [facility]. EMS was summoned and they got him out of the truck. Patient will need strict guidelines simply defined regarding hip precautions. OP THERAPY: Plan is for OP PT at [facility] in [facility]. Maggy stated she could transport him for those appointments.
--- NOTE | 2019-12-08 15:22 | Physical Therapy Daily Note ---
PT Daily Note-Current Subjective Pt laying Supine in bed, after just speaking with SW, upon arrival. Pt very reluctantly agrees to PT. Pt is upset at not D/C sooner. Would like to D/C Friday or Friday (12/10-12/11) instead of Friday (12/14). Pt feels as though he is ready to D/C. Pain Location: No Pain Reported Mental Status Patient Orientation: Person, Place, Situation Transfers SCALE: Activities may be completed with or without assistive devices. 8-Nustiqgyht-usatzcw completes the activity by him/herself with no assistance from a helper. 5-Set-up or Clean-up Assistance-helper sets up or cleans up; patient completes activity. [place] assists only prior to or following the activity. 4-Supervision or Touching Assistance-helper provides verbal cues and/or touching/steadying and/or contact guard assistance as patient completes activity. Assistance may be provided throughout the activity or intermittently. 3-Partial/Moderate Assistance-helper does LESS THAN HALF the effort. [place] lifts, holds or supports trunk or limbs, but provides less than half the effort. 2-Substantial/Maximal Assistance-helper does MORE THAN HALF the effort. [place] lifts or holds trunk or limbs and provides more than half the effort. 7-Winqnorvo-ukebre does ALL the effort. Patient does none of the effort to complete the activity. Or, the assistance of 2 or more helpers is required for the patient to complete the activity. If activity was not attempted, code reason: 7-Patient Refused. 9-Not Applicable-not attempted and the patient did not perform the activity before the current illness, exacerbation or injury. 10-Not Attempted due to Environmental Limitations-(lack of equipment, weather restraints, etc.). 88-Not Attempted due to Medical Conditions or Safety Concerns. Sit to Lying (QC): 6 Lying to Sitting/Side of Bed(Q: 6 Sit to Stand (QC): 6 Car Transfer (QC): 6 Weight Bearing Right Lower Extremity: Right Weight Bearing/Tolerated Gait Training Does the Patient Walk?: Yes Distance: 150' x2 Walk 10 feet (QC): 6 Walk 50 ft with 2 Turns(QC): 5 Walk 150 ft (QC): 5 Gait Persons Needed: 1 Gait Assistive Device: FWW Wheelchair Training Does the Pt Use a Wheelchair?: No Stair Training Stair Training: Handrails/: 2 handrails #of Steps: 4 1 Step (curb) (QC): 5 4 Steps (QC): 5 Stairs: Pattern: Step to Treatments Pt transfers from bed to standing. Pt completes set of 4 steps then car transfer before returning to room at end of Rx. Pt has all needs met, call light next to pt. Assessment Current Status: Fair Progress Pt starts Rx very upset. VEGETABLE WASHING MACHINE OPERATOR has to explain why stairs and car transfer are needed to show progress for possible earlier D/C. PT Short Term Goals Short Term Goals Time Frame: Dec 08, 2019 Roll Left & Right: 4 Sit to lyin Lying to sitting on side of be: 4 Sit to stand: 4 Chair/ppu-py-rfysm transfer: 4 Toilet transfer: 4 Car transfer: 4 Walk 10 feet: 4 Walk 50 feet with two turns: 4 Walk 150 feet: 4 Walking 10ft on uneven surface: 4 1 step (curb): 4 4 steps: 4 Does pt use a wc or scooter: No PT Shelter Goals Infectious Waste Technician Goals PT Infectious Waste Technician Goals Time Frame: Dec 22, 2019 Roll Left & Right (QC): 6 Sit to Lying (QC): 6 Lying-Sitting on Side/Bed(QC): 6 Sit to Stand (QC): 6 Chair/Pjd-fr-Xdvdi Xfer(QC): 6 Toilet Transfer (QC): 6 Car Transfer (QC): 6 Does the Patient Walk: Yes Walk 10 feet (QC): 6 Walk 50ft with 2 Turns (QC): 6 Walk 150 ft (QC): 6 Walking 10ft on Uneven Surface: 6 1 Step (curb) (QC): 6 4 Steps (QC): 6 Does the Pt use WC or Scooter?: No PT Plan Problem List Problem List: Activity Tolerance Treatment/Plan Treatment Plan: Continue Plan of Care Treatment Plan: Bed Mobility, Education, Functional Activity Justino, Functional Strength, Group Therapy, Gait, Safety, Therapeutic Exercise, Transfers Treatment Duration: Dec 22, 2019 Frequency: Modified Program (IRF) Estimated Hrs Per Day: 1.5 hours per day Patient and/or Family Agrees t: Yes Safety Risks/Education Patient Education: Gait Training, Transfer Techniques, Steps, Correct Positioning, Safety Issues Teaching Recipient: Patient Teaching Methods: Discussion Response to Teaching: Verbalize Understanding Time/GCodes Time In: 1400 Time Out: 1430 Total Billed Treatment Time: 30 Total Billed Treatment 1, GT (10m) & FA (20m) AILEEN FIGUEROA PTA Dec 08, 2019 15:22
[2019-12-08] MEDS: LACTULOSE SYRUP 10GM/15ML (ENULOSE) 30ML UDC PO PRN (16:27)
[2019-12-08] MEDS: ENOXAPARIN 40 MG/0.4 ML (LOVENOX) SYR SC SCH (17:45)
[2019-12-08 17:49] VITALS: BP 109/68
[2019-12-08] MEDS ORDERED: GLIP5TAB13 PO (19:50)
[2019-12-08] MEDS: POLYETHYLENE GLYCOL 17 GM (MIRALAX) PACK PO SCH (20:08)
[2019-12-08] MEDS: MONTELUKAST 10 MG (SINGULAIR) TAB PO SCH (20:17)
[2019-12-08] MEDS: SIMvastatin 10 MG (ZOCOR) TAB PO SCH (20:17)
[2019-12-08] MEDS: ACETAMINOPHEN 500 MG TAB (TYLENOL) PO PRN (20:17)
--- NOTE | 2019-12-08 21:04 | Progress Note ---
Standard Progress Note Progress Notes/Assess & Plan Date Seen by a Provider: Dec 08, 2019 Time Seen by a Provider: 14:00 Progress/Assessment & Plan POD11 Patient resting quietly but arouse very easily. He verbalizes no complaints. He reports that his strength is increasing and that his exercises are going well. Vital signs stableVital signs stableTemperature max 37. right hip incision well approximated with [place]. Dressing was clean and dry and no drainage present. No signs of purulence. No surrounding warmth or erythema. He was able to straight leg raise. Intact plantar flexion and dorsiflexion and EHL. Negative Homans sign. assessment: doing well status post right hip bipolar rufus arthroplasty plan: continue DVT prophylaxis. Mobilize. Physical therapy and occupational therapy. Transfer to home when able. BELÉN SYLVESTER Dec 08, 2019 21:04
[2019-12-09] MEDS: CATHETER FLUSH 10 ML SYR IV SCH ×3 (06:13→22:00)
[2019-12-09] MEDS: glipiZIDE 5 MG (GLUCOTROL) TAB PO SCH ×2 (06:13→17:05)
[2019-12-09] MEDS: LEVOTHYROXINE 50 MCG (LEVOTHROID) TAB PO SCH (06:13)
[2019-12-09 06:22] VITALS: BP 129/83
--- NOTE | 2019-12-09 07:58 | Cardiology Progress Note ---
Subjective Date Seen by Provider: Dec 09, 2019 Time Seen by Provider: 07:57 Subjective/Events-last exam Patient in bed, denies any chest pain or palpitations. Reports no BM yet. Review of Systems General: No Chills, No Night Sweats; Fatigue; No Malaise, No Appetite, No Other HEENT: No Head Aches, No Visual Changes, No Eye Pain, No Ear Pain, No Dysphasia, No Sinus Congestion, No Post Nasal Drip, No Sore Throat, No Other Pulmonary: No Dyspnea, No Cough, No Pleuritic Chest Pain, No Other Cardiovascular: No: Chest Pain, Palpitations, Orthopnea, Paroxysmal Noc. Dyspnea, Edema, Lt Headedness, Other Objective-Cardiology Exam Last Set of Vital Signs Vital Signs 12/09/19 06:22 Temp 36.4 Pulse 80 Resp 17 B/P (MAP) 129/83 (98) Pulse Ox 97 O2 Delivery Room Air Capillary Refill : Less Than 3 SecondsLess Than 3 Seconds I&O Intake and Output 12/09/19 00:00 Intake Total 1323 ml Output Total 1500 ml Balance -177 ml Intake Oral 1323 ml Output Urine Total 1500 ml # Voids 3 General: Alert, Oriented X3, Cooperative HEENT: Atraumatic, PERRLA Neck: Supple, No JVD, No Thyromegaly Lungs: Clear to Auscultation, Normal Air Movement Heart: Regular Rate, Normal S1, Normal S2, No Murmurs Abdomen: Normal Bowel Sounds, Soft, No Tenderness, No Hepatosplenomegaly, No Masses Extremities: No Clubbing, No Cyanosis, No Edema, Normal Pulses, No Tenderness/Swelling Skin: No Rashes, No Breakdown, No Significant Lesion Neuro: Normal Gait, Normal Speech, Strength at 5/5 X4 Ext, Normal Tone, Sensation Intact Psych/Mental Status: Mental Status NL, Mood NL A/P-Cardiology Admission Diagnosis Abnormal EKG Tachycardia Post op anemia Hip fx Assessment/Plan Abnormal EKG with left anterior fascicular block, T-wave inversion in anterior lead, asymptomatic at this time. Sinus tachycardia, resolved. Probably was secondary to anemia. Continued controlled rate. Continue to monitor Hip fracture, status post surgical repair, recovering slowly. Post op anemia, improved. Continue to monitor H&H Diabetes mellitus, followed and managed by primary care physician Constipation, management per PCP OK for discharge from cardiology standpoint. Follow up appt in 4 weeks. Patient was seen and evaluated with Tayler, examination performed, management plan was discussed, agree with the current scribed note, I made few changes to the note using Italic font Patient is feeling better. Follow-up as an outpatient Clinical Quality Measures DVT/VTE Risk/Contraindication: Risk Factor Score Per Nursin RFS Level Per Nursing on Admit: 4+=Very High TAYLER CASTRO Dec 09, 2019 07:58 LAURENCE RICHEY MD Dec 09, 2019 08:42
[2019-12-09] MEDS: SENNA W/DOCUSATE (SENOKOT S) TABLET PO SCH ×2 (08:17→20:09)
[2019-12-09] MEDS: LACTULOSE SYRUP 10GM/15ML (ENULOSE) 30ML UDC PO PRN (08:17)
[2019-12-09] MEDS: DOCUSATE SODIUM 100 MG (COLACE) CAP PO SCH ×2 (08:17→20:09)
[2019-12-09] MEDS: MELOXICAM 7.5 MG (MOBIC) TABLET PO SCH ×2 (08:17→20:09)
--- NOTE | 2019-12-09 09:54 | Occupational Ther Daily Note ---
OT Current Status-Daily Note Subjective Pt seen in bed, nursing present. Pt agreeable to OT tx session, states "minimal pain" in hip. Mental Status/Objective Patient Orientation: Normal For Age ADL-Treatment Therapy Code Descriptions/Definitions Functional [place] Measure: 0=Not Assessed/NA 4=Minimal Assistance 1=Total Assistance 5=Supervision or Setup 2=Maximal Assistance 6=Modified [place] 3=Moderate Assistance 7=Complete IndependenceSCALE: Activities may be completed with or without assistive devices. 1-Tiidclmoku-szdhwyi completes the activity by him/herself with no assistance from a helper. 5-Set-up or Clean-up Assistance-helper sets up or cleans up; patient completes activity. [place] assists only prior to or following the activity. 4-Supervision or Touching Assistance-helper provides verbal cues and/or touching/steadying and/or contact guard assistance as patient completes activity. Assistance may be provided throughout the activity or intermittently. 3-Partial/Moderate Assistance-helper does LESS THAN HALF the effort. [place] lifts, holds or supports trunk or limbs, but provides less than half the effort. 2-Substantial/Maximal Assistance-helper does MORE THAN HALF the effort. [place] lifts or holds trunk or limbs and provides more than half the effort. 9-Lhwkliimx-sbghkg does ALL the effort. Patient does none of the effort to complete the activity. Or, the assistance of 2 or more helpers is required for the patient to complete the activity. If activity was not attempted, code reason: 7-Patient Refused. 9-Not Applicable-not attempted and the patient did not perform the activity before the current illness, exacerbation or injury. 10-Not Attempted due to Environmental Limitations-(lack of equipment, weather restraints, etc.). 88-Not Attempted due to Medical Conditions or Safety Concerns. Eating (QC): 6 Oral Hygiene (QC): 6 (Pt stands at sink and completes mouth wash.) Shower/Bathe Self (QC): 5 (s/u for wash cloths ) Upper Body Dressing (QC): 6 Lower Body Dressing (QC): 4 (SUP, good use of AE.) On/Off Footwear: 6 (sock aide utilized.) Toileting Hygiene (QC): 6 (completes in bathroom in sitting and stance. Increased time for thoroughness.) Toilet Transfer (QC): 6 (to commode.) Other Treatment Pt seen in bed, bed mob IND. Sit to stand from bed with SUP, desires commode/ BM. Pt completes BM/ hygiene with IND. Pt s/u for shower, denies shower or practicing tub/ shower transfer, completes sponge bath in recliner chair. Pt completes all bathing with SUP/ s/u and dressing with IND. Pt's DO comes in and states pt would be good to go either Friday or Friday. Pt agrees, stating no needs from therapy. Pt states pt's ex can assist at times, per therapy pt's ex has denies this assist. Pt able to complete self care at bed/ chair level with safety. Pt completes mobility with FWW to therapy gym, completes 10 min of arm bike with mod breaks. Pt returns to room, all needs met, call light in reach. Pt and OT discuss home environment, pt states he does not require any more assist. Education OT Patient Education: Exercise program, Modified ADL techniques, Progress toward Goal/Update tx plan, Purpose of tx/functional activities, Rehab process Teaching Recipient: Patient Teaching Methods: Demonstration, Discussion Response to Teaching: Verbalize Understanding, Return Demonstration OT Short Term Goals Short Term Goals Time Frame: Dec 08, 2019 Toileting hygiene: 4 Shower/bathe self: 4 Lower body dressin OT Straw Hat Washer Operator Goals Straw Hat Washer Operator Goals Time Frame: Dec 22, 2019 Eating (QC): 6 (met) Oral Hygiene (QC): 6 (met) Toileting Hygiene (QC): 6 (met) Shower/Bathe Self (QC): 5 (met) Upper Body Dressing (QC): 6 (met) Lower Body Dressing (QC): 5 On/Off Footwear (QC): 6 (met) Additional Goals: 1-Demonstrate ADL Tasks, 2-Verbalize Understanding, 3- ImproveStrength/Justino 1=Demonstrate adherence to instructed precautions during ADL tasks. 2=Patient will verbalize/demonstrate understanding of assistive devices/modifications for ADL. 3=Patient will improve strength/tolerance for activity to enable patient to perform ADL's. OT Education/Plan Problem List/Assessment Assessment: Decreased Activ Tolerance, Impaired I ADL's Discharge Recommendations Plan/Recommendations: Continue POC Therapy Discharge Recommendati: Home & Family Equpiment Recommendations-D/C: Extended Bath Bench, Rails on Tub/Shower, Hip Kit Treatment Plan/Plan of Care Treatment,Training & Education: Yes Patient would benefit from OT for education, treatment and training to promote independence in ADL's, mobility, safety and/or upper extremity function for ADL's. Plan of Care: ADL Retraining, Functional Mobility, Group Exercise/Act as Ind, UE Funct Exercise/Act Treatment Duration: Dec 22, 2019 Frequency: At least 5 of 7 days/Wk (IRF) Estimated Hrs Per Day: 1.5 hours per day Agreement: Yes Rehab Potential: Fair Time/GCodes Start Time: 08:15 Stop Time: 09:45 Total Time Billed (hr/min): 90 Billed Treatment Time 1, ADL 5, EX (90) LAKISHA ALBA OTR Dec 09, 2019 09:54
--- NOTE | 2019-12-09 10:53 | Physical Therapy Daily Note ---
PT Daily Note-Current Subjective Pt laying Supine in bed upon arrival. Pt agrees to PT for QC scoring for D/C tomorrow (12/10). Pain Numeric Pain Scale: 3 Location: Right Location Body Site: Hip Pain Description: Ache Mental Status Patient Orientation: Person, Place, Situation Transfers SCALE: Activities may be completed with or without assistive devices. 4-Rigstmbium-lzqovdj completes the activity by him/herself with no assistance from a helper. 5-Set-up or Clean-up Assistance-helper sets up or cleans up; patient completes activity. [place] assists only prior to or following the activity. 4-Supervision or Touching Assistance-helper provides verbal cues and/or touching/steadying and/or contact guard assistance as patient completes activity. Assistance may be provided throughout the activity or intermittently. 3-Partial/Moderate Assistance-helper does LESS THAN HALF the effort. [place] lifts, holds or supports trunk or limbs, but provides less than half the effort. 2-Substantial/Maximal Assistance-helper does MORE THAN HALF the effort. [place] lifts or holds trunk or limbs and provides more than half the effort. 0-Oajolujmi-siujoq does ALL the effort. Patient does none of the effort to complete the activity. Or, the assistance of 2 or more helpers is required for the patient to complete the activity. If activity was not attempted, code reason: 7-Patient Refused. 9-Not Applicable-not attempted and the patient did not perform the activity before the current illness, exacerbation or injury. 10-Not Attempted due to Environmental Limitations-(lack of equipment, weather restraints, etc.). 88-Not Attempted due to Medical Conditions or Safety Concerns. Roll Left & Right (QC): 6 Sit to Lying (QC): 6 Lying to Sitting/Side of Bed(Q: 6 Sit to Stand (QC): 6 Chair/Fhq-ux-Oiiuv Xfer(QC): 6 Toilet Transfer (QC): 6 Car Transfer (QC): 6 Weight Bearing Right Lower Extremity: Right Weight Bearing/Tolerated Gait Training Does the Patient Walk?: Yes Distance: 400' Walk 10 feet (QC): 6 Walk 50 ft with 2 Turns(QC): 6 Walk 150 ft (QC): 6 Walking 10ft/uneven surface-QC: 6 Gait Persons Needed: 1 Gait Assistive Device: FWW DIRECTOR PROSPECT gives occasional VC to walk closer to FWW. Wheelchair Training Does the Pt Use a Wheelchair?: No Stair Training Stair Training: Handrails/: 2 handrails #of Steps: 8 1 Step (curb) (QC): 6 4 Steps (QC): 6 12 Steps (QC): 7 Stairs: Pattern: Step to Pt states he does not have to do more than 2 steps at home. Balance Picking up an Object (QC): 88 Special Test Comments Pt does not perform due to Hip Precautions. Pt will use auto clutch specialist at home. Exercises NuStep Minutes: 15 NuStep Workload: 5 Treatments Pt completes QC scoring items listed above as well as uses NuStep for 15m at WL 5. Pt ambulates increased distance in hallway before returning to room to rest Supine in bed with all needs met. Pt has call light in hand. as well as DIRECTOR PROSPECT gives instruction over HEP. Assessment Current Status: Good Progress Pt tolerates Rx well and is happy to D/C tomorrow (12/10). PT Short Term Goals Short Term Goals Time Frame: Dec 08, 2019 Roll Left & Right: 4 Sit to lyin Lying to sitting on side of be: 4 Sit to stand: 4 Chair/tuz-pa-jytok transfer: 4 Toilet transfer: 4 Car transfer: 4 Walk 10 feet: 4 Walk 50 feet with two turns: 4 Walk 150 feet: 4 Walking 10ft on uneven surface: 4 1 step (curb): 4 4 steps: 4 Does pt use a wc or scooter: No PT Internet Manager Goals Internet Manager Goals PT [facility] Goals Time Frame: Dec 22, 2019 Roll Left & Right (QC): 6 Sit to Lying (QC): 6 Lying-Sitting on Side/Bed(QC): 6 Sit to Stand (QC): 6 Chair/Uuw-bg-Wiqvq Xfer(QC): 6 Toilet Transfer (QC): 6 Car Transfer (QC): 6 Does the Patient Walk: Yes Walk 10 feet (QC): 6 Walk 50ft with 2 Turns (QC): 6 Walk 150 ft (QC): 6 Walking 10ft on Uneven Surface: 6 1 Step (curb) (QC): 6 4 Steps (QC): 6 Does the Pt use WC or Scooter?: No PT Plan Problem List Problem List: Activity Tolerance Treatment/Plan Treatment Plan: Continue Plan of Care Treatment Plan: Bed Mobility, Education, Functional Activity Justino, Functional Strength, Group Therapy, Gait, Safety, Therapeutic Exercise, Transfers Treatment Duration: Dec 22, 2019 Frequency: Modified Program (IRF) Estimated Hrs Per Day: 1.5 hours per day Patient and/or Family Agrees t: Yes Safety Risks/Education Patient Education: Gait Training, Transfer Techniques, Steps, Issued Written HEP, Correct Positioning, Safety Issues Teaching Recipient: Patient Teaching Methods: Discussion Response to Teaching: Verbalize Understanding Time/GCodes Time In: 945 Time Out: 1100 Total Billed Treatment Time: 75 Total Billed Treatment 1, GT x2 (25m), FA x2 (30m) & EX (20m) AILEEN FIGUEROA DIRECTOR PROSPECT Dec 09, 2019 10:53
--- NOTE | 2019-12-09 13:15 | NUR ---
DRESSING CHANGE TO RIGHT HIP INCISION. INCISION LINE CLEANSED WITH ALCOHOL PADS. [place] APPLIED TO SURROUNDING TISSUE. COVERED WITH [place]LAND DRESSING. INCISION IS WELL APPROXIMATED WITH [place] INTACT. NO REDNESS OR DRAINAGE NOTED.
--- NOTE | 2019-12-09 13:18 | NUR ---
PATIENT REPORTS BM X2 SO FAR TODAY.
--- NOTE | 2019-12-09 13:20 | NUR ---
RD ASSESSMENT PMHx: COPD; DM PT INTERACTION: Pt was awake and pleasant during nutrition follow-up. Pt states eating "so-so" since last assessment. Note avg PO intake of 64% x4d, per chart review. Pt states no issues with n/v/c/d since last assessment. Note last BM was 12/09 and pt currently on bowel regimen of colace BID; senna BID; and miralax BID, per chart review. ABNORMAL NUTRITION-RELATED LAB VALUES LOW: Pro 5.1; alb 2.9 HIGH: cr 1.36; glu 137 Est. kcal needs: 6373-8368 kcal | 25-30 kcal/kg Est. Pro needs: 77-93 g Pro | 1.0-1.2 g Pro/kg PES STATEMENT: Inadequate oral intake (NI-2.1) related to loss of appetite as evidenced by pt interview | avg PO intake 64% x4d INTERVENTION: Continue with current diet order of CHO 75g/m 0snack diet. Continue with current supplementation order of Glucerna with meals TID, for increased kcal intake. Provides 220 kcal and 10 g Pro per serving. Will continue to follow and reassess as pt needs and status change. MONITOR/EVALUATE: PO Intake; Plan of Care; Hydration Status; Weight Status; Lab Values Yoon Waller, MS, RD, LD
--- NOTE | 2019-12-09 14:19 | Speech Therapy Daily Note ---
Speech Daily Progress Note Subjective Date Seen by Provider: Dec 09, 2019 Time Seen by Provider: 11:15 Patient was alert and cooperative for all therapy tasks. Patient was lying in his bed for the duration of treatment. Objective Patient completed safety awareness tasks pertaining to his discharge home with 90% accuracy with minimal cues. Assessment Assessment Current Status: Good Progress Treatment Plan Continue Plan of Care Speech Short Term Goals Short Term Goals Short Term Goals 1. Patient will complete memory tasks with 80% or greater accuracy with minimal cues. 2. Patient will complete problem-solving tasks with 80% or greater accuracy with minimal cues. 3. Patient will complete safety awareness tasks with 80% or greater accuracy with minimal cues. Speech School Bus Mechanic Goals [facility] Goals Patient will improve cognitive-communication necessary for safety and daily living tasks with minimal assist. Speech-Plan Patient/Family Goals Patient/Family Goals: Patient reports that he wishes to return home to previous level of independence and mobility. Treatment Plan Speech Therapy Treatment Plan: Continue Plan of Care Treatment Duration: Dec 10, 2019 Frequency: 4 times per week Estimated Hrs Per Day: .5 hour per day Rehab Potential: Fair Barriers to Learning: Mild cognitive deficits Pt/Family Agrees to Plan: Yes Safety Risks/Education Teaching Recipient: Patient Teaching Methods: Demonstration, Discussion Response to Teaching: Verbalize Understanding Education Topics Provided: Continuation of safety awareness strategies for when he is discharged from the ARU Time Speech Therapy Time In: 11:15 Speech Therapy Time Out: 11:45 Total Billed Time: 30 Billed Treatment Time 1, SLTS No QUALITY CODES EXPRESSION OF IDEAS/WANTS: 4 UNDERSTANDING VERBAL CONTENT: 4 BRIEF INTERVIEW OF MENTAL STATUS: YES REPETITION OF 3 WORDS: YES TEMPORAL ORIENTATION OF YEAR: CORRECT, MONTH: YES, DAY: YES RECALL OF SOCK: YES, COLOR: YES, BED: NO MEMORY/RECALL ABILITY OF CURRENT SEASON, ROOM NUMBER, AND THAT HE IS IN THE [facility] VANE[facility]AS Dec 09, 2019 14:19
--- NOTE | 2019-12-09 15:05 | PM&R Progress Note ---
Subjective HPI/CC On Admission Date Seen by Provider: Dec 09, 2019 Time Seen by Provider: 08:45 Subjective/Events-last exam Discharge planned for tomorrow. No BM until today after multiple laxatives given and he had not had a BM since 12/03/19. Pt feels pretty good about going home. Managed pretty well after his esophageal cancer surgery in 2009 so he is used to recovery at home. No falls reported. Reviewed therapy notes Checked meds and labs Conferred with chain forming machine operator of Systems General: Fatigue Musculoskeletal: leg pain Objective Exam Vital Signs Vital Signs Date Time Temp Pulse Resp B/P (MAP) Pulse Ox O2 Delivery O2 Flow Rate FiO2 12/09/19 15:35 37.3 87 14 119/74 (89) 98 Room Air Capillary Refill : Less Than 3 SecondsLess Than 3 Seconds General Appearance: No Apparent Distress, Anxious, Chronically ill, Thin HEENT: PERRL/EOMI, Normal ENT Inspection, Pharynx Normal Neck: Full Range of Motion, Normal Inspection, Non Tender, Supple, Carotid Bruit Respiratory: Chest Non Tender, Lungs Clear, Normal Breath Sounds, No Accessory Muscle Use, No Respiratory Distress, Decreased Breath Sounds Cardiovascular: Regular Rate, Rhythm, No Edema, No Gallop, No JVD, No Murmur, Normal Peripheral Pulses Gastrointestinal: Normal Bowel Sounds, No Organomegaly, No Pulsatile Mass, Non Tender, Soft Rectal: Deferred Back: Normal Inspection, No CVA Tenderness, No Vertebral Tenderness Extremity: Normal Capillary Refill, Normal Inspection, Normal Range of Motion (except right leg), Non Tender, No Calf Tenderness, No Pedal Edema Neurologic/Psychiatric: Alert, Oriented x3, No Motor/Sensory Deficits, screw machine operator single spindle II- XII Norm as Tested, Depressed Affect Skin: Normal Color, Warm/Dry Lymphatic: No Adenopathy Results/Procedures Lab Patient resulted labs reviewed. FIM Transfers Therapy Code Descriptions/Definitions Functional [place] Measure: 0=Not Assessed/NA 4=Minimal Assistance 1=Total Assistance 5=Supervision or Setup 2=Maximal Assistance 6=Modified [place] 3=Moderate Assistance 7=Complete IndependenceSCALE: Activities may be completed with or without assistive devices. 9-Nufxecbmvm-vuobbdd completes the activity by him/herself with no assistance from a helper. 5-Set-up or Clean-up Assistance-helper sets up or cleans up; patient completes activity. [place] assists only prior to or following the activity. 4-Supervision or Touching Assistance-helper provides verbal cues and/or touching/steadying and/or contact guard assistance as patient completes activity. Assistance may be provided throughout the activity or intermittently. 3-Partial/Moderate Assistance-helper does LESS THAN HALF the effort. [place] lifts, holds or supports trunk or limbs, but provides less than half the effort. 2-Substantial/Maximal Assistance-helper does MORE THAN HALF the effort. [place] lifts or holds trunk or limbs and provides more than half the effort. 4-Aacybmfrk-dightx does ALL the effort. Patient does none of the effort to complete the activity. Or, the assistance of 2 or more helpers is required for the patient to complete the activity. If activity was not attempted, code reason: 7-Patient Refused. 9-Not Applicable-not attempted and the patient did not perform the activity before the current illness, exacerbation or injury. 10-Not Attempted due to Environmental Limitations-(lack of equipment, weather restraints, etc.). 88-Not Attempted due to Medical Conditions or Safety Concerns. Roll Left to Right (QC): 6 Sit to Lying (QC): 6 Sit to Stand (QC): 6 Chair/Npm-bb-Ngasm Xfer(QC): 6 Car Transfer (QC): 6 Gait Training Does the Patient Walk?: Yes Distance: 400' Walk 10 feet (QC): 6 Walk 50 ft with 2 Turns(QC): 6 Walk 150 ft (QC): 6 Walking 10ft/uneven surface-QC: 6 Gait Persons Needed: 1 Gait Assistive Device: FWW Wheelchair Training Does the Pt Use a Wheelchair?: No Wheel 50 ft with 2 turns (QC): 10 Wheel 150 ft (QC): 10 Stair Training Stair Training: Handrails/: 2 handrails #of Steps: 8 1 Step (curb) (QC): 6 4 Steps (QC): 6 12 Steps (QC): 7 Stairs: Pattern: Step to Balance Picking up an Object (QC): 88 ADL-Treatment Eating (QC): 6 Oral Hygiene (QC): 6 (Pt stands at sink and completes mouth wash.) Shower/Bathe Self (QC): 5 (s/u for wash cloths ) Upper Body Dressing (QC): 6 Lower Body Dressing (QC): 4 (SUP, good use of AE.) On/Off Footwear (QC): 6 (sock aide utilized.) Toileting Hygiene (QC): 6 (completes in bathroom in sitting and stance. Increased time for thoroughness.) Toilet Transfer (QC): 6 (to commode.) Assessment/Plan Assessment and Plan Assess & Plan/Chief Complaint Assessment: Right hip fracture Esophageal cancer 2010 in remission Cognitive deficiency? low SLUMS noted on assessment needs repeated today DM Hypothyroidism Acute blood loss anemia requiring blood transfusion 2 units 12/02/19 now on iron infusions CRI Impulsiveness Chronic cough possibly related to esophageal CA procedure 2009 Plan: IRF protocol 31/05 Venofer until completed Nebs IS Pain control without narcs since intolerant SLUMS much improved DC tomorrow (1) Closed impacted fracture of right hip Status: Acute (2) Acute blood loss anemia (3) Hypothyroidism (4) Diabetes mellitus (5) COPD (chronic obstructive pulmonary disease) SHERIN LOWERY DO Dec 09, 2019 15:05
--- NOTE | 2019-12-09 15:12 | NUR ---
CM/SS DISCHARGE PLANNING for 12/10/19 Patient requested to leave tomorrow, final plans were negotiated for post hospital care. Patient's ex spouse Maggy will take patient to her home, her residential policy allows her to have a guest for about 14 days. She indicates she sleeps in a hospital bed and has a roll-away patient can use. They seem in agreement to this arrangement. The friend who is managing pet care will continue. Supervisor Tank Storage confirmed all post hospital services are covered under the [employer] Work Comp plan and involved agencies have been informed to bill to the following: [facility] ~ Work Comp [address] [place] [address] Supervisor Filter Assembly, Lidia Ashley PH: [phone], Ext [phone] FX: [phone] DME: Coordinated FWW and Hip Kit through [facility], will be delivered to patient room in a.m. prior to his dismissal. OP PT: Arranged with their preferred agency, [facility] in [facility], first appointment 12/13/19; documented on discharge instructions. All arrangements appear finalized, will followup in a.m. for any unforeseen needs. Maggy will be here mid to late afternoon.
--- NOTE | 2019-12-09 15:32 | NUR ---
PER BELÉN BLANDON TO REMOVE STERI STRIPS ON 12/10/2019. PLEASE MAKE SURE TO USE MASTISOL AND STERI STRIPS. Addendum: 12/09/19 at 1854 by RACHELLE THOMAS RN JAMIA TO REMOVE KEY[place] ON 12/10/2019.
[2019-12-09 15:35] VITALS: BP 119/74
[2019-12-09] MEDS: ENOXAPARIN 40 MG/0.4 ML (LOVENOX) SYR SC SCH (17:22)
[2019-12-09] MEDS: RT-ADVAIR HFA 115/21 MCG PER PUFF IH SCH (18:17)
[2019-12-09] MEDS: ACETAMINOPHEN 500 MG TAB (TYLENOL) PO PRN (19:25)
[2019-12-09] MEDS: POLYETHYLENE GLYCOL 17 GM (MIRALAX) PACK PO SCH (20:09)
[2019-12-09] MEDS: SIMvastatin 10 MG (ZOCOR) TAB PO SCH (20:09)
[2019-12-09] MEDS: MONTELUKAST 10 MG (SINGULAIR) TAB PO SCH (20:09)
[2019-12-10] MEDS: glipiZIDE 5 MG (GLUCOTROL) TAB PO SCH (05:56)
[2019-12-10] MEDS: LEVOTHYROXINE 50 MCG (LEVOTHROID) TAB PO SCH (05:56)
[2019-12-10] MEDS: CATHETER FLUSH 10 ML SYR IV SCH (05:56)
[2019-12-10 06:07] VITALS: BP 118/75
--- NOTE | 2019-12-10 08:55 | Discharge Summary ---
Diagnosis/Chief Complaint Date of Admission Dec 01, 2019 at 11:30 Date of Discharge Discharge Date: Dec 10, 2019 Discharge Diagnosis Assessment: Right hip fracture Esophageal cancer 2010 in remission Cognitive deficiency? low SLUMS noted on assessment needs repeated today DM Hypothyroidism Acute blood loss anemia requiring blood transfusion 2 units 12/02/19 now on iron infusions CRI Impulsiveness Chronic cough possibly related to esophageal CA procedure 2009 Plan: IRF protocol 31/05 Venofer until completed Nebs IS Pain control without narcs since intolerant SLUMS much improved DC today (1) Closed impacted fracture of right hip Status: Acute (2) Acute blood loss anemia (3) Hypothyroidism (4) Diabetes mellitus (5) COPD (chronic obstructive pulmonary disease) Discharge Summary Discharge Physical Examination Allergies: Coded Allergies: hydrocodone (Verified Allergy, Unknown, 11/26/19) Vitals & I&Os Vital Signs Date Time Temp Pulse Resp B/P (MAP) Pulse Ox O2 Delivery O2 Flow Rate FiO2 12/10/19 13:40 12/10/19 09:44 97 Room Air 12/10/19 06:07 37.0 84 20 General Appearance: Alert Respiratory: Clear to Auscultation Cardiovascular: Regular Rate Neuro: Normal Gait, Normal Speech, Strength at 5/5 X4 Ext Psych/Mental Status: Mental Status NL Hospital Course Was the Problem List Reviewed?: Yes Hospital Course: Pt had an uneventful [facility]. Pt had severe delirium and decompensation with pain medication and had been historically a problem so he was able to manage with Mobic 7.5mg twice a day, scheduled Tylenol, along with Morphine very low dose as needed. Bowels function returned back to normal after multiple laxatives given. Pt completed IV iron infusions for severe iron deficiency and anemia which he responded with Hgb 10.5 at time of DC. Overall he was able to participate in all therapies, delirium cleared, slum score was repeated and went from 9 to 26 after I told him it is important to perform well on that in order to go home. He was deemed stable for DC, four wheel walker was ordered, and outpatient PT was ordered. Pt was in improved condition and will do well at home. Labs (last 24 hrs) Laboratory Tests 12/02/19 04:56: White Blood Count 5.0, Red Blood Count 2.27L, Hemoglobin 6.8*L, Hematocrit 22L, Mean Corpuscular Volume 98, Mean Corpuscular Hemoglobin 30, Mean Corpuscular Hemoglobin Concent 31L, Red Cell Distribution Width 13.6, Platelet Count 165, Mean Platelet Volume 9.3, Neutrophils (%) (Auto) 66, Lymphocytes (%) (Auto) 20, Monocytes (%) (Auto) 11, Eosinophils (%) (Auto) 3, Basophils (%) (Auto) 0, Neutrophils # (Auto) 3.3, Lymphocytes # (Auto) 1.0, Monocytes # (Auto) 0.5, Eosinophils # (Auto) 0.2, Basophils # (Auto) 0.0, Sodium Level 138, Potassium Level 3.8, Chloride Level 105, Carbon Dioxide Level 24, Anion Gap 9, Blood Urea Nitrogen 13, Creatinine 1.32H, Estimat Glomerular Filtration Rate 55, BUN/Creatinine Ratio 10, Glucose Level 137H, Calcium Level 8.5, Corrected Calcium 9.5, Total Bilirubin 0.5, Aspartate Amino Transf (AST/SGOT) 18, Alanine Aminotransferase (ALT/SGPT) 10, Alkaline Phosphatase 65, Total Protein 4.8L, Albumin 2.7L 12/03/19 06:33: Glucometer 89 12/03/19 07:32: White Blood Count 5.5, Red Blood Count 3.01L, Hemoglobin 9.1#L, Hematocrit 28L, Mean Corpuscular Volume 94, Mean Corpuscular Hemoglobin 30, Mean Corpuscular Hemoglobin Concent 32, Red Cell Distribution Width 15.8H, Platelet Count 212, Mean Platelet Volume 9.3, Neutrophils (%) (Auto) 70, Lymphocytes (%) (Auto) 18, Monocytes (%) (Auto) 10, Eosinophils (%) (Auto) 3, Basophils (%) (Auto) 0, Neutrophils # (Auto) 3.8, Lymphocytes # (Auto) 1.0, Monocytes # (Auto) 0.5, Eosinophils # (Auto) 0.2, Basophils # (Auto) 0.0, Sodium Level 140, Potassium Level 3.7, Chloride Level 106, Carbon Dioxide Level 25, Anion Gap 9, Blood Urea Nitrogen 14, Creatinine 1.30, Estimat Glomerular Filtration Rate 56, BUN/Creatinine Ratio 11, Glucose Level 83, Calcium Level 8.5, Corrected Calcium 9.5, Total Bilirubin 0.8, Aspartate Amino Transf (AST/SGOT) 23, Alanine Aminotransferase (ALT/SGPT) 13, Alkaline Phosphatase 83, Total Protein 5.1L, Albumin 2.8L 12/04/19 05:31: Glucometer 68L 12/04/19 16:03: Glucometer 177H 12/05/19 06:11: Glucometer 133H 12/05/19 15:58: Glucometer 247H 12/06/19 04:27: White Blood Count 4.8, Red Blood Count 3.19L, Hemoglobin 10.0L, Hematocrit 31L, Mean Corpuscular Volume 98, Mean Corpuscular Hemoglobin 31, Mean Corpuscular Hemoglobin Concent 32, Red Cell Distribution Width 15.4H, Platelet Count 266, Mean Platelet Volume 9.4, Neutrophils (%) (Auto) 47, Lymphocytes (%) (Auto) 37, Monocytes (%) (Auto) 12, Eosinophils (%) (Auto) 4, Basophils (%) (Auto) 1, Neutrophils # (Auto) 2.2, Lymphocytes # (Auto) 1.8, Monocytes # (Auto) 0.6, Eosinophils # (Auto) 0.2, Basophils # (Auto) 0.0, Sodium Level 141, Potassium Level 4.3, Chloride Level 106, Carbon Dioxide Level 26, Anion Gap 9, Blood Urea Nitrogen 15, Creatinine 1.36H, Estimat Glomerular Filtration Rate 53, BUN/Creatinine Ratio 11, Glucose Level 137H, Calcium Level 8.6, Corrected Calcium 9.5, Total Bilirubin 0.4, Aspartate Amino Transf (AST/SGOT) 31, Alanine Aminotransferase (ALT/SGPT) 18, Alkaline Phosphatase 91, Total Protein 5.1L, Albumin 2.9L 12/06/19 17:07: Glucometer 246H 12/07/19 06:28: Glucometer 139H 12/07/19 17:02: Glucometer 245H 12/08/19 06:20: Glucometer 178H 12/08/19 17:44: Glucometer 264H 12/09/19 06:09: Glucometer 187H 12/09/19 15:17: Glucometer 247H 12/10/19 05:56: Glucometer 178H Pending Labs Laboratory Tests 12/02/19 04:56: White Blood Count 5.0, Red Blood Count 2.27, Hemoglobin 6.8, Hematocrit 22, Mean Corpuscular Volume 98, Mean Corpuscular Hemoglobin 30, Mean Corpuscular Hemoglobin Concent 31, Red Cell Distribution Width 13.6, Platelet Count 165, Mean Platelet Volume 9.3, Neutrophils (%) (Auto) 66, Lymphocytes (%) (Auto) 20, Monocytes (%) (Auto) 11, Eosinophils (%) (Auto) 3, Basophils (%) (Auto) 0, Neutrophils # (Auto) 3.3, Lymphocytes # (Auto) 1.0, Monocytes # (Auto) 0.5, Eosinophils # (Auto) 0.2, Basophils # (Auto) 0.0, Sodium Level 138, Potassium Level 3.8, Chloride Level 105, Carbon Dioxide Level 24, Anion Gap 9, Blood Urea Nitrogen 13, Creatinine 1.32, Estimat Glomerular Filtration Rate 55, BU N/Creatinine Ratio 10, Glucose Level 137, Calcium Level 8.5, Corrected Calcium 9.5, Total Bilirubin 0.5, Aspartate Amino Transf (AST/SGOT) 18, Alanine Aminotransferase (ALT/SGPT) 10, Alkaline Phosphatase 65, Total Protein 4.8, Albumin 2.7 12/03/19 06:33: Glucometer 89 12/03/19 07:32: White Blood Count 5.5, Red Blood Count 3.01, Hemoglobin 9.1, Hematocrit 28, Mean Corpuscular Volume 94, Mean Corpuscular Hemoglobin 30, Mean Corpuscular Hemoglobin Concent 32, Red Cell Distribution Width 15.8, Platelet Count 212, Mean Platelet Volume 9.3, Neutrophils (%) (Auto) 70, Lymphocytes (%) (Auto) 18, Monocytes (%) (Auto) 10, Eosinophils (%) (Auto) 3, Basophils (%) (Auto) 0, Neutrophils # (Auto) 3.8, Lymphocytes # (Auto) 1.0, Monocytes # (Auto) 0.5, Eosinophils # (Auto) 0.2, Basophils # (Auto) 0.0, Sodium Level 140, Potassium Level 3.7, Chloride Level 106, Carbon Dioxide Level 25, Anion Gap 9, Blood Urea Nitrogen 14, Creatinine 1.30, Estimat Glomerular Filtration Rate 56, BUN/Creati nine Ratio 11, Glucose Level 83, Calcium Level 8.5, Corrected Calcium 9.5, Total Bilirubin 0.8, Aspartate Amino Transf (AST/SGOT) 23, Alanine Aminotransferase (ALT/SGPT) 13, Alkaline Phosphatase 83, Total Protein 5.1, Albumin 2.8 12/04/19 05:31: Glucometer 68 12/04/19 16:03: Glucometer 177 12/05/19 06:11: Glucometer 133 12/05/19 15:58: Glucometer 247 12/06/19 04:27: White Blood Count 4.8, Red Blood Count 3.19, Hemoglobin 10.0, Hematocrit 31, Mean Corpuscular Volume 98, Mean Corpuscular Hemoglobin 31, Mean Corpuscular Hemoglobin Concent 32, Red Cell Distribution Width 15.4, Platelet Count 266, Mean Platelet Volume 9.4, Neutrophils (%) (Auto) 47, Lymphocytes (%) (Auto) 37, Monocytes (%) (Auto) 12, Eosinophils (%) (Auto) 4, Basophils (%) (Auto) 1, Neutrophils # (Auto) 2.2, Lymphocytes # (Auto) 1.8, Monocytes # (Auto) 0.6, Eosinophils # (Auto) 0.2, Basophils # (Auto) 0.0, Sodium Level 141, Potassium Level 4.3, Chloride Level 106, Carbon Dioxide Level 26, Anion Gap 9, Blood Urea Nitrogen 15, Creatinine 1.36, Estimat Glomerular Filtration Rate 53, BUN/Creatinine Ratio 11, Glucose Level 137, Calcium Level 8.6, Corrected Calcium 9.5, Total Bilirubin 0.4, Aspartate Amino Transf (AST/SGOT) 31, Alanine Aminotransferase (ALT/SGPT) 18, Alkaline Phosphatase 91, Total Protein 5.1, Albumin 2.9 12/06/19 17:07: Glucometer 246 12/07/19 06:28: Glucometer 139 12/07/19 17:02: Glucometer 245 12/08/19 06:20: Glucometer 178 12/08/19 17:44: Glucometer 264 12/09/19 06:09: Glucometer 187 12/09/19 15:17: Glucometer 247 12/10/19 05:56: Glucometer 178 Discharge Home Medications: Active Scripts Active Glipizide 5 Mg Tablet 5 Mg PO DBID Reported Diphen (Diphenhydramine HCl) 25 Mg Tablet 25 Mg PO BID PRN Omeprazole 20 Mg Capsule.dr 20 Mg PO DAILY Acetaminophen 500 Mg Tablet 1,000 Mg PO Q8H PRN Iron (Ferrous Sulfate) 325 Mg Tablet 325 Mg PO DAILY Vitamin B Complex Tablet (Vit B Comp/C/FA/Iron/Vit E) 1 Each Tablet 1 Each PO DAILY Multi-Vitamin Daily (Multivitamin) 1 Each Tablet 1 Each PO DAILY Metformin HCl 1,000 Mg Tablet 1,000 Mg PO BIDPC Citalopram HBr (Citalopram Hydrobromide) 40 Mg Tablet 40 Mg PO DAILY Levothyroxine Sodium 50 Mcg Tablet 50 Mg PO DAILY Simvastatin 10 Mg Tablet 10 Mg PO HS Instructions to patient/family Please see electronic discharge instructions given to patient. Diagnosis/Problems Diagnosis/Problems (1) Closed impacted fracture of right hip Status: Acute (2) Acute blood loss anemia (3) Hypothyroidism (4) Diabetes mellitus (5) COPD (chronic obstructive pulmonary disease) Clinical Quality Measures DVT/VTE Risk/Contraindication: Risk Factor Score Per Nursin RFS Level Per Nursing on Admit: 4+=Very High SHERIN LOWERY DO Dec 10, 2019 08:55
[2019-12-10] MEDS: MELOXICAM 7.5 MG (MOBIC) TABLET PO SCH (09:18)
[2019-12-10] MEDS: DOCUSATE SODIUM 100 MG (COLACE) CAP PO SCH (09:18)
[2019-12-10] MEDS: SENNA W/DOCUSATE (SENOKOT S) TABLET PO SCH (09:19)
--- NOTE | 2019-12-10 09:25 | Therapy Team Discharge Summary ---
Therapy Discharge Summary Discharge Recommendations Date of Discharge Physical Therapy Patient came to rehab following a hip fracture. Upon evaluation patient performed bed mobility with min assist, sit <-> stand and transfers with CGA, car transfer min assist, ambulated 30' with a rolling walker with CGA, and went up and down 1 step using a rolling walker with CGA. Patient has been performing bed mobility and transfer training, balance and endurance training, functional strengthening, stair training, gait training, and education. 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 Now, patient performs bed mobility and transfers with independence, independent with car transfer, ambulates 300' with a rolling walker with independence (including 50' with at least 2 turns of 90 degrees and 10' over an uneven surface), and can go up and down 8 steps using 2 handrails with independence. Patient is discharging from this facility today and will be discharged from PT at this time. Occupational Therapy Decreased Activ Tolerance, Impaired I ADL's PT Glass Carrier Goals Glass Carrier Goals PT Glass Carrier Goals Time Frame: Dec 22, 2019 Roll Left to Right (QC): 6 Sit to Lying (QC): 6 Lying-Sitting on Side/Bed(QC): 6 Sit to Stand (QC): 6 Chair/Dvr-ez-Ieapv Xfer(QC): 6 Car Transfer (QC): 6 Does the Patient Walk: Yes Walk 10 feet (QC): 6 Walk 10ft-Uneven Surface(QC): 6 Walk 50ft with 2 Turns (QC): 6 Walk 150 ft (QC): 6 Does the Pt use WC or Scooter?: No 1 Step (curb) (QC): 6 4 Steps (QC): 6 OT Glass Carrier Goals Shelter Goals Time Frame: Dec 22, 2019 Eating (QC): 6 (met) Oral Hygiene (QC): 6 (met) Shower/Bathe Self (QC): 5 (met) Upper Body Dressing (QC): 6 (met) Lower Body Dressing (QC): 5 On/Off Footwear (QC): 6 (met) Toileting Hygiene (QC): 6 (met) Toilet/Commode Transfer (QC): 6 Additional Goals: 1-Demonstrate ADL Tasks, 2-Verbalize Understanding, 3- ImproveStrength/Justino 1=Demonstrate adherence to instructed precautions during ADL tasks. 2=Patient will verbalize/demonstrate understanding of assistive devices/modifications for ADL. 3=Patient will improve strength/tolerance for activity to enable patient to perform ADL's. Speech Shelter Goals Glass Carrier Goals Patient will improve cognitive-communication necessary for safety and daily living tasks with minimal assist. SUPA EMERY PT Dec 10, 2019 09:25
--- NOTE | 2019-12-10 09:28 | Therapy Team Discharge Summary ---
Therapy Discharge Summary Discharge Recommendations Date of Discharge Occupational Therapy Decreased Activ Tolerance, Impaired I ADL's Speech-Language Pathology Patient was admitted to the ARU s/p hip injury. Patient received skilled ST services based on initial evaluation score of the SLUMS falling within the moderate range of cognitive functions. Patient has made excellent progress and resolved deficits in the areas of memory, problem-solving, and safety awareness. Patient is discharging from the ARU today and is discharged from skilled ST ser vices. PT Fci Goals Fci Goals PT Fci Goals Time Frame: Dec 22, 2019 Roll Left to Right (QC): 6 Sit to Lying (QC): 6 Lying-Sitting on Side/Bed(QC): 6 Sit to Stand (QC): 6 Chair/Zyb-fq-Kvmde Xfer(QC): 6 Car Transfer (QC): 6 Does the Patient Walk: Yes Walk 10 feet (QC): 6 Walk 10ft-Uneven Surface(QC): 6 Walk 50ft with 2 Turns (QC): 6 Walk 150 ft (QC): 6 Does the Pt use WC or Scooter?: No 1 Step (curb) (QC): 6 4 Steps (QC): 6 OT Fci Goals Fci Goals Time Frame: Dec 22, 2019 Eating (QC): 6 (met) Oral Hygiene (QC): 6 (met) Shower/Bathe Self (QC): 5 (met) Upper Body Dressing (QC): 6 (met) Lower Body Dressing (QC): 5 On/Off Footwear (QC): 6 (met) Toileting Hygiene (QC): 6 (met) Toilet/Commode Transfer (QC): 6 Additional Goals: 1-Demonstrate ADL Tasks, 2-Verbalize Understanding, 3- ImproveStrength/Justino 1=Demonstrate adherence to instructed precautions during ADL tasks. 2=Patient will verbalize/demonstrate understanding of assistive devices/modifications for ADL. 3=Patient will improve strength/tolerance for activity to enable patient to perform ADL's. Speech Dental Scheduler Goals Fci Goals Patient will improve cognitive-communication necessary for safety and daily living tasks with minimal assist. MET COLUMBA VANEGAS Dec 10, 2019 09:28
[2019-12-10] MEDS: RT-ADVAIR HFA 115/21 MCG PER PUFF IH SCH (09:44)
--- NOTE | 2019-12-10 10:09 | Therapy Team Discharge Summary ---
Therapy Discharge Summary Discharge Recommendations Date of Discharge Occupational Therapy Pt admitted to ARU following acute hospitalization for right hip fracture. On admission pt required max assist for LE dressing, min assist for toileting and bathing, and SBA for UE dressing. Skilled OT intervention focused on ADL training, transfers, strengthening, and adaptive equipment education. Pt progressed with therapy and by discharge is completing eating, oral care, UE dressing, footwear, toileting, and toilet transfers with modified independence. Pt requires set up for bathing, and supervision for LE dressing using adaptive equipment. Pt met all OT LTG except LE dressing. Pt is discharging from facility this date. D/c ARU OT at this time. Decreased Activ Tolerance, Impaired I ADL's PT Film Painter Goals Film Painter Goals PT Assisted Goals Time Frame: Dec 22, 2019 Roll Left to Right (QC): 6 Sit to Lying (QC): 6 Lying-Sitting on Side/Bed(QC): 6 Sit to Stand (QC): 6 Chair/Wec-rz-Lpicc Xfer(QC): 6 Car Transfer (QC): 6 Does the Patient Walk: Yes Walk 10 feet (QC): 6 Walk 10ft-Uneven Surface(QC): 6 Walk 50ft with 2 Turns (QC): 6 Walk 150 ft (QC): 6 Does the Pt use WC or Scooter?: No 1 Step (curb) (QC): 6 4 Steps (QC): 6 OT Assisted Goals Film Painter Goals Time Frame: Dec 22, 2019 Eating (QC): 6 (met) Oral Hygiene (QC): 6 (met) Shower/Bathe Self (QC): 5 (met) Upper Body Dressing (QC): 6 (met) Lower Body Dressing (QC): 5 On/Off Footwear (QC): 6 (met) Toileting Hygiene (QC): 6 (met) Toilet/Commode Transfer (QC): 6 Additional Goals: 1-Demonstrate ADL Tasks, 2-Verbalize Understanding, 3- ImproveStrength/Justino 1=Demonstrate adherence to instructed precautions during ADL tasks. 2=Patient will verbalize/demonstrate understanding of assistive devices/modifications for ADL. 3=Patient will improve strength/tolerance for activity to enable patient to perform ADL's. Speech Assisted Goals Film Painter Goals Patient will improve cognitive-communication necessary for safety and daily lucero ng tasks with minimal assist. MET ALYSON FRANCO OT Dec 10, 2019 10:09
--- NOTE | 2019-12-10 13:26 | Cardiology Progress Note ---
Subjective Date Seen by Provider: Dec 10, 2019 Time Seen by Provider: 11:00 Subjective/Events-last exam Patient was seen at bedside, laying down comfortably no new complaint Review of Systems General: No Chills, No Night Sweats, No Fatigue, No Malaise, No Appetite, No Other HEENT: No Head Aches, No Visual Changes, No Eye Pain, No Ear Pain, No Dysphasia, No Sinus Congestion, No Post Nasal Drip, No Sore Throat, No Other Pulmonary: No Dyspnea, No Cough, No Pleuritic Chest Pain, No Other Cardiovascular: No: Chest Pain, Palpitations, Orthopnea, Paroxysmal Noc. Dyspnea, Edema, Lt Headedness, Other Objective-Cardiology Exam Last Set of Vital Signs Vital Signs 12/10/19 12/10/19 06:07 09:44 Temp 37.0 Pulse 84 Resp 20 B/P (MAP) 118/75 (89) Pulse Ox 97 O2 Delivery Room Air Capillary Refill : Less Than 3 SecondsLess Than 3 Seconds I&O Intake and Output 12/10/19 00:00 Intake Total 1076 ml Output Total 1825 ml Balance -749 ml Intake Oral 1076 ml Output Urine Total 1825 ml # Bowel Movements 2 General: Alert, Oriented X3, Cooperative HEENT: Atraumatic, PERRLA Neck: Supple, No JVD, No Thyromegaly Lungs: Clear to Auscultation, Normal Air Movement Heart: Regular Rate, Normal S1, Normal S2, No Murmurs Abdomen: Normal Bowel Sounds, Soft, No Tenderness, No Hepatosplenomegaly, No Masses Extremities: No Clubbing, No Cyanosis, No Edema, Normal Pulses, No Tenderness/Swelling Skin: No Rashes, No Breakdown, No Significant Lesion Neuro: Normal Gait, Normal Speech, Strength at 5/5 X4 Ext, Normal Tone, Sens ation Intact Psych/Mental Status: Mental Status NL, Mood NL A/P-Cardiology Admission Diagnosis Abnormal EKG Tachycardia Post op anemia Hip fx Assessment/Plan Abnormal EKG with left anterior fascicular block, T-wave inversion in anterior lead, asymptomatic at this time. Sinus tachycardia, resolved. Okay for discharge and follow-up as an outpatient Hip fracture, status post surgical repair, recovering slowly. Post op anemia, improved. Continue to monitor H&H Diabetes mellitus, followed and managed by primary care physician Constipation, management per PCP Clinical Quality Measures DVT/VTE Risk/Contraindication: Risk Factor Score Per Nursin RFS Level Per Nursing on Admit: 4+=Very High LAURENCE RICHEY MD Dec 10, 2019 1:26 pm
== END 2019-12-10 13:40 | disposition home or self-care (01) | DRG 560 ==
PROVIDERS: ADMIT Internal Medicine; ATTEND Internal Medicine
DX: S72.001D Fracture of unspecified part of neck of right femur, subsequent encounter for closed fracture with routine healing (principal); D62 Acute posthemorrhagic anemia; E11.9 Type 2 diabetes mellitus without complications; J44.9 Chronic obstructive pulmonary disease, unspecified; I12.9 Hypertensive chronic kidney disease with stage 1 through stage 4 chronic kidney disease, or unspecified chronic kidney disease; N18.9 Chronic kidney disease, unspecified; R41.0 Disorientation, unspecified; K59.00 Constipation, unspecified; I44.4 Left anterior fascicular block; R00.0 Tachycardia, unspecified; R15.9 Full incontinence of feces; R45.87 Impulsiveness; F41.9 Anxiety disorder, unspecified; F32.9 Major depressive disorder, single episode, unspecified; E03.9 Hypothyroidism, unspecified; M19.91 Primary osteoarthritis, unspecified site; R05 Cough; Z79.84 Long term (current) use of oral hypoglycemic drugs; Z85.01 Personal history of malignant neoplasm of esophagus; W19.XXXD Unspecified fall, subsequent encounter
CPT/HCPCS: 36415; 80053; 82962; 85025; 86850; 86900; 86901; 86920; 94640; 94760

== ENCOUNTER → 2020-03-20 | Outpatient (CLI) | payer SELFPAY ==
[~2020-03-20] MED LIST changes: +GLIP5TAB13 PO; -MONT10TA24 PO; +MONT10TA26 PO; -OMEP-280 PO; +OMEP20CA18 PO
== END ==
LOC: LAB FS 14:01
PROVIDERS: ATTEND Family Medicine
DX: E11.9 Type 2 diabetes mellitus without complications (principal)
CPT/HCPCS: 36415; 83036

== ENCOUNTER → 2020-10-25 | Outpatient (CLI) | payer MEDICARE ==
[~2020-10-25] MED LIST changes: -MONT10TA26 PO; +MONT10TA97 PO
== END ==
LOC: LAB FS 14:46
PROVIDERS: ATTEND Family Medicine
DX: E03.9 Hypothyroidism, unspecified (principal)
CPT/HCPCS: 36415; 84443

== ENCOUNTER 2021-03-16 13:04 | Emergency (ER) | payer MEDICARE ==
[~2021-03-16 13:04] MED LIST changes: +MONT10TA32 PO; -MONT10TA97 PO
[2021-03-16 13:16] VITALS: BP 107/58
--- NOTE | 2021-03-16 13:43 | Diagnostic Imaging Report ---
PATIENT HISTORY: Trauma. Left chest pain. TECHNIQUE: Two views of the chest. COMPARISON: 11/29/2019 FINDINGS: The lung volumes are normal. No focal consolidation is seen. No large pleural effusion or pneumothorax is seen. The cardiomediastinal silhouette is normal in size and contour. No displaced rib fracture is seen. IMPRESSION: No displaced rib fracture is seen. No acute pulmonary abnormality seen. Dictated by: Dictated on workstation # [id number]
--- NOTE | 2021-03-16 13:45 | Diagnostic Imaging Report ---
INDICATION: Fall with left hand injury. Time of exam 1:31 p.m. Three views of the left hand were obtained. There is a dislocation at the PIP joint of the fourth finger. Middle phalanx is dislocated ulnarly in relation to the proximal phalanx. No definite fracture is seen. Remaining phalanges are intact. Metacarpals are intact. IMPRESSION: Fourth finger dislocation at the PIP joint, as described. No acute bony abnormality is detected. Dictated by: Dictated on workstation # [id number]
--- NOTE | 2021-03-16 13:57 | ED Upper Extremity ---
General Chief Complaint: Trauma-Non Activation Stated Complaint: FALL; LT HAND/CHEST INJ Nursing Triage Note: Dog pulled on leash and made patient fall approx 1 hour ago. Landed on chest and left hand. Has abrasion to central chest that is tender to palpation. Denies shortness of breath. Left 4th finger is deformed and painful. Pain rated at 5/10. Nursing Sepsis Screen: No Definite Risk Source: patient History of Present Illness Date Seen by Provider: Mar 16, 2021 Time Seen by Provider: 13:10 Initial Comments Patient is a left-handed male who presents with left ring finger deformity and chest wall pain after falling 3 hours prior to ED arrival. Patient denies hitting his head loss of consciousness headache or neck pain. Reports mild right parasternal chest wall tenderness but no shortness of breath or pain with deep breathing. Patient has an obvious deformity with angulation of left ring finger with deviation at the PIP joint. No other symptoms or complaints. Location Injury Occurred: Home Onset: just prior to arrival Severity: mild Pain/Injury Location: left 4th finger Method of Injury: fell Modifying Factors: Improves With Other Allergies and Home Medications Allergies Coded Allergies: hydrocodone (Verified Allergy, Unknown, 11/26/19) Home Medications Acetaminophen 500 Mg Tablet, 1,000 MG PO Q8H PRN for PAIN-MILD (1-4), (Reported) Citalopram Hydrobromide 40 Mg Tablet, 40 MG PO DAILY, (Reported) Diphenhydramine HCl 25 Mg Tablet, 25 MG PO BID PRN for ALLERGY SYMPTOMS, (Reported) Ferrous Sulfate 325 Mg Tablet, 325 MG PO DAILY, (Reported) Glipizide 5 Mg Tablet, 5 MG PO DBID Prescribed by: SHERIN LOWERY on 12/08/191949 Levothyroxine Sodium 50 Mcg Tablet, 50 MG PO DAILY, (Reported) Metformin HCl 1,000 Mg Tablet, 1,000 MG PO BIDPC, (Reported) Multivitamin 1 Each Tablet, 1 EACH PO DAILY, (Reported) Omeprazole 20 Mg Capsule.dr, 20 MG PO DAILY, (Reported) Simvastatin 10 Mg Tablet, 10 MG PO HS, (Reported) Vit B Comp/C/FA/Iron/Vit E 1 Each Tablet, 1 EACH PO DAILY, (Reported) Patient Home Medication List Home Medication List Reviewed: Yes Review of Systems Constitutional: see HPI EENTM: see HPI Respiratory: see HPI Cardiovascular: see HPI Gastrointestinal: see HPI Musculoskeletal: see HPI Skin: see HPI Psychiatric/Neurological: See HPI All Other Systems Reviewed Negative Unless Noted: Yes Past Yhmhcne-Okrbni-Sqbjku Hx Patient Social History Alcohol Use: Denies Use Smoking Status: Never a Smoker 2nd Hand Smoke Exposure: No Recent Infectious Disease Expo: No Recent Hopitalizations: No Immunizations Up To Date Tetanus Booster (TDap): Unknown PED Vaccines UTD: Yes Date of Pneumonia Vaccine: Dec 27, 2018 Seasonal Allergies Seasonal Allergies: No Past Medical History Surgeries: Yes Nose, Orthopedic Respiratory: No Currently Using CPAP: No Currently Using BIPAP: No Cardiac: No Hypertension Neurological: No Genitourinary: No Gastrointestinal: No Musculoskeletal: No Arthritis Endocrine: Yes Hypothyroidsim, Diabetes, Non-Insulin dep HEENT: No Cancer: Yes Esophageal What Type of Treatment Did You: Chemotherapy, Radiation, Surgical Intervention Psychosocial: No Integumentary: No Blood Disorders: No Adverse Reaction/Blood Tranf: No Family Medical History Patient reports no known family medical history. Physical Exam Vital Signs Vital Signs - First Documented 03/16/21 03/16/21 13:14 13:16 Temp 36.4 Pulse 114 Resp 18 B/P (MAP) 107/58 (74) Pulse Ox 97 O2 Delivery Room Air Capillary Refill : Less Than 3 Seconds Height, Weight, BMI Height: '" Weight: lbs. oz. kg; 23.75 BMI Method: General Appearance: WD/WN, no apparent distress Cardiovascular: normal peripheral pulses, other (No chest wall tenderness or crepitus.) Respiratory: chest non-tender, lungs clear, normal breath sounds Wrist: Yes normal inspection, Yes non-tender Hand: non-tender, no evidence of injury, Left (Ring finger deformity with angulation starting at the PIP) Neurologic/Tendon: normal sensation, normal motor functions Neurologic/Psychiatric: alert, abnormal cerebellar tests Procedures/Interventions Splinting and Joint Reduction : Location: Left ring finger Pre-Proc Neuro Vasc Exam: normal Post-Proc Neuro Vasc Exam: normal Progress Successful reduction with traction countertraction on first attempt. No anesthe roberto carlos required. Reduction Attempts: 1 Pre-Procedure NV Exam: Yes post joint reduction film: joint reduced Ordered: Other (Chac[place] tape applied) Progress/Results/Core Measures Results/Orders My Orders Orders - COURTNEY RESENDIZ DO Hand 3 View Left (4/30/21 13:13) Chest Pa/Lat (2 View) (03/16/21 13:13) Finger(S) (03/16/21 13:50) Vital Signs/I&O 03/16/21 03/16/21 13:14 13:16 Temp 36.4 36.4 Pulse 114 114 Resp 18 18 B/P (MAP) 107/58 (74) 107/58 (74) Pulse Ox 97 97 O2 Delivery Room Air Blood Pressure Mean: 74 Departure Communication (Admissions) Chest x-ray: No obvious fracture or pneumothorax. Left hand: Dislocation of left ring finger Postreduction left hand: Successful relocation without evidence of fracture Patient with dislocation of left ring finger successfully reduced with traction countertraction with no anesthesia required in the emergency department. Impression Primary Impression: Dislocation of left index finger Additional Impression: Contusion, chest wall Disposition: 01 HOME, SELF-CARE Condition: Stable Departure-Patient Inst. Decision time for Depature: 13:58 Referrals: HECTOR MERCADO MD (PCP/Family) Primary Care Physician Patient Instructions: Finger Dislocation Add. Discharge Instructions: Please wear finger tape for the next 3 to 5 days and follow-up with your PCP as needed. Return to the ED if new or worsening symptoms. All discharge instructions reviewed with patient and/or family. Voiced understanding. COURTNEY RESENDIZ DO Mar 16, 2021 13:57
--- NOTE | 2021-03-16 14:16 | Diagnostic Imaging Report ---
History: Post reduction of the left 4th finger COMPARISON: 03/16/2021 TECHNIQUE: Frontal view of the left hand. Frontal, oblique and lateral views of the left 4th finger FINDINGS: Alignment of the left 4th finger is markedly improved and appears anatomic. There is a small chip fracture at the lateral side of the left 4th finger proximal interphalangeal joint. There is surrounding soft tissue edema. No other fractures are seen. IMPRESSION: 1. Successful reduction of the left 4th finger proximal interphalangeal joint with small adjacent chip fracture. Dictated by: Dictated on workstation # [id number]
== END 2021-03-16 14:02 | disposition home or self-care (01) ==
LOC: EDUNIT# 13:04 → ER FS 13:06
DX: S20.211A Contusion of right front wall of thorax, initial encounter (principal); S63.251A Unspecified dislocation of left index finger, initial encounter; I10 Essential (primary) hypertension; E11.9 Type 2 diabetes mellitus without complications; E03.9 Hypothyroidism, unspecified; Z88.5 Allergy status to narcotic agent; Z79.84 Long term (current) use of oral hypoglycemic drugs; Z79.890 Hormone replacement therapy; Z79.899 Other long term (current) drug therapy; W19.XXXA Unspecified fall, initial encounter
CPT/HCPCS: 71046; 73130; 73140

== ENCOUNTER → 2021-03-29 | Outpatient (CLI) | payer MEDICARE ==
[2021-03-29 14:31] LABS: WHITE BLOOD COUNT 6.4 10^3/uL (4.3-11.0)
[2021-03-29 14:32] LABS: BASOPHILS % (AUTO) 1 % (0-10); EOSINOPHILS % (AUTO) 1 % (0-10); HEMATOCRIT 41 % (40-54); HEMOGLOBIN 12.9 G/DL (13.3-17.7); LYMPHOCYTES # (AUTO) 2.3 X 10^3 (1.0-4.0); LYMPHOCYTES % (AUTO) 35 % (12-44); MEAN CORPUSCULAR HEMOGLOBIN 33 PG (25-34); MEAN CORPUSCULAR HGB CONC 32 G/DL (32-36); MEAN CORPUSCULAR VOLUME 104 FL (80-99); MEAN PLATELET VOLUME 9.6 FL (7.4-10.4); MONOCYTES % (AUTO) 7 % (0-12); NEUTROPHILS # (AUTO) 3.6 X 10^3 (1.8-7.8); NEUTROPHILS % (AUTO) 56 % (42-75); PLATELET COUNT 252 10^3/uL (130-400)
[2021-03-29 14:33] LABS: BASOPHILS # (AUTO) 0.1 10^3/uL (0.0-0.1); EOSINOPHILS # (AUTO) 0.1 10^3/uL (0.0-0.3); MONOCYTES # (AUTO) 0.4 X 10^3 (0.0-1.0)
[2021-03-29 15:42] LABS: BILIRUBIN,TOTAL 0.3 MG/DL (0.1-1.0); CALCIUM 9.4 MG/DL (8.5-10.1); CREATININE SERUM 1.65 MG/DL (0.60-1.30); POTASSIUM 4.3 MMOL/L (3.6-5.0); TOTAL PROTEIN 6.7 GM/DL (6.4-8.2)
== END ==
LOC: LAB FS 13:50
PROVIDERS: ATTEND Family Medicine
DX: D50.9 Iron deficiency anemia, unspecified (principal); E11.9 Type 2 diabetes mellitus without complications; E03.9 Hypothyroidism, unspecified
CPT/HCPCS: 36415; 80053; 80061; 83036; 84443; 85025

== ENCOUNTER → 2021-05-01 | Outpatient (CLI) | payer MEDICARE ==
[2021-05-01 09:53] LABS: POTASSIUM 4.2 MMOL/L (3.6-5.0)
[2021-05-01 09:54] LABS: CALCIUM 9.3 MG/DL (8.5-10.1); CREATININE SERUM 1.45 MG/DL (0.60-1.30)
[2021-05-01 10:07] LABS: HEMATOCRIT 39 % (40-54); HEMOGLOBIN 12.2 G/DL (13.3-17.7); MEAN CORPUSCULAR HEMOGLOBIN 33 PG (25-34); MEAN CORPUSCULAR HGB CONC 32 G/DL (32-36); MEAN CORPUSCULAR VOLUME 105 FL (80-99); WHITE BLOOD COUNT 6.5 10^3/uL (4.3-11.0)
[2021-05-01 10:08] LABS: BASOPHILS % (AUTO) 0 % (0-10); EOSINOPHILS % (AUTO) 2 % (0-10); LYMPHOCYTES % (AUTO) 39 % (12-44); MEAN PLATELET VOLUME 10.4 FL (7.4-10.4); MONOCYTES % (AUTO) 7 % (0-12); NEUTROPHILS % (AUTO) 51 % (42-75); PLATELET COUNT 238 10^3/uL (130-400)
[2021-05-01 10:09] LABS: EOSINOPHILS # (AUTO) 0.2 10^3/uL (0.0-0.3); LYMPHOCYTES # (AUTO) 2.5 X 10^3 (1.0-4.0); MONOCYTES # (AUTO) 0.4 X 10^3 (0.0-1.0); NEUTROPHILS # (AUTO) 3.3 X 10^3 (1.8-7.8)
== END ==
LOC: LAB FS 08:17
PROVIDERS: ATTEND Family Medicine
DX: N18.9 Chronic kidney disease, unspecified (principal)
CPT/HCPCS: 36415; 80048; 85025

== ENCOUNTER 2021-07-02 05:39 | Outpatient (CLI) | payer MEDICARE ==
[~2021-07-02] VITALS: Ht 170.2 cm; Wt 65.2 kg
[2021-07-02] MEDS ORDERED: CHOL400C9 PO (14:25)
[2021-07-02] MEDS ORDERED: DULA1.5P2 SQ (14:25)
== END 2021-07-03 08:42 | disposition home or self-care (01) ==
LOC: PREOP 05:39
PROVIDERS: ATTEND Surgery
DX: Z01.818 Encounter for other preprocedural examination (principal)

== ENCOUNTER → 2021-07-06 | Outpatient (CLI) | payer MEDICARE ==
[~2021-07-06] MED LIST changes: +CHOL400C9 PO; +DULA1.5P2 SQ
== END ==
LOC: LAB FS 10:10
PROVIDERS: ATTEND Surgery
DX: Z01.812 Encounter for preprocedural laboratory examination (principal); R19.7 Diarrhea, unspecified; R63.4 Abnormal weight loss; Z20.822 Contact with and (suspected) exposure to COVID-19
CPT/HCPCS: 87635

== ENCOUNTER → 2021-07-06 | Outpatient (CLI) | payer MEDICARE ==
--- NOTE | 2021-07-06 13:22 | Diagnostic Imaging Report ---
Clinical indications: Patient with malignant neoplasm of the nasal cavity. EXAM: CT scan of the head and neck performed without IV contrast. Sagittal and coronal reformations were created for better visualization of vascular anatomy. Comparison: None. Findings: There is motion artifact which limits evaluation of some portions of this exam. Head CT: There is no evidence of acute cerebral infarct, intracranial hemorrhage, or gross mass effect. There is brain parenchymal volume loss seen. There are patchy and confluent areas of low-attenuation white matter changes involving both cerebral hemispheres, likely representing chronic small vessel ischemic disease leukoaraiosis. There is normal butler-white matter distinction. There is no significant midline shift or herniation. 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 There is no evidence of hydrocephalus. The basal cisterns are unremarkable. Infrahyoid strap muscles of the right side more prominent than the left side. There is a small area of thickening seen posteriorly adjacent right thyrohyoid membrane region which is seen on the CT neck axial sequence #38 and sagittal reformatted image #34. It is possible that these findings may be related to slight atrophy of the left infrahyoid strap muscles. Comparison to prior imaging would better evaluate for chronicity of this finding. There is no cervical lymphadenopathy. There is fatty infiltration of the salivary glands and submandibular glands. Thyroid gland is small in size which may be from posttreatment and postoperative changes. There is atrophy with thinning of the right mylohyoid muscle and anterior bellies of the digastric muscles bilaterally. There is peripheral consolidation and thickening involving the posterior aspect of the sphenoid sinus. There is erosive changes and heterogeneous bone involving the clivus and adjacent to the sphenoid sinus most pronounced posteriorly. There is cortical bony loss involving the ventral and dorsal aspect of the basal sphenoid/clivus region. There is no significant masslike soft tissue adjacent to the clivus. There is mild mucosal thickening involving the ethmoid sinus. There is thin mucosal involving the nasal cavity with no mass or changes seen. There is subtle leftward nasal septal deviation. The ostiomeatal unit regions are patent. The orbits and globes are intact. There are cervical spine degenerative spurs. IMPRESSION: 1: There are bony erosive changes with sclerosis involving the base the sphenoid sinus clivus region with cortical disruption. There is sclerosis and erosive changes involving the skull base near the sphenoid sinus. There is no measurable soft tissue mass adjacent to the clivus. There is consolidation involving the periphery posterior aspect of the sphenoid sinus in the regions of erosions. Besides these findings, there is no measurable mass seen in the region. These findings may be related to prior posttreatment changes such as radiation changes/radiation necrosis or prior tumor infiltration changes. Underlying neoplastic changes involving the basisphenoid bony erosions and sphenoid sinus region cannot be completely excluded. Comparison to prior imaging would better evaluate. If necessary, MRI of the maxillofacial structures with and without IV contrast may help better evaluate this region. 2: There is asymmetry of the head and neck musculature, as described above with no measurable mass seen in the regions. There is no neck lymphadenopathy. 3: There is fatty infiltration of the salivary glands which may be from post treatment changes. 4: There is small sized thyroid gland which may related to postoperative or posttreatment changes. Dictated by: Dictated on workstation # [id number]
== END ==
LOC: RAD FS 10:16
PROVIDERS: ATTEND Surgery
DX: C30.0 Malignant neoplasm of nasal cavity (principal)
CPT/HCPCS: 70450; 70490

== ENCOUNTER → 2021-07-09 | Day surgery (SDC) | payer MEDICARE ==
[~2021-07-09] VITALS: Ht 170.2 cm; Wt 65.2 kg
[~2021-07-09] MED LIST changes: +HURRICAINE EXT TUBE (BENZOCAINE) XX PRN; +LACTATED RINGERS 1,000 ML IV STA; +PHENYLEPHRINE 100 MCG/ML 10 ML (ANESTHESIA) SYR ONE; +PROPOFOL INJECTION 50 ML IV ONE
[2021-07-09 08:20] VITALS: BP 114/79
--- NOTE | 2021-07-09 09:16 | Progress Note-Pre Operative ---
Pre-Operative Progress Note H&P Reviewed The H&P was reviewed, patient examined and no changes noted. Time Seen by Provider: 08:13 Date H&P Reviewed: Jul 09, 2021 Time H&P Reviewed: 08:13 Pre-Operative Diagnosis: N/V, diarrhea, weight loss, screening colon TEJ BURRELL DO Jul 09, 2021 09:16
[2021-07-09 10:00] VITALS: BP_SYST 112; BP_SYST 94; BP_DIAS 53; BP_DIAS 65
--- NOTE | 2021-07-09 10:04 | Progress Note-Post Operative ---
Post-Operative Progess Note Surgeon (s)/Fuel Operator (s) Surgeon TEJ BURRELL DO Fuel Operator: Awais Blair, MSIII Pre-Operative Diagnosis N/V, diarrhea, weight loss, screening colon Post-Operative Diagnosis Gastritis Hiatal Hernia Polyps Int hemorrhoids Procedure & Operative Findings Date of Procedure 07/09/21 Procedure Performed/Findings EGD with bx Colonoscopy with hot bx PROCEDURE NOTE: After informed consent was obtained, the patient was brought to the endoscopy suite, placed in bed in left lateral decubitus position. He was administered IV sedation by the EXECUTIVE PRODUCER PROMOS who then monitored vitals the entire time, heart rate, blood pressure and pulse ox and the scope was inserted down the mouth through the esophagus into the stomach. On the way down, noted some mild esophagitis, took a picture, pushed into the stomach, pushed past the antrum into the duodenum. Duodenum looked mildly inflamed. Pulled back and did a biopsy of antrum, then retroflexed the scope, saw a small hiatal hernia, took a picture of this and then did a biopsy of the body of the stomach. Then pulled the scope into the GE junction and then did a biopsy of the GE junction. While in the stomach I was able to visualize the site of previous PEG tube and took a picture. Pushed the scope back into the stomach, suctioned all the air out of the stomach. At this point pulled the scope up the esophagus and out the mouth. Switched camera, switched gloves, went down below, started the colonoscopy. Pushed all the way into about 150 cm to get all the way to cecum. On the way in noted polyps in the descending and ascending colon and elected to do hot biopsies as I found them. Once in the cecum I took a picture of the appendiceal orifice, noted the ileocecal valve and then slowly withdrew the scope. Insufflating to look circumferentially at the miller starting in the cecum, up the ascending colon to the hepatic flexure, then down the transverse colon. Another polyp seen in the transverse colon and another hot biopsy done. Then continued down to the splenic flexure, into the descending colon, down into the sigmoid and finally into the rectum, saw some minimal internal hemorrhoids as I pulled the scope out and took a picture of them. The patient tolerated the procedure and he recovered in the endoscopy suite. Anesthesia Type IV sedation by EXECUTIVE PRODUCER PROMOS Estimated Blood Loss Estimated blood loss (mL): scant Specimens/Packing Specimens Removed antral bx body of stomach bx GE jxn bx Asc, Transverse, Desc colon polyps TEJ BURRELL DO Jul 09, 2021 10:04
[2021-07-09 10:05] VITALS: BP 94/53
--- NOTE | 2021-07-09 10:06 | Endoscopy Discharge Instruct ---
Endo Procedure/Findings Findings 1.: Gastritis 2.: Hiatal Hernia 3.: Polyp 4.: Internal Hemorrhoids Discharge Instructions - Activity: You might feel a little sleepy until tomorrow. This is due to the medicine you received to relax you. Until tomorrow, you should: NOT drive a car, operate machinery or power tools. NOT drink any alcoholic beverages. NOT make any important decisions or sign importortant papers. Do not return to work until tomorrow, unless otherwise instructed. Resume previous activities tomorrow. Diet: Start by taking liquids. If you tolerate liquids, advance to solid food. 1.: EGD in 3 years 2.: Colonscopy in 5 years Notify Physician - If you experience excessive bleeding, unusual abdominal pain, fever, or chest pain, contact your doctor immediately. TEJ BURRELL DO Jul 09, 2021 10:06
[2021-07-09 10:10] VITALS: BP 112/65
[2021-07-09 10:30] VITALS: BP 119/84
[2021-07-09 10:50] VITALS: BP 119/84
--- NOTE | 2021-07-09 11:17 | Anesthesia-General Post-Op ---
MAC Patient Condition Mental Status/LOC: Same as Preop Cardiovascular: Satisfactory Nausea/Vomiting: Absent Respiratory: Satisfactory Pain: Controlled Complications: Absent Post Op Complications Complications None Follow Up Care/Instructions Patient Instructions None needed. Anesthesiology Discharge Order Discharge Order Patient is doing well, no complaints, stable vital signs, no apparent adverse anesthesia problems. No complications reported per nursing. JACKIE MARES CRNA Jul 09, 2021 11:17
== END ==
LOC: ENDO 06:48
PROVIDERS: ATTEND Surgery
DX: K29.50 Unspecified chronic gastritis without bleeding (principal); K22.70 Barrett's esophagus without dysplasia; D12.4 Benign neoplasm of descending colon; D12.2 Benign neoplasm of ascending colon; D12.3 Benign neoplasm of transverse colon; K44.9 Diaphragmatic hernia without obstruction or gangrene; K64.8 Other hemorrhoids; K20.90 Esophagitis, unspecified without bleeding; R19.7 Diarrhea, unspecified; I10 Essential (primary) hypertension; E78.5 Hyperlipidemia, unspecified; K21.9 Gastro-esophageal reflux disease without esophagitis; E03.9 Hypothyroidism, unspecified; E11.9 Type 2 diabetes mellitus without complications; Z79.899 Other long term (current) drug therapy; Z20.822 Contact with and (suspected) exposure to COVID-19; Z79.84 Long term (current) use of oral hypoglycemic drugs; Z79.890 Hormone replacement therapy
CPT/HCPCS: 82947; 87636; 88305

== ENCOUNTER → 2021-07-25 | Outpatient (CLI) | payer MEDICARE ==
[~2021-07-25] MED LIST changes: -HURRICAINE EXT TUBE (BENZOCAINE) XX PRN; -LACTATED RINGERS 1,000 ML IV STA; -PHENYLEPHRINE 100 MCG/ML 10 ML (ANESTHESIA) SYR ONE; -PROPOFOL INJECTION 50 ML IV ONE
--- NOTE | 2021-07-25 16:11 | Diagnostic Imaging Report ---
INDICATION: Left thumb injury. FINDINGS: Three views of the left thumb show a chronic appearing subluxation of the 1st MCP joint. This appears to have been present on the prior exam dated 03/16/2021. There is no acute fracture or dislocation. IMPRESSION: Degenerative changes of the 1st MCP joint with mild chronic subluxation. No acute abnormality is seen. Dictated by: Dictated on workstation # [id number]
== END ==
LOC: RAD FS 14:54
PROVIDERS: ATTEND Registered Nurse Emergency
DX: M18.12 Unilateral primary osteoarthritis of first carpometacarpal joint, left hand (principal)
CPT/HCPCS: 73140

== ENCOUNTER → 2021-08-09 | Outpatient (CLI) | payer MEDICARE ==
[~2021-08-09] MED LIST changes: +GADOBUTROL 7.5 MMOL/7.5 ML (GADAVIST) VIAL IV ONE
--- NOTE | 2021-08-09 17:29 | Diagnostic Imaging Report ---
PROCEDURE: MRI neck with and without contrast. TECHNIQUE: Multiplanar, multisequence MRI of the neck was performed with and without contrast. INDICATION: History of head and neck cancer. Lump anterior neck. COMPARISON: CT neck without contrast 07/06/2021. FINDINGS: Examination is limited by motion. Again noted is the atrophy of the right fruit farmer. No mass or fluid collection is seen in the neck given the limitations. No cervical lymphadenopathy. The pharynx and larynx demonstrate no suspicious focal enhancement. Normal floor of the mouth, tongue base, epiglottis and retropharyngeal space. Normal bone marrow signal in the cervical spine. Abnormal T1/T2 hypointensity about the sphenoid sinuses and upper clivus with mild enhancement and regions of cystic change corresponding to erosive changes seen on the comparison CT exam. No intracranial extension is identified. Mild mucosal thickening in the ethmoid and sphenoid sinuses. Major vessels in the neck are grossly patent. Diminutive thyroid. Fatty replacement of the major salivary glands. Lung apices are unremarkable. IMPRESSION: 1. Examination was limited by motion. No mass, fluid collection or lymphadenopathy is identified in the neck. 2. Abnormal T1/T2 signal, mild enhancement and cystic changes about the sphenoid sinus and involving the upper clivus is indeterminate. Given history of head and neck malignancy, metastatic disease cannot be excluded. This could also be due to an infectious process or post therapeutic change. Recommend correlation with history, prior therapy and prior outside imaging. No intracranial extension is identified. 3. Atrophy of the right fruit farmer and fatty replacement of the major salivary glands may be post therapeutic. Dictated on workstation # [id number]
--- NOTE | 2021-08-09 17:31 | Diagnostic Imaging Report ---
PROCEDURE: MR imaging of the brain with and without contrast. TECHNIQUE: Multiplanar, multisequence MR imaging of the brain was performed with and without contrast. INDICATION: History of head and neck cancer. COMPARISON: CT head without contrast 07/06/2021. FINDINGS: Moderate to advanced generalized parenchymal volume loss. Moderate nonspecific T2 hyperintensities in the supratentorial white matter compatible with chronic small vessel ischemic change. No abnormal intracranial enhancement. No restricted water diffusion. No hemosiderin deposition or evidence of intracranial hemorrhage. Normal morphology including the major midline structures, sella, posterior fossa and cerebellar pontine angle. No hydrocephalus or extra-axial fluid collection. Normal intracranial flow voids. Postoperative changes in the globes. Mild mucosal thickening in the ethmoid and sphenoid sinuses. Erosive changes about the right sphenoid sinus with associated enhancement and cystic change corresponding to the findings on the CT exam. No intracranial extension of the abnormal signal or enhancement is identified. The mastoids are clear. Normal bone marrow signal. IMPRESSION: 1. Enhancement and cystic change about the sphenoid sinuses and involving the superior clivus are indeterminate. Given the history of head and neck cancer, metastatic disease cannot be excluded. An infectious process could have a similar appearance. There is no extraosseous extension or intracranial extension identified. No involvement of the cavernous sinuses is seen. The contents of the sella are normal in appearance. 2. Moderate to advanced generalized parenchymal volume loss and moderate chronic small vessel ischemic change. No findings specific for intracranial metastases. Dictated on workstation # [id number]
== END ==
LOC: RAD 14:00
PROVIDERS: ATTEND Internal Medicine Hematology & Oncology
DX: I67.82 Cerebral ischemia (principal); G31.9 Degenerative disease of nervous system, unspecified; R22.1 Localized swelling, mass and lump, neck; Z85.818 Personal history of malignant neoplasm of other sites of lip, oral cavity, and pharynx
CPT/HCPCS: 70543; 70553

== ENCOUNTER → 2021-08-30 | Outpatient (CLI) | payer MEDICARE ==
[~2021-08-30] MED LIST changes: +GADOBUTROL 15 MMOL/15 ML (GADAVIST) VIAL IV ONE; -GADOBUTROL 7.5 MMOL/7.5 ML (GADAVIST) VIAL IV ONE
--- NOTE | 2021-08-30 12:58 | Diagnostic Imaging Report ---
CLINICAL INDICATION: Patient has lump on left side anterior neck area. Patient has history of previous nasopharyngeal cancer. EXAM: MRI of the brain performed without and with 6 cc of Gadavist IV contrast. Sequences include axial DWI, ADC map, axial gradient echo, axial T2, axial FLAIR, axial T1, axial T1 post IV contrast, coronal T1 fat-sat post IV contrast, and sagittal T1 post IV contrast. COMPARISON: MRI of the brain performed without and with IV contrast dated 08/09/2021. FINDINGS: There is no evidence of acute cerebral infarct, intracranial hemorrhage, or gross mass effect. There is diffuse brain parenchymal volume loss again seen. There are multiple focal, patchy and confluent areas of high T2 signal white matter changes seen throughout both cerebral hemispheres, likely related to chronic small vessel ischemic disease. These findings have not significantly changed in the interim. There is normal butler-white matter distinction. There is no significant midline shift or herniation. Again noted dolichoectasia of the vertebrobasilar artery. There is stable encroachment upon the anterior aspect of the brainstem medulla due to the tortuous vertebral arteries. The [place] vascular structures show no gross abnormality as visualized. The pituitary gland, sella, and suprasellar regions are unremarkable as visualized. There is no evidence of hydrocephalus. The basal cisterns are unremarkable. There is no significant change to the low T1 signal and hypoenhancement involving the clivus/posterior to the sphenoid sinus. Otherwise, the skull, extracranial soft tissue, and orbits are unremarkable. There is mild mucosal thickening involving the ethmoid sinus and sphenoid sinus. There is small amount of fluid in the left mastoid air cells. Temporal bones show no significant abnormality. IMPRESSION: 1: Stable MRI of the brain with no evidence of developing abnormal IV contrast enhancement. There is no developing metastatic disease. 2: Stable low T1 and hypoenhancing area involving the clivus which is nonspecific. 3: Stable age-related brain parenchymal changes. Dictated by: Dictated on workstation # [id number]
--- NOTE | 2021-08-30 13:34 | Diagnostic Imaging Report ---
CLINICAL INDICATION: Patient with lump in anterior left side of neck area. Patient has history of nasopharyngeal cancer. EXAM: MRI of the neck performed without and with 6 mL of Gadavist IV contrast. Sequences include axial T1, axial T2, axial T1 fat-sat, coronal T1, coronal T2 fat-sat, sagittal T2 fat-sat, sagittal T1, coronal T1 fat-sat post IV contrast, axial T1 fat-sat post IV contrast, sagittal T1 fat-sat post IV contrast. COMPARISON: MRI of the neck with and without contrast dated 08/09/2021. FINDINGS: There is stable appearance of the heterogeneous clivus with an area of low T1 signal near the sphenoid sinus. There is stable peripheral enhancement adjacent to the low T1 signal area involving the clivus. There is no definitive measurable mass seen. There is no significant change to mild mucosal thickening involving the sphenoid sinus. There is stable mild enhancing soft tissue involving the roof of the nasopharynx which is just below the sphenoid sinus seen on the lateral view which is stable and there is no measurable mass seen. The remainder of this exam is stable. Fatty infiltration of the bilateral parotid and submandibular glands are again noted. Small sized thyroid gland is again noted. The oropharynx, hypopharynx, laryngeal soft tissue structures are stable and unremarkable. The oral cavity, tongue, sublingual and submandibular regions are unremarkable. There is no neck lymphadenopathy. There is no neck soft tissue mass along the left side of the neck seen on this exam. Stable cervical spine degenerative disease. Limited visualization of the intracranial structures show no significant interval abnormality. IMPRESSION: 1.: There is stable MRI of the neck with no developing mass or lymphadenopathy. 2: Stable heterogeneity with low density and peripheral enhancement involving the clivus posteriorly adjacent to the sphenoid sinus. Unknown if this is related to prior posttreatment changes or residual disease. Comparison to remote imaging of the head and neck from outside facility would help better evaluate for stability. 3: The remainder of this exam shows no significant interval change compared to the prior study of comparison. Dictated by: Dictated on workstation # [id number]
== END ==
LOC: RAD 09:30
PROVIDERS: ATTEND Internal Medicine Hematology & Oncology
DX: R22.1 Localized swelling, mass and lump, neck (principal); G31.1 Senile degeneration of brain, not elsewhere classified; Z85.818 Personal history of malignant neoplasm of other sites of lip, oral cavity, and pharynx
CPT/HCPCS: 70543; 70553

== ENCOUNTER 2021-09-06 13:03 | Outpatient (RCR) | payer MEDICARE ==
[2021-08-03 10:23] LABS: BASOPHILS % (AUTO) 1 % (0-10); EOSINOPHILS # (AUTO) 0.2 10^3/uL (0.0-0.3); EOSINOPHILS % (AUTO) 3 % (0-10); HEMATOCRIT 39 % (40-54); HEMOGLOBIN 12.3 g/dL (13.3-17.7); LYMPHOCYTES # (AUTO) 2.1 10^3/uL (1.0-4.0); LYMPHOCYTES % (AUTO) 31 % (12-44); MEAN CORPUSCULAR HEMOGLOBIN 34 pg (25-34); MEAN CORPUSCULAR HGB CONC 31 g/dL (32-36); MEAN CORPUSCULAR VOLUME 109 fL (80-99); MEAN PLATELET VOLUME 9.8 fL (9.0-12.2); MONOCYTES # (AUTO) 0.5 10^3/uL (0.0-1.0); MONOCYTES % (AUTO) 8 % (0-12); NEUTROPHILS # (AUTO) 3.9 10^3/uL (1.8-7.8); NEUTROPHILS % (AUTO) 58 % (42-75); PLATELET COUNT 190 10^3/uL (130-400); WHITE BLOOD COUNT 6.8 10^3/uL (4.3-11.0)
[2021-08-03 10:45] LABS: ALBUMIN 4.2 GM/DL (3.2-4.5); BILIRUBIN,TOTAL 0.4 MG/DL (0.1-1.0); CREATININE SERUM 1.99 MG/DL (0.60-1.30); POTASSIUM 4.2 MMOL/L (3.6-5.0); TOTAL PROTEIN 6.9 GM/DL (6.4-8.2)
[2021-08-10 12:13] LABS: BASOPHILS # (AUTO) 0.1 10^3/uL (0.0-0.1); BASOPHILS % (AUTO) 1 % (0-10); EOSINOPHILS # (AUTO) 0.1 10^3/uL (0.0-0.3); EOSINOPHILS % (AUTO) 2 % (0-10); HEMATOCRIT 37 % (40-54); HEMOGLOBIN 11.6 g/dL (13.3-17.7); LYMPHOCYTES # (AUTO) 1.9 10^3/uL (1.0-4.0); LYMPHOCYTES % (AUTO) 32 % (12-44); MEAN CORPUSCULAR HEMOGLOBIN 34 pg (25-34); MEAN CORPUSCULAR HGB CONC 32 g/dL (32-36); MEAN CORPUSCULAR VOLUME 108 fL (80-99); MEAN PLATELET VOLUME 9.9 fL (9.0-12.2); MONOCYTES # (AUTO) 0.4 10^3/uL (0.0-1.0); MONOCYTES % (AUTO) 7 % (0-12); NEUTROPHILS # (AUTO) 3.3 10^3/uL (1.8-7.8); NEUTROPHILS % (AUTO) 57 % (42-75); PLATELET COUNT 199 10^3/uL (130-400); WHITE BLOOD COUNT 5.8 10^3/uL (4.3-11.0)
[2021-08-10 12:49] LABS: ALBUMIN 3.8 GM/DL (3.2-4.5); BILIRUBIN,TOTAL 0.2 MG/DL (0.1-1.0); CALCIUM 9.4 MG/DL (8.5-10.1); CREATININE SERUM 1.86 MG/DL (0.60-1.30); POTASSIUM 4.4 MMOL/L (3.6-5.0); TOTAL PROTEIN 6.4 GM/DL (6.4-8.2)
[~2021-09-06 13:03] MED LIST changes: -CITA40TA11 PO; +CITA40TA13 PO; -GADOBUTROL 15 MMOL/15 ML (GADAVIST) VIAL IV ONE; +MONT-40 PO; -MONT10TA32 PO
== END 2021-11-01 | disposition home or self-care (01) ==
LOC: ONC 13:03
PROVIDERS: ATTEND Internal Medicine Hematology & Oncology
DX: C11.9 Malignant neoplasm of nasopharynx, unspecified (principal); E11.9 Type 2 diabetes mellitus without complications; E03.9 Hypothyroidism, unspecified; Z79.84 Long term (current) use of oral hypoglycemic drugs
CPT/HCPCS: 80053; 85025; G0463; 99213; 99214

== ENCOUNTER → 2021-10-19 | Outpatient (CLI) | payer MEDICARE | LOC: LAB FS 13:10 | PROVIDERS: ATTEND Family Medicine | DX: E11.9 Type 2 diabetes mellitus without complications (principal) | CPT/HCPCS: 36415; 83036 ==